=== PATIENT | female | born 1930 | race Caucasian/White ===

== ENCOUNTER 2016-04-10 15:55 | Inpatient (IN) | payer MEDICARE, OTHER ==
[2016-04-10 17:45] LABS: Hematocrit 40 % (35-47); Hemoglobin 13.2 g/dl (12.0-16.0); Mean Corpuscular HGB Conc 33 g/dl (31-36); Mean Corpuscular Hemoglobin 30 pg (27-31); Mean Corpuscular Volume 91 fL (80-97); Mean Platelet Volume 8 um3 (7.4-10.4); Red Blood Count 4.36 10^6/ul (4.0-5.4); Red Cell Distribution Width 13 % (10.5-15); White Blood Count 10.8 10^3/ul (3.5-10.8)
[2016-04-10 17:58] LABS: Albumin 4.2 g/dL (3.2-5.2); BUN/Creatinine Ratio 16.9 (8-20); C Reactive Protein 1.56 mg/L (< 5.00); Calcium 9.2 mg/dL (8.6-10.3); EGFR Non-African American 65.3 (>60); Potassium 3.7 mmol/L (3.5-5.0); Total Bilirubin 0.5 mg/dL (0.2-1.0); Total Protein 7.2 g/dL (6.4-8.9)
[2016-04-10 18:00] LABS: Troponin I 0.01 ng/mL (<0.04)
[2016-04-10 18:12] LABS: TSH (Thyroid Stimulating Horm) 1.85 mcIU/mL (0.34-5.60)
--- NOTE | 2016-04-10 18:45 | RAD ---
S. Prior study is not available for review. Ventricular structures are midline. No midline shift is noted. The extra-axial spaces are prominent consistent with age-related atrophy. There is no evidence of intracranial mass or hemorrhage. No other high or low density lesions are identified. Mastoid air cells and paranasal sinuses are unremarkable. IMPRESSION: No intracranial mass or hemorrhage is noted.
--- NOTE | 2016-04-10 18:46 | RAD ---
Indication: Vertigo. Single frontal view of the chest performed at 1807 hours was reviewed. Comparison is made with previous exam dated December 26, 2011. No mediastinal shift is noted. Heart is of normal size and configuration. Lung french appear clear. IMPRESSION: NO ACTIVE CARDIOPULMONARY DISEASE IS NOTED.
[2016-04-10 19:21] LABS: Urine Bacteria Absent (Absent); Urine Bilirubin Negative (Negative); Urine Glucose Negative (Negative); Urine Nitrite Negative (Negative)
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
[2016-04-11] MEDS: predniSONE TAB* 20 MG PO SCH ×2 (00:01→08:54)
[2016-04-11] MEDS: Aspirin EC Low Dose* 81 MG TAB.EC PO SCH ×4 (00:01→18:04)
[2016-04-11 04:32] LABS: Erythrocyte Sed Rate 18 mm/Hr (0-40)
[2016-04-11] MEDS: Heparin VIAL(*) 5000 UNITS/ML VIAL (FIVE THOUSAND) SUBCUT SCH ×3 (05:16→21:33)
[2016-04-11 06:05] LABS: HDL Cholesterol 39.6 mg/dL
--- NOTE | 2016-04-11 06:10 | HP ---
HISTORY AND PHYSICAL: DATE OF ADMISSION: 04/10/16 CHIEF COMPLAINT: Dizziness and being off balance. HISTORY OF PRESENT ILLNESS: The patient is an 85-year-old woman whose home health helper came to her house and found that she was dizzy, had a very bad headache, and was leaning to the left and holding on to the wall. They called Dr. Sweeney's office and made an appointment, and they saw Dr. Verduzco. They realized she was not actually feeling right yesterday and was somewhat dizzy. She had a flare of polymyalgia a few weeks ago, was on 10 days of prednisone, which was stopped. The pain is now back. She was somewhat off balance yesterday, but not to the degree she was today. At Dr. Verduzco's office, she was found to have a dysconjugate gaze and was concerned about a possible stroke. Also, because of her history of PMR, he was concerned that there could be some temporal arteritis. The patient currently does feel improved, but does state she still feels a bit off. She denies any chest pain, shortness of breath , or palpitations. Her headache has resolved. She does not feel dizzy right now. PAST MEDICAL HISTORY: She has a past medical history significant for hypertension, hyperlipidemia, herpes labialis, dyspepsia, allergic rhinitis, constipation, polyps of the colon, insomnia, dysthymia, and classic migraine. PAST SURGICAL HISTORY: Significant for rotator cuff repair, appendectomy, hysterectomy, and laminectomy. MEDICATIONS: Current medications are as follows: 1. Pravastatin 10 mg daily. 2. Omeprazole 20 mg daily. 3. Losartan 100 mg daily. 4. Clarinex 5 mg daily. 5. Amlodipine 10 mg daily. ALLERGIES: She has allergy or adverse effect to PENICILLIN, SULFA, CODEINE, COUMADIN, MORPHINE, DILAUDID, SHELLFISH, and SIMVASTATIN. FAMILY HISTORY: Sister with high cholesterol, brother with colon cancer, sister with ovarian cancer, another sister with breast cancer, and another brother with lymphoma. SOCIAL HISTORY: No tobacco, occasional alcohol. No recreational drug use. 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 She is a , with 3 children. Her daughter, Anitha Serna, [phone], is her healthcare proxy. REVIEW OF SYSTEMS: A 14-point review of systems was completed with the patient. All pertinent positives and negatives are in the history of present illness, otherwise it is negative. PHYSICAL EXAMINATION GENERAL: A very pleasant woman, lying in bed, in no acute distress. VITAL SIGNS: Temperature 98.4 degrees, heart rate 78 beats per minute, respiratory rate 16 breaths per minute, pulse ox 97%, blood pressure 108/61. HEENT: Normocephalic and atraumatic. Pupils are equal, round, and reactive to light. Moist mucous membranes. NECK: Supple. No JVD, bruits, palpable thyroid or lymphadenopathy. CHEST: Clear to auscultation and percussion bilaterally. CARDIOVASCULAR: S1, S2 appreciated. ABDOMEN: Positive bowel sounds in all 4 quadrants. Soft, nontender, and nondistended. EXTREMITIES: No cyanosis, clubbing, or edema. +2 peripheral pulses bilaterally. NEUROLOGIC: Alert and oriented x3. Moves all extremities. Extraocular movements are intact. There is no evidence of pronator drift. Cranial nerves II through XII seem to be grossly intact. LABORATORY DATA: White count 10.8, hemoglobin 13.2, hematocrit 40, platelets 321. Sodium 127, potassium 3.7, chloride 94, CO2 of 25, BUN 14, creatinine 0.83 , glucose is 84. INR is 0.91. Urinalysis with trace wbc's, trace rbc's. Influenza is negative. EKG shows normal sinus rhythm at 69 beats per minute, normal axis, no ST-T wave changes. Brain CT shows no intracranial mass or hemorrhages noted. Chest x-ray shows no active cardiopulmonary disease noted. ASSESSMENT AND PLAN: 1. Temporal arteritis. I think this is the likely diagnosis of the patient. I will add a sed rate, but based on her history of PMR and now she states she has some headaches in the temporal area and some discomfort when she moves her eye in that area, although she has no jaw pain. I will start her on prednisone 60 mg daily. May get Neurology or Surgery to do a temporal biopsy on the patient as well. 2. Cerebrovascular accident. This could also be happening, especially with her dizziness which I do not think would be explained by temporal arteritis. It seems to have resolved, so may be she even had a transient ischemic attack. Nevertheless, I will get an MRI, transthoracic echocardiogram, and a carotid duplex in the morning. Again, Neurology consult may be of benefit. 3. Hypertension. Blood pressure is inadequately controlled, and we will need to adjust medications accordingly. 4. Hyperlipidemia. Continue with statin, check lipid profile in the morning. 5. FEN. N.p.o., awaiting swallowing study. 6. DVT prophylaxis. Heparin subcu. 7. The patient is a full code TIME SPENT: Over 80 minutes were spent on this H and P, more than 45 minutes were spent in direct face contact with the patient, in evaluation, physical exam , counseling, and coordination of care. CC: Dr. Ruy Sweeney.* [id number]/CPS #: [id number] ERVIN
[2016-04-11] MEDS: Losartan TAB* 25 MG PO SCH (08:54)
[2016-04-11] MEDS: Omeprazole CAP* 20 MG PO SCH (08:55)
[2016-04-11] MEDS: amLODIPine TAB* 5 MG PO SCH (08:55)
--- NOTE | 2016-04-11 09:16 | RAD ---
HISTORY: Stroke COMPARISONS: August 08, 2009 TECHNIQUE: Multiple transverse and longitudinal ultrasound images were obtained of the carotid and vertebral arteries bilaterally, using grayscale, color Doppler, and spectral Doppler imaging. FINDINGS: Measurement of carotid stenosis is based on flow velocity parameters that correlate the residual internal carotid artery diameter with [place] Symptomatic Carotid Endarterectomy Trial (NASCET)-based stenosis levels. RIGHT: Intima: There is mild diffuse intimal thickening. Velocities: Right internal carotid artery maximum peak systolic velocity: 85 cm/s Right common carotid artery maximum peak systolic velocity: 78 cm/s Right internal carotid artery/common carotid artery ratio: 1.1 Waveforms: There is no spectral broadening. Right Vertebral: The right vertebral artery flow is antegrade. LEFT: Intima: There is mild diffuse intimal thickening. Velocities: Left internal carotid artery maximum peak systolic velocity: 76 cm/s Left common carotid artery maximum peak systolic velocity: 72 cm/s Left internal carotid artery/common carotid artery ratio: 1.1 Waveforms: There is no spectral broadening. Left Vertebral: The left vertebral artery flow is antegrade. OTHER FINDINGS: None. IMPRESSION: 1. NO HEMODYNAMICALLY SIGNIFICANT STENOSIS OF THE RIGHT INTERNAL CAROTID ARTERY BY FLOW VELOCITY MEASUREMENTS. THIS CORRESPONDS TO A LUMINAL DIAMETER OF LESS THAN 50% STENOSIS BY NASCET CRITERIA. 2. NO HEMODYNAMICALLY SIGNIFICANT STENOSIS OF THE LEFT INTERNAL CAROTID ARTERY BY FLOW VELOCITY MEASUREMENTS. THIS CORRESPONDS TO A LUMINAL DIAMETER OF LESS THAN 50% STENOSIS BY NASCET CRITERIA. CPT II Codes: 3100F
--- NOTE | 2016-04-11 11:58 | ECHO ---
Patient: ADDIS TOLEDO [facility] Rec#: [id number] : 1930 Date: 04/11/2016 Age: 85y Height: 154.94 cm / 61.0 in Weight: 58.97 kg / 130.0 lbs Sex: F BSA: 1.57 Room#: 437 Admit Date#: 04/10/2016 Type: Inpatient Referring: Lyle Coughlin MD Reading: Samir Mendoza DO Hydraulic Press Operator: Romy Ghotra SHARA CC: Ruy Sweeney MD Transthoracic Echocardiogram Indication: CVA BP: 156/69 HR: 82 Rhythm: NSR with PACs Findings History: HTN,rheumatoid arthritis,polymyalgia. Admited with CVA. Technical Comments: The study quality is good. Completed at 1111. Left Ventricle: The left ventricular chamber size is normal. Septal wall hypertrophy is observed. Global left ventricular wall motion and contractility are within normal limits. There is normal left ventricular systolic function. The estimated ejection fraction is 55-60%. Abnormal left ventricular diastolic filling is observed, consistent with impaired relaxation. Left Atrium: The left atrium is mildly dilated. Right Ventricle: The right ventricular chamber size and systolic function are within normal limits. Right Atrium: The right atrial cavity size is normal. There is no patent foramen ovale visualized. A patent foramen ovale is not demonstrated with color Doppler and agitated contrast. Aortic Valve: The aortic valve is trileaflet. The aortic valve leaflets are mildly thickened. There is no evidence of aortic regurgitation. There is no evidence of aortic stenosis. Mitral Valve: The mitral valve leaflets appear normal. There is mild mitral regurgitation. There is no evidence of mitral stenosis. Tricuspid Valve: The tricuspid valve leaflets are normal. There is mild tricuspid regurgitation. There is evidence of mild pulmonary hypertension. There is no tricuspid stenosis. Pulmonic Valve: The pulmonic valve appears normal. There is a trace pulmonic regurgitation. There is no pulmonic stenosis. Pericardium: There is no significant pericardial effusion. Aorta: There is no dilatation of the ascending aorta. There is no dilatation of the aortic arch. There is no dilation of the aortic root. Pulmonary Artery: The main pulmonary artery is not well visualized. Venous: The venous system is not well visualized. Contrast: Normal saline was used as contrast for the bubble study. Intravenous contrast was used to help determine presence of intracardiac shunting. Conclusions The left ventricular chamber size is normal. Mild septal wall hypertrophy is observed. There is normal left ventricular systolic function. The estimated ejection fraction is 55-60%. Global left ventricular wall motion and contractility are within normal limits. The left atrial chamber size is mildly dilated The right ventricular chamber size and systolic function are within normal limits. A patent foramen ovale is not demonstrated with color Doppler and agitated contrast (negative bubble study) No more than mild valvular regurgitation noted There is evidence of mild pulmonary hypertension. No prior studies available for comparison at time of interpretation. Measurements Name Value Normal Range RVIDd (AP) 2D 1.9 cm (0.9 - 2.6) RVDdMajor (2D) 3.8 cm (2.2 - 4.4) RAd ISD 4CH 5 cm (3.4 - 4.9) RA (A4C)W 2.9 cm (2.9 - 4.6) IVSd (2D) 1.2 cm (0.6 - 1) LVPWd (2D) 0.8 cm (0.6 - 1) LVIDd (2D) 3.6 cm (3.6 - 5.4) LVIDs (2D) 2.2 cm - LV FS (2D) 39 % (25 - 45) Aortic Annulus 2 cm (1.4 - 2.6) Ao root diameter (2D) 2.8 cm (2.1 - 3.5) Ascending Ao 2.4 cm (2.1 - 3.4) Aortic arch 2.3 cm (1.8 - 3.4) Descending Ao 0.6 cm - LA dimension (AP) 2D 3.1 cm (2.3 - 3.8) LAd ISD 4CH 6 cm (2.9 - 5.3) LA ISD 4CH W 4 cm (2.5 - 4.5) Name Value Normal Range LA ESV SP 4CH (A/L) 57 ml - LA ESV SP 2CH (A/L) 45 ml - LA ESV BP (A/L) 55 ml - LA ESV BP (A/L) index 34.72 ml/m2 - LA ESV SP 4CH (MOD) 54 ml - LA ESV SP 2CH (MOD) 43 ml - Name Value Normal Range MV E-wave Vmax 1 m/sec - MV deceleration time 170 msec - MV A-wave Vmax 1.2 m/sec - MV E:A ratio 0.8 ratio - LV septal e' Vmax 0.06 m/sec - LV lateral e' Vmax 0.07 m/sec - LV E:e' septal ratio 16.67 ratio - LV E:e' lateral ratio 14.29 ratio - Name Value Normal Range AV Vmax 1.7 m/sec - AV VTI 37.3 cm - AV peak gradient 11.99 mmHg - AV mean gradient 5.86 mmHg - LVOT Vmax 0.9 m/sec - LVOT VTI 25.5 cm - LVOT peak gradient 3.52 mmHg - LVOT mean gradient 1.87 mmHg - Name Value Normal Range TR Vmax 2.9 m/sec - TR peak gradient 34 mmHg - RAP 8 mmHg - RVSP 42 mmHg - Name Value Normal Range PV Vmax 0.8 m/sec - PV peak gradient 2.27 mmHg -
[2016-04-11] MEDS ORDERED: ALPRAZolam TAB* 0.25 MG PO ONE (12:28)
--- NOTE | 2016-04-11 13:34 | PN ---
Subjective Date of Service: 04/11/16 Interval History: Patient seen this morning. Says she continues to have intermittent episodes of dizziness where she feels like she is going to fall over, feels like room is spinning. No N/V. Good PO intake. Family History: Unchanged from Admission Social History: Unchanged from Admission Past Medical History: Unchanged from Admission Objective Active Medications: Amlodipine Besylate (Norvasc Tab*) 10 mg PO DAILY [facility] Aspirin (Aspirin Ec Low Dose*) 81 mg PO DAILY [facility] Cetirizine HCl (Zyrtec*) 10 mg PO QPM [facility] Heparin Sodium (Porcine) (Heparin Vial(*)) 5,000 units SUBCUT Q8HR [facility] Losartan Potassium (Cozaar Tab*) 100 mg PO DAILY [facility] Omeprazole (Prilosec Cap*) 20 mg PO DAILY [facility] Pravastatin Sodium (Pravachol (Nf)) 10 mg PO 1700 [facility] Prednisone (Deltasone Tab*) 60 mg PO DAILY [facility] Vital Signs 04/10/16 04/10/16 04/11/16 23:00 23:01 00:08 Temperature 98.4 F Pulse Rate 75 75 78 Respiratory 20 21 16 Rate Blood Pressure 147/57 180/61 (mmHg) O2 Sat by Pulse 95 96 97 Oximetry 04/11/16 04/11/16 04/11/16 00:35 00:53 03:30 Temperature 98.0 F Pulse Rate 73 Respiratory 18 20 Rate Blood Pressure 168/68 156/69 (mmHg) O2 Sat by Pulse 94 Oximetry 04/11/16 04/11/16 04/11/16 07:19 07:35 09:25 Temperature 97.8 F 97.4 F Pulse Rate 83 70 Respiratory 18 20 18 Rate Blood Pressure 133/51 120/70 (mmHg) O2 Sat by Pulse 94 94 Oximetry 04/11/16 11:41 Temperature 98.2 F Pulse Rate 100 Respiratory 18 Rate Blood Pressure 130/60 (mmHg) O2 Sat by Pulse 96 Oximetry Oxygen Devices in Use Now: None Appearance: Elderly, F, sitting in chair in NAD Eyes: No Scleral Icterus Ears/Nose/Mouth/Throat: Mucous Membranes Moist Neck: NL Appearance and Movements; NL JVP Respiratory: Symmetrical Chest Expansion and Respiratory Effort, Clear to Auscultation Cardiovascular: NL Sounds; No Murmurs; No JVD, RRR Abdominal: NL Sounds; No Tenderness; No Distention Lymphatic: No Cervical Adenopathy Extremities: - - Trace LE edema Neurological: Alert and Oriented x 3, - - Medial rectus palsy on R, 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 ?Symptoms related to vision problems alone. Do not think the patient has GCA with negative inflammatory markers, will stop prednisone. Echo and carotid dopplers are unremarkable. MRI pending. Spoke with Neurology who will evalute the patient. Continue ASA and home statin for now. HbA1c pending. Continue statin and BP medications. (2) HTN (hypertension) Current Visit: Yes Comment: BPs elevated overnight, so far have been controlled this morning. Will continue current regimen. (3) Hyponatremia Current Visit: Yes Comment: Mild. Recheck Na now. (4) HLD (hyperlipidemia) Current Visit: Yes Comment: Continue home pravastatin, may need increase in therapy. (5) DVT prophylaxis Current Visit: Yes Comment: HSQ
[2016-04-11 15:04] LABS: BUN/Creatinine Ratio 19.8 (8-20); Calcium 9.7 mg/dL (8.6-10.3); EGFR African American 86.4 (>60); EGFR Non-African American 67.2 (>60); Potassium 3.9 mmol/L (3.5-5.0)
--- NOTE | 2016-04-11 15:56 | CONSULT ---
Consult Consult: 04/11/16 neurology consult 85 yo RHF w/ PMR (maintenance steroids), anti plt kiran baseline, admitted with dysconjugate gaze (noted by providers and family friend yest am) and imbalance. She lives independently (daughter lives nearby), is quite sprightly and at baseline ambulates without any gait assist devices. There may be some modest baseline cognitive impairment; she suggested her imbalance started 2 weeks ago, whereas her daughter corrected that she was fine until Tues pm, when she complained of feeling unwell and dizzy on the phone. She has had intermittent binocular diplopia when looking to the left, which she complained of to family, but is more vague on this issue today. She denies servando facial numbness, but suggests that the right side of her face and/or head somehow has felt different in the past day or so; this is intermixed with chronic right shoulder and perhaps neck pains. She has noted imbalance (says not in any specific direction but falls to left repeatedly) without any bulbar symptoms, visual loss, facial droop, limb sensorimotor symptoms. Allergies/Meds - per apr PMH - as above, GERD, HTN, HL, PMR; R shoulder surg, lumbar surg, appy, hysterectomy FH - multiple different cancers as per med admit note SH - no tob or etoh; retired; dtr is proxy per admit note ROS - 10 point review as per hpi, otherwise negative Vitals per emr general Examination: no apparent distress, no edema, female of stated age Neurologic Examination Mental Status: alert and oriented; affect reactive (quite jocular and sprightly in fact), no neglect, fluent speech Cranial Nerves: Funduscopy deferred, PERRL; II-XII intact save right CEZAR, with right ad-duction absent (up and down gaze intact) vs L ab-duction intact, with back beating nystagmus Motor: normal bulk, tone and power; no drift or tremor Sensory: vibration and touch are intact Reflexes: 2 and symmetric throughout. Plantar responses are rapid withdrawal but ? extensor right Coordination: finger to nose is accurate vs truncal unsteadiness/falls over to left when pushed Gait: narrow base; leans or falls left Serologies: - CBC, coags, ESR/CRP, LFTs, trop, cpk, TSH are all normal or negative; Na 127 ( low in past as well) - Priors: cortisol, B12 nl in 2014; RF, CPP, MALLIKA, Lyme all nl in 2012 Imaging: - Head CT reviewed and neg - TTE neg - CUS neg - 2008 lumbar mri had L2-3 fragment - Cxr neg; 11/01 mammo neg Impression: 85 year old with HTN, HL, anti plt kiran, p/w ataxia and R CEZAR of 2 days duration, likely due to brainstem stroke. She has had a partial and negative workup, but since her insult is in posterior circ distribution will need post circ parenchymal and vascular imaging; the relevance of her neck pain is unclear (may be myofascial; has chronic shoulder pains ipsi) but the MRA should be done with dissection protocol, as such a finding would warrant intermediate term anticoagulation: 1. MRI brain and MRA head and neck 2. Tele 3. ASA 4. Statin 5. Aic 6. Dr john is on service tomorrow and will follow up on the results 7. d/w medicine team
--- NOTE | 2016-04-11 16:50 | RAD ---
Indication: Stroke, left-sided weakness. Image sequences: Sagittal and axial T1, axial T2, FLAIR, diffusion and susceptibility weighted images of the brain were obtained. Ventricular structures are midline. No midline shift is noted. There is central and cortical atrophy noted. Periventricular white matter changes are noted consistent with small vessel chronic ischemic changes. There is a tiny area of restriction of diffusion in the midbrain just anterior and to the right of the aqueduct of Sylvius extending into the right cerebral peduncle. This may represent a small lacunar infarct. Susceptibility weighted images demonstrates no evidence of susceptibility artifact. Punctate areas of signal abnormality on the FLAIR images and brainstem as well as in the periventricular white matter is consistent with chronic ischemic White matter change. Paranasal sinuses are otherwise unremarkable. The orbits are otherwise unremarkable. IMPRESSION: PUNCTATE AREA OF RESTRICTION OF DIFFUSION IN THE RIGHT MIDBRAIN TOWARDS THE RIGHT CEREBRAL PEDUNCLE JUST ADJACENT TO THE AQUEDUCT OF SYLVIUS. THIS MAY REPRESENT AN ACUTE LACUNAR INFARCT. CHRONIC ISCHEMIC WHITE MATTER CHANGE IS NOTED. AGE-APPROPRIATE ATROPHY.
--- NOTE | 2016-04-11 16:57 | RAD ---
Indication: Stroke. MRA of the brain was performed utilizing 3-D [id number] technique. Multiple maximum intensity projection images were obtained. The intracranial carotid arteries demonstrates no evidence of branch occlusion. There are irregularities in the left middle cerebral artery suggestive of atherosclerosis. There is suggestion of atherosclerosis of the anterior cerebral artery on the right as well. The vertebral arteries and basilar artery are unremarkable. Posterior cerebral arteries are patent although irregularities are noted in both posterior cerebral arteries suggestive of atherosclerosis. No branch occlusion is identified. No aneurysmal dilatation is noted. IMPRESSION: Irregularity of the middle cerebral arteries, anterior cerebral arteries and posterior cerebral arteries suggestive of atherosclerosis. No aneurysmal dilatation or branch occlusion is identified.
[2016-04-11] MEDS ORDERED: Pravastatin (NF) 10 MG TAB PO SCH (17:00)
[2016-04-11] MEDS ORDERED: CMCS: Pravastatin (NF) 20 MG TAB PO SCH (18:00)
[2016-04-11] MEDS ORDERED: Atorvastatin* 40 MG TAB PO SCH (18:00)
[2016-04-11] MEDS: Cetirizine* 10 MG TAB PO SCH ×2 (18:11→19:21)
[2016-04-11] MEDS: Mirtazapine TAB* 15 MG PO SCH (19:21)
[2016-04-12] MEDS: Heparin VIAL(*) 5000 UNITS/ML VIAL (FIVE THOUSAND) SUBCUT SCH ×3 (05:06→21:33)
--- NOTE | 2016-04-12 07:48 | RAD ---
Indication: Stroke. MRA of the neck was performed utilizing [id number] technique. No IV contrast was given. The carotid arteries demonstrate no significant stenosis. Normal flow is noted. No occlusion is noted. IMPRESSION: MRA of the neck demonstrates no evidence of carotid artery stenosis.
[2016-04-12] MEDS: Omeprazole CAP* 20 MG PO SCH (09:50)
[2016-04-12] MEDS: amLODIPine TAB* 5 MG PO SCH (09:50)
[2016-04-12] MEDS: Aspirin EC Low Dose* 81 MG TAB.EC PO SCH (09:50)
[2016-04-12] MEDS: Losartan TAB* 25 MG PO SCH (09:50)
--- NOTE | 2016-04-12 12:21 | PN ---
Progress Note - Progress Note SOAP: Neurology progress note Date of service: 04/12/16 Subjective: No acute events. Patient feels her vision is worse on the left gaze. Objective: Vital Signs Temp Pulse Resp BP Pulse Ox 98.0 F 73 18 153/52 97 04/12/16 07:32 04/12/16 07:32 04/12/16 09:00 04/12/16 07:32 04/12/16 07:32 Laboratory Results - last 24 hr 04/10/16 04/11/16 16:42 14:42 Sodium 128 L Potassium 3.9 Chloride 96 L Carbon Dioxide 23 Anion Gap 9 BUN 16 Creatinine 0.81 Est GFR ( Amer) 86.4 Est GFR (Non-Af Amer) 67.2 BUN/Creatinine Ratio 19.8 Glucose 209 H Hemoglobin A1c 6.1 H Calcium 9.7 Current Medications Amlodipine Besylate (Norvasc Tab*) 10 mg PO DAILY [facility] Last Admin: 04/12/16 09:50 Dose: 10 mg Aspirin (Aspirin Ec Low Dose*) 81 mg PO DAILY [facility] Last Admin: 04/12/16 09:50 Dose: 81 mg Atorvastatin Calcium (Lipitor*) 40 mg PO 1700 [facility] Last Admin: 04/11/16 18:13 Dose: Not Given Cetirizine HCl (Zyrtec*) 10 mg PO QPM [facility] PRN Reason: Protocol Last Admin: 04/11/16 19:21 Dose: 10 mg Heparin Sodium (Porcine) (Heparin Vial(*)) 5,000 units SUBCUT Q8HR [facility] Last Admin: 04/12/16 05:06 Dose: 5,000 units Losartan Potassium (Cozaar Tab*) 100 mg PO DAILY [facility] Last Admin: 04/12/16 09:50 Dose: 100 mg Mirtazapine (Remeron Tab*) 15 mg PO BEDTIME [facility] Last Admin: 04/11/16 19:21 Dose: 15 mg Omeprazole (Prilosec Cap*) 20 mg PO DAILY [facility] Last Admin: 04/12/16 09:50 Dose: 20 mg On neurological exam: Awake, alert, oriented x3. Pupils symmetric and reactive. Adduction on the right eye limited. Language intact. Speech not dysarthric. Face symmetric. Strength 5/5 throughout. Sensation is intact to light touch and pinprick in the UE and LE bilaterally. Cardiac Echo: The left ventricular chamber size is normal. Mild septal wall hypertrophy is observed. There is normal left ventricular systolic function. The estimated ejection fraction is 55-60%. Global left ventricular wall motion and contractility are within normal limits. The left atrial chamber size is mildly dilated The right ventricular chamber size and systolic function are within normal limits. A patent foramen ovale is not demonstrated with color Doppler and agitated contrast (negative bubble study) MRA neck: MRA of the neck demonstrates no evidence of carotid artery stenosis. MRA head: Irregularity of the middle cerebral arteries, anterior cerebral arteries and posterior cerebral arteries suggestive of atherosclerosis. No aneurysmal dilatation or branch occlusion is identified. MRI brain: PUNCTATE AREA OF RESTRICTION OF DIFFUSION IN THE RIGHT MIDBRAIN TOWARDS THE RIGHT CEREBRAL PEDUNCLE JUST ADJACENT TO THE AQUEDUCT OF SYLVIUS. THIS MAY REPRESENT AN ACUTE LACUNAR INFARCT. CHRONIC ISCHEMIC WHITE MATTER CHANGE IS NOTED. AGE-APPROPRIATE ATROPHY. 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 No evidence of dissection in the posterior circulation. Continue the current medication management: antiplatelets + statins.
[2016-04-12] MEDS ORDERED: Acetaminophen TAB* 325 MG PO PRN (14:38)
--- NOTE | 2016-04-12 14:41 | PN ---
Subjective Date of Service: 04/12/16 Interval History: C/O pain R calf for 2 hrs, headache since awakening from her nap. Not unusual for her to have headaches at home, uses 1 gm APAP for that. Family History: Unchanged from Admission Social History: Unchanged from Admission Past Medical History: Unchanged from Admission Objective Active Medications: Amlodipine Besylate (Norvasc Tab*) 10 mg PO DAILY [facility] Last Admin: 04/12/16 09:50 Dose: 10 mg Aspirin (Aspirin Ec Low Dose*) 81 mg PO DAILY [facility] Last Admin: 04/12/16 09:50 Dose: 81 mg Cetirizine HCl (Zyrtec*) 10 mg PO QPM [facility] PRN Reason: Protocol Last Admin: 04/11/16 19:21 Dose: 10 mg Heparin Sodium (Porcine) (Heparin Vial(*)) 5,000 units SUBCUT Q8HR [facility] Last Admin: 04/12/16 13:44 Dose: 5,000 units Losartan Potassium (Cozaar Tab*) 100 mg PO DAILY [facility] Last Admin: 04/12/16 09:50 Dose: 100 mg Mirtazapine (Remeron Tab*) 15 mg PO BEDTIME [facility] Last Admin: 04/11/16 19:21 Dose: 15 mg Omeprazole (Prilosec Cap*) 20 mg PO DAILY [facility] Last Admin: 04/12/16 09:50 Dose: 20 mg Vital Signs 04/11/16 04/11/16 04/11/16 14:37 15:45 16:37 Temperature 98.3 F Pulse Rate 91 Respiratory 18 18 18 Rate Blood Pressure 135/53 (mmHg) O2 Sat by Pulse 96 Oximetry 04/11/16 04/11/16 04/11/16 20:00 20:16 23:41 Temperature 98.1 F 97.5 F Pulse Rate 79 74 Respiratory 16 16 20 Rate Blood Pressure 134/57 148/55 (mmHg) O2 Sat by Pulse 96 95 Oximetry 04/12/16 04/12/16 04/12/16 03:46 07:32 09:00 Temperature 98.1 F 98.0 F Pulse Rate 66 73 Respiratory 20 18 18 Rate Blood Pressure 121/42 153/52 (mmHg) O2 Sat by Pulse 97 97 Oximetry 04/12/16 11:45 Temperature Pulse Rate 72 Respiratory 18 Rate Blood Pressure 126/51 (mmHg) O2 Sat by Pulse 96 Oximetry Oxygen Devices in Use Now: None Appearance: Alert, in a chair. In good spirits. Looks comfortable. Eyes: No Scleral Icterus Ears/Nose/Mouth/Throat: Clear Oropharnyx, Mucous Membranes Moist Neck: NL Appearance and Movements; NL JVP, No Thyroid Enlargement, Masses Respiratory: Symmetrical Chest Expansion and Respiratory Effort, Clear to Auscultation, Clear to Percussion Cardiovascular: NL Sounds; No Murmurs; No JVD, RRR, No Edema, - Extremities: No Edema, No Clubbing, Cyanosis, - - No calf tenderness Skin: No Rash or Ulcers, No Nodules or Sclerosis, - Neurological: Alert and Oriented x 3, NL Sensation - No gaze to left. Result Diagrams: 04/10/16 16:42 04/11/16 14:42 Additional Lab and Data: Assess/Plan/Problems-Billing Assessment: Dizziness and R medial rectus palsy in an 85 yo F with hx of HTN, HLD, PMR - Patient Problems (1) CVA (cerebral vascular accident) Current Visit: Yes Status: Acute Code(s): I63.9 - CEREBRAL INFARCTION, UNSPECIFIED SNOMED Code(s): 107202851 Comment: Punctate area of restriction of diffusion in the right midbrain. Continue ASA. Patient had myalgias with atorvastatin in the past, was put on her current dose of pravastatin because of that. PT, OT ordered.
[2016-04-12] MEDS: CMCS: Pravastatin (NF) 20 MG TAB PO SCH (17:19)
[2016-04-12] MEDS: Cetirizine* 10 MG TAB PO SCH (17:20)
[2016-04-12] MEDS: Mirtazapine TAB* 15 MG PO SCH (20:30)
[2016-04-13] MEDS: Heparin VIAL(*) 5000 UNITS/ML VIAL (FIVE THOUSAND) SUBCUT SCH ×3 (05:10→20:42)
[2016-04-13] MEDS: Aspirin EC Low Dose* 81 MG TAB.EC PO SCH (09:11)
[2016-04-13] MEDS: amLODIPine TAB* 5 MG PO SCH (09:11)
[2016-04-13] MEDS: Losartan TAB* 25 MG PO SCH (09:11)
[2016-04-13] MEDS: Omeprazole CAP* 20 MG PO SCH (09:12)
[2016-04-13] MEDS ORDERED: Polyethylene Glycol 3350* 17 GM PACKET PO PRN (12:15)
--- NOTE | 2016-04-13 12:35 | PN ---
Subjective Date of Service: 04/13/16 Interval History: No new c/o. Family History: Unchanged from Admission Social History: Unchanged from Admission Past Medical History: Unchanged from Admission Objective Active Medications: Acetaminophen (Tylenol Tab*) 975 mg PO Q6H PRN PRN Reason: PAIN OR TEMPERATURE Amlodipine Besylate (Norvasc Tab*) 10 mg PO DAILY [facility] Last Admin: 04/13/16 09:11 Dose: 10 mg Aspirin (Aspirin Ec Low Dose*) 81 mg PO DAILY [facility] Last Admin: 04/13/16 09:11 Dose: 81 mg Cetirizine HCl (Zyrtec*) 10 mg PO QPM [facility] PRN Reason: Protocol Last Admin: 04/12/16 17:20 Dose: 10 mg Heparin Sodium (Porcine) (Heparin Vial(*)) 5,000 units SUBCUT Q8HR [facility] Last Admin: 04/13/16 05:10 Dose: 5,000 units Losartan Potassium (Cozaar Tab*) 100 mg PO DAILY [facility] Last Admin: 04/13/16 09:11 Dose: 100 mg Mirtazapine (Remeron Tab*) 15 mg PO BEDTIME [facility] Last Admin: 04/12/16 20:30 Dose: 15 mg Omeprazole (Prilosec Cap*) 20 mg PO DAILY [facility] Last Admin: 04/13/16 09:12 Dose: 20 mg Polyethylene Glycol/Electrolytes (Miralax*) 17 gm PO DAILY [facility] PRN Reason: CONSTIPATION Polyethylene Glycol/Electrolytes (Miralax*) 17 gm PO DAILY [facility] Pravastatin Sodium (Pravachol (Nf)) 10 mg PO 1700 [facility] Last Admin: 04/12/16 17:19 Dose: 10 mg Vital Signs 04/12/16 04/12/16 04/12/16 16:03 20:00 20:09 Temperature 97.9 F 97.6 F Pulse Rate 70 80 Respiratory 16 16 16 Rate Blood Pressure 124/51 126/57 (mmHg) O2 Sat by Pulse 96 97 Oximetry 04/13/16 04/13/16 04/13/16 00:00 03:52 07:48 Temperature 98.2 F 97.8 F 97.4 F Pulse Rate 75 73 80 Respiratory 20 16 Rate Blood Pressure 119/50 122/76 152/53 (mmHg) O2 Sat by Pulse 95 93 95 Oximetry 04/13/16 08:00 Temperature Pulse Rate Respiratory 16 Rate Blood Pressure (mmHg) O2 Sat by Pulse Oximetry Oxygen Devices in Use Now: None Appearance: Alert, in a chair. In fair spirits. Looks comfortable. Eyes: No Scleral Icterus Ears/Nose/Mouth/Throat: Clear Oropharnyx, Mucous Membranes Moist Neck: NL Appearance and Movements; NL JVP, No Thyroid Enlargement, Masses Respiratory: Symmetrical Chest Expansion and Respiratory Effort, Clear to Auscultation, Clear to Percussion Cardiovascular: NL Sounds; No Murmurs; No JVD, RRR, No Edema, - Extremities: No Edema, No Clubbing, Cyanosis, - Skin: No Rash or Ulcers, No Nodules or Sclerosis, - Neurological: Alert and Oriented x 3, NL Sensation, - - Some movement both eyes to left, R eye lags a little. Result Diagrams: 04/10/16 16:42 04/11/16 14:42 Additional Lab and Data: Assess/Plan/Problems-Billing Assessment: Dizziness and R medial rectus palsy in an 85 yo F with hx of HTN, HLD, PMR - Patient Problems (1) CVA (cerebral vascular accident) Current Visit: Yes Status: Acute Code(s): I63.9 - CEREBRAL INFARCTION, UNSPECIFIED SNOMED Code(s): 255585471 Comment: Punctate area of restriction of diffusion in the right midbrain. Continue ASA. Patient had myalgias with atorvastatin in the past, was put on her current dose of pravastatin because of that. I will ask Dr. Bolton to evalutate her neruo deficit 02/10. PT felt she would be safe to go home if she used a walker. (2) HTN (hypertension) Current Visit: Yes Status: Acute Code(s): I10 - ESSENTIAL (PRIMARY) HYPERTENSION SNOMED Code(s): 08399575 Comment: Reduce losartan to 50 mg daily, start 04/14. (3) Hyponatremia Current Visit: Yes Status: Acute Code(s): E87.1 - HYPO-OSMOLALITY AND HYPONATREMIA SNOMED Code(s): 40370231 Comment: BMP 04/14. (4) HLD (hyperlipidemia) Current Visit: Yes Status: Acute Code(s): E78.5 - HYPERLIPIDEMIA, UNSPECIFIED SNOMED Code(s): 60628265 Comment: Continue home pravastatin, consider higher dose if no hx adverse effects.
[2016-04-13] MEDS ORDERED: Polyethylene Glycol 3350* 17 GM PACKET PO SCH (13:00)
[2016-04-13] MEDS: Cetirizine* 10 MG TAB PO SCH (16:51)
[2016-04-13] MEDS: CMCS: Pravastatin (NF) 20 MG TAB PO SCH (16:54)
[2016-04-13] MEDS ORDERED: Sodium Phosphate ADULT ENEMA* 118 ml bottle PR PRN (18:24)
--- NOTE | 2016-04-13 19:45 | PN ---
Progress Note - Progress Note SOAP: Neurology progress note Date of service: 04/13/16 Subjective: I saw and examined the patient around 18:15 today. The patient had no acute events overnight. She feels her vision has improved compared to yesterday. She complained about chronic constipation. Objective: Vital Signs Temp Pulse Resp BP Pulse Ox 98.5 F 66 16 121/45 97 04/13/16 16:02 04/13/16 16:02 04/13/16 16:02 04/13/16 16:02 04/13/16 16:02 Laboratory Last Values WBC 10.8 10^3/ul (3.5-10.8) 04/10/16 16:42 RBC 4.36 10^6/ul (4.0-5.4) 04/10/16 16:42 Hgb 13.2 g/dl (12.0-16.0) 04/10/16 16:42 Hct 40 % (35-47) 04/10/16 16:42 MCV 91 fL (80-97) 04/10/16 16:42 MCH 30 pg (27-31) 04/10/16 16:42 MCHC 33 g/dl (31-36) 04/10/16 16:42 RDW 13 % (10.5-15) 04/10/16 16:42 Plt Count 321 10^3/ul (150-450) 04/10/16 16:42 MPV 8 um3 (7.4-10.4) 04/10/16 16:42 Neut % (Auto) 68.6 % (38-83) 04/10/16 16:42 Lymph % (Auto) 23.4 % (25-47) L 04/10/16 16:42 [place] % (Auto) 5.4 % (1-9) 04/10/16 16:42 Eos % (Auto) 2.0 % (0-6) 04/10/16 16:42 Baso % (Auto) 0.6 % (0-2) 04/10/16 16:42 Absolute Neuts (auto) 7.4 10^3/ul (1.5-7.7) 04/10/16 16:42 Absolute Lymphs (auto) 2.5 10^3/ul (1.0-4.8) 04/10/16 16:42 Absolute Monos (auto) 0.6 10^3/ul (0-0.8) 04/10/16 16:42 Absolute Eos (auto) 0.2 10^3/ul (0-0.6) 04/10/16 16:42 Absolute Basos (auto) 0.1 10^3/ul (0-0.2) 04/10/16 16:42 Absolute Nucleated RBC 0.01 10^3/ul 04/10/16 16:42 Nucleated RBC % 0.1 04/10/16 16:42 ESR 18 mm/Hr (0-40) 04/10/16 16:42 INR (Anticoag Therapy) 0.91 (0.89-1.11) 04/10/16 16:42 APTT 28.6 seconds (26.0-36.3) 04/10/16 16:42 Sodium 128 mmol/L (133-145) L 04/11/16 14:42 Potassium 3.9 mmol/L (3.5-5.0) 04/11/16 14:42 Chloride 96 mmol/L (101-111) L 04/11/16 14:42 Carbon Dioxide 23 mmol/L (22-32) 04/11/16 14:42 Anion Gap 9 mmol/L (2-11) 04/11/16 14:42 BUN 16 mg/dL (6-24) 04/11/16 14:42 Creatinine 0.81 mg/dL (0.51-0.95) 04/11/16 14:42 Est GFR ( Amer) 86.4 (>60) 04/11/16 14:42 Est GFR (Non-Af Amer) 67.2 (>60) 04/11/16 14:42 BUN/Creatinine Ratio 19.8 (8-20) 04/11/16 14:42 Glucose 209 mg/dL (70-100) H 04/11/16 14:42 Hemoglobin A1c 6.1 % (Less than 6.0) H 04/10/16 16:42 Lactic Acid 0.6 mmol/L (0.5-2.0) 04/10/16 16:42 Calcium 9.7 mg/dL (8.6-10.3) 04/11/16 14:42 Total Bilirubin 0.50 mg/dL (0.2-1.0) 04/10/16 16:42 AST 19 U/L (13-39) 04/10/16 16:42 ALT 16 U/L (7-52) 04/10/16 16:42 Alkaline Phosphatase 51 U/L (34-104) 04/10/16 16:42 Total Creatine Kinase 39 U/L (10-223) 04/10/16 16:42 CK-MB (CK-2) 1.9 ng/mL (0.6-6.3) 04/10/16 16:42 Troponin I 0.01 ng/mL (<0.04) 04/10/16 16:42 C-Reactive Protein 1.56 mg/L (< 5.00) 04/10/16 16:42 B-Natriuretic Peptide 97 pg/mL (-100) 04/10/16 16:42 Total Protein 7.2 g/dL (6.4-8.9) 04/10/16 16:42 Albumin 4.2 g/dL (3.2-5.2) 04/10/16 16:42 Globulin 3.0 g/dL (2-4) 04/10/16 16:42 Albumin/Globulin Ratio 1.4 (1-3) 04/10/16 16:42 Triglycerides 192 mg/dL 04/11/16 05:09 Cholesterol 220 mg/dL 04/11/16 05:09 LDL Cholesterol 142 mg/dL 04/11/16 05:09 HDL Cholesterol 39.6 mg/dL 04/11/16 05:09 Lipase 32 U/L (11.0-82.0) 04/10/16 16:42 TSH 1.85 mcIU/mL (0.34-5.60) 04/10/16 16:42 Urine Color Yellow 04/10/16 18:40 Urine Appearance Clear 04/10/16 18:40 Urine pH 6.0 (5-9) 04/10/16 18:40 Ur Specific Bowie 1.010 (1.010-1.030) 04/10/16 18:40 Urine Protein Negative (Negative) 04/10/16 18:40 Urine Ketones Negative (Negative) 04/10/16 18:40 Urine Blood Negative (Negative) 04/10/16 18:40 Urine Nitrate Negative (Negative) 04/10/16 18:40 Urine Bilirubin Negative (Negative) 04/10/16 18:40 Urine Urobilinogen Negative (Negative) 04/10/16 18:40 Ur Leukocyte Esterase Trace (Negative) H 04/10/16 18:40 Urine WBC (Auto) Trace(0-5/hpf) (Absent) 04/10/16 18:40 Urine RBC (Auto) Trace(0-2/hpf) (Absent) 04/10/16 18:40 Ur Squamous Epith Cells Present (Absent) H 04/10/16 18:40 Urine Bacteria Absent (Absent) 04/10/16 18:40 Urine Glucose Negative (Negative) 04/10/16 18:40 Urine Ascorbic Acid * (Negative) H 04/10/16 18:40 Influenza A (Rapid) Negative (Negative) 04/10/16 19:46 Influenza B (Rapid) Negative (Negative) 04/10/16 19:46 Current Medications Acetaminophen (Tylenol Tab*) 975 mg PO Q6H PRN PRN Reason: PAIN OR TEMPERATURE Amlodipine Besylate (Norvasc Tab*) 10 mg PO DAILY [facility] Last Admin: 04/13/16 09:11 Dose: 10 mg Aspirin (Aspirin Ec Low Dose*) 81 mg PO DAILY [facility] Last Admin: 04/13/16 09:11 Dose: 81 mg Cetirizine HCl (Zyrtec*) 10 mg PO QPM [facility] PRN Reason: Protocol Last Admin: 04/13/16 16:51 Dose: Not Given Heparin Sodium (Porcine) (Heparin Vial(*)) 5,000 units SUBCUT Q8HR [facility] Last Admin: 04/13/16 14:46 Dose: 5,000 units Losartan Potassium (Cozaar Tab*) 50 mg PO DAILY [facility] Mirtazapine (Remeron Tab*) 15 mg PO BEDTIME [facility] Last Admin: 04/12/16 20:30 Dose: 15 mg Omeprazole (Prilosec Cap*) 20 mg PO DAILY [facility] Last Admin: 04/13/16 09:12 Dose: 20 mg Polyethylene Glycol/Electrolytes (Miralax*) 17 gm PO DAILY PRN PRN Reason: CONSTIPATION Polyethylene Glycol/Electrolytes (Miralax*) 17 gm PO BID [facility] Pravastatin Sodium (Pravachol (Nf)) 10 mg PO 1700 [facility] Last Admin: 04/13/16 16:54 Dose: 10 mg Sodium Biphosphate/Sodium Phosphate (Fleet Enema*) 1 bottle [place] DAILY PRN PRN Reason: CONSTIPATION On neurological exam: Awake, alert, oriented x3. Pupils symmetric and reactive. Adduction on the right has improved compared to yesterday's exam: yesterday there was no adduction in the right eye past the midline; today, she has more adduction, probably up to 30 degrees past the midline. Language intact. Speech not dysarthric. Face symmetric. Strength 5/5 throughout. Sensation is intact to light touch and pinprick in the UE and LE bilaterally. 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 Her CEZAR has improved today with more adduction movement in the right eye. The recommendations remain similar as continuring antiplatelets and low dose statins (as seems she had myalgia with higher doses in the past). Need an ophthalmology exam and follow up as outpatient.
[2016-04-13] MEDS: Mirtazapine TAB* 15 MG PO SCH (20:42)
[2016-04-13] MEDS: Polyethylene Glycol 3350* 17 GM PACKET PO SCH (20:42)
[2016-04-14] MEDS: Heparin VIAL(*) 5000 UNITS/ML VIAL (FIVE THOUSAND) SUBCUT SCH ×3 (05:24→21:07)
[2016-04-14 06:24] LABS: EGFR African American 85.2 (>60); EGFR Non-African American 66.3 (>60); Potassium 4.3 mmol/L (3.5-5.0)
[2016-04-14] MEDS: amLODIPine TAB* 5 MG PO SCH (09:29)
[2016-04-14] MEDS: Losartan TAB* 25 MG PO SCH (09:29)
[2016-04-14] MEDS: Aspirin EC Low Dose* 81 MG TAB.EC PO SCH (09:29)
[2016-04-14] MEDS: Omeprazole CAP* 20 MG PO SCH (09:29)
[2016-04-14] MEDS: Polyethylene Glycol 3350* 17 GM PACKET PO SCH ×2 (09:30→20:35)
[2016-04-14] MEDS ORDERED: amLODIPine TAB* 5 MG PO SCH (16:15)
[2016-04-14] MEDS: Cetirizine* 10 MG TAB PO SCH (16:41)
[2016-04-14] MEDS: CMC: Pravastatin (NF) 20 MG TAB PO SCH (16:41)
--- NOTE | 2016-04-14 17:04 | PN ---
Subjective Date of Service: 04/14/16 Interval History: Patient is aware of her gaze palsy, but was able to take a long walk in the [place] with her daughter today anyway. She is concerned about constipation, did not seem to know that she has been getting PEG. No new c/o. Family History: Unchanged from Admission Social History: Unchanged from Admission Past Medical History: Unchanged from Admission Objective Active Medications: Acetaminophen (Tylenol Tab*) 975 mg PO Q6H PRN PRN Reason: PAIN OR TEMPERATURE Amlodipine Besylate (Norvasc Tab*) 5 mg PO DAILY [facility] Aspirin (Aspirin Ec Low Dose*) 81 mg PO DAILY [facility] Last Admin: 04/14/16 09:29 Dose: 81 mg Cetirizine HCl (Zyrtec*) 10 mg PO QPM [facility] PRN Reason: Protocol Last Admin: 04/14/16 16:41 Dose: Not Given Heparin Sodium (Porcine) (Heparin Vial(*)) 5,000 units SUBCUT Q8HR [facility] Last Admin: 04/14/16 14:42 Dose: 5,000 units Losartan Potassium (Cozaar Tab*) 50 mg PO DAILY [facility] Last Admin: 04/14/16 09:29 Dose: 50 mg Mirtazapine (Remeron Tab*) 15 mg PO BEDTIME [facility] Last Admin: 04/13/16 20:42 Dose: 15 mg Omeprazole (Prilosec Cap*) 20 mg PO DAILY [facility] Last Admin: 04/14/16 09:29 Dose: 20 mg Polyethylene Glycol/Electrolytes (Miralax*) 17 gm PO DAILY PRN PRN Reason: CONSTIPATION Polyethylene Glycol/Electrolytes (Miralax*) 17 gm PO BID [facility] Last Admin: 04/14/16 09:30 Dose: 17 gm Pravastatin Sodium (Pravachol (Nf)) 20 mg PO 1700 [facility] Last Admin: 04/14/16 16:41 Dose: 20 mg Sodium Biphosphate/Sodium Phosphate (Fleet Enema*) 1 bottle MD DAILY PRN PRN Reason: CONSTIPATION Vital Signs 04/13/16 04/13/16 04/14/16 19:53 20:26 00:07 Temperature 97.4 F 97.5 F Pulse Rate 84 76 Respiratory 16 16 20 Rate Blood Pressure 127/59 128/46 (mmHg) O2 Sat by Pulse 94 95 Oximetry 04/14/16 04/14/16 04/14/16 04:24 08:00 08:18 Temperature 98.1 F 97.6 F Pulse Rate 76 87 Respiratory 20 16 16 Rate Blood Pressure 135/56 135/64 (mmHg) O2 Sat by Pulse 97 94 Oximetry 04/14/16 12:02 Temperature 98.1 F Pulse Rate 32 Respiratory 16 Rate Blood Pressure 120/58 (mmHg) O2 Sat by Pulse 96 Oximetry Oxygen Devices in Use Now: None Appearance: Alert, in chair with legs elevated. In good spirits. Looks comfortable. Eyes: No Scleral Icterus Neck: NL Appearance and Movements; NL JVP, No Thyroid Enlargement, Masses Respiratory: Symmetrical Chest Expansion and Respiratory Effort, Clear to Auscultation, Clear to Percussion Cardiovascular: NL Sounds; No Murmurs; No JVD, RRR, No Edema, - Extremities: No Edema, No Clubbing, Cyanosis, - Skin: No Rash or Ulcers, No Nodules or Sclerosis, - Neurological: Alert and Oriented x 3, NL Sensation, - - lack of R eye medial gaze Result Diagrams: 04/10/16 16:42 04/14/16 05:32 Additional Lab and Data: Assess/Plan/Problems-Billing Assessment: Dizziness and R medial rectus palsy in an 85 yo F with hx of HTN, HLD, PMR - Patient Problems (1) CVA (cerebral vascular accident) Current Visit: Yes Status: Acute Code(s): I63.9 - CEREBRAL INFARCTION, UNSPECIFIED SNOMED Code(s): 262036081 Comment: Punctate area of restriction of diffusion in the right midbrain. Continue ASA. I will increase pravastatin dose to 20 mg daily, consider further escalation if she tolerates this. Dr. Bolton's note appreciated. PT felt she would be safe to go home if she used a walker. (2) HTN (hypertension) Current Visit: Yes Status: Acute Code(s): I10 - ESSENTIAL (PRIMARY) HYPERTENSION SNOMED Code(s): 90842646 Comment: BP 120/58 after losartan 50 mg, will reduce amlodippine to 5 mg daily starting 04/15. (3) Hyponatremia Current Visit: Yes Status: Acute Code(s): E87.1 - HYPO-OSMOLALITY AND HYPONATREMIA SNOMED Code(s): 49951846 Comment: BMP 04/14. (4) HLD (hyperlipidemia) Current Visit: Yes Status: Acute Code(s): E78.5 - HYPERLIPIDEMIA, UNSPECIFIED SNOMED Code(s): 40405469 Comment: Continue home pravastatin, consider higher dose if no hx adverse effects.
[2016-04-14] MEDS: Mirtazapine TAB* 15 MG PO SCH (20:35)
[2016-04-15] MEDS: Heparin VIAL(*) 5000 UNITS/ML VIAL (FIVE THOUSAND) SUBCUT SCH ×3 (05:14→21:08)
[2016-04-15] MEDS: Losartan TAB* 25 MG PO SCH (08:54)
[2016-04-15] MEDS: Aspirin EC Low Dose* 81 MG TAB.EC PO SCH (08:54)
[2016-04-15] MEDS: Omeprazole CAP* 20 MG PO SCH (08:54)
[2016-04-15] MEDS: Polyethylene Glycol 3350* 17 GM PACKET PO SCH ×2 (08:56→20:25)
[2016-04-15] MEDS: Cetirizine* 10 MG TAB PO SCH (16:38)
[2016-04-15] MEDS: CMC: Pravastatin (NF) 20 MG TAB PO SCH (16:40)
[2016-04-15] MEDS ORDERED: amLODIPine TAB* 5 MG PO SCH (19:06)
--- NOTE | 2016-04-15 19:45 | DCNOTE ---
Subjective Date of Service: 04/15/16 Interval History: No new c/o. Patient again walked in the [place] several times today. Family History: Unchanged from Admission Social History: Unchanged from Admission Past Medical History: Unchanged from Admission Objective Active Medications: Acetaminophen (Tylenol Tab*) 975 mg PO Q6H PRN PRN Reason: PAIN OR TEMPERATURE Last Admin: 04/15/16 16:40 Dose: 975 mg Amlodipine Besylate (Norvasc Tab*) 2.5 mg PO DAILY [facility] Aspirin (Aspirin Ec Low Dose*) 81 mg PO DAILY [facility] Last Admin: 04/15/16 08:54 Dose: 81 mg Cetirizine HCl (Zyrtec*) 10 mg PO QPM [facility] PRN Reason: Protocol Last Admin: 04/15/16 16:38 Dose: Not Given Heparin Sodium (Porcine) (Heparin Vial(*)) 5,000 units SUBCUT Q8HR [facility] Last Admin: 04/15/16 14:06 Dose: 5,000 units Losartan Potassium (Cozaar Tab*) 50 mg PO DAILY [facility] Last Admin: 04/15/16 08:54 Dose: 50 mg Mirtazapine (Remeron Tab*) 15 mg PO BEDTIME [facility] Last Admin: 04/14/16 20:35 Dose: 15 mg Omeprazole (Prilosec Cap*) 20 mg PO DAILY [facility] Last Admin: 04/15/16 08:54 Dose: 20 mg Polyethylene Glycol/Electrolytes (Miralax*) 17 gm PO DAILY PRN PRN Reason: CONSTIPATION Polyethylene Glycol/Electrolytes (Miralax*) 17 gm PO BID [facility] Last Admin: 04/15/16 08:56 Dose: 17 gm Pravastatin Sodium (Pravachol (Nf)) 20 mg PO 1700 [facility] Last Admin: 04/15/16 16:40 Dose: 20 mg Sodium Biphosphate/Sodium Phosphate (Fleet Enema*) 1 bottle [place] DAILY PRN PRN Reason: CONSTIPATION Vital Signs 04/14/16 04/14/16 04/15/16 20:07 23:05 03:10 Temperature 97.4 F 98.2 F 97.6 F Pulse Rate 73 89 62 Respiratory 18 16 16 Rate Blood Pressure 157/49 132/52 138/45 (mmHg) O2 Sat by Pulse 96 96 94 Oximetry 04/15/16 04/15/16 04/15/16 08:00 08:08 11:26 Temperature 97.3 F Pulse Rate 84 76 Respiratory 16 18 Rate Blood Pressure 156/73 (mmHg) O2 Sat by Pulse 94 95 Oximetry 04/15/16 04/15/16 15:35 18:32 Temperature 98.1 F Pulse Rate 79 Respiratory 16 18 Rate Blood Pressure 134/44 (mmHg) O2 Sat by Pulse 94 Oximetry Oxygen Devices in Use Now: None Appearance: Alert, partly up in bed. In good siprits. Looks comfortable. Ears/Nose/Mouth/Throat: Clear Oropharnyx, Mucous Membranes Moist Neck: NL Appearance and Movements; NL JVP, No Thyroid Enlargement, Masses Respiratory: Symmetrical Chest Expansion and Respiratory Effort, Clear to Auscultation, Clear to Percussion Cardiovascular: NL Sounds; No Murmurs; No JVD, RRR, No Edema, - Extremities: No Edema, No Clubbing, Cyanosis, - Neurological: Alert and Oriented x 3, NL Sensation Result Diagrams: 04/10/16 16:42 04/14/16 05:32 Additional Lab and Data: Assess/Plan/Problems-Billing Assessment: Dizziness and R medial rectus palsy in an 85 yo F with hx of HTN, HLD, PMR - Patient Problems (1) CVA (cerebral vascular accident) Current Visit: Yes Status: Acute Code(s): I63.9 - CEREBRAL INFARCTION, UNSPECIFIED SNOMED Code(s): 923569799 Comment: Punctate area of restriction of diffusion in the right midbrain. Continue ASA. Continue pravastatin 20 mg daily, consider further escalation if she tolerates this. Dr. Bolton's note appreciated. Transfer to [facility] . (2) HTN (hypertension) Current Visit: Yes Status: Acute Code(s): I10 - ESSENTIAL (PRIMARY) HYPERTENSION SNOMED Code(s): 89068312 Comment: Will reduce amlodipine again, now to 2.55 mg daily starting 04/16. (3) Hyponatremia Current Visit: Yes Status: Acute Code(s): E87.1 - HYPO-OSMOLALITY AND HYPONATREMIA SNOMED Code(s): 53017902 Comment: Resolved. (4) HLD (hyperlipidemia) Current Visit: Yes Status: Acute Code(s): E78.5 - HYPERLIPIDEMIA, UNSPECIFIED SNOMED Code(s): 40971220 Comment: Continue home pravastatin, consider higher dose if no hx adverse effects. Status and Disposition: Transfer to [facility] 04/16/16.
--- NOTE | 2016-04-15 19:54 | PN ---
Progress Note - Progress Note Note: Time spent on discharge 50 minutes.
[2016-04-15] MEDS: Mirtazapine TAB* 15 MG PO SCH (20:25)
[2016-04-16] MEDS: Heparin VIAL(*) 5000 UNITS/ML VIAL (FIVE THOUSAND) SUBCUT SCH (05:03)
--- NOTE | 2016-04-16 08:31 | TRS ---
CC: Dr. Sweeney. TRANSFER SUMMARY: DATE OF ADMISSION: DATE OF TRANSFER: 04/16/16 This is being dictated in advance. HISTORY: This 85-year-old woman was admitted with a chief complaint of dizziness and being off balance. She had a headache. She went to see Dr. Verduzco. She had had a flare of polymyalgia a few weeks ago, and had 10 days of prednisone which was completed. In Dr. Verduzco's office, she was found to have dysconjugate gaze. The rest of the history is detailed in the admission note. Initially, there was concern that the patient had temporal arteritis; however, both her sed rate and CRP were within normal limits. She did get a dose of prednisone which was discontinued after the first hospital day. The patient was seen by the neurologist. 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 She was evaluated with an MRI of the brain, carotid Doppler study, transthoracic echocardiogram, MRA of the head and neck. The MRI showed a punctate area of restriction of diffusion in the right mid brain towards the right cerebral peduncle, adjacent to the aqueduct of Sylvius, consistent with an acute lacunar infarct. This was felt to be her diagnosis. She has a history of severe myalgias with atorvastatin; and, for that reason, she had been placed on a low dose of pravastatin. Her lipid profile was still not very favorable with an LDL of 142. I have increased her pravastatin to 20 mg daily. After a month, if she does not meet the target LDL of 100, I would consider raising her to 30 mg of pravastatin assuming she has not had any myalgias. FINAL DIAGNOSES: 1. Cerebrovascular accident. 2. Hypertension. 3. Hyponatremia, resolved. 4. Hyperlipidemia. TRANSFER MEDICATIONS: 1. Acetaminophen 975 mg every 6 hours p.r.n. 2. Aspirin 81 mg daily. 3. Cetirizine 10 mg h.s. 4. Losartan 50 mg daily. 5. Polyethylene glycol 17 g b.i.d. 6. Pravastatin 20 mg daily at 5 p.m. 7. Amlodipine 2.5 mg daily. 8. Omeprazole 20 mg daily. 9. Mirtazapine 15 mg nightly. [id number]/[facility] #: [id number] [facility]
[2016-04-16 08:41] VITALS: BP 139/65
[2016-04-16] MEDS: Polyethylene Glycol 3350* 17 GM PACKET PO SCH (09:01)
[2016-04-16] MEDS: Aspirin EC Low Dose* 81 MG TAB.EC PO SCH (09:03)
[2016-04-16] MEDS: Omeprazole CAP* 20 MG PO SCH (09:04)
[2016-04-16] MEDS: Losartan TAB* 25 MG PO SCH (09:04)
== END 2016-04-16 10:07 | DRG 65 ==
LOC: ED 15:55 → MEDTELE 22:30
PROVIDERS: ADMIT Internal Medicine; ATTEND Internal Medicine
DX: I63.511 Cerebral infarction due to unspecified occlusion or stenosis of right middle cerebral artery (principal); E87.1 Hypo-osmolality and hyponatremia; I10 Essential (primary) hypertension; E78.5 Hyperlipidemia, unspecified; M35.3 Polymyalgia rheumatica; B00.1 Herpesviral vesicular dermatitis; R10.13 Epigastric pain; J30.9 Allergic rhinitis, unspecified; K59.00 Constipation, unspecified; G47.00 Insomnia, unspecified; G43.109 Migraine with aura, not intractable, without status migrainosus; Z79.899 Other long term (current) drug therapy; Z88.2 Allergy status to sulfonamides; Z88.8 Allergy status to other drugs, medicaments and biological substances; Z88.5 Allergy status to narcotic agent; Z88.0 Allergy status to penicillin; Z91.013 Allergy to seafood; Z80.0 Family history of malignant neoplasm of digestive organs; Z80.41 Family history of malignant neoplasm of ovary; Z80.3 Family history of malignant neoplasm of breast; Z80.7 Family history of other malignant neoplasms of lymphoid, hematopoietic and related tissues; Z83.42 Family history of familial hypercholesterolemia
CPT/HCPCS: 36415; 70450; 70544; 70547; 70551; 71010; 80048; 80053; 80061; 81003; 81015; 82550; 82553; 83036; 83605; 83690; 83880; 84443; 84484; 85025; 85610; 85652; 85730; 86140; 87086; 87502; 93005; 93306; 93880; A9270-GY; J1644; J7512

== ENCOUNTER 2016-07-04 05:48 | Inpatient (IN) | payer MEDICARE, OTHER ==
[2016-07-04] MEDS ORDERED: Morphine INJ* 2 MG/ML 1 ML SYRINGE IV ONE (06:38)
[2016-07-04] MEDS ORDERED: NS 0.9% 1000 ML* 3,000 ML IV ONE (06:38)
[2016-07-04] MEDS ORDERED: Ondansetron INJ* 2 MG/ML VIAL ONE (06:47)
[2016-07-04] MEDS ORDERED: Ondansetron INJ* 2 MG/ML VIAL IV ONE ×2 (06:52→08:13)
[2016-07-04 07:05] LABS: Hematocrit 42 % (35-47); Hemoglobin 13.9 g/dl (12.0-16.0); Mean Corpuscular HGB Conc 33 g/dl (31-36); Mean Corpuscular Hemoglobin 30 pg (27-31); Mean Corpuscular Volume 91 fL (80-97); Mean Platelet Volume 8 um3 (7.4-10.4); Red Blood Count 4.57 10^6/ul (4.0-5.4); Red Cell Distribution Width 13 % (10.5-15); White Blood Count 15.7 10^3/ul (3.5-10.8)
[2016-07-04 07:07] LABS: Albumin 4.5 g/dL (3.2-5.2); BUN/Creatinine Ratio 16.7 (8-20); Calcium 9.1 mg/dL (8.6-10.3); EGFR African American 90.1 (>60); Potassium 3.3 mmol/L (3.5-5.0); Total Bilirubin 0.6 mg/dL (0.2-1.0); Total Protein 7.5 g/dL (6.4-8.9)
[2016-07-04 07:08] LABS: Troponin I 0.01 ng/mL (<0.04)
[2016-07-04 07:14] LABS: Urine Bilirubin Negative (Negative); Urine Glucose Negative (Negative); Urine Nitrite Negative (Negative)
--- NOTE | 2016-07-04 08:21 | RAD ---
INDICATION: Altered mental status. Fall. COMPARISON: No relevant prior exams available on the [facility] PACS for comparison. TECHNIQUE: Multidetector CT images foramen magnum to lung apices without contrast. Multiplanar reformation. REPORT: Atherosclerotic calcification at the carotid bifurcations. Normal vertebral alignment accounting for exam positioning without spondylolisthesis or subluxation at any level. Mild compression fracture involving the anterior and middle columns of the C7 vertebral body at the superior endplate appears chronic. No gross cortical disruption or trabecular impaction evident to favor an acute or subacute fracture. Additionally there is no paravertebral hematoma. The remaining cervical vertebral bodies are normal in height. Multilevel mild degenerative spondylosis and facet joint osteoarthritis. No suggestion of acquired spinal stenosis at any level. IMPRESSION: No evidence for acute traumatic cervical spine injury.
--- NOTE | 2016-07-04 08:25 | RAD ---
INDICATION: Fall altered mental status. COMPARISON: Comparison is made with a prior CT of the brain from April 10, 2016 and prior MRI of the brain from April 11, 2016. TECHNIQUE: Contiguous axial sections of the brain were obtained from the skull base to the vertex without contrast. FINDINGS: The ventricles, cisterns and sulci are enlarged consistent with diffuse atrophy. There are multiple focal areas of decreased density in the subcortical and periventricular white matter suggestive of moderate chronic small vessel ischemic changes. No mass effect is present. There is no evidence for hemorrhage. No significant focal osseous abnormality is seen. The visualized portion of the paranasal sinuses and mastoid air cells appear clear. IMPRESSION: 1. NO EVIDENCE FOR ACUTE INTRACRANIAL ABNORMALITY. 2. ATROPHY AND FINDINGS CONSISTENT WITH CHRONIC SMALL VESSEL ISCHEMIC CHANGES.
--- NOTE | 2016-07-04 09:35 | RAD ---
INDICATION: Fall left hip pain. COMPARISON: Comparison is made with a prior chest x-ray study from December 04, 2011. TECHNIQUE: An AP view of the chest was obtained. FINDINGS: The heart is within normal limits in size. The lungs are underinflated and grossly clear. No pleural effusion is seen. IMPRESSION: NO EVIDENCE FOR ACUTE FINDING IN THE CHEST.
--- NOTE | 2016-07-04 09:37 | RAD ---
INDICATION: Fall. Left hip pain. COMPARISON: Pelvis July 21, 2007 TECHNIQUE: An AP view of the pelvis and AP views of the hip with neutral and crosstable lateral technique were obtained. The examination is mildly limited due to difficulty positioning this patient. FINDINGS: Bones: There is osteopenia. No acute pelvic or hip fracture is identified. Joint spaces: Mild to moderate osteoarthritic change about the hips left greater than right. SI joints/symphysis: The SI joints and symphysis are intact. Other: None IMPRESSION: NO PLAIN RADIOGRAPHIC EVIDENCE OF ACUTE HIP FRACTURE.
--- NOTE | 2016-07-04 10:06 | ED ---
Wilma Hillman Rebecca, scribed for Jackie Love MD on 07/04/16 at 0603 . Lower Extremity - HPI Summary HPI Summary: Pt is an 86 y/o F BIBA who presents to ED, unaccompanied, c/o severe L hip pain s/p unwitnessed mechanical fall. Nurse reports that pt was found in a distant field with a flashlight and photos and was not standing. Pain became known about this morning at 0600 and has been constant since onset. Pain is discrete to the L hip, characterized as sharp and is currently severe, ranked 7/10. Sx aggravated by movement, alleviated by nothing. Additionally presents with AMS. Pt is unsure of why she was outside and what happened last night, stating "why do old people do anything they do" and that she "must have had a temporary loss of mind." Pt can recall place, name, month and year, when asked. Denies being on blood thinners. PMHx possible TIA within the last 2 months. Pt was found in a parking lot, outside of her 3rd floor apartment, and cannot explain why she was outside. Pt is a resident of independent living at [facility]. When asked why she is at [facility], responds that "they don't want me to be alone." Confirms that she has a daughter in town. - History of Current Complaint Stated Complaint: FALL Hx Obtained From: Patient, Other: - Nurse Mechanism Of Injury: Fall From A Standing Position Onset of Pain: Prior to Arrival Onset/Duration: Still Present Severity Initially: Severe Severity Currently: Severe Pain Intensity: 7 Pain Scale Used: 0-10 Numeric Timing: Constant Location: Is Discrete @ - L hip Character Of Pain: Sharp Associated Signs And Symptoms: Positive: Other - altered mental status Aggravating Factor(s): Movement Alleviating Factor(s): Nothing Able to Bear Weight: No - Allergies/Home Medications Allergies/Adverse Reactions: Allergies Allergy/AdvReac Type Severity Reaction Status Date / Time Penicillins Allergy Severe Anaphylatic Verified 03/19/13 16:29 Shock Sulfa Drugs Allergy Severe Anaphylatic Verified 03/19/13 16:29 Shock Codeine Allergy Intermediate GOES TO Verified 03/19/13 16:29 SLEEP; UNABLE TO BE WAKENED PMH/Surg Hx/FS Hx/Imm Hx Cardiovascular History: Reports: Hx Hypertension Denies: Hx Pacemaker/ICD Respiratory History: Reports: Other Respiratory Problems/Disorders - SEASONAL ALLERGIES GI History: Reports: Hx Gastroesophageal Reflux Disease History: Reports: Hx Kidney Infection Musculoskeletal History: Reports: Hx Arthritis, Hx Rheumatoid Arthritis - POLYMALGIA Sensory History: Reports: Hx Contacts or Glasses Denies: Hx Hearing Aid Opthamlomology History: Reports: Hx Contacts or Glasses Neurological History: Reports: Hx Headaches, Hx Migraine Psychiatric History: Reports: Hx Depression Denies: Hx Panic Disorder - Cancer History Hx Chemotherapy: No Hx Radiation Therapy: No - Surgical History Surgery Procedure, Year, and Place: ADNOIDS AND TONSILECTOMY;. RIGHT KNEE SURGERY 1985;. APPENDECTOMY,. RIGHT SHOULDER,. TUBAL LIGATION FOLLOWED BY TOTAL HYSTERECTOMY/OOPERECTOMY,. LUMBAR SURGERY, Infectious Disease History: No Infectious Disease History: Denies: Traveled Outside the [place] in Last 30 Days - Family History Family History: Breast CA - Social History Lives: [facility] - Independent living at [facility] Alcohol Use: None Substance Use Type: Reports: None Smoking Status (MU): Never Smoked Tobacco Review of Systems Constitutional: Negative Eyes: Negative Cardiovascular: Negative Respiratory: Negative Gastrointestinal: Negative Positive: Arthralgia - Severe L hip pain s/p mechanical fall Neurological: Other - altered mental status Psychological: Normal All Other Systems Reviewed And Are Negative: Yes Physical Exam Triage Information Reviewed: Yes Vital Signs On Initial Exam: Initial Vitals Temp Pulse Resp BP Pulse Ox 98.6 F 76 11 164/109 95 07/04/16 06:00 07/04/16 06:00 07/04/16 06:00 07/04/16 06:00 07/04/16 06:00 Vital Signs Reviewed: Yes Appearance: Positive: Well-Nourished, Ill-Appearing, Pain Distress Skin: Positive: Skin Color Reflects Adequate Perfusion, Dry, Cold Eyes: Positive: Conjunctiva Clear ENT: Positive: Normal ENT inspection Neck: Positive: Supple, Nontender - Surprise collar applied upon triage due to hx probable mechanical fall, and distracting injury Respiratory/Lung Sounds: Positive: Clear to Auscultation, Breath Sounds Present , Other - No respiratory distress Cardiovascular: Positive: RRR, Other - Brisk capillary refill, pulses normal. Negative: Murmur Abdomen Description: Positive: Nontender, No Organomegaly, Soft Bowel Sounds: Positive: Present Musculoskeletal: Positive: Pain @ - Pain discrete to the L hip with no shortening. Negative: Strength/ROM Intact, Edema Left, Edema Right Neurological: Positive: Alert, Oriented to Person Place, Time, Other - Motor function intact except left hip (unable to lift left leg). Negative: Facial Droop, Focal Deficit @, Slurred Speech Psychiatric: Positive: Affect/Mood Appropriate, Other - no memory of leaving her apartment, or why she was outside Diagnostics - Vital Signs Vital Signs Temp Pulse Resp BP Pulse Ox 07/04/16 09:07 60 18 91 07/04/16 08:30 86 14 140/41 96 07/04/16 08:00 92 18 166/44 87 07/04/16 07:32 74 14 145/56 90 07/04/16 07:00 76 20 95/74 91 07/04/16 06:54 18 07/04/16 06:30 69 14 180/125 92 07/04/16 06:28 71 18 94 07/04/16 06:00 98.6 F 76 11 164/109 95 - Laboratory Lab Results: Lab Results 07/04/16 07/04/16 07/04/16 Range/Units 06:15 06:15 06:15 WBC 15.7 H (3.5-10.8) 10^3/ul RBC 4.57 (4.0-5.4) 10^6/ul Hgb 13.9 (12.0-16.0) g/dl Hct 42 (35-47) % MCV 91 (80-97) fL MCH 30 (27-31) pg MCHC 33 (31-36) g/dl RDW 13 (10.5-15) % Plt Count 294 (150-450) 10^3/ul MPV 8 (7.4-10.4) um3 Neut % (Auto) 87.0 H (38-83) % Lymph % (Auto) 8.8 L (25-47) % Faulkner % (Auto) 2.9 (1-9) % Eos % (Auto) 0.7 (0-6) % Baso % (Auto) 0.6 (0-2) % Absolute Neuts (auto) 13.7 H (1.5-7.7) 10^3/ul Absolute Lymphs (auto) 1.4 (1.0-4.8) 10^3/ul Absolute Monos (auto) 0.5 (0-0.8) 10^3/ul Absolute Eos (auto) 0.1 (0-0.6) 10^3/ul Absolute Basos (auto) 0.1 (0-0.2) 10^3/ul Absolute Nucleated RBC 0 10^3/ul Nucleated RBC % 0 INR (Anticoag Therapy) 0.93 (0.89-1.11) APTT 29.6 (26.0-36.3) seconds Sodium 125 L (133-145) mmol/L Potassium 3.3 L (3.5-5.0) mmol/L Chloride 88 L (101-111) mmol/L Carbon Dioxide 26 (22-32) mmol/L Anion Gap 11 (2-11) mmol/L BUN 13 (6-24) mg/dL Creatinine 0.78 (0.51-0.95) mg/dL Est GFR ( Amer) 90.1 (>60) Est GFR (Non-Af Amer) 70.0 (>60) BUN/Creatinine Ratio 16.7 (8-20) Glucose 140 H (70-100) mg/dL Lactic Acid (0.5-2.0) mmol/L Calcium 9.1 (8.6-10.3) mg/dL Total Bilirubin 0.60 (0.2-1.0) mg/dL AST 18 (13-39) U/L ALT 15 (7-52) U/L Alkaline Phosphatase 47 (34-104) U/L Troponin I 0.01 (<0.04) ng/mL Total Protein 7.5 (6.4-8.9) g/dL Albumin 4.5 (3.2-5.2) g/dL Globulin 3.0 (2-4) g/dL Albumin/Globulin Ratio 1.5 (1-3) Urine Color Urine Appearance Urine pH (5-9) Ur Specific Happy (1.010-1.030) Urine Protein (Negative) Urine Ketones (Negative) Urine Blood (Negative) Urine Nitrate (Negative) Urine Bilirubin (Negative) Urine Urobilinogen (Negative) Ur Leukocyte Esterase (Negative) Urine Glucose (Negative) Blood Type Antibody Screen 07/04/16 07/04/16 07/04/16 Range/Units 06:15 06:15 06:35 WBC (3.5-10.8) 10^3/ul RBC (4.0-5.4) 10^6/ul Hgb (12.0-16.0) g/dl Hct (35-47) % MCV (80-97) fL MCH (27-31) pg MCHC (31-36) g/dl RDW (10.5-15) % Plt Count (150-450) 10^3/ul MPV (7.4-10.4) um3 Neut % (Auto) (38-83) % Lymph % (Auto) (25-47) % Faulkner % (Auto) (1-9) % Eos % (Auto) (0-6) % Baso % (Auto) (0-2) % Absolute Neuts (auto) (1.5-7.7) 10^3/ul Absolute Lymphs (auto) (1.0-4.8) 10^3/ul Absolute Monos (auto) (0-0.8) 10^3/ul Absolute Eos (auto) (0-0.6) 10^3/ul Absolute Basos (auto) (0-0.2) 10^3/ul Absolute Nucleated RBC 10^3/ul Nucleated RBC % INR (Anticoag Therapy) (0.89-1.11) APTT (26.0-36.3) seconds Sodium (133-145) mmol/L Potassium (3.5-5.0) mmol/L Chloride (101-111) mmol/L Carbon Dioxide (22-32) mmol/L Anion Gap (2-11) mmol/L BUN (6-24) mg/dL Creatinine (0.51-0.95) mg/dL Est GFR ( Amer) (>60) Est GFR (Non-Af Amer) (>60) BUN/Creatinine Ratio (8-20) Glucose (70-100) mg/dL Lactic Acid 1.5 (0.5-2.0) mmol/L Calcium (8.6-10.3) mg/dL Total Bilirubin (0.2-1.0) mg/dL AST (13-39) U/L ALT (7-52) U/L Alkaline Phosphatase (34-104) U/L Troponin I (<0.04) ng/mL Total Protein (6.4-8.9) g/dL Albumin (3.2-5.2) g/dL Globulin (2-4) g/dL Albumin/Globulin Ratio (1-3) Urine Color Straw Urine Appearance Clear Urine pH 6.0 (5-9) Ur Specific Happy 1.008 L (1.010-1.030) Urine Protein Negative (Negative) Urine Ketones Negative (Negative) Urine Blood Negative (Negative) Urine Nitrate Negative (Negative) Urine Bilirubin Negative (Negative) Urine Urobilinogen Negative (Negative) Ur Leukocyte Esterase Negative (Negative) Urine Glucose Negative (Negative) Blood Type A Positive Antibody Screen Pending Result Diagrams: 07/04/16 06:15 07/04/16 06:15 Lab Statement: Any lab studies that have been ordered have been reviewed, and results considered in the medical decision making process. Lower Extremity Course/Dx - Course Course Of Treatment: Pt is an 86 y/o F BIBA, unaccompanied, who presents to ED c /o severe L hip pain s/p mechanical fall, which became known at 0600 and has been constant since onset. Pt was found in a field with a flashlight and photos , unsure of how she got there. Pt is AxOx3. PMHx possible TIA in the last 2 months. Pt medications reviewed this visit. Allergies noted. Pt will be signed out to Dr. Barrientos with CT's, xrays and labs pending at change of shift. - Diagnoses Differential Diagnosis/HQI/PQRI: Positive: Contusion, Fracture (Closed), Sprain , Strain, Other - TIA, CVA, metabolic abnormality Provider Diagnoses: Altered mental status, Left hip pain Discharge - Discharge Plan Condition: Good Disposition: OTHER Discharge Disposition Comment: Signed out to Dr. Barrientos, pending dispo, awaiting radiology Referrals: Ruy Sweeney MD [Primary Care Provider] - The documentation as recorded by the Wilma boyle Rebecca accurately reflects the service I personally performed and the decisions made by me, Jackie Love MD.
[2016-07-04] MEDS ORDERED: Potassium Chloride LIQUID* 20 MEQ PACKET PO ONE (10:08)
--- NOTE | 2016-07-04 11:03 | RAD ---
Indication: LEFT hip pain. Fall, confusion. Comparison: LEFT hip radiographs of the same date. Technique: Noncontrast CT of the LEFT hip. Multiplanar reformation. Report: Partially decompressed catheterized urinary bladder with intraluminal gas likely secondary to catheterization. Mild diverticulosis of the sigmoid colon without visualized inflammatory change. No suspicious finding of the visualized pelvic viscera. Minimally comminuted basicervical to intertrochanteric LEFT femoral neck fracture with significant apex anterior angulation. The femoral head remains located in the acetabulum. Associated moderate joint effusion. No acute pelvic fracture evident within the [id number]. Partially visualized healed RIGHT pubic rami fractures. Negative for loculated soft tissue plane hematoma. IMPRESSION: Minimally comminuted basicervical to intertrochanteric LEFT femoral neck fracture with significant apex anterior angulation. Results discussed with Dr. Love 07/04/2016 10:56 AM EDT
[2016-07-04 11:56] LABS: BUN/Creatinine Ratio 14.7 (8-20); Calcium 8.1 mg/dL (8.6-10.3); EGFR African American 105.5 (>60); Potassium 3.9 mmol/L (3.5-5.0)
[2016-07-04] MEDS: Aspirin Low Dose CHEW TAB* 81 MG PO SCH (12:00)
[2016-07-04] MEDS: oxyCODONE TAB* 5 MG TAB PO PRN (12:01)
[2016-07-04] MEDS: Enoxaparin(*) 40 MG/0.4 ML SYR SUBCUT SCH (12:01)
[2016-07-04] MEDS: NS 0.9% 1000 ML* 1,000 ML IV SCH (12:11)
[2016-07-04] MEDS ORDERED: LORazepam INJ* 2 MG/ML 1 ML VIAL IV PUSH PRN (12:18)
[2016-07-04] MEDS ORDERED: Atorvastatin* 40 MG TAB PO SCH (17:00)
--- NOTE | 2016-07-04 17:30 | RAD ---
Indication: Stroke. Image sequences: Sagittal and axial T1, axial T2, FLAIR, diffusion and susceptibility weighted images of the brain were obtained. Ventricular structures are midline. No midline shift is noted. The extra-axial spaces are unremarkable. Periventricular signal abnormality consistent with chronic ischemic White matter change is noted. There is no evidence of intracranial mass or hemorrhage. No restriction of diffusion is noted. Patchy areas of signal abnormality is noted in the periventricular white matter as well as in the dalila bilaterally. These are unchanged from previous exam of April 11, 2016. No restriction of diffusion is noted. Previous identified a lacunar infarct in the brainstem is no longer present. Susceptibility weighted images demonstrates no evidence of residual hemosiderin. Paranasal sinuses are otherwise unremarkable. IMPRESSION: Chronic ischemic White matter change is noted. No evidence of acute infarct is noted.
--- NOTE | 2016-07-04 17:52 | ED ---
Dann Hillman Billy, scribed for Cheo Barrientos MD on 07/04/16 at 0754 . Progress - Progress Note Progress Note: Patient signed out by Dr. Love at shift change. Patient complains of left hip pain. On exam, there is no deformity, ecchymosis, or rotation, although there may be some shortening of the left lower extremity. She denies any neck pain, although a cervical collar is in place. She states that she is sleeping between episodes of nausea. Vital signs: reviewed General: Patient is comfortable lying in stretcher with no signs of distress HEENT: within normal limits Lungs: CTA B/L CVS: S1 & S2 present. No murmurs appreciated. ABDOMEN: Soft, non-tender. No signs of distention. No rebound no guarding, and no masses palpated. Bowel sounds are normal. EXTREMITIES: Decrease ROM in the left hip secondary to pain. No deformity or ecchymosis or hematoma. NEURO: Alert and oriented x 3. No acute neurological deficits. Speech is normal and follows commands. SKIN: Dry and warm - Results/Orders Results/Orders: CXR: NO EVIDENCE FOR ACUTE FINDING IN THE CHEST. HIP/PELVIS XRAY: NO PLAIN RADIOGRAPHIC EVIDENCE OF ACUTE HIP FRACTURE. CT BRAIN: 1. NO EVIDENCE FOR ACUTE INTRACRANIAL ABNORMALITY. 2. ATROPHY AND FINDINGS CONSISTENT WITH CHRONIC SMALL VESSEL ISCHEMIC CHANGES. CT C-SPINE: No evidence for acute traumatic cervical spine injury. Re-Evaluation - Re-Evaluation First Eval Re-Evaluation Time: 07:44 Comment: Complains of left hip pain and N/V. Second Eval Re-Evaluation Time: 09:43 Course/Dx - Course Course Of Treatment: Patient signed out by Dr. Love at shift change. Patient complains of left hip pain. On exam, there is no deformity, ecchymosis, or rotation, although there may be some shortening of the left lower extremity. She denies any neck pain, although a cervical collar is in place. She states that she is sleeping between episodes of nausea. Bloodwork WNL except for WBC of 5.7. Sodium of 125, potassium of 3.3. I believe that the AMS is secondary to hyponatremia since the patient has no UTI or elevated ammonia. CT of the head and neck show no acute pathology, x-ray of the hip shows no fracture of the hip although the patient continues to have pain in the left hip with movement, therefore I decided to do CT of the hip to r/o a hip fracture. At this point, I discussed with Dr. Tobias who accepted the patient for admission for the acute AMS and hyponatremia. The CT of the hip will be followed up by Dr. Tobias. - Diagnoses Provider Diagnoses: Altered mental status, Left hip pain, Hyponatremia, Hypokalemia - Provider Notifications Discussed Care Of Patient With: Dr. Tobias (hospitalist) at 1000: accepts admission. Discharge - Discharge Plan Condition: Stable Disposition: ADMITTED TO [facility] documentation as recorded by the Dann boyle Billy accurately reflects the service I personally performed and the decisions made by me, Cheo Barrientos MD.
--- NOTE | 2016-07-04 21:35 | HP ---
HISTORY AND PHYSICAL: DATE OF ADMISSION: 07/04/16 PRIMARY CARE PHYSICIAN: Dr. Sweeney. CHIEF COMPLAINT: Found down, hip pain. HISTORY OF PRESENT ILLNESS: Ms. 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 The patient is unable to contribute much of the history. Unclear if this is from residual confusion from the episode or from dose of morphine in the emergency department. She states she cannot recall what happened that brought her into the hospital although she notes that she has in hip pain presently, cannot tell me where she lives. As per chart and EMS reports, the patient was found down outside of her [facility]. It seems that she had been wandering and her staff at the [facility] states she does this from time-to- time, but usually does not leave the building. She was found with the flashlight, some extra clothes and a blanket, and a picture of her by bystanders this morning. She was complaining of hip pain. EMS was called. She was brought to the hospital for further evaluation. In the emergency department, she got IV fluids and Zofran and morphine. She continued to complain of hip pain and the hospitalist service was consulted for admission. PAST MEDICAL HISTORY: Hypertension, hyperlipidemia, CVA 3 months ago, dyspepsia , allergic rhinitis. PAST SURGICAL HISTORY: Rotator cuff repair, appendectomy, hysterectomy, laminectomy. HOME MEDICATIONS: Working on list at the moment: ALLERGIES: PENICILLIN, SULFA DRUGS, CODEINE. FAMILY HISTORY: Significant for a sister with hyperlipidemia and a brother with colon cancer. Sister with ovarian cancer, another sister with breast cancer and brother with lymphoma. SOCIAL HISTORY: No tobacco abuse. No current alcohol use or drug use. As per previous records, the patient's healthcare proxy and surrogate decision maker is her daughter, Anitha Serna. REVIEW OF SYSTEMS: Unable to obtain due to the patient's altered mental status. PHYSICAL EXAMINATION GENERAL: The patient is an elderly frail female, lying in bed, in no apparent distress, slightly lethargic. VITAL SIGNS: On admission, temperature 98.6, heart rate is 76, respiratory rate 11, O2 saturation 95% on room air, blood pressure 164/109, which improved to 140/41 on last check. HEENT: Head: Normocephalic, atraumatic. Eyes: Pupils equal, round, and reactive to light and accommodation. Anicteric sclerae. ENT: Oropharynx clear. No cervical adenopathy. LUNGS: Clear to auscultation in anterior and lateral french bilaterally. CARDIOVASCULAR: Regular rate and rhythm. Occasional ectopic beat. No murmurs , gallops, or rubs. ABDOMEN: Soft, nontender, nondistended. Bowel sounds positive. EXTREMITIES: No cyanosis, clubbing or edema. The patient is very tender to palpation along the left hip and pain with any movement. NEUROLOGIC: The patient is alert, oriented to hospital and told me it was June 2016. When asked the date, she said ask her, . Cannot recall any of the events leading up to hospital admission. Cranial nerves seem to be intact. Upper extremities strength intact. Right lower extremity strength 5/5. Unable to assess left lower extremity due to significant pain. LABS AND DIAGNOSTICS: White blood cell count of 15.7, hematocrit of 42, hemoglobin of 13.9, platelets of 294. INR of 0.93, sodium 125, potassium 3.3, chloride of 88, BUN of 13, creatinine 0.78, glucose of 140. Lactic acid 1.5. LFTs within normal limits. Troponin 0.01. UA negative. Chest x-ray read as no acute disease. However, it seems like there may be some interstitial marking from my read. Hip and pelvis x-ray negative for fracture. CT of the head shows no acute disease. CT of the cervical spine also shows no acute disease or fracture. EKG, personally reviewed, shows normal sinus rhythm with occasional APCs or PVCs. ASSESSMENT AND PLAN: Altered mental status, likely fall and left hip pain in an 86- year-old female with past medical history of hypertension, hyperlipidemia , cerebrovascular accident, allergic rhinitis and dyspepsia. 1. Confusion, altered mental status. Etiology is unclear. The patient has slightly elevated white blood cell count; however, no clear signs of infection. Urinalysis is clean. No fever documented here. She is mildly hyponatremic, which would contribute although this may have just been due to being down for an extended amount of time with little p.o. intake. The patient received IV fluids in the emergency department. We will recheck her sodium later on this afternoon. We will check a CK as it is unclear how long the patient has been down for. We will continue IV fluids, normal saline at 75 cc an hour for now. If there is evidence of rhabdo, may need a higher rate. Some of her lethargy now may be due to the morphine she received. 2. Left hip pain. X-ray shows no evidence of fracture. However, the patient does have a significant amount of pain. Dr. Barrientos in the emergency department has ordered a CT scan, which is pending at this time. As noted above, we will check a CK as the patient has been down for significant amount of time. I will order some analgesia and a PT evaluation. 3. History of stroke. We will continue the patient on aspirin and atorvastatin for now. Again, we will need to confirm home medications. 4. Hypertension. BP is a bit labile at this time. We will monitor over the course of the day and obtain a med rec. 5. DVT prophylaxis. Lovenox subcu. 6. Code status. The patient is a full code. TIME SPENT: Total time spent on this admission 45 minutes with over half the time spent [id number] with the patient in counseling and coordinating care. CC: Dr. Sweeney* [id number]/CPS #: [id number] ERVIN
--- NOTE | 2016-07-04 23:15 | CONS ---
ORTHOPEDIC CONSULTATION: DATE OF ADMISSION: 07/04/16 ATTENDING ORTHOPEDIC SURGEON: Huan Yanez MD. (DICTATED BY ABDOULAYE LAND) CHIEF ORTHOPEDIC COMPLAINT: Left hip pain, inability to ambulate status post mechanical fall. HISTORY OF PRESENT ILLNESS: The patient is an 86-year-old female who was brought to the emergency department via ambulance, unaccompanied, with complaints of left hip pain and inability to ambulate status post unwitnessed mechanical fall. The patient was apparently found near her apartment complex where she is a resident at [facility] in a field and unable to ambulate due to left hip pain. The history is obtained from the ER report as the patient is currently unable to give history after being medicated prior to MRI. The ER report states that the patient was unsure why she was outside and must have become disoriented. She does not remember a specific loss of consciousness or falling. She does not have family member present. PAST MEDICAL HISTORY: 1. Hypertension. 2. Seasonal allergies. 3. GERD. 4. Prior kidney infection. 5. Rheumatoid arthritis. 6. Polymyalgia. 7. Migraine headaches. 8. Depression. PAST SURGICAL HISTORY: 1. Adenoid and tonsillectomy. 2. Right knee surgery. 3. Appendectomy. 4. Tubal ligation followed by hysterectomy, oophorectomy. 5. Lumbar surgery. ALLERGIES: Listed PENICILLIN AND SULFA with severe anaphylactic shock. She has an intolerance to codeine, extreme somnolence, and inability to be awakened. SOCIAL HISTORY: He lives at [facility]. He denies use of tobacco or alcohol products. He has a daughter that lives out of town. PHYSICAL EXAMINATION: I am unable to arouse the patient other than she opens her eyes to voice only and then falls immediately back to sleep. She is currently waiting MRI of the brain. Passive range of motion of the left hip causes obvious pain with facial grimacing. There is external rotation and shortening. She has a 2+ pedal pulse in the left lower extremity. DIAGNOSTIC STUDIES AND LABORATORY DATA: X-ray and CT reveal a basicervical/ intertrochanteric left hip fracture with some mild angulation. IMPRESSION: Intertrochanteric basicervical left hip fracture. PLAN: The patient is admitted to the medical service due to her mental status changes. An MRI of the brain has been ordered and is pending. We will await medical authorization and okay for anesthesia. We recommend intramedullary fixation of the fracture. ABDOULAYE LAND [id number]/[facility]PS #: [id number] I have spoken with Monika and her daughter Olya extensively this morning. Olya's secondary survey is negative except for pain with logroll left hip. TA/ GS intact. SILT distally, foot is WWP. She is more awake and alert this morning but still not with normal mental clarity. Her daughter says she has had progressive confusion over the last two weeks and last night was found in her undergarments outside of her aprtment confused. Her medical workup including a brain MRI and CXR, UA and other labs are negative. She has been deemed medically optimized for surgery. We will planf for closed reduction and gamma nail fixation of the left hip fracture which is a very distal basicervical/ intertrochanteric hip fracture with some posterior comminution and mild apex anterior angulation. Her daughter understands the risks and the potential for postoperative medical complications and even mortality. We also talked about the benefits. She would like to proceed. I will obtain full length femur xrays. MTDD
[2016-07-05] MEDS: NS 0.9% 1000 ML* 1,000 ML IV SCH (05:54)
[2016-07-05 06:47] LABS: Hematocrit 36 % (35-47); Hemoglobin 12.3 g/dl (12.0-16.0); Mean Corpuscular HGB Conc 34 g/dl (31-36); Mean Corpuscular Hemoglobin 31 pg (27-31); Mean Corpuscular Volume 92 fL (80-97); Mean Platelet Volume 7 um3 (7.4-10.4); Red Blood Count 3.92 10^6/ul (4.0-5.4); Red Cell Distribution Width 13 % (10.5-15); White Blood Count 11.9 10^3/ul (3.5-10.8)
[2016-07-05 06:51] LABS: BUN/Creatinine Ratio 12.7 (8-20); Calcium 8.1 mg/dL (8.6-10.3); EGFR African American 134.8 (>60); EGFR Non-African American 104.8 (>60); Potassium 3.6 mmol/L (3.5-5.0)
--- NOTE | 2016-07-05 07:29 | PN ---
Subjective Date of Service: 07/05/16 Interval History: Patient seen this morning. More alert than yesterday although still a bit slow to respond and having some confusion. Reports L hip pain. I explained that the hip was fractured and that it will need surgical repair. Family History: Unchanged from Admission Social History: Unchanged from Admission Past Medical History: Unchanged from Admission Objective Active Medications: Acetaminophen (Tylenol Tab*) 650 mg PO Q4H PRN Amlodipine Besylate (Norvasc Tab*) 2.5 mg PO DAILY OSBALDO Aspirin (Aspirin Low Dose Tab*) 81 mg PO DAILY OSBALDO Enoxaparin Sodium (Lovenox(*)) 40 mg SUBCUT Q24H OSBALDO Sodium Chloride (Ns 0.9% 1000 Ml*) 1,000 mls @ 75 mls/hr IV PER RATE OSBALDO Losartan Potassium (Cozaar Tab*) 50 mg PO DAILY OSBALDO Omeprazole (Prilosec Cap*) 20 mg PO DAILY OSBALDO Oxycodone HCl (Roxycodone Tab*) 2.5 mg PO Q4H PRN Pravastatin Sodium (Pravachol (Nf)) 20 mg PO 1700 [facility] Vital Signs 07/04/16 07/04/16 07/04/16 10:00 10:21 10:38 Temperature 98.4 F 98.6 F Pulse Rate 87 80 86 Respiratory 17 26 17 Rate Blood Pressure 168/59 136/48 (mmHg) O2 Sat by Pulse 91 98 Oximetry 07/04/16 07/05/16 07/05/16 23:21 03:15 04:00 Temperature 99.1 F 98.5 F Pulse Rate 55 67 Respiratory 20 16 Rate Blood Pressure 168/52 153/50 (mmHg) O2 Sat by Pulse 100 99 Oximetry Oxygen Devices in Use Now: Nasal Cannula Appearance: Elderly, F, laying in bed in NAD Eyes: No Scleral Icterus Ears/Nose/Mouth/Throat: - - Dry MM Neck: NL Appearance and Movements; NL JVP Respiratory: Symmetrical Chest Expansion and Respiratory Effort, Clear to Auscultation Cardiovascular: NL Sounds; No Murmurs; No JVD, RRR Abdominal: - - Soft, non-distended, BS+, mild TTP in LLQ, no rebound/guarding Lymphatic: No Cervical Adenopathy Extremities: No Edema, - - TTP along L hip Skin: No Rash or Ulcers Neurological: - - Alert, oriented to self, place, reported year was 1491, could not tell me the month, somewhat slow to respond but less lethargic than yesterday Result Diagrams: 07/05/16 06:17 07/05/16 06:17 Additional Lab and Data: Lab Results 07/04/16 07/04/16 07/04/16 Range/Units 06:15 06:15 06:15 WBC 15.7 H (3.5-10.8) 10^3/ul RBC 4.57 (4.0-5.4) 10^6/ul Hgb 13.9 (12.0-16.0) g/dl Hct 42 (35-47) % MCV 91 (80-97) fL MCH 30 (27-31) pg MCHC 33 (31-36) g/dl RDW 13 (10.5-15) % Plt Count 294 (150-450) 10^3/ul MPV 8 (7.4-10.4) um3 Neut % (Auto) 87.0 H (38-83) % Lymph % (Auto) 8.8 L (25-47) % [place] % (Auto) 2.9 (1-9) % Eos % (Auto) 0.7 (0-6) % Baso % (Auto) 0.6 (0-2) % Absolute Neuts (auto) 13.7 H (1.5-7.7) 10^3/ul Absolute Lymphs (auto) 1.4 (1.0-4.8) 10^3/ul Absolute Monos (auto) 0.5 (0-0.8) 10^3/ul Absolute Eos (auto) 0.1 (0-0.6) 10^3/ul Absolute Basos (auto) 0.1 (0-0.2) 10^3/ul Absolute Nucleated RBC 0 10^3/ul Nucleated RBC % 0 INR (Anticoag Therapy) 0.93 (0.89-1.11) APTT 29.6 (26.0-36.3) seconds Sodium 125 L (133-145) mmol/L Potassium 3.3 L (3.5-5.0) mmol/L Chloride 88 L (101-111) mmol/L Carbon Dioxide 26 (22-32) mmol/L Anion Gap 11 (2-11) mmol/L BUN 13 (6-24) mg/dL Creatinine 0.78 (0.51-0.95) mg/dL Est GFR ( Amer) 90.1 (>60) Est GFR (Non-Af Amer) 70.0 (>60) BUN/Creatinine Ratio 16.7 (8-20) Glucose 140 H (70-100) mg/dL Lactic Acid (0.5-2.0) mmol/L Calcium 9.1 (8.6-10.3) mg/dL Total Bilirubin 0.60 (0.2-1.0) mg/dL AST 18 (13-39) U/L ALT 15 (7-52) U/L Alkaline Phosphatase 47 (34-104) U/L Troponin I 0.01 (<0.04) ng/mL Total Protein 7.5 (6.4-8.9) g/dL Albumin 4.5 (3.2-5.2) g/dL Globulin 3.0 (2-4) g/dL Albumin/Globulin Ratio 1.5 (1-3) Urine Color Urine Appearance Urine pH (5-9) Ur Specific [place] (1.010-1.030) Urine Protein (Negative) Urine Ketones (Negative) Urine Blood (Negative) Urine Nitrate (Negative) Urine Bilirubin (Negative) Urine Urobilinogen (Negative) Ur Leukocyte Esterase (Negative) Urine Glucose (Negative) Blood Type Antibody Screen 07/04/16 07/04/16 07/04/16 Range/Units 06:15 06:15 06:35 WBC (3.5-10.8) 10^3/ul RBC (4.0-5.4) 10^6/ul Hgb (12.0-16.0) g/dl Hct (35-47) % MCV (80-97) fL MCH (27-31) pg MCHC (31-36) g/dl RDW (10.5-15) % Plt Count (150-450) 10^3/ul MPV (7.4-10.4) um3 Neut % (Auto) (38-83) % Lymph % (Auto) (25-47) % [place] % (Auto) (1-9) % Eos % (Auto) (0-6) % Baso % (Auto) (0-2) % Absolute Neuts (auto) (1.5-7.7) 10^3/ul Absolute Lymphs (auto) (1.0-4.8) 10^3/ul Absolute Monos (auto) (0-0.8) 10^3/ul Absolute Eos (auto) (0-0.6) 10^3/ul Absolute Basos (auto) (0-0.2) 10^3/ul Absolute Nucleated RBC 10^3/ul Nucleated RBC % INR (Anticoag Therapy) (0.89-1.11) APTT (26.0-36.3) seconds Sodium (133-145) mmol/L Potassium (3.5-5.0) mmol/L Chloride (101-111) mmol/L Carbon Dioxide (22-32) mmol/L Anion Gap (2-11) mmol/L BUN (6-24) mg/dL Creatinine (0.51-0.95) mg/dL Est GFR ( Amer) (>60) Est GFR (Non-Af Amer) (>60) BUN/Creatinine Ratio (8-20) Glucose (70-100) mg/dL Lactic Acid 1.5 (0.5-2.0) mmol/L Calcium (8.6-10.3) mg/dL Total Bilirubin (0.2-1.0) mg/dL AST (13-39) U/L ALT (7-52) U/L Alkaline Phosphatase (34-104) U/L Troponin I (<0.04) ng/mL Total Protein (6.4-8.9) g/dL Albumin (3.2-5.2) g/dL Globulin (2-4) g/dL Albumin/Globulin Ratio (1-3) Urine Color Straw Urine Appearance Clear Urine pH 6.0 (5-9) Ur Specific [place] 1.008 L (1.010-1.030) Urine Protein Negative (Negative) Urine Ketones Negative (Negative) Urine Blood Negative (Negative) Urine Nitrate Negative (Negative) Urine Bilirubin Negative (Negative) Urine Urobilinogen Negative (Negative) Ur Leukocyte Esterase Negative (Negative) Urine Glucose Negative (Negative) Blood Type A Positive Antibody Screen Pending Microbiology and Other Data: Microbiology 07/04/16 11:30 Nasal Screen MRSA (PCR)(YOLANDA) - Final Nasal Mrsa Positive Assess/Plan/Problems-Billing Assessment: L hip fracture after fall, AMS in an 86 yo F with hx of HTN, HLD, CVA - Patient Problems (1) Hip fracture Current Visit: Yes Comment: Appreciate Orthopedic assistance. Will need to go OR, RCRI score of 1, I don't think the patient needs any additional work-up prior to proceeding to surgery. She is NPO with plans for surgery today. (2) Altered mental status Current Visit: Yes Comment: Some improvement, seems less lethargic today although still seems a bit disoriented. Etiology unclear as to what is driving this, I don't think she has any underlying infection (UA negative, CXR without any clear consolidations), ammonia WNL, has not received narcotics since yesterday. WBC, Na improving. Will continue to monitor. (3) CVA (cerebral vascular accident) Current Visit: No Comment: Continue ASA, statin. (4) HTN (hypertension) Current Visit: No Comment: BPs elevated, continue Amlodipine. Will hold Losartan. (5) DVT prophylaxis Current Visit: No Comment: Lovenox Status and Disposition: Inpatient for hip fx, AMS
--- NOTE | 2016-07-05 07:56 | PN ---
Progress Note - Progress Note Note: Full note dicated. Altered mental status progressive over 2 weeks. No reversible cause identifiable by the hospitalist team and they have medically optimized her for surgery. More alert this morning Awake and alert secondary survey negative, +TA/GA/EHL on exam, no tenderness in knee, no pain with logroll right hip, pain with logroll left hip A/P: Left hip very distal basicervical/intertrochanteric fracture. Plan is for gamma nail fixation and closed reduction tonight. She certainly is high risk. I had a very nice discussion with her daughter Olya this morning and she understands the risk of postop delirium and even mortality.
[2016-07-05] MEDS: amLODIPine TAB* 5 MG PO SCH (08:07)
[2016-07-05] MEDS: Acetaminophen TAB* 325 MG PO PRN (08:07)
[2016-07-05] MEDS: Aspirin Low Dose CHEW TAB* 81 MG PO SCH (08:11)
[2016-07-05] MEDS: Omeprazole CAP* 20 MG PO SCH (08:11)
[2016-07-05] MEDS ORDERED: Losartan TAB* 25 MG PO SCH (09:00)
--- NOTE | 2016-07-05 09:58 | RAD ---
INDICATION: Traumatic fracture of the left hip preoperative evaluation. COMPARISON: Comparison is made with a prior x-ray study of the left hip from July 04, [address] of the left hip also from October 04, 2016. TECHNIQUE: 2 views of the left femur were obtained. FINDINGS: There is a nondisplaced intertrochanteric fracture of the left femur. No additional fractures are seen. 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 IMPRESSION: NONDISPLACED INTERTROCHANTERIC FRACTURE.
[2016-07-05] MEDS: Enoxaparin(*) 40 MG/0.4 ML SYR SUBCUT SCH (11:37)
[2016-07-05] MEDS: oxyCODONE TAB* 5 MG TAB PO PRN ×2 (12:24→16:46)
[2016-07-05] MEDS ORDERED: Cyclobenzaprine TAB* 10 MG ONE (14:34)
[2016-07-05] MEDS ORDERED: oxyCODONE TAB* 5 MG TAB ONE (16:45)
[2016-07-05] MEDS: CMC:Pravastatin (NF) 20 MG TAB PO SCH (16:54)
[2016-07-05] MEDS ORDERED: Bupivacaine 0.5% W/EPI SDV* 30 ML VIAL ONE (17:21)
[2016-07-05] MEDS ORDERED: KETAMINE HCL* 50 MG/ML 10 ML VIAL ONE (18:02)
[2016-07-05] MEDS ORDERED: Midazolam* 1 MG/ML 2 ML VIAL (2 MG) ONE (18:02)
[2016-07-05] MEDS ORDERED: Clindamycin 900 MG IVPREMIX(* 900 MG/50 ML SDV IV ONE (18:02)
[2016-07-05] MEDS ORDERED: Bupivacaine 0.5% SDV PF* 30 ML VIAL ONE (18:05)
--- NOTE | 2016-07-05 18:10 | PN ---
Progress Note - Progress Note Note: On my previous addendum to the consultation note I mention Monika and Olya. These should both say Nathaleen. Olya is her daughter.
[2016-07-05] MEDS ORDERED: Phenylephrine IV* 40 MCG/ML 10 ML SYRINGE ONE (18:37)
[2016-07-05] MEDS ORDERED: Propofol* 10 MG/ML 20 ML BTL IV PUSH ONE (19:32)
[2016-07-05] MEDS ORDERED: Ondansetron INJ* 2 MG/ML VIAL IV PRN (20:01)
[2016-07-05] MEDS ORDERED: diPHENhydraMINE IV* 50 MG/ML 1 ml VIAL (BENADRYL) IV PRN (20:01)
--- NOTE | 2016-07-05 20:19 | PN ---
Progress Note - Progress Note Note: Gamma nail proceeded uneventfully. Recommend DVT prophylaxis with lovenox or heparin and then aspirin on discharge. Weight bear as tolerated. Antibiotics for 24 hours per SCIP protocol. PT consult and out of bed as soon as possible.
--- NOTE | 2016-07-05 20:43 | RAD ---
CPT II Codes: 6045F Indication: Left hip fracture. Fluoroscopic services provided for referring physician. 1 minute and 8 seconds of fluoroscopy time was used. There is internal fixation with intramedullary dona in place fixating a intertrochanteric fracture. IMPRESSION: Fluoroscopic services provided for referring physician for internal fixation.
[2016-07-05] MEDS ORDERED: ceFAZolin 1 GM in Dextrose (*) 1 GM/50 ML BAG IVPB SCH (21:00)
[2016-07-05] MEDS: Docusate CAP* 100 MG PO SCH (22:29)
[2016-07-06] MEDS: Clindamycin 900 MG IVPREMIX(* 900 MG/50 ML SDV IV SCH ×3 (00:26→13:20)
[2016-07-06] MEDS: Acetaminophen TAB* 325 MG PO PRN ×2 (02:36→09:10)
[2016-07-06 05:39] LABS: Hematocrit 35 % (35-47); Hemoglobin 11.5 g/dl (12.0-16.0); Mean Corpuscular HGB Conc 33 g/dl (31-36); Mean Corpuscular Hemoglobin 31 pg (27-31); Mean Corpuscular Volume 93 fL (80-97); Mean Platelet Volume 7 um3 (7.4-10.4); Red Blood Count 3.72 10^6/ul (4.0-5.4); Red Cell Distribution Width 13 % (10.5-15)
[2016-07-06 05:53] LABS: BUN/Creatinine Ratio 19.7 (8-20); EGFR African American 119.6 (>60); Potassium 3.7 mmol/L (3.5-5.0)
--- NOTE | 2016-07-06 08:15 | OP ---
DATE OF OPERATION: 07/05/16 - ROOM #336 DATE OF : 30 SURGEON: Huan Yanez MD MAKING MACHINE OPERATOR: ABDOULAYE Stevens ANESTHESIOLOGIST: Dr. Zazueta. ANESTHESIA: Spinal. PRE-OP DIAGNOSIS: Left intertrochanteric hip fracture. POST-OP DIAGNOSIS: Left intertrochanteric hip fracture. OPERATIVE PROCEDURE: Closed reduction and percutaneous gamma nail fixation of the left intertrochanteric hip fracture. INDICATIONS: Ms. Serna is an 86-year-old female who lives in an assisted living facility. She has had a little bit of progressive altered mental status for the last couple of weeks. She was found in the parking lot after a fall and workup here in the hospital revealed a left intertrochanteric hip fracture. Prior to the injury, per her daughter, she walked with a 4-wheel rolling walker and occasionally a cane when she was inside the house. She has been fairly highly functional and again living near independently. She, in the hospital, was worked up by the hospitalist service and was found to be medically optimized. She was admitted to their service and workup including a brain MRI was negative. I talked to her daughter, Olya, about the risks and benefits. She wanted to proceed with surgery. ESTIMATED BLOOD LOSS: 150 mL. COMPLICATIONS: None. FINDINGS: As expected. DESCRIPTION OF PROCEDURE: Ms. Serna was seen in the preoperative holding area together with her daughter, who is her medical decision maker. The correct side, site, and procedure were identified. Informed consent was signed. We came back to the operating room, where the spinal was performed and she was positioned on the fracture table. I pulled traction and abducted and internally rotated the leg. Imaging showed nice alignment. There had not been too much displacement preop. Once I confirmed the alignment, we went ahead and prepped and draped the leg including a pre-wash with chlorhexidine and then a prep with ChloraPrep. The leg was draped with the shower curtain. I brought in C-arm and marked out the trajectory of my pin in line with greater trochanter and the shaft of the femur. I then marked up my incision and made skin incision. Dissection was carried down sharply through the fascia. The guide-wire was introduced and the correct starting position was identified via fluoroscopy on both the AP and lateral views. I used power to introduce the guidepin just pass the level of the greater troch. I then used the opening reamer to open up the canal. I then removed the pin in the reamer and placed a long ball-tipped guidewire. This was placed down to the level of the patella. The nail was measured. I selected a 340 mm x 11 mm nail. I sequentially reamed up to a 13 mm reamer. I then placed the gamma nail uneventfully down the shaft of the femur until I had the correct position based off of AP imaging at the hip. I did check lateral at the distal femur just to make sure that the nail was not up against the anterior cortex of the femur. Once I was satisfied with the position of the nail, I went ahead and placed triple- sleeve guide and located the appropriate site for the incision. A 2 cm to 3 cm incision was made and then tensor fascia hannah was split. The triple guide was then placed down to the bone. I brought in the guide pin for the lag screw. The guidepin for the lag screw was then placed. I put it about third of the way into the femoral neck and then I checked the lateral view just a bit anterior, so I backed it up and then placed the pin just a little bit more posteriorly until I obtained the center-center position. Once I had good positioning of the guidepin, I measured and then drilled with the drill set at 90 mm. Once I had the drill all the way in, I checked the length and it was really good. We therefore selected a 90-mm lag screw and placed this uneventfully. It was in a very nice center-center position. I then placed the set screw. I then detached the Aiming Arm and brought the leg into abduction to set up for perfect circles. The fluoroscopy machine came down and got perfect [place] imaging. I went ahead and made an incision at the appropriate site and carried this down sharply through the tensor. I bluntly dissected and then put my drill bit in the appropriate position based off of fluoroscopy. I then drilled through the oblong hole in the static position. The screw was measured and then a 45 mm screw was placed. At this point, final fluoroscopic imaging was taken proximally and distally. All the wounds were copiously irrigated. The proximal wound was closed with some deep 2-0 Polysorb suture. The skin was closed with prem. All wounds were infiltrated with 0.5% Marcaine with epinephrine. Wounds were dressed with Xeroform, 4x4's, and foam tape. She was then transferred back to the stretcher and taken to recovery room in stable condition. [id number]/[facility] #: [id number] EVRIN
[2016-07-06] MEDS: Docusate CAP* 100 MG PO SCH ×2 (09:10→19:47)
[2016-07-06] MEDS: amLODIPine TAB* 5 MG PO SCH (09:10)
[2016-07-06] MEDS: Vitamin THERAPEUTIC TAB PO SCH (09:10)
[2016-07-06] MEDS: Aspirin Low Dose CHEW TAB* 81 MG PO SCH (09:10)
[2016-07-06] MEDS: Omeprazole CAP* 20 MG PO SCH (09:10)
--- NOTE | 2016-07-06 09:57 | PN ---
Subjective Date of Service: 07/06/16 Interval History: Patient seen this morning. Alert, mildly confused. Reports hip is not bothering her too much. Cannot recall what happened yesterday, explained she had surgery for a broken hip. No fever or chills. Family History: Unchanged from Admission Social History: Unchanged from Admission Past Medical History: Unchanged from Admission Objective Active Medications: Acetaminophen (Tylenol Tab*) 650 mg PO Q4H PRN Amlodipine Besylate (Norvasc Tab*) 2.5 mg PO DAILY OSBALDO Aspirin (Aspirin Low Dose Tab*) 81 mg PO DAILY OSBALDO Cyclobenzaprine HCl (Flexeril Tab*) 10 mg PO Q8H PRN Diphenhydramine HCl (Benadryl Iv*) 25 mg IV Q6H PRN Docusate Sodium (Colace Cap*) 100 mg PO BID OSBALDO Enoxaparin Sodium (Lovenox(*)) 40 mg SUBCUT Q24H OSBALDO Lactated Ringer's (Lactated Ringers 1000 Ml Bag*) 1,000 mls @ 75 mls/hr IV PER RATE OSBALDO Clindamycin HCl/Dextrose (Cleocin 900 Mg Ivpremix (*) Sdv) 900 mg in 50 mls @ 100 mls/hr IV Q6H OSBALDO Lactulose (Lactulose*) 30 ml PO Q6H PRN Multivitamins (Theragran Tab*) 1 tab PO DAILY OSBALDO Omeprazole (Prilosec Cap*) 20 mg PO DAILY OSBALDO Ondansetron HCl (Zofran Inj*) 4 mg IV Q6H PRN Oxycodone HCl (Roxycodone Tab*) 2.5 mg PO Q4H PRN Pravastatin Sodium (Pravachol (Nf)) 20 mg PO 1700 [facility] Vital Signs 07/05/16 07/05/16 07/05/16 11:58 12:24 14:24 Temperature 98.5 F Pulse Rate 56 Respiratory 16 16 16 Rate Blood Pressure 153/79 (mmHg) O2 Sat by Pulse 99 Oximetry 07/06/16 07/06/16 07/06/16 04:23 05:50 08:28 Temperature 97.0 F 97.1 F Pulse Rate 33 64 Respiratory 18 18 Rate Blood Pressure 125/34 143/40 (mmHg) O2 Sat by Pulse 90 99 96 Oximetry Oxygen Devices in Use Now: Nasal Cannula Appearance: Elderly, F, laying in bed in NAD Eyes: No Scleral Icterus Ears/Nose/Mouth/Throat: - - Dry MM Neck: NL Appearance and Movements; NL JVP Respiratory: Symmetrical Chest Expansion and Respiratory Effort, Clear to Auscultation Cardiovascular: - - Regularly irregular (bigeminy), no m/g/r Abdominal: NL Sounds; No Tenderness; No Distention Lymphatic: No Cervical Adenopathy Extremities: No Edema, - - L hip with dressing in place Skin: No Rash or Ulcers Neurological: - - Alert, oriented to self, place (read the white board), year, could not tell me month, no focal deficits Result Diagrams: 07/06/16 05:21 07/06/16 05:21 Assess/Plan/Problems-Billing Assessment: L hip fracture after fall, AMS in an 86 yo F with hx of HTN, HLD, CVA - Patient Problems (1) Hip fracture Current Visit: Yes Comment: Appreciate Orthopedic assistance s/p L gamma nail placement on 07/05. Tolerated well. PT ordered. (2) Altered mental status Current Visit: Yes Comment: Improving in terms of alertness. Still confused, I wonder if some of this may be chronic, was noted last admission to likely have some underlying cognitive impairment. Will continue to follow, again, work- up so far for reversible cause has been negative. (3) CVA (cerebral vascular accident) Current Visit: No Comment: Continue ASA, statin. (4) HTN (hypertension) Current Visit: No Comment: BPs OK, continue Amlodipine. Will hold Losartan. (5) DVT prophylaxis Current Visit: No Comment: Lovenox Status and Disposition: Inpatient for hip fx, AMS
--- NOTE | 2016-07-06 11:19 | PN ---
Progress Note - Progress Note SOAP: Subjective: [Pt was seen sitting up in bed. She states she is in no pain. Very happy and laughing. She does not recall any fevers. ] Objective: [General: Pt is awake and alert. NAD MSK: LLE: Dressing is clean, dry and intact. Pt is able to df and pf the ankle. Sensation is intact to light touch distally. ] Vital Signs Temp 97.1 F 07/06/16 08:28 Pulse 64 07/06/16 08:28 Resp 18 07/06/16 08:28 BP 143/40 07/06/16 08:28 Pulse Ox 96 07/06/16 08:28 Intake & Output 07/05/16 07/06/16 07/06/16 18:59 06:59 18:59 Intake Total 500 655 Output Total 250 475 Balance 250 180 Weight 117 lb Intake: IV Fluids 500 605 ABX - CLINDAMYCIN 55 LR 550 NS (0.9%) 500 Oral 50 Output: [place] 250 475 Laboratory Results - last 24 hr 07/06/16 07/06/16 05:21 05:21 WBC 16.0 H RBC 3.72 L Hgb 11.5 L Hct 35 MCV 93 MCH 31 MCHC 33 RDW 13 Plt Count 198 MPV 7 L Neut % (Auto) 94.6 H Lymph % (Auto) 2.6 L [place] % (Auto) 2.4 Eos % (Auto) 0.1 Baso % (Auto) 0.3 Absolute Neuts (auto) 15.2 H Absolute Lymphs (auto) 0.4 L Absolute Monos (auto) 0.4 Absolute Eos (auto) 0 Absolute Basos (auto) 0 Absolute Nucleated RBC 0 Nucleated RBC % 0 Sodium 130 L Potassium 3.7 Chloride 98 L Carbon Dioxide 22 Anion Gap 10 BUN 12 Creatinine 0.61 Est GFR ( Amer) 119.6 Est GFR (Non-Af Amer) 93.0 BUN/Creatinine Ratio 19.7 Glucose 132 H Calcium 8.0 L Assessment: [S/P Left gamma nail ] Plan: [Continue current hospitalists management Continue current pain management Continue current DVT prophylaxis Continue to monitor WBC and Temp ] <Bahman Allen - Last Filed: 07/06/16 11:16> - Progress Note SOAP: Subjective: []Stable today Objective: []Dressings c/d/i. +TA/GS function , WWP distally Assessment: []POD#1 s/p L gamma nail Plan: []OOB, weight bear as tolerated, recommend minimal narcotics and tylenol or ibuprofen as able for pain control, continue DVT ppx w/ lovenox, aspirin on discharge <Huan Yanez - Last Filed: 07/06/16 13:40>
[2016-07-06] MEDS: Enoxaparin(*) 40 MG/0.4 ML SYR SUBCUT SCH (11:34)
[2016-07-06] MEDS: Cyclobenzaprine TAB* 10 MG PO PRN ×2 (11:34→19:47)
[2016-07-06] MEDS: oxyCODONE TAB* 5 MG TAB PO PRN (13:23)
[2016-07-06] MEDS ORDERED: NS 0.9% 500 ML BAG* 500 ML IV ONE (16:00)
[2016-07-06] MEDS: CMC:Pravastatin (NF) 20 MG TAB PO SCH (18:09)
[2016-07-06] MEDS: Ibuprofen TAB* 400 MG PO PRN (18:10)
[2016-07-07] MEDS: oxyCODONE TAB* 5 MG TAB PO PRN (05:36)
[2016-07-07 05:50] LABS: Hematocrit 32 % (35-47); Hemoglobin 10.5 g/dl (12.0-16.0)
[2016-07-07] MEDS: Aspirin Low Dose CHEW TAB* 81 MG PO SCH (09:30)
[2016-07-07] MEDS: Enoxaparin(*) 40 MG/0.4 ML SYR SUBCUT SCH (09:30)
[2016-07-07] MEDS: Ibuprofen TAB* 400 MG PO PRN ×2 (09:30→18:08)
[2016-07-07] MEDS: Docusate CAP* 100 MG PO SCH ×3 (09:30→20:44)
[2016-07-07] MEDS: Acetaminophen TAB* 325 MG PO PRN (09:31)
[2016-07-07] MEDS: Omeprazole CAP* 20 MG PO SCH ×2 (09:31→10:46)
[2016-07-07] MEDS: amLODIPine TAB* 5 MG PO SCH (09:31)
[2016-07-07] MEDS: Vitamin THERAPEUTIC TAB PO SCH ×2 (09:31→10:46)
--- NOTE | 2016-07-07 10:27 | PN ---
Progress Note - Progress Note SOAP: Subjective: SOAP: Subjective: [Pt was seen sitting up in bed. She states she is in no pain. Very happy and laughing. She does not recall any fevers. ] Objective: [General: Pt is awake and alert. NAD MSK: LLE: Dressing changed today. Incisions look well approximated, no erythema , or discharge. Middle incision had dry soaked dressing. Other two incisions hand clean dressings with minimal blood. Pt is able to df and pf the ankle. Sensation is intact to light touch distally. ] Vital Signs Temp 98.5 F 07/07/16 08:06 Pulse 92 07/07/16 08:06 Resp 16 07/07/16 08:06 BP 155/58 07/07/16 08:06 Pulse Ox 92 07/07/16 08:06 Intake & Output 07/06/16 07/07/16 07/07/16 18:59 06:59 18:59 Intake Total 1543 1675 Output Total 150 327 Balance 1393 1348 Intake: IV Fluids 960 1600 LR 1600 NS (0.9%) 960 IVPB 83 25 ABX - CLINDAMYCIN 83 LR 25 Oral 500 50 Output: [place] 150 327 Other: # Bowel Movements 1 Estimated Stool Amount Small Assessment: [POD 2 Left gamma nail ] Plan: [Continue current hospitalists management WBAT Continue current pain management with minimal narcotics and tylenol or ibuprofen for pain. Continue current DVT prophylaxis w/ lovenox, aspirin on discharge
--- NOTE | 2016-07-07 11:04 | PN ---
Subjective Date of Service: 07/07/16 Interval History: Patient seen and examined at bedside. She is alert and restless. Patient assisted with repositioning. She denies CP, SOB. Reports hip "hurts me from time to time." No other acute concerns at this time. Family History: Unchanged from Admission Social History: Unchanged from Admission Past Medical History: Unchanged from Admission Objective Active Medications: Acetaminophen (Tylenol Tab*) 650 mg PO Q4H PRN PRN Reason: PAIN Last Admin: 07/07/16 09:31 Dose: 650 mg Amlodipine Besylate (Norvasc Tab*) 2.5 mg PO DAILY [facility] Last Admin: 07/07/16 09:31 Dose: 2.5 mg Aspirin (Aspirin Low Dose Tab*) 81 mg PO DAILY [facility] Last Admin: 07/07/16 09:30 Dose: 81 mg Cyclobenzaprine HCl (Flexeril Tab*) 10 mg PO Q8H PRN PRN Reason: MUSCLE SPASMS Last Admin: 07/06/16 19:47 Dose: 10 mg Diphenhydramine HCl (Benadryl Iv*) 25 mg IV Q6H PRN PRN Reason: itching or insomnia\\ Docusate Sodium (Colace Cap*) 100 mg PO BID [facility] Last Admin: 07/07/16 10:45 Dose: Not Given Enoxaparin Sodium (Lovenox(*)) 40 mg SUBCUT Q24H [facility] Last Admin: 07/07/16 09:30 Dose: 40 mg Lactated Ringer's (Lactated Ringers 1000 Ml Bag*) 1,000 mls @ 100 mls/hr IV PER RATE [facility] Last Admin: 07/07/16 05:06 Dose: 100 mls/hr Ibuprofen (Motrin Tab*) 400 mg PO Q6H PRN PRN Reason: PAIN Last Admin: 07/07/16 09:30 Dose: 400 mg Lactulose (Lactulose*) 30 ml PO Q6H PRN PRN Reason: constipation Multivitamins (Theragran Tab*) 1 tab PO DAILY [facility] Last Admin: 07/07/16 10:46 Dose: Not Given Omeprazole (Prilosec Cap*) 20 mg PO DAILY [facility] Last Admin: 07/07/16 10:46 Dose: Not Given Ondansetron HCl (Zofran Inj*) 4 mg IV Q6H PRN PRN Reason: nausea Oxycodone HCl (Roxycodone Tab*) 2.5 mg PO Q4H PRN PRN Reason: SEVERE PAIN Last Admin: 07/07/16 05:36 Dose: 2.5 mg Pravastatin Sodium (Pravachol (Nf)) 20 mg PO 1700 OSBALDO PRN Reason: Protocol Last Admin: 07/06/16 18:09 Dose: 20 mg Vital Signs 07/06/16 07/06/16 07/06/16 11:34 12:28 12:30 Temperature 97.8 F Pulse Rate 30 61 Respiratory 16 18 Rate Blood Pressure 136/39 (mmHg) O2 Sat by Pulse 95 Oximetry 07/06/16 07/06/16 07/06/16 13:23 13:34 15:23 Temperature Pulse Rate Respiratory 18 16 16 Rate Blood Pressure (mmHg) O2 Sat by Pulse Oximetry 07/06/16 07/06/16 07/06/16 15:29 16:00 16:23 Temperature 97.8 F Pulse Rate 91 Respiratory 20 Rate Blood Pressure 142/47 (mmHg) O2 Sat by Pulse 93 95 95 Oximetry 07/06/16 07/06/16 07/06/16 19:40 19:47 19:57 Temperature 98.7 F Pulse Rate 80 Respiratory 15 14 18 Rate Blood Pressure 134/40 (mmHg) O2 Sat by Pulse 96 Oximetry 07/06/16 07/06/16 07/07/16 21:32 23:57 03:30 Temperature 98.2 F 98.0 F Pulse Rate 75 82 Respiratory 14 18 16 Rate Blood Pressure 135/47 132/63 (mmHg) O2 Sat by Pulse 91 95 Oximetry 07/07/16 07/07/16 07/07/16 03:40 05:36 08:06 Temperature 98.1 F 98.5 F Pulse Rate 87 92 Respiratory 18 14 16 Rate Blood Pressure 156/52 155/58 (mmHg) O2 Sat by Pulse 91 92 Oximetry 07/07/16 10:39 Temperature Pulse Rate Respiratory 16 Rate Blood Pressure (mmHg) O2 Sat by Pulse 92 Oximetry Oxygen Devices in Use Now: Nasal Cannula Appearance: Elderly female, lying in bed, restless but otherwise in NAD Eyes: PERRLA Ears/Nose/Mouth/Throat: Mucous Membranes Moist Neck: NL Appearance and Movements; NL JVP Respiratory: Symmetrical Chest Expansion and Respiratory Effort, Clear to Auscultation Cardiovascular: - - regularly irregular Abdominal: NL Sounds; No Tenderness; No Distention Extremities: No Edema, - - left hip dressing c/d/i Neurological: - - Alert, oriented to self Lines/Tubes/Other Access: Clean, Dry and Intact Peripheral IV Result Diagrams: 07/07/16 05:21 07/06/16 05:21 Additional Lab and Data: Lab Results 07/04/16 07/04/16 07/04/16 Range/Units 06:15 06:15 06:15 WBC 15.7 H (3.5-10.8) 10^3/ul RBC 4.57 (4.0-5.4) 10^6/ul Hgb 13.9 (12.0-16.0) g/dl Hct 42 (35-47) % MCV 91 (80-97) fL MCH 30 (27-31) pg MCHC 33 (31-36) g/dl RDW 13 (10.5-15) % Plt Count 294 (150-450) 10^3/ul MPV 8 (7.4-10.4) um3 Neut % (Auto) 87.0 H (38-83) % Lymph % (Auto) 8.8 L (25-47) % [place] % (Auto) 2.9 (1-9) % Eos % (Auto) 0.7 (0-6) % Baso % (Auto) 0.6 (0-2) % Absolute Neuts (auto) 13.7 H (1.5-7.7) 10^3/ul Absolute Lymphs (auto) 1.4 (1.0-4.8) 10^3/ul Absolute Monos (auto) 0.5 (0-0.8) 10^3/ul Absolute Eos (auto) 0.1 (0-0.6) 10^3/ul Absolute Basos (auto) 0.1 (0-0.2) 10^3/ul Absolute Nucleated RBC 0 10^3/ul Nucleated RBC % 0 INR (Anticoag Therapy) 0.93 (0.89-1.11) APTT 29.6 (26.0-36.3) seconds Sodium 125 L (133-145) mmol/L Potassium 3.3 L (3.5-5.0) mmol/L Chloride 88 L (101-111) mmol/L Carbon Dioxide 26 (22-32) mmol/L Anion Gap 11 (2-11) mmol/L BUN 13 (6-24) mg/dL Creatinine 0.78 (0.51-0.95) mg/dL Est GFR ( Amer) 90.1 (>60) Est GFR (Non-Af Amer) 70.0 (>60) BUN/Creatinine Ratio 16.7 (8-20) Glucose 140 H (70-100) mg/dL Lactic Acid (0.5-2.0) mmol/L Calcium 9.1 (8.6-10.3) mg/dL Total Bilirubin 0.60 (0.2-1.0) mg/dL AST 18 (13-39) U/L ALT 15 (7-52) U/L Alkaline Phosphatase 47 (34-104) U/L Troponin I 0.01 (<0.04) ng/mL Total Protein 7.5 (6.4-8.9) g/dL Albumin 4.5 (3.2-5.2) g/dL Globulin 3.0 (2-4) g/dL Albumin/Globulin Ratio 1.5 (1-3) Urine Color Urine Appearance Urine pH (5-9) Ur Specific [place] (1.010-1.030) Urine Protein (Negative) Urine Ketones (Negative) Urine Blood (Negative) Urine Nitrate (Negative) Urine Bilirubin (Negative) Urine Urobilinogen (Negative) Ur Leukocyte Esterase (Negative) Urine Glucose (Negative) Blood Type Antibody Screen 07/04/16 07/04/16 07/04/16 Range/Units 06:15 06:15 06:35 WBC (3.5-10.8) 10^3/ul RBC (4.0-5.4) 10^6/ul Hgb (12.0-16.0) g/dl Hct (35-47) % MCV (80-97) fL MCH (27-31) pg MCHC (31-36) g/dl RDW (10.5-15) % Plt Count (150-450) 10^3/ul MPV (7.4-10.4) um3 Neut % (Auto) (38-83) % Lymph % (Auto) (25-47) % [place] % (Auto) (1-9) % Eos % (Auto) (0-6) % Baso % (Auto) (0-2) % Absolute Neuts (auto) (1.5-7.7) 10^3/ul Absolute Lymphs (auto) (1.0-4.8) 10^3/ul Absolute Monos (auto) (0-0.8) 10^3/ul Absolute Eos (auto) (0-0.6) 10^3/ul Absolute Basos (auto) (0-0.2) 10^3/ul Absolute Nucleated RBC 10^3/ul Nucleated RBC % INR (Anticoag Therapy) (0.89-1.11) APTT (26.0-36.3) seconds Sodium (133-145) mmol/L Potassium (3.5-5.0) mmol/L Chloride (101-111) mmol/L Carbon Dioxide (22-32) mmol/L Anion Gap (2-11) mmol/L BUN (6-24) mg/dL Creatinine (0.51-0.95) mg/dL Est GFR ( Amer) (>60) Est GFR (Non-Af Amer) (>60) BUN/Creatinine Ratio (8-20) Glucose (70-100) mg/dL Lactic Acid 1.5 (0.5-2.0) mmol/L Calcium (8.6-10.3) mg/dL Total Bilirubin (0.2-1.0) mg/dL AST (13-39) U/L ALT (7-52) U/L Alkaline Phosphatase (34-104) U/L Troponin I (<0.04) ng/mL Total Protein (6.4-8.9) g/dL Albumin (3.2-5.2) g/dL Globulin (2-4) g/dL Albumin/Globulin Ratio (1-3) Urine Color Straw Urine Appearance Clear Urine pH 6.0 (5-9) Ur Specific [place] 1.008 L (1.010-1.030) Urine Protein Negative (Negative) Urine Ketones Negative (Negative) Urine Blood Negative (Negative) Urine Nitrate Negative (Negative) Urine Bilirubin Negative (Negative) Urine Urobilinogen Negative (Negative) Ur Leukocyte Esterase Negative (Negative) Urine Glucose Negative (Negative) Blood Type A Positive Antibody Screen Pending Microbiology and Other Data: Microbiology 07/04/16 11:30 Nasal Screen MRSA (PCR)(YOLANDA) - Final Nasal Mrsa Positive Assess/Plan/Problems-Billing Assessment: L hip fracture after fall, AMS in an 86 yo F with hx of HTN, HLD, CVA - Patient Problems (1) Hip fracture Code(s): S72.009A - FRACTURE OF UNSP PART OF NECK OF UNSP FEMUR, INIT Comment : POD #2, management per ortho Appreciate orthopedic assistance s/p L gamma nail placement on 07/05. Continue analgesia, PT/OT (2) Altered mental status Code(s): R41.82 - ALTERED MENTAL STATUS, UNSPECIFIED Comment: Improving in terms of alertness, still with confusion. Possibility that some of this may be chronic, was noted last admission to likely have some underlying cognitive impairment. Will continue to follow. Work-up so far for reversible cause has been negative. (3) CVA (cerebral vascular accident) Code(s): I63.9 - CEREBRAL INFARCTION, UNSPECIFIED Comment: Continue ASA, statin. (4) HTN (hypertension) Code(s): I10 - ESSENTIAL (PRIMARY) HYPERTENSION Comment: Mostly normotensive Continue Amlodipine. Continue to hold losartan. (5) HLD (hyperlipidemia) Code(s): E78.5 - HYPERLIPIDEMIA, UNSPECIFIED Comment: Continue home pravastatin. (6) Hyponatremia Code(s): E87.1 - HYPO-OSMOLALITY AND HYPONATREMIA Comment: Improving, continue to trend. (7) DVT prophylaxis Code(s): [id number] - Comment: Lovenox Status and Disposition: Inpatient for hip fx, AMS.
[2016-07-07] MEDS: CMC:Pravastatin (NF) 20 MG TAB PO SCH (18:08)
[2016-07-08] MEDS: Cyclobenzaprine TAB* 10 MG PO PRN (02:51)
[2016-07-08] MEDS: Acetaminophen TAB* 325 MG PO PRN (02:51)
[2016-07-08] MEDS: oxyCODONE TAB* 5 MG TAB PO PRN (05:15)
[2016-07-08 06:01] LABS: Hematocrit 29 % (35-47); Hemoglobin 9.9 g/dl (12.0-16.0); Mean Corpuscular HGB Conc 34 g/dl (31-36); Mean Corpuscular Hemoglobin 32 pg (27-31); Mean Corpuscular Volume 93 fL (80-97); Mean Platelet Volume 8 um3 (7.4-10.4); Red Blood Count 3.11 10^6/ul (4.0-5.4); Red Cell Distribution Width 13 % (10.5-15); White Blood Count 7.9 10^3/ul (3.5-10.8)
[2016-07-08 06:14] LABS: BUN/Creatinine Ratio 18.4 (8-20); Calcium 7.8 mg/dL (8.6-10.3); EGFR Non-African American 119.7 (>60); Potassium 3.5 mmol/L (3.5-5.0)
[2016-07-08] MEDS: Aspirin Low Dose CHEW TAB* 81 MG PO SCH (08:38)
[2016-07-08] MEDS: Ibuprofen TAB* 400 MG PO PRN ×2 (08:38→22:13)
[2016-07-08] MEDS: amLODIPine TAB* 5 MG PO SCH (08:38)
[2016-07-08] MEDS: Omeprazole CAP* 20 MG PO SCH (08:39)
[2016-07-08] MEDS: Vitamin THERAPEUTIC TAB PO SCH (08:39)
[2016-07-08] MEDS: Docusate CAP* 100 MG PO SCH ×2 (08:39→22:30)
--- NOTE | 2016-07-08 08:55 | PN ---
Progress Note - Progress Note SOAP: Subjective: []Patient seen at bedside. Alert and oriented. Pleasant and cooperative. Denies significant left leg pain when asked. Denies SOB, CP, dizziness. Objective: [] Vital Signs Temp 98.6 F 07/08/16 08:38 Pulse 79 07/08/16 08:38 Resp 16 07/08/16 08:38 BP 153/54 07/08/16 08:38 Pulse Ox 89 07/08/16 08:38 Intake & Output 07/07/16 07/08/16 07/08/16 18:59 06:59 18:59 Intake Total 2265 2207 Output Total 200 1350 Balance 2065 857 Intake: IV Fluids 705 1607 LR 705 1607 Oral 1560 600 Output: Urine 200 50 Null 550 Straight Cath 750 Other: Estimated Void Small Date of Last Bowel 07/07/16 Movement # Bowel Movements 1 0 Estimated Stool Amount Small Laboratory Results - last 24 hr 07/08/16 07/08/16 05:50 05:50 WBC 7.9 RBC 3.11 L Hgb 9.9 L Hct 29 L MCV 93 MCH 32 H MCHC 34 RDW 13 Plt Count 184 MPV 8 Neut % (Auto) 75.5 Lymph % (Auto) 13.8 L [place] % (Auto) 5.5 Eos % (Auto) 4.8 Baso % (Auto) 0.4 Absolute Neuts (auto) 6.0 Absolute Lymphs (auto) 1.1 Absolute Monos (auto) 0.4 Absolute Eos (auto) 0.4 Absolute Basos (auto) 0 Absolute Nucleated RBC 0 Nucleated RBC % 0 Sodium 132 L Potassium 3.5 Chloride 98 L Carbon Dioxide 24 Anion Gap 10 BUN 9 Creatinine 0.49 L Est GFR ( Amer) 154.0 Est GFR (Non-Af Amer) 119.7 BUN/Creatinine Ratio 18.4 Glucose 126 H Calcium 7.8 L Left LE incisions all benign, no drainage, prem intact +DF/PF left ankle calf non tender and soft sensation intact Assessment: []s/p Gamma nail left intertrochanteric hip fracture POD #3 Urinary retention- null in Plan: []PT/OT as tolerated Null per medicine Lovenox for DVT prophlaxis Rehab placement
--- NOTE | 2016-07-08 12:04 | PN ---
Subjective Date of Service: 07/08/16 Interval History: Patient seen and examined at bedside. When asked about her hip pain, she reports that "it doesn't hurt too bad." She is able to tell me she is in a hospital but is disoriented to time. Denies CP, SOB, abd pain, n/v. Family History: Unchanged from Admission Social History: Unchanged from Admission Past Medical History: Unchanged from Admission Objective Active Medications: Acetaminophen (Tylenol Tab*) 650 mg PO Q4H PRN PRN Reason: PAIN Last Admin: 07/08/16 02:51 Dose: 650 mg Amlodipine Besylate (Norvasc Tab*) 2.5 mg PO DAILY [facility] Last Admin: 07/08/16 08:38 Dose: 2.5 mg Aspirin (Aspirin Low Dose Tab*) 81 mg PO DAILY [facility] Last Admin: 07/08/16 08:38 Dose: 81 mg Cyclobenzaprine HCl (Flexeril Tab*) 10 mg PO Q8H PRN PRN Reason: MUSCLE SPASMS Last Admin: 07/08/16 02:51 Dose: 10 mg Diphenhydramine HCl (Benadryl Iv*) 25 mg IV Q6H PRN PRN Reason: itching or insomnia\\ Docusate Sodium (Colace Cap*) 100 mg PO BID [facility] Last Admin: 07/08/16 08:39 Dose: 100 mg Enoxaparin Sodium (Lovenox(*)) 40 mg SUBCUT Q24H [facility] Last Admin: 07/07/16 09:30 Dose: 40 mg Lactated Ringer's (Lactated Ringers 1000 Ml Bag*) 1,000 mls @ 100 mls/hr IV PER RATE [facility] Last Admin: 07/08/16 01:07 Dose: 100 mls/hr Ibuprofen (Motrin Tab*) 400 mg PO Q6H PRN PRN Reason: PAIN Last Admin: 07/08/16 08:38 Dose: 400 mg Lactulose (Lactulose*) 30 ml PO Q6H PRN PRN Reason: constipation Multivitamins (Theragran Tab*) 1 tab PO DAILY [facility] Last Admin: 07/08/16 08:39 Dose: 1 tab Omeprazole (Prilosec Cap*) 20 mg PO DAILY [facility] Last Admin: 07/08/16 08:39 Dose: 20 mg Ondansetron HCl (Zofran Inj*) 4 mg IV Q6H PRN PRN Reason: nausea Oxycodone HCl (Roxycodone Tab*) 2.5 mg PO Q4H PRN PRN Reason: SEVERE PAIN Last Admin: 07/08/16 05:15 Dose: 2.5 mg Pravastatin Sodium (Pravachol (Nf)) 20 mg PO 1700 OSBALDO PRN Reason: Protocol Last Admin: 07/07/16 18:08 Dose: 20 mg Vital Signs 07/07/16 07/07/16 07/07/16 15:40 16:00 16:33 Temperature 98.6 F Pulse Rate 88 Respiratory 16 Rate Blood Pressure 147/48 (mmHg) O2 Sat by Pulse 94 94 94 Oximetry 07/07/16 07/07/16 07/07/16 19:25 19:40 19:48 Temperature 98.8 F Pulse Rate 69 Respiratory 20 17 17 Rate Blood Pressure 137/124 (mmHg) O2 Sat by Pulse 86 Oximetry 07/07/16 07/07/16 07/08/16 19:49 23:24 00:36 Temperature 98.9 F Pulse Rate 55 Respiratory 16 Rate Blood Pressure 138/51 (mmHg) O2 Sat by Pulse 96 94 93 Oximetry 07/08/16 07/08/16 07/08/16 02:51 02:59 04:50 Temperature 97.4 F Pulse Rate 79 Respiratory 17 17 16 Rate Blood Pressure 151/44 (mmHg) O2 Sat by Pulse 91 Oximetry 07/08/16 07/08/16 07/08/16 05:15 08:38 11:50 Temperature 98.6 F 98.8 F Pulse Rate 79 60 Respiratory 17 16 16 Rate Blood Pressure 153/54 120/44 (mmHg) O2 Sat by Pulse 89 93 Oximetry Oxygen Devices in Use Now: Nasal Cannula Appearance: Elderly female, OOB to chair, NAD Eyes: PERRLA Ears/Nose/Mouth/Throat: Mucous Membranes Moist Neck: NL Appearance and Movements; NL JVP Respiratory: Symmetrical Chest Expansion and Respiratory Effort, Clear to Auscultation Cardiovascular: - - HR regularly irregular Abdominal: NL Sounds; No Tenderness; No Distention Extremities: - Neurological: - - alert, oriented to self and place Lines/Tubes/Other Access: Clean, Dry and Intact Peripheral IV Nutrition: Taking PO's Result Diagrams: 07/08/16 05:50 07/08/16 05:50 Additional Lab and Data: Lab Results 07/04/16 07/04/16 07/04/16 Range/Units 06:15 06:15 06:15 WBC 15.7 H (3.5-10.8) 10^3/ul RBC 4.57 (4.0-5.4) 10^6/ul Hgb 13.9 (12.0-16.0) g/dl Hct 42 (35-47) % MCV 91 (80-97) fL MCH 30 (27-31) pg MCHC 33 (31-36) g/dl RDW 13 (10.5-15) % Plt Count 294 (150-450) 10^3/ul MPV 8 (7.4-10.4) um3 Neut % (Auto) 87.0 H (38-83) % Lymph % (Auto) 8.8 L (25-47) % [place] % (Auto) 2.9 (1-9) % Eos % (Auto) 0.7 (0-6) % Baso % (Auto) 0.6 (0-2) % Absolute Neuts (auto) 13.7 H (1.5-7.7) 10^3/ul Absolute Lymphs (auto) 1.4 (1.0-4.8) 10^3/ul Absolute Monos (auto) 0.5 (0-0.8) 10^3/ul Absolute Eos (auto) 0.1 (0-0.6) 10^3/ul Absolute Basos (auto) 0.1 (0-0.2) 10^3/ul Absolute Nucleated RBC 0 10^3/ul Nucleated RBC % 0 INR (Anticoag Therapy) 0.93 (0.89-1.11) APTT 29.6 (26.0-36.3) seconds Sodium 125 L (133-145) mmol/L Potassium 3.3 L (3.5-5.0) mmol/L Chloride 88 L (101-111) mmol/L Carbon Dioxide 26 (22-32) mmol/L Anion Gap 11 (2-11) mmol/L BUN 13 (6-24) mg/dL Creatinine 0.78 (0.51-0.95) mg/dL Est GFR ( Amer) 90.1 (>60) Est GFR (Non-Af Amer) 70.0 (>60) BUN/Creatinine Ratio 16.7 (8-20) Glucose 140 H (70-100) mg/dL Lactic Acid (0.5-2.0) mmol/L Calcium 9.1 (8.6-10.3) mg/dL Total Bilirubin 0.60 (0.2-1.0) mg/dL AST 18 (13-39) U/L ALT 15 (7-52) U/L Alkaline Phosphatase 47 (34-104) U/L Troponin I 0.01 (<0.04) ng/mL Total Protein 7.5 (6.4-8.9) g/dL Albumin 4.5 (3.2-5.2) g/dL Globulin 3.0 (2-4) g/dL Albumin/Globulin Ratio 1.5 (1-3) Urine Color Urine Appearance Urine pH (5-9) Ur Specific [place] (1.010-1.030) Urine Protein (Negative) Urine Ketones (Negative) Urine Blood (Negative) Urine Nitrate (Negative) Urine Bilirubin (Negative) Urine Urobilinogen (Negative) Ur Leukocyte Esterase (Negative) Urine Glucose (Negative) Blood Type Antibody Screen 07/04/16 07/04/16 07/04/16 Range/Units 06:15 06:15 06:35 WBC (3.5-10.8) 10^3/ul RBC (4.0-5.4) 10^6/ul Hgb (12.0-16.0) g/dl Hct (35-47) % MCV (80-97) fL MCH (27-31) pg MCHC (31-36) g/dl RDW (10.5-15) % Plt Count (150-450) 10^3/ul MPV (7.4-10.4) um3 Neut % (Auto) (38-83) % Lymph % (Auto) (25-47) % [place] % (Auto) (1-9) % Eos % (Auto) (0-6) % Baso % (Auto) (0-2) % Absolute Neuts (auto) (1.5-7.7) 10^3/ul Absolute Lymphs (auto) (1.0-4.8) 10^3/ul Absolute Monos (auto) (0-0.8) 10^3/ul Absolute Eos (auto) (0-0.6) 10^3/ul Absolute Basos (auto) (0-0.2) 10^3/ul Absolute Nucleated RBC 10^3/ul Nucleated RBC % INR (Anticoag Therapy) (0.89-1.11) APTT (26.0-36.3) seconds Sodium (133-145) mmol/L Potassium (3.5-5.0) mmol/L Chloride (101-111) mmol/L Carbon Dioxide (22-32) mmol/L Anion Gap (2-11) mmol/L BUN (6-24) mg/dL Creatinine (0.51-0.95) mg/dL Est GFR ( Amer) (>60) Est GFR (Non-Af Amer) (>60) BUN/Creatinine Ratio (8-20) Glucose (70-100) mg/dL Lactic Acid 1.5 (0.5-2.0) mmol/L Calcium (8.6-10.3) mg/dL Total Bilirubin (0.2-1.0) mg/dL AST (13-39) U/L ALT (7-52) U/L Alkaline Phosphatase (34-104) U/L Troponin I (<0.04) ng/mL Total Protein (6.4-8.9) g/dL Albumin (3.2-5.2) g/dL Globulin (2-4) g/dL Albumin/Globulin Ratio (1-3) Urine Color Straw Urine Appearance Clear Urine pH 6.0 (5-9) Ur Specific [place] 1.008 L (1.010-1.030) Urine Protein Negative (Negative) Urine Ketones Negative (Negative) Urine Blood Negative (Negative) Urine Nitrate Negative (Negative) Urine Bilirubin Negative (Negative) Urine Urobilinogen Negative (Negative) Ur Leukocyte Esterase Negative (Negative) Urine Glucose Negative (Negative) Blood Type A Positive Antibody Screen Pending Microbiology and Other Data: Microbiology 07/04/16 11:30 Nasal Screen MRSA (PCR)(YOLANDA) - Final Nasal Mrsa Positive Assess/Plan/Problems-Billing Assessment: L hip fracture after fall, AMS in an 86 yo F with hx of HTN, HLD, CVA - Patient Problems (1) Hip fracture Code(s): S72.009A - FRACTURE OF UNSP PART OF NECK OF UNSP FEMUR, INIT Comment : POD #3, management per ortho Appreciate orthopedic assistance s/p L gamma nail placement on 07/05. Continue analgesia, PT/OT (2) Altered mental status Code(s): R41.82 - ALTERED MENTAL STATUS, UNSPECIFIED Comment: Improving in terms of alertness, still with confusion. Possibility that some of this may be chronic, was noted last admission to likely have some underlying cognitive impairment. Will continue to follow. Work-up so far for reversible cause has been negative. (3) CVA (cerebral vascular accident) Code(s): I63.9 - CEREBRAL INFARCTION, UNSPECIFIED Comment: Continue ASA, statin. (4) HTN (hypertension) Code(s): I10 - ESSENTIAL (PRIMARY) HYPERTENSION Comment: Mostly normotensive Continue Amlodipine. Continue to hold losartan. (5) HLD (hyperlipidemia) Code(s): E78.5 - HYPERLIPIDEMIA, UNSPECIFIED Comment: Continue home pravastatin. (6) Hyponatremia Code(s): E87.1 - HYPO-OSMOLALITY AND HYPONATREMIA Comment: Improving, continue to trend. (7) DVT prophylaxis Code(s): [id number] - Comment: Lovenox Status and Disposition: Inpatient for hip fx, AMS. Awaiting placement for rehab.
[2016-07-08] MEDS: Enoxaparin(*) 40 MG/0.4 ML SYR SUBCUT SCH (12:37)
[2016-07-08] MEDS ORDERED: Magnesium Hydroxide LIQ* 30 ML UDC PO PRN (15:44)
[2016-07-08] MEDS ORDERED: Senna TAB PO PRN (15:44)
[2016-07-08] MEDS: CMC:Pravastatin (NF) 20 MG TAB PO SCH (17:37)
[2016-07-08] MEDS: Polyethylene Glycol 3350* 17 GM PACKET PO SCH (17:37)
--- NOTE | 2016-07-08 19:10 | RAD ---
INDICATION: Urinary retention COMPARISON: None TECHNIQUE: Real-time ultrasound examination of the bilateral kidneys and urinary bladder including grayscale and Doppler color flow analysis. FINDINGS: Bilaterally the kidneys are normal in size and echogenicity. There are no hypervascular renal masses. There are no renal calculi or hydronephrosis identified. A mid-level anechoic and avascular cyst is noted at the right kidney measuring 1.1 cm in greatest dimension. A Lagunas catheter partially obscures evaluation of the urinary bladder. The grider of the urinary bladder are smooth. The pre and post urinary bladder volumes are 391 mL and 17 mL, respectively. Normal ureteral jets are not visualized. IMPRESSION: 1. Sonographically normal-appearing kidneys. 2. Ureteral jets are not visualized due to obscuration by the Lagunas catheter.
--- NOTE | 2016-07-08 20:48 | RAD ---
INDICATION: Abdominal pain and distention COMPARISON: None TECHNIQUE: 2 views the abdomen were obtained. FINDINGS: There are air-filled loops of bowel seen throughout the abdomen. Air-filled loops of colon exhibits a maximum diameter of 6.2 cm. There is gas and stool overlying the rectum. There is no free air beneath the diaphragm. The partially visualized left hip prosthesis appears to be anatomically aligned. IMPRESSION: DILATED LOOPS OF BOWEL ARE SEEN THROUGHOUT THE ENTIRE ABDOMEN WITH THE COLON MEASURING TOP NORMAL AT 6.3 CM IN DIAMETER.
[2016-07-09 05:56] LABS: Hematocrit 27 % (35-47); Hemoglobin 9.3 g/dl (12.0-16.0)
--- NOTE | 2016-07-09 09:09 | PN ---
Progress Note - Progress Note SOAP: Subjective: []Patient seen OOB in chair. Pain well managed. Lagunas catheter still in for urinary retention yesterday. No new orthopedic complaints. Objective: [] Vital Signs Temp 98.3 F 07/09/16 07:29 Pulse 76 07/09/16 07:29 Resp 16 07/09/16 07:29 BP 151/59 07/09/16 07:29 Pulse Ox 91 07/09/16 07:29 Intake & Output 07/08/16 07/09/16 07/09/16 18:59 06:59 18:59 Intake Total 1013 800 Output Total 550 2900 Balance 463 -2100 Intake: IVPB 893 LR 893 Oral 120 800 Output: Lagunas 550 2900 Other: Date of Last Bowel 1 Movement # Bowel Movements 1 Estimated Stool Amount Medium Small Laboratory Results - last 24 hr 07/09/16 05:48 Hgb 9.3 L Hct 27 L Left LE wounds benign neuro intact + DF/PF left ankle calf NT Assessment: []s/p Left Gamma nail for intertrochanteric femur fracture POD #4- orthopedically stable post op urinary retention Plan: []PT/OT WBAT LLE Await rehab placement Lagunas per medical service Lovenox for DVT prophylaxis
[2016-07-09] MEDS: Aspirin Low Dose CHEW TAB* 81 MG PO SCH (09:47)
[2016-07-09] MEDS: Vitamin THERAPEUTIC TAB PO SCH (09:48)
[2016-07-09] MEDS: Ibuprofen TAB* 400 MG PO PRN ×2 (09:49→18:23)
[2016-07-09] MEDS: Omeprazole CAP* 20 MG PO SCH (09:49)
[2016-07-09] MEDS: amLODIPine TAB* 5 MG PO SCH (09:50)
[2016-07-09] MEDS: Docusate CAP* 100 MG PO SCH ×2 (09:52→22:28)
[2016-07-09] MEDS: Polyethylene Glycol 3350* 17 GM PACKET PO SCH (09:52)
[2016-07-09] MEDS: Acetaminophen TAB* 325 MG PO PRN (12:14)
[2016-07-09] MEDS: Enoxaparin(*) 40 MG/0.4 ML SYR SUBCUT SCH (12:15)
[2016-07-09] MEDS ORDERED: Hemorrhoidal OINT PR PRN (13:11)
--- NOTE | 2016-07-09 13:12 | PN ---
Subjective Date of Service: 07/09/16 Interval History: Patient seen and examined at bedside. Patient remains confused and appears less oriented to situation today (thinks she is at [facility]). Denied left leg pain at time of my assessment. Denies CP, SOB. Nursing reports that patient had O2 sat at 86% when taken off O2. No other acute concerns expressed. Family History: Unchanged from Admission Social History: Unchanged from Admission Past Medical History: Unchanged from Admission Objective Active Medications: Acetaminophen (Tylenol Tab*) 650 mg PO Q4H PRN PRN Reason: PAIN Last Admin: 07/09/16 12:14 Dose: 650 mg Amlodipine Besylate (Norvasc Tab*) 2.5 mg PO DAILY [facility] Last Admin: 07/09/16 09:50 Dose: 2.5 mg Aspirin (Aspirin Low Dose Tab*) 81 mg PO DAILY [facility] Last Admin: 07/09/16 09:47 Dose: 81 mg Cyclobenzaprine HCl (Flexeril Tab*) 10 mg PO Q8H PRN PRN Reason: MUSCLE SPASMS Last Admin: 07/08/16 02:51 Dose: 10 mg Diphenhydramine HCl (Benadryl Iv*) 25 mg IV Q6H PRN PRN Reason: itching or insomnia\ Docusate Sodium (Colace Cap*) 100 mg PO BID [facility] Last Admin: 07/09/16 09:52 Dose: Not Given Enoxaparin Sodium (Lovenox(*)) 40 mg SUBCUT Q24H [facility] Last Admin: 07/09/16 12:15 Dose: 40 mg Lactated Ringer's (Lactated Ringers 1000 Ml Bag*) 1,000 mls @ 100 mls/hr IV PER RATE [facility] Last Admin: 07/08/16 01:07 Dose: 100 mls/hr Ibuprofen (Motrin Tab*) 400 mg PO Q6H PRN PRN Reason: PAIN Last Admin: 07/09/16 09:49 Dose: 400 mg Lactulose (Lactulose*) 30 ml PO Q6H PRN PRN Reason: constipation Last Admin: 07/08/16 13:04 Dose: 30 ml Magnesium Hydroxide (Milk Of Magnesia Liq*) 30 ml PO Q6H PRN PRN Reason: CONSTIPATION Multivitamins (Theragran Tab*) 1 tab PO DAILY [facility] Last Admin: 07/09/16 09:48 Dose: 1 tab Omeprazole (Prilosec Cap*) 20 mg PO DAILY [facility] Last Admin: 07/09/16 09:49 Dose: 20 mg Ondansetron HCl (Zofran Inj*) 4 mg IV Q6H PRN PRN Reason: nausea Oxycodone HCl (Roxycodone Tab*) 2.5 mg PO Q4H PRN PRN Reason: SEVERE PAIN Last Admin: 07/08/16 05:15 Dose: 2.5 mg Phenyleph/Shark Oil/Min Oil/Petrol (Preparation H*) 1 applic AL QID PRN PRN Reason: PAIN Polyethylene Glycol/Electrolytes (Miralax*) 17 gm PO DAILY [facility] Last Admin: 07/09/16 09:52 Dose: Not Given Pravastatin Sodium (Pravachol (Nf)) 20 mg PO 1700 [facility] PRN Reason: Protocol Last Admin: 07/08/16 17:37 Dose: 20 mg Senna (Senokot Tab*) 2 tab PO BEDTIME PRN PRN Reason: CONSTIPATION Vital Signs 07/08/16 07/08/16 07/08/16 15:15 15:47 16:00 Temperature 97.8 F Pulse Rate 54 30 Respiratory 18 Rate Blood Pressure 153/49 (mmHg) O2 Sat by Pulse 92 93 Oximetry 07/08/16 07/08/16 07/08/16 19:15 19:30 19:37 Temperature 98.3 F 98.3 F Pulse Rate 34 34 82 Respiratory 16 16 Rate Blood Pressure 191/56 191/56 (mmHg) O2 Sat by Pulse 91 91 Oximetry 07/08/16 07/08/16 07/09/16 19:41 23:43 00:00 Temperature 98.4 F Pulse Rate 32 Respiratory 16 18 Rate Blood Pressure 148/47 (mmHg) O2 Sat by Pulse 93 93 Oximetry 07/09/16 07/09/16 07/09/16 03:17 07:29 07:45 Temperature 97.1 F 98.3 F Pulse Rate 77 76 Respiratory 18 16 16 Rate Blood Pressure 152/57 151/59 (mmHg) O2 Sat by Pulse 96 91 91 Oximetry Oxygen Devices in Use Now: Nasal Cannula - 1.5L Appearance: Elderly female, OOB to chair, in NAD Eyes: PERRLA Ears/Nose/Mouth/Throat: Clear Oropharnyx, Mucous Membranes Moist Neck: NL Appearance and Movements; NL JVP Respiratory: Symmetrical Chest Expansion and Respiratory Effort, Clear to Auscultation Cardiovascular: NL Sounds; No Murmurs; No JVD, - - regularly irregular Abdominal: NL Sounds; No Tenderness; No Distention Extremities: - - Left LE incision c/d/i Neurological: - - Alert, oriented to self only Lines/Tubes/Other Access: Clean, Dry and Intact Null, Clean, Dry and Intact Peripheral IV Nutrition: Taking PO's Result Diagrams: 07/09/16 05:48 07/08/16 05:50 Additional Lab and Data: Lab Results 07/04/16 07/04/16 07/04/16 Range/Units 06:15 06:15 06:15 WBC 15.7 H (3.5-10.8) 10^3/ul RBC 4.57 (4.0-5.4) 10^6/ul Hgb 13.9 (12.0-16.0) g/dl Hct 42 (35-47) % MCV 91 (80-97) fL MCH 30 (27-31) pg MCHC 33 (31-36) g/dl RDW 13 (10.5-15) % Plt Count 294 (150-450) 10^3/ul MPV 8 (7.4-10.4) um3 Neut % (Auto) 87.0 H (38-83) % Lymph % (Auto) 8.8 L (25-47) % [place] % (Auto) 2.9 (1-9) % Eos % (Auto) 0.7 (0-6) % Baso % (Auto) 0.6 (0-2) % Absolute Neuts (auto) 13.7 H (1.5-7.7) 10^3/ul Absolute Lymphs (auto) 1.4 (1.0-4.8) 10^3/ul Absolute Monos (auto) 0.5 (0-0.8) 10^3/ul Absolute Eos (auto) 0.1 (0-0.6) 10^3/ul Absolute Basos (auto) 0.1 (0-0.2) 10^3/ul Absolute Nucleated RBC 0 10^3/ul Nucleated RBC % 0 INR (Anticoag Therapy) 0.93 (0.89-1.11) APTT 29.6 (26.0-36.3) seconds Sodium 125 L (133-145) mmol/L Potassium 3.3 L (3.5-5.0) mmol/L Chloride 88 L (101-111) mmol/L Carbon Dioxide 26 (22-32) mmol/L Anion Gap 11 (2-11) mmol/L BUN 13 (6-24) mg/dL Creatinine 0.78 (0.51-0.95) mg/dL Est GFR ( Amer) 90.1 (>60) Est GFR (Non-Af Amer) 70.0 (>60) BUN/Creatinine Ratio 16.7 (8-20) Glucose 140 H (70-100) mg/dL Lactic Acid (0.5-2.0) mmol/L Calcium 9.1 (8.6-10.3) mg/dL Total Bilirubin 0.60 (0.2-1.0) mg/dL AST 18 (13-39) U/L ALT 15 (7-52) U/L Alkaline Phosphatase 47 (34-104) U/L Troponin I 0.01 (<0.04) ng/mL Total Protein 7.5 (6.4-8.9) g/dL Albumin 4.5 (3.2-5.2) g/dL Globulin 3.0 (2-4) g/dL Albumin/Globulin Ratio 1.5 (1-3) Urine Color Urine Appearance Urine pH (5-9) Ur Specific [place] (1.010-1.030) Urine Protein (Negative) Urine Ketones (Negative) Urine Blood (Negative) Urine Nitrate (Negative) Urine Bilirubin (Negative) Urine Urobilinogen (Negative) Ur Leukocyte Esterase (Negative) Urine Glucose (Negative) Blood Type Antibody Screen 07/04/16 07/04/16 07/04/16 Range/Units 06:15 06:15 06:35 WBC (3.5-10.8) 10^3/ul RBC (4.0-5.4) 10^6/ul Hgb (12.0-16.0) g/dl Hct (35-47) % MCV (80-97) fL MCH (27-31) pg MCHC (31-36) g/dl RDW (10.5-15) % Plt Count (150-450) 10^3/ul MPV (7.4-10.4) um3 Neut % (Auto) (38-83) % Lymph % (Auto) (25-47) % [place] % (Auto) (1-9) % Eos % (Auto) (0-6) % Baso % (Auto) (0-2) % Absolute Neuts (auto) (1.5-7.7) 10^3/ul Absolute Lymphs (auto) (1.0-4.8) 10^3/ul Absolute Monos (auto) (0-0.8) 10^3/ul Absolute Eos (auto) (0-0.6) 10^3/ul Absolute Basos (auto) (0-0.2) 10^3/ul Absolute Nucleated RBC 10^3/ul Nucleated RBC % INR (Anticoag Therapy) (0.89-1.11) APTT (26.0-36.3) seconds Sodium (133-145) mmol/L Potassium (3.5-5.0) mmol/L Chloride (101-111) mmol/L Carbon Dioxide (22-32) mmol/L Anion Gap (2-11) mmol/L BUN (6-24) mg/dL Creatinine (0.51-0.95) mg/dL Est GFR ( Amer) (>60) Est GFR (Non-Af Amer) (>60) BUN/Creatinine Ratio (8-20) Glucose (70-100) mg/dL Lactic Acid 1.5 (0.5-2.0) mmol/L Calcium (8.6-10.3) mg/dL Total Bilirubin (0.2-1.0) mg/dL AST (13-39) U/L ALT (7-52) U/L Alkaline Phosphatase (34-104) U/L Troponin I (<0.04) ng/mL Total Protein (6.4-8.9) g/dL Albumin (3.2-5.2) g/dL Globulin (2-4) g/dL Albumin/Globulin Ratio (1-3) Urine Color Straw Urine Appearance Clear Urine pH 6.0 (5-9) Ur Specific [place] 1.008 L (1.010-1.030) Urine Protein Negative (Negative) Urine Ketones Negative (Negative) Urine Blood Negative (Negative) Urine Nitrate Negative (Negative) Urine Bilirubin Negative (Negative) Urine Urobilinogen Negative (Negative) Ur Leukocyte Esterase Negative (Negative) Urine Glucose Negative (Negative) Blood Type A Positive Antibody Screen Pending Microbiology and Other Data: Microbiology 07/04/16 11:30 Nasal Screen MRSA (PCR)(YOLANDA) - Final Nasal Mrsa Positive Assess/Plan/Problems-Billing Assessment: L hip fracture after fall, AMS in an 86 yo F with hx of HTN, HLD, CVA - Patient Problems (1) Hip fracture Code(s): S72.009A - FRACTURE OF UNSP PART OF NECK OF UNSP FEMUR, INIT Comment : POD #4, management per ortho Appreciate orthopedic assistance s/p L gamma nail placement on 07/05. Continue analgesia, PT/OT (2) Altered mental status Code(s): R41.82 - ALTERED MENTAL STATUS, UNSPECIFIED Comment: Patient with persistent confusion, appears to be post-operative delirium Possibility that some of this may be chronic, was noted last admission to likely have some underlying cognitive impairment. Neurology consult requested. No reversible causes identified as of yet - leukocytosis, hyponatremia improving. Patient's constipation is resolving. Continue to monitor for urinary retention. Continue pain management. Work-up so far for reversible cause has been negative. (3) Urinary retention Code(s): R33.9 - RETENTION OF URINE, UNSPECIFIED Comment: Suspect secondary to constipation and fecal impaction Patient has had multiple bowel movements following strict bowel regimen. Will discontinue null and bladder scan prn to monitor for retention. (4) Constipation Code(s): K59.00 - CONSTIPATION, UNSPECIFIED Comment: Patient's daughter reports chronic constipation. Continue Miralax and prn medications. Patient with 4 bowel movements overnight and this morning. (5) CVA (cerebral vascular accident) Code(s): I63.9 - CEREBRAL INFARCTION, UNSPECIFIED Comment: Continue ASA, statin. (6) HTN (hypertension) Code(s): I10 - ESSENTIAL (PRIMARY) HYPERTENSION Comment: BP elevated. Continue Amlodipine. Restart losartan. (7) HLD (hyperlipidemia) Code(s): E78.5 - HYPERLIPIDEMIA, UNSPECIFIED Comment: Continue home pravastatin. (8) Hyponatremia Code(s): E87.1 - HYPO-OSMOLALITY AND HYPONATREMIA Comment: Improving, continue to trend. (9) DVT prophylaxis Code(s): [id number] - Comment: Lovenox Status and Disposition: Inpatient for hip fx, AMS. Awaiting placement for rehab.
--- NOTE | 2016-07-09 14:01 | RAD ---
INDICATION: Hypoxia COMPARISON: Most recent comparison chest x-ray is dated July 04, 2016 TECHNIQUE: PA and lateral views of the chest were obtained. FINDINGS: The heart and mediastinum are normal in size and contour. Again seen is calcified atherosclerosis overlying the arch of the aorta. The lungs appear hyperaerated, the diaphragm flattened and there is an increased retrosternal airspace, appearance is consistent with chronic obstructive pulmonary disease. There is bibasilar costophrenic angle blunting larger on the left side than the right. Linear density at the left lung base is most consistent with atelectasis. More superiorly the lungs are adequately aerated. Surgical tacks are seen overlying the right uterus. There is no radiographic evidence of free air beneath the diaphragm IMPRESSION: SMALL BIBASILAR PLEURAL EFFUSIONS, LARGER ON THE LEFT THAN THE RIGHT, IN ADDITION TO CHRONIC FINDINGS DESCRIBED ABOVE.
[2016-07-09] MEDS ORDERED: Furosemide IV* 10 MG/ML 2 ML VIAL (20 MG) IV SLOW PU ONE (15:38)
[2016-07-09] MEDS ORDERED: amLODIPine TAB* 5 MG PO ONE (16:43)
[2016-07-09] MEDS: Losartan TAB* 25 MG PO SCH (18:24)
[2016-07-09] MEDS: CMC:Pravastatin (NF) 20 MG TAB PO SCH (18:24)
--- NOTE | 2016-07-09 19:10 | PN ---
Hospitalist Progress Note HOSPITALIST ADDENDUM Case reviewed at length and d/w Ella Martin ANALYSIS MGR. Patient seen and examined at bedside. She likely has some mild dementia at baseline. Although highly functional, daughter and PCP have noticed some changes over the past 6 months, with some "moodiness", "memory changes". Day of admission, had some c/o ELIZALDE and nausea, but daughter felt she was okay. Daughter obtained more information later - patient was more confused in the early evening, went to dinner wearing two different shoes, friends noticed she was confused and took her back to her room. Apparently overnight she decided to go looking for her cat and went out with a walker, flashlight, blanket, and her 's picture. Later on found on the floor outside [place]. It seems her confusion was improving but it started to get worse again after surgery. Suspect she probably had a viral infection initially causing delirium and then delirium got worse due to surgery, anesthesia, benzos and opiates. She is pleasantly confused, talking about family members and old stories, seeing a cat in her room. VS: 98 81 16 97% on 2 liters 136/47 CVS: normal S1 and S2, RRR Chest: BS+ bilaterally with no added sounds Neuro: AAOx2 (self and place), ANITA MELGOZA Neurology consult requested. Will continue to follow.
[2016-07-10 06:06] LABS: Hematocrit 28 % (35-47); Hemoglobin 9.5 g/dl (12.0-16.0); Mean Corpuscular HGB Conc 34 g/dl (31-36); Mean Corpuscular Hemoglobin 31 pg (27-31); Mean Corpuscular Volume 92 fL (80-97); Mean Platelet Volume 7 um3 (7.4-10.4); Red Blood Count 3.07 10^6/ul (4.0-5.4); Red Cell Distribution Width 13 % (10.5-15); White Blood Count 6.5 10^3/ul (3.5-10.8)
[2016-07-10 06:23] LABS: BUN/Creatinine Ratio 20.9 (8-20); Calcium 7.8 mg/dL (8.6-10.3); EGFR Non-African American 139.2 (>60); Potassium 3.2 mmol/L (3.5-5.0)
[2016-07-10 06:32] LABS: TSH (Thyroid Stimulating Horm) 1.71 mcIU/mL (0.34-5.60)
[2016-07-10] MEDS: Losartan TAB* 25 MG PO SCH (08:23)
[2016-07-10] MEDS: Polyethylene Glycol 3350* 17 GM PACKET PO SCH (08:23)
[2016-07-10] MEDS: Aspirin Low Dose CHEW TAB* 81 MG PO SCH (08:24)
[2016-07-10] MEDS: Docusate CAP* 100 MG PO SCH ×2 (08:24→19:26)
[2016-07-10] MEDS: Omeprazole CAP* 20 MG PO SCH (08:24)
[2016-07-10] MEDS: Vitamin THERAPEUTIC TAB PO SCH (08:24)
[2016-07-10] MEDS: amLODIPine TAB* 5 MG PO SCH (08:24)
[2016-07-10] MEDS ORDERED: Furosemide IV* 10 MG/ML 2 ML VIAL (20 MG) IV ONE (08:30)
[2016-07-10] MEDS ORDERED: amLODIPine TAB* 5 MG PO SCH (09:00)
[2016-07-10] MEDS: Potassium Chlor TAB* 20 MEQ TAB.ER PO SCH ×3 (09:22→19:26)
[2016-07-10] MEDS ORDERED: Furosemide TAB* 40 MG PO ONE (09:34)
[2016-07-10] MEDS: Enoxaparin(*) 40 MG/0.4 ML SYR SUBCUT SCH (11:48)
--- NOTE | 2016-07-10 12:04 | PN ---
Progress Note - Progress Note SOAP: Subjective: []Patient seen at bedside, daughter present and continues to be concerned about the on going delerium which seems to have worsened since surgery. Neurology consult is requested by Dr. Valentin and is pending. She c/o incisional soreness when asked about her leg pain. She was resting comfortably supine in bed upon entering the room. Objective: [] Vital Signs Temp 98.0 F 07/10/16 08:00 Pulse 77 07/10/16 08:23 Resp 16 07/10/16 08:00 BP 178/58 07/10/16 08:00 Pulse Ox 98 07/10/16 08:00 Intake & Output 07/09/16 07/10/16 07/10/16 18:59 06:59 18:59 Intake Total 300 1000 760 Output Total 2000 1650 200 Balance -1700 -650 560 Intake: Oral 300 1000 760 Output: Urine 1475 1650 200 [place] 525 Other: # Bowel Movements 1 0 Estimated Stool Amount Small Laboratory Results - last 24 hr 07/10/16 07/10/16 05:24 05:24 WBC 6.5 RBC 3.07 L Hgb 9.5 L Hct 28 L MCV 92 MCH 31 MCHC 34 RDW 13 Plt Count 254 MPV 7 L Neut % (Auto) 54.9 Lymph % (Auto) 29.8 [place] % (Auto) 6.5 Eos % (Auto) 8.0 H Baso % (Auto) 0.8 Absolute Neuts (auto) 3.6 Absolute Lymphs (auto) 1.9 Absolute Monos (auto) 0.4 Absolute Eos (auto) 0.5 Absolute Basos (auto) 0.1 Absolute Nucleated RBC 0.01 Nucleated RBC % 0.1 Sodium 132 L Potassium 3.2 L Chloride 101 Carbon Dioxide 27 Anion Gap 4 BUN 9 Creatinine 0.43 L Est GFR ( Amer) 179.0 Est GFR (Non-Af Amer) 139.2 BUN/Creatinine Ratio 20.9 H Glucose 116 H Calcium 7.8 L TSH 1.71 Left hip incisions are open to air, some scant eccyhmosis noted. [place] intact. remains neuro intact distally LLE +DF/PF Assessment: []s/p Gamma nail left intertrochanteric hip fracture POD #5 Plan: []PT/OT WBAT LLE Await neurology consult Daughter is hoping for bed opening at [facility], will consider [facility] as a 2nd choice Folllow up with Dr. Sawyer's in office in 10-14 days, sign off and see prn
--- NOTE | 2016-07-10 16:47 | PN ---
Subjective Date of Service: 07/10/16 Interval History: HOSPITALIST PROGRESS NOTE Patient seen and examined at bedside. She denies any complaints today. Hip pain is controlled off narcotics. Tolerating diet well, no N/V. Still a little confused, but less so than yesterday. Family History: Unchanged from Admission Social History: Unchanged from Admission Past Medical History: Unchanged from Admission Objective Active Medications: Acetaminophen (Tylenol Tab*) 650 mg PO Q4H PRN PRN Reason: PAIN Last Admin: 07/09/16 12:14 Dose: 650 mg Amlodipine Besylate (Norvasc Tab*) 2.5 mg PO DAILY [facility] Last Admin: 07/10/16 08:24 Dose: 2.5 mg Aspirin (Aspirin Low Dose Tab*) 81 mg PO DAILY [facility] Last Admin: 07/10/16 08:24 Dose: 81 mg Cyclobenzaprine HCl (Flexeril Tab*) 10 mg PO Q8H PRN PRN Reason: MUSCLE SPASMS Last Admin: 07/08/16 02:51 Dose: 10 mg Diphenhydramine HCl (Benadryl Iv*) 25 mg IV Q6H PRN PRN Reason: itching or insomnia\ Docusate Sodium (Colace Cap*) 100 mg PO BID [facility] Last Admin: 07/10/16 08:24 Dose: 100 mg Enoxaparin Sodium (Lovenox(*)) 40 mg SUBCUT Q24H [facility] Last Admin: 07/10/16 11:48 Dose: 40 mg Ibuprofen (Motrin Tab*) 400 mg PO Q6H PRN PRN Reason: PAIN Last Admin: 07/09/16 18:23 Dose: 400 mg Lactulose (Lactulose*) 30 ml PO Q6H PRN PRN Reason: constipation Last Admin: 07/08/16 13:04 Dose: 30 ml Losartan Potassium (Cozaar Tab*) 50 mg PO DAILY [facility] Last Admin: 07/10/16 08:23 Dose: 50 mg Magnesium Hydroxide (Milk Of Magnesia Liq*) 30 ml PO Q6H PRN PRN Reason: CONSTIPATION Multivitamins (Theragran Tab*) 1 tab PO DAILY [facility] Last Admin: 07/10/16 08:24 Dose: 1 tab Omeprazole (Prilosec Cap*) 20 mg PO DAILY [facility] Last Admin: 07/10/16 08:24 Dose: 20 mg Ondansetron HCl (Zofran Inj*) 4 mg IV Q6H PRN PRN Reason: nausea Oxycodone HCl (Roxycodone Tab*) 2.5 mg PO Q4H PRN PRN Reason: SEVERE PAIN Last Admin: 07/08/16 05:15 Dose: 2.5 mg Phenyleph/Shark Oil/Min Oil/Petrol (Preparation H*) 1 applic CO QID PRN PRN Reason: PAIN Polyethylene Glycol/Electrolytes (Miralax*) 17 gm PO DAILY [facility] Last Admin: 07/10/16 08:23 Dose: 17 gm Potassium Chloride (Klor Con Er Tab*) 40 meq PO TID [facility] Last Admin: 07/10/16 14:48 Dose: 40 meq Pravastatin Sodium (Pravachol (Nf)) 20 mg PO 1700 [facility] PRN Reason: Protocol Last Admin: 07/09/16 18:24 Dose: 20 mg Senna (Senokot Tab*) 2 tab PO BEDTIME PRN PRN Reason: CONSTIPATION Vital Signs 07/10/16 07/10/16 07/10/16 08:23 11:18 16:13 Temperature 97.7 F 98.4 F Pulse Rate 77 86 85 Respiratory 16 16 Rate Blood Pressure 145/54 156/54 (mmHg) O2 Sat by Pulse 97 99 Oximetry Oxygen Devices in Use Now: Nasal Cannula - 1.5L Appearance: Elderly lady sitting up in a recliner in [facility]. Eyes: No Scleral Icterus Ears/Nose/Mouth/Throat: Mucous Membranes Moist Neck: Trachea Midline Respiratory: Symmetrical Chest Expansion and Respiratory Effort, Clear to Auscultation Cardiovascular: NL Sounds; No Murmurs; No JVD, RRR Abdominal: NL Sounds; No Tenderness; No Distention Extremities: No Edema Neurological: NL Muscle Strength and Tone, - - AAOx2 (self and place) Nutrition: Taking PO's Result Diagrams: 07/10/16 05:24 07/10/16 05:24 Assess/Plan/Problems-Billing Assessment: Mrs. Serna is an 86 yo F with PMH of HTN, HLD, CVA, probable mild dementia, admitted with confusion and left hip fracture. - Patient Problems (1) Hip fracture Comment: - s/p closed reduction and gamma nail fixation on 07/05. - Pain controlled with Tylenol and Ibuprofen. (2) Delirium Comment: - Suspect multifactorial in the setting of surgery, anesthesia, benzos and opiate use. - Seems to be less confused today. - Awaiting Neurology consult. - Continue to avoid psychotropic agents. (3) Urinary retention Comment: - Likely associated with opiates. - [place] was removed >24h and she has had no significant retention. (4) Constipation Comment: - Resolved. - Continue Miralax and PRN medications. (5) H/O: CVA (cerebrovascular accident) Comment: - Continue Aspirin and Pravastatin. (6) Hypoxia Comment: - Suspect patient has mild fluid overload. - No c/o dyspnea or chest pain. - Will diurese gently with Furosemide. - Repeat CxR in AM. (7) HTN (hypertension) Comment: - Continue Losartan and Amlodipine. (8) DVT prophylaxis Comment: - Lovenox. (9) Full code status Status and Disposition: Inpatient. Awaiting placement for rehab. Daughter updated at bedside.
[2016-07-10] MEDS: CMC:Pravastatin (NF) 20 MG TAB PO SCH (17:14)
[2016-07-10] MEDS: Acetaminophen TAB* 325 MG PO PRN (22:03)
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
[2016-07-11] MEDS: Ibuprofen TAB* 400 MG PO PRN (01:45)
[2016-07-11] MEDS ORDERED: amLODIPine TAB* 5 MG PO ONE (03:18)
[2016-07-11] MEDS ORDERED: amLODIPine TAB* 5 MG ONE (03:50)
[2016-07-11 06:50] LABS: BUN/Creatinine Ratio 18.4 (8-20); Calcium 8.5 mg/dL (8.6-10.3); EGFR Non-African American 119.7 (>60); Potassium 4.1 mmol/L (3.5-5.0)
--- NOTE | 2016-07-11 08:21 | RAD ---
HISTORY: Fluid overload COMPARISONS: July 09, 2016 VIEWS: 2: Frontal and lateral views of the chest. FINDINGS: CARDIOMEDIASTINAL SILHOUETTE: The cardiomediastinal silhouette is normal. TITI: The titi are normal. PLEURA: There are stable small bilateral pleural effusions. LUNG PARENCHYMA: The lungs are clear. ABDOMEN: The upper abdomen is clear. There is no subphrenic gas. BONES AND SOFT TISSUES: There is postsurgical change to the right shoulder OTHER: None. IMPRESSION: STABLE SMALL BILATERAL PLEURAL EFFUSIONS
[2016-07-11 10:17] LABS: Folate 17.26 ng/mL (>3.99)
[2016-07-11] MEDS: Losartan TAB* 25 MG PO SCH (10:33)
[2016-07-11] MEDS: Omeprazole CAP* 20 MG PO SCH (10:34)
[2016-07-11] MEDS: Vitamin THERAPEUTIC TAB PO SCH (10:34)
[2016-07-11] MEDS: Aspirin Low Dose CHEW TAB* 81 MG PO SCH (10:35)
--- NOTE | 2016-07-11 10:38 | RAD ---
Indication: Hypoxia. Assess for pulmonary embolism. Comparison: Chest radiograph of the same date. Technique: Following administration of 14.300 mCi xenon-133 by inhalation anterior and posterior ventilation images were obtained. Following the administration of 6.300 mCi of Tc-99m macroaggregated albumin, perfusion images were obtained in multiple projections. Report: The ventilation pattern is uniform with moderate air trapping. Negative for segmental or subsegmental perfusion defects. IMPRESSION: 1. No perfusion defects to indicate pulmonary embolism. 2. Air trapping indicating obstructive lung disease.
[2016-07-11] MEDS: Polyethylene Glycol 3350* 17 GM PACKET PO SCH (10:41)
[2016-07-11] MEDS: amLODIPine TAB* 5 MG PO SCH (10:41)
[2016-07-11] MEDS: Potassium Chlor TAB* 20 MEQ TAB.ER PO SCH ×3 (10:42→19:41)
[2016-07-11] MEDS: Docusate CAP* 100 MG PO SCH ×2 (10:42→19:42)
[2016-07-11] MEDS: Enoxaparin(*) 40 MG/0.4 ML SYR SUBCUT SCH (10:47)
[2016-07-11] MEDS: Acetaminophen TAB* 325 MG PO PRN ×2 (12:58→23:34)
--- NOTE | 2016-07-11 13:22 | PN ---
Subjective Date of Service: 07/11/16 Interval History: HOSPITALIST PROGRESS NOTE Patient seen and examined at bedside. She offers no complaints today, denies chest pain, palpitations or dyspnea. Family History: Unchanged from Admission Social History: Unchanged from Admission Past Medical History: Unchanged from Admission Objective Active Medications: Acetaminophen (Tylenol Tab*) 650 mg PO Q4H PRN PRN Reason: PAIN Last Admin: 07/11/16 12:58 Dose: 650 mg Amlodipine Besylate (Norvasc Tab*) 5 mg PO DAILY [facility] Last Admin: 07/11/16 10:41 Dose: 5 mg Aspirin (Aspirin Low Dose Tab*) 81 mg PO DAILY [facility] Last Admin: 07/11/16 10:35 Dose: 81 mg Cyclobenzaprine HCl (Flexeril Tab*) 10 mg PO Q8H PRN PRN Reason: MUSCLE SPASMS Last Admin: 07/08/16 02:51 Dose: 10 mg Diphenhydramine HCl (Benadryl Iv*) 25 mg IV Q6H PRN PRN Reason: itching or insomnia\ Docusate Sodium (Colace Cap*) 100 mg PO BID [facility] Last Admin: 07/11/16 10:42 Dose: 100 mg Enoxaparin Sodium (Lovenox(*)) 40 mg SUBCUT Q24H [facility] Last Admin: 07/11/16 10:47 Dose: 40 mg Ibuprofen (Motrin Tab*) 400 mg PO Q6H PRN PRN Reason: PAIN Last Admin: 07/11/16 01:45 Dose: 400 mg Lactulose (Lactulose*) 30 ml PO Q6H PRN PRN Reason: constipation Last Admin: 07/08/16 13:04 Dose: 30 ml Losartan Potassium (Cozaar Tab*) 50 mg PO DAILY [facility] Last Admin: 07/11/16 10:33 Dose: 50 mg Magnesium Hydroxide (Milk Of Magnesia Liq*) 30 ml PO Q6H PRN PRN Reason: CONSTIPATION Multivitamins (Theragran Tab*) 1 tab PO DAILY [facility] Last Admin: 07/11/16 10:34 Dose: 1 tab Omeprazole (Prilosec Cap*) 20 mg PO DAILY [facility] Last Admin: 07/11/16 10:34 Dose: 20 mg Ondansetron HCl (Zofran Inj*) 4 mg IV Q6H PRN PRN Reason: nausea Phenyleph/Shark Oil/Min Oil/Petrol (Preparation H*) 1 applic DC QID PRN PRN Reason: PAIN Polyethylene Glycol/Electrolytes (Miralax*) 17 gm PO DAILY [facility] Last Admin: 07/11/16 10:41 Dose: 17 gm Potassium Chloride (Klor Con Er Tab*) 40 meq PO TID [facility] Last Admin: 07/11/16 10:42 Dose: 40 meq Pravastatin Sodium (Pravachol (Nf)) 20 mg PO 1700 OSBALDO PRN Reason: Protocol Last Admin: 07/10/16 17:14 Dose: 20 mg Senna (Senokot Tab*) 2 tab PO BEDTIME PRN PRN Reason: CONSTIPATION Vital Signs 07/11/16 07/11/16 07/11/16 00:00 01:45 03:03 Temperature 97.6 F Pulse Rate 89 Respiratory Rate Blood Pressure 173/70 (mmHg) O2 Sat by Pulse 94 95 94 Oximetry Oxygen Devices in Use Now: Nasal Cannula - 1 L Appearance: Elderly lady sitting up in a recliner in [facility]. Eyes: No Scleral Icterus Ears/Nose/Mouth/Throat: Mucous Membranes Moist Neck: Trachea Midline Respiratory: Symmetrical Chest Expansion and Respiratory Effort, Clear to Auscultation Cardiovascular: NL Sounds; No Murmurs; No JVD, RRR Abdominal: NL Sounds; No Tenderness; No Distention Neurological: - - AAOx2 (self and place), HOWARD Lines/Tubes/Other Access: Clean, Dry and Intact Peripheral IV Nutrition: Taking PO's Result Diagrams: 07/10/16 05:24 07/11/16 06:06 Assess/Plan/Problems-Billing Assessment: Mrs. Serna is an 86 yo F with PMH of HTN, HLD, CVA, probable mild dementia, admitted with confusion and left hip fracture. - Patient Problems (1) Hip fracture Comment: - s/p closed reduction and gamma nail fixation on 07/05. - Pain controlled with Tylenol and Ibuprofen. (2) Delirium Comment: - Suspect multifactorial in the setting of surgery, anesthesia, benzos and opiate use. - Seems to be less confused today. - Neurology input appreciated - ESR is 57, B12, folate, and TSH are WNL. Follow EEG report. - Continue to avoid psychotropic agents. (3) Urinary retention Comment: - Likely associated with opiates. - [place] was removed >24h and she has had no significant retention. (4) Constipation Comment: - Resolved. - Continue Miralax and PRN medications. (5) H/O: CVA (cerebrovascular accident) Comment: - Continue Aspirin and Pravastatin. (6) Hypoxia Comment: - Suspect patient has mild fluid overload. - No c/o dyspnea or chest pain. - As she recently had orthopedic surgery, I decided to r/o PE. With h/o anaphylaxis with penicillin, patient would require steroid prep for CTA and steroids would probably worsen her delirium. For that reason, decided to pursue V/Q scan, and it was negative. (7) HTN (hypertension) Comment: - Higher today. - Continue Losartan and increase Amlodipine. (8) DVT prophylaxis Comment: - Lovenox. (9) Full code status Status and Disposition: Inpatient. Anticipate d/c to [facility] in AM.
[2016-07-11] MEDS: CMC:Pravastatin (NF) 20 MG TAB PO SCH (17:20)
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
--- NOTE | 2016-07-12 02:47 | PN ---
PROGRESS NOTE: DATE OF FOLLOWUP: 07/11/16 OVERNIGHT EVENTS: No acute overnight events. Her daughter is at the bedside and feels that she is essentially the same as yesterday, possibly slightly improved. The patient herself does not offer any complaints. MEDICATIONS: Reviewed and include: 1. Tylenol as needed. 2. Norvasc 5 mg. 3. Aspirin 81 mg. 4. Colace. 5. Lovenox. 6. Ibuprofen 400 mg as needed. 7. Losartan 50 mg. 8. Multivitamin. 9. Prilosec 20 mg. 10. MiraLAX. 11. Potassium chloride. 12. Pravachol. PHYSICAL EXAM: Vital Signs: Temperature 97.8, blood pressure 173/70, heart rate 91, oxygen saturation 94% on room air. She is seated in the Aydee chair at her bedside with both legs flexed at the hip and the knee. She is in no acute distress and is pleasant. She is aware that she is in the hospital, but indicates that she is here for some testing regarding her allergies. Her speech is fluent, but much of what she says has little content and is not relevant to some of the questions at hand. She was able to name objects appropriately. She was able to repeat a sentence. She accurately stated her age to be 86. The remainder of neurologic exam was not repeated. DATA: Her sedimentation rate is elevated at 57, B12 993, folate 17.26. Her EEG was completed and showed some very intermittent slowing, which preferentially affected the right hemisphere, in particularly the right temporal region. IMPRESSION: Sebastian Serna is an 86-year-old woman with probable history of mild dementia, who has been in the hospital after she fractured her hip on the grounds at [place] after wandering outside in the middle of the night for unclear reasons. She had been behaving oddly for the day prior to this event. Her EEG did not show any epileptiform potentials and the preferential slowing on the right side could be related to the underlying white matter disease, which affects the right greater than the left hemisphere. No reversible cause for her delirium has been identified and it is not clear what led to her confusion and wandering and ultimately breaking her hip at this point. I discussed with the daughter that I do not think further testing here in the hospital is going to yield any reversible causes and she was accepting of that. We did discuss her morning headaches and the daughter indicates that she does snore and it sounds like she has apneas as well and is often tired when she wakes in the morning and during the day. I discussed my recommendation for an outpatient sleep study with her and she will follow up on this once her mom gets to rehab and possibly after rehab if it cannot be done during the rehab stay. I am not sure of the rules regarding this with respect to her insurance. We talked about the health problems that untreated sleep apnea can contribute to including the morning headaches and her cardiovascular disease. I advised that she could try giving her ibuprofen rather than Tylenol for these headaches as long as she tolerates that okay. She was advised to limit Fioricet use to once a week at most. She was offered to have her mom follow up with me as an outpatient if she so desires. Thank you for this consultation. Please call us with any questions. [id number]/[facility] #: [id number] ERVIN
[2016-07-12] MEDS: Ibuprofen TAB* 400 MG PO PRN ×2 (02:53→09:29)
[2016-07-12] MEDS: Acetaminophen TAB* 325 MG PO PRN ×2 (04:46→09:29)
[2016-07-12] MEDS: Aspirin Low Dose CHEW TAB* 81 MG PO SCH (07:16)
[2016-07-12] MEDS: amLODIPine TAB* 5 MG PO SCH (07:16)
[2016-07-12] MEDS: Docusate CAP* 100 MG PO SCH (07:16)
[2016-07-12] MEDS: Vitamin THERAPEUTIC TAB PO SCH (07:16)
[2016-07-12] MEDS: Omeprazole CAP* 20 MG PO SCH (07:16)
[2016-07-12] MEDS: Potassium Chlor TAB* 20 MEQ TAB.ER PO SCH (07:16)
[2016-07-12] MEDS: Losartan TAB* 25 MG PO SCH (07:16)
[2016-07-12 07:22] VITALS: BP 148/52
[2016-07-12] MEDS: Polyethylene Glycol 3350* 17 GM PACKET PO SCH (07:22)
--- NOTE | 2016-07-12 08:26 | PN ---
Subjective Date of Service: 07/12/16 Interval History: Patient seen and examined at bedside. She does not endorse any pain to left leg. Denies chest pain, SOB. Answering appropriately. No acute concerns. Family History: Unchanged from Admission Social History: Unchanged from Admission Past Medical History: Unchanged from Admission Objective Active Medications: Acetaminophen (Tylenol Tab*) 650 mg PO Q4H PRN PRN Reason: PAIN Last Admin: 07/12/16 04:46 Dose: 650 mg Amlodipine Besylate (Norvasc Tab*) 5 mg PO DAILY [facility] Last Admin: 07/12/16 07:16 Dose: 5 mg Aspirin (Aspirin Low Dose Tab*) 81 mg PO DAILY [facility] Last Admin: 07/12/16 07:16 Dose: 81 mg Cyclobenzaprine HCl (Flexeril Tab*) 10 mg PO Q8H PRN PRN Reason: MUSCLE SPASMS Last Admin: 07/08/16 02:51 Dose: 10 mg Diphenhydramine HCl (Benadryl Iv*) 25 mg IV Q6H PRN PRN Reason: itching or insomnia\ Docusate Sodium (Colace Cap*) 100 mg PO BID [facility] Last Admin: 07/12/16 07:16 Dose: 100 mg Enoxaparin Sodium (Lovenox(*)) 40 mg SUBCUT Q24H [facility] Last Admin: 07/11/16 10:47 Dose: 40 mg Ibuprofen (Motrin Tab*) 400 mg PO Q6H PRN PRN Reason: PAIN Last Admin: 07/12/16 02:53 Dose: 400 mg Lactulose (Lactulose*) 30 ml PO Q6H PRN PRN Reason: constipation Last Admin: 07/08/16 13:04 Dose: 30 ml Losartan Potassium (Cozaar Tab*) 50 mg PO DAILY [facility] Last Admin: 07/12/16 07:16 Dose: 50 mg Magnesium Hydroxide (Milk Of Magnesia Liq*) 30 ml PO Q6H PRN PRN Reason: CONSTIPATION Multivitamins (Theragran Tab*) 1 tab PO DAILY [facility] Last Admin: 07/12/16 07:16 Dose: 1 tab Omeprazole (Prilosec Cap*) 20 mg PO DAILY [facility] Last Admin: 07/12/16 07:16 Dose: 20 mg Ondansetron HCl (Zofran Inj*) 4 mg IV Q6H PRN PRN Reason: nausea Phenyleph/Shark Oil/Min Oil/Petrol (Preparation H*) 1 applic RI QID PRN PRN Reason: PAIN Polyethylene Glycol/Electrolytes (Miralax*) 17 gm PO DAILY [facility] Last Admin: 07/12/16 07:22 Dose: 17 gm Potassium Chloride (Klor Con Er Tab*) 40 meq PO TID [facility] Last Admin: 07/12/16 07:16 Dose: 40 meq Pravastatin Sodium (Pravachol (Nf)) 20 mg PO 1700 [facility] PRN Reason: Protocol Last Admin: 07/11/16 17:20 Dose: 20 mg Senna (Senokot Tab*) 2 tab PO BEDTIME PRN PRN Reason: CONSTIPATION Vital Signs 07/11/16 07/11/16 07/11/16 11:15 15:21 15:25 Temperature 97.8 F 97.7 F 97.7 F Pulse Rate 91 91 91 Respiratory 15 18 18 Rate Blood Pressure 173/70 141/44 141/69 (mmHg) O2 Sat by Pulse 94 99 99 Oximetry 07/11/16 07/11/16 07/11/16 17:21 19:48 20:00 Temperature 98.0 F Pulse Rate 87 Respiratory 16 Rate Blood Pressure 151/50 148/50 (mmHg) O2 Sat by Pulse 96 92 Oximetry 07/11/16 07/11/16 07/11/16 23:07 23:30 23:54 Temperature 98.2 F Pulse Rate 33 64 Respiratory 14 Rate Blood Pressure 142/52 (mmHg) O2 Sat by Pulse 97 Oximetry 07/12/16 07/12/16 07/12/16 04:51 04:54 07:14 Temperature 97.5 F 97.9 F Pulse Rate 32 38 Respiratory 16 Rate Blood Pressure 162/74 (mmHg) O2 Sat by Pulse 97 97 Oximetry 07/12/16 07/12/16 07:15 07:23 Temperature Pulse Rate Respiratory 16 Rate Blood Pressure 148/52 (mmHg) O2 Sat by Pulse 97 Oximetry Oxygen Devices in Use Now: None Appearance: Elderly female, lying in bed, NAD Eyes: PERRLA Ears/Nose/Mouth/Throat: Mucous Membranes Moist Neck: NL Appearance and Movements; NL JVP Respiratory: Symmetrical Chest Expansion and Respiratory Effort, Clear to Auscultation Cardiovascular: NL Sounds; No Murmurs; No JVD - regularly irregular (bigeminy) Abdominal: NL Sounds; No Tenderness; No Distention Neurological: - - Alert, oriented to self Lines/Tubes/Other Access: Clean, Dry and Intact Peripheral IV Nutrition: Taking PO's Result Diagrams: 07/10/16 05:24 07/11/16 06:06 Additional Lab and Data: Lab Results 07/04/16 07/04/16 07/04/16 Range/Units 06:15 06:15 06:15 WBC 15.7 H (3.5-10.8) 10^3/ul RBC 4.57 (4.0-5.4) 10^6/ul Hgb 13.9 (12.0-16.0) g/dl Hct 42 (35-47) % MCV 91 (80-97) fL MCH 30 (27-31) pg MCHC 33 (31-36) g/dl RDW 13 (10.5-15) % Plt Count 294 (150-450) 10^3/ul MPV 8 (7.4-10.4) um3 Neut % (Auto) 87.0 H (38-83) % Lymph % (Auto) 8.8 L (25-47) % Jackson % (Auto) 2.9 (1-9) % Eos % (Auto) 0.7 (0-6) % Baso % (Auto) 0.6 (0-2) % Absolute Neuts (auto) 13.7 H (1.5-7.7) 10^3/ul Absolute Lymphs (auto) 1.4 (1.0-4.8) 10^3/ul Absolute Monos (auto) 0.5 (0-0.8) 10^3/ul Absolute Eos (auto) 0.1 (0-0.6) 10^3/ul Absolute Basos (auto) 0.1 (0-0.2) 10^3/ul Absolute Nucleated RBC 0 10^3/ul Nucleated RBC % 0 INR (Anticoag Therapy) 0.93 (0.89-1.11) APTT 29.6 (26.0-36.3) seconds Sodium 125 L (133-145) mmol/L Potassium 3.3 L (3.5-5.0) mmol/L Chloride 88 L (101-111) mmol/L Carbon Dioxide 26 (22-32) mmol/L Anion Gap 11 (2-11) mmol/L BUN 13 (6-24) mg/dL Creatinine 0.78 (0.51-0.95) mg/dL Est GFR ( Amer) 90.1 (>60) Est GFR (Non-Af Amer) 70.0 (>60) BUN/Creatinine Ratio 16.7 (8-20) Glucose 140 H (70-100) mg/dL Lactic Acid (0.5-2.0) mmol/L Calcium 9.1 (8.6-10.3) mg/dL Total Bilirubin 0.60 (0.2-1.0) mg/dL AST 18 (13-39) U/L ALT 15 (7-52) U/L Alkaline Phosphatase 47 (34-104) U/L Troponin I 0.01 (<0.04) ng/mL Total Protein 7.5 (6.4-8.9) g/dL Albumin 4.5 (3.2-5.2) g/dL Globulin 3.0 (2-4) g/dL Albumin/Globulin Ratio 1.5 (1-3) Urine Color Urine Appearance Urine pH (5-9) Ur Specific [place] (1.010-1.030) Urine Protein (Negative) Urine Ketones (Negative) Urine Blood (Negative) Urine Nitrate (Negative) Urine Bilirubin (Negative) Urine Urobilinogen (Negative) Ur Leukocyte Esterase (Negative) Urine Glucose (Negative) Blood Type Antibody Screen 07/04/16 07/04/16 07/04/16 Range/Units 06:15 06:15 06:35 WBC (3.5-10.8) 10^3/ul RBC (4.0-5.4) 10^6/ul Hgb (12.0-16.0) g/dl Hct (35-47) % MCV (80-97) fL MCH (27-31) pg MCHC (31-36) g/dl RDW (10.5-15) % Plt Count (150-450) 10^3/ul MPV (7.4-10.4) um3 Neut % (Auto) (38-83) % Lymph % (Auto) (25-47) % Jackson % (Auto) (1-9) % Eos % (Auto) (0-6) % Baso % (Auto) (0-2) % Absolute Neuts (auto) (1.5-7.7) 10^3/ul Absolute Lymphs (auto) (1.0-4.8) 10^3/ul Absolute Monos (auto) (0-0.8) 10^3/ul Absolute Eos (auto) (0-0.6) 10^3/ul Absolute Basos (auto) (0-0.2) 10^3/ul Absolute Nucleated RBC 10^3/ul Nucleated RBC % INR (Anticoag Therapy) (0.89-1.11) APTT (26.0-36.3) seconds Sodium (133-145) mmol/L Potassium (3.5-5.0) mmol/L Chloride (101-111) mmol/L Carbon Dioxide (22-32) mmol/L Anion Gap (2-11) mmol/L BUN (6-24) mg/dL Creatinine (0.51-0.95) mg/dL Est GFR ( Amer) (>60) Est GFR (Non-Af Amer) (>60) BUN/Creatinine Ratio (8-20) Glucose (70-100) mg/dL Lactic Acid 1.5 (0.5-2.0) mmol/L Calcium (8.6-10.3) mg/dL Total Bilirubin (0.2-1.0) mg/dL AST (13-39) U/L ALT (7-52) U/L Alkaline Phosphatase (34-104) U/L Troponin I (<0.04) ng/mL Total Protein (6.4-8.9) g/dL Albumin (3.2-5.2) g/dL Globulin (2-4) g/dL Albumin/Globulin Ratio (1-3) Urine Color Straw Urine Appearance Clear Urine pH 6.0 (5-9) Ur Specific [place] 1.008 L (1.010-1.030) Urine Protein Negative (Negative) Urine Ketones Negative (Negative) Urine Blood Negative (Negative) Urine Nitrate Negative (Negative) Urine Bilirubin Negative (Negative) Urine Urobilinogen Negative (Negative) Ur Leukocyte Esterase Negative (Negative) Urine Glucose Negative (Negative) Blood Type A Positive Antibody Screen Pending Microbiology and Other Data: Microbiology 07/04/16 11:30 Nasal Screen MRSA (PCR)(YOLANDA) - Final Nasal Mrsa Positive Assess/Plan/Problems-Billing Assessment: Mrs. Serna is an 86 yo F with PMH of HTN, HLD, CVA, probable mild dementia, admitted with confusion and left hip fracture. - Patient Problems (1) Hip fracture Code(s): S72.009A - FRACTURE OF UNSP PART OF NECK OF UNSP FEMUR, INIT Comment : s/p closed reduction and gamma nail fixation on 07/05. Pain controlled with Tylenol and Ibuprofen. (2) Delirium Code(s): R41.0 - DISORIENTATION, UNSPECIFIED Comment: Suspect multifactorial in the setting of surgery, anesthesia, benzos and opiate use. Neurology input appreciated - ESR is 57, B12, folate, and TSH are WNL. Outpatient neuro follow-up if family desires Continue to avoid psychotropic agents. (3) Urinary retention Code(s): R33.9 - RETENTION OF URINE, UNSPECIFIED Comment: Likely associated with opiates. Lagunas was removed >24h and she has had no significant retention. (4) Constipation Code(s): K59.00 - CONSTIPATION, UNSPECIFIED Comment: Resolved. Continue Miralax and PRN medications. (5) H/O: CVA (cerebrovascular accident) Code(s): Z86.73 - PRSNL HX OF TIA (TIA), AND CEREB INFRC W/O RESID DEFICITS Comment: Continue Aspirin and Pravastatin. (6) Hypoxia Code(s): R09.02 - HYPOXEMIA Comment: Now resolved Suspect patient had mild fluid overload. No c/o dyspnea or chest pain. V/Q scan negative. (7) HTN (hypertension) Code(s): I10 - ESSENTIAL (PRIMARY) HYPERTENSION Comment: Continue Losartan and Amlodipine. (8) DVT prophylaxis Code(s): PAF3610 - Comment: Lovenox. (9) Full code status Code(s): Z78.9 - OTHER SPECIFIED HEALTH STATUS Status and Disposition: Inpatient. D/c to [facility].
--- NOTE | 2016-07-12 11:12 | DS ---
CC: Ruy Sweeney MD; Huan Yanez MD MEDICINE DISCHARGE SUMMARY: DATE OF ADMISSION: 07/04/16 DATE OF TRANSFER: 07/12/16 PRIMARY CARE PHYSICIAN: Ruy Sweeney MD PROVIDER: Jarrod Rdedy NP ATTENDING PHYSICIAN: Jeane Nguyen MD (as dictated by Jarrod Reddy NP). CONSULTING PHYSICIANS: Huan Yanez MD, Orthopedic Surgery, and Carmen Cintron MD, Neurology. PRIMARY DISCHARGE DIAGNOSES: 1. Delirium. 2. Suspect mild dementia. 3. Left hip fracture, status post gamma nail placement. 4. Urinary retention, now resolved. 5. Constipation, now resolved. 6. Hypoxia, now resolved. Suspect secondary to a fluid overload. SECONDARY DISCHARGE DIAGNOSES: 1. Hypertension. 2. Hyperlipidemia. 3. History of cerebrovascular accident in early 2016. 4. Dyspepsia. 5. Allergic rhinitis. MEDICATIONS AT DISCHARGE: 1. Omeprazole 20 mg daily. 2. Mirtazapine 7.5 mg at bedtime. 3. Losartan 50 mg daily. 4. Aspirin 81 mg daily. 5. Tylenol 650 mg q. 4 hours or 975 mg q. 6 to 8 hours p.r.n. fever or pain. 6. Pravastatin 20 mg daily. 7. Amlodipine 5 mg daily. 8. Multivitamin 1 tab daily. 9. Preparation H 1 application per rectum q.i.d. p.r.n. 10. Docusate 100 mg b.i.d. 11. Flexeril 10 mg q. 8 hours p.r.n. HOSPITAL COURSE OF STAY: For full details, please refer to the H and P provided by Dr. Tobias on 0 07/04/16. In summary, Ms. Serna is an 86-year-old female, who presented to the hospital with johanny rn for altered mental status and subsequent falls. The patient was found down outside of her [facility] [place] residence. It appears that she had been wandering and the staff at [place] state that this is n ot uncommon, but that she does usually not leave the building. The patient was found with a flashli ght, some extra clothing, a blanket, and picture of her while she was looking for a cat. Sh helen was lying on the ground and was complaining of hip pain. In the ER, she was found to have a left nondisplaced intertrochanteric fracture. The patient was seen in consultation by Dr. Yanez and the patient underwent a closed reduction and percutaneous gamma nail fixation of the left intertrochant rain hip. There was some concern expressed for the patient's mental state upon arrival and throughout her stay . The patient was found wandering, which is somewhat outside of her baseline. She did have a compr ehensive workup, which did include an MRI of the brain, which did not show any evidence of acute inf arct. There were no areas of restricted diffusion. No reversible causes of the confusion were note d. Upon arrival, the patient did have some leukocytosis, but this has since resolved. Her urine wa s negative for acute infection. Her electrolytes were abnormal upon arrival. She was hyponatremic and appeared to be somewhat mildly dehydrated. However, this did improve during her time here. The patient's confusion persisted and the family did express concerns for this persistent confusion. It appeared to be most likely consistent with delirium on top of a baseline mild dementia. However, th is is difficult to ascertain. We did appreciate a consultation from Neurology. The patient did hav e an EEG, which did not show any epileptiform potentials. Neurology did recommend an outpatient sle ep study as untreated sleep apnea can contribute to other complaints that the patient has been compl aining about including morning headaches as well as cardiovascular disease. The patient was also ad vised to utilize Tylenol, ibuprofen, and to avoid opioid narcotics as she did appear to be sensitive to these medications. In regards to the hypoxia, the patient did require supplemental oxygen on the days after her surgery . Her x-ray did note that she has some small pleural effusions and the patient did receive Lasix wi th good effect and was able to wean off of her oxygen. In regards to her urinary retention, this wa s thought to be secondary to opioid use. We were able to discontinue her Lagunas catheter. The patie nt is voiding appropriately. She also did have some constipation, which the daughter states is rela tively chronic. This may have also been contributing to her urinary retention. Patient did respond ed well with oral laxatives and a bowel regimen and has been evacuating her bowels appropriately. No other acute concerns. Ms. Serna will need to follow up with Orthopedics for further evaluation of her incision and staple removal. She will be weightbearing as tolerated. Ortho also recommends discharge on aspirin for further DVT prophylaxis. CONCERNS AT DISCHARGE: Ms. eSrna will be discharged to [facility] on 07/12/16. She should have appropriate follow up with her PCP and Orthopedics outpatient followup. The patient should have an outpatient sleep study schedule through her PCP as well as Ortho followup. DIET: Regular. ACTIVITY: As tolerated. CONDITION: Improved, stable. DISPOSITION: To [facility]. TIME SPENT: Time spent on this discharge was approximately 40 minutes. Again, this is only a brief summary of the patient's hospital course of stay. For full details, ple ase refer to the full medical record. If you have any further questions or need further assistance, please feel free to contact me at . JARROD REDDY NP [id number]/[facility] #: [id number]
== END 2016-07-12 10:30 | DRG 481 ==
LOC: ED 05:48 → MED 09:47 → SSU 20:42 → EEVIPCON 07-05 07:33 → OBSVTOIN 07-05 07:33
PROVIDERS: ADMIT Hospitalist; ATTEND Internal Medicine
PROC: 0QS736Z Reposition Left Upper Femur with Intramedullary Internal Fixation Device, Percutaneous Approach (ICD-10-PCS; principal; 2016-07-05 17:00)
PROC: 4A10X4Z Monitoring of Central Nervous Electrical Activity, External Approach (ICD-10-PCS; 2016-07-11)
DX: S72.142A Displaced intertrochanteric fracture of left femur, initial encounter for closed fracture (principal); E87.1 Hypo-osmolality and hyponatremia; M06.9 Rheumatoid arthritis, unspecified; I10 Essential (primary) hypertension; K21.9 Gastro-esophageal reflux disease without esophagitis; G43.909 Migraine, unspecified, not intractable, without status migrainosus; F32.9 Major depressive disorder, single episode, unspecified; Z80.3 Family history of malignant neoplasm of breast; Z88.0 Allergy status to penicillin; Z88.2 Allergy status to sulfonamides; E78.5 Hyperlipidemia, unspecified; Z86.73 Personal history of transient ischemic attack (TIA), and cerebral infarction without residual deficits; Z88.5 Allergy status to narcotic agent; Z80.0 Family history of malignant neoplasm of digestive organs; Z80.41 Family history of malignant neoplasm of ovary; Z80.7 Family history of other malignant neoplasms of lymphoid, hematopoietic and related tissues; J30.9 Allergic rhinitis, unspecified; R10.13 Epigastric pain; W19.XXXA Unspecified fall, initial encounter; Y92.9 Unspecified place or not applicable; R33.9 Retention of urine, unspecified; K59.00 Constipation, unspecified; R41.0 Disorientation, unspecified; R09.02 Hypoxemia
CPT/HCPCS: 36415; 70450; 70551; 71010; 71020; 72125; 74000; 76000; 76770; 78582; 80048; 80053; 81003; 82140; 82272; 82550; 82607; 82746; 83605; 83921; 84443; 84484; 85014; 85018; 85025; 85610; 85652; 85730; 86850; 86870; 86880; 86900; 86901; 87641; 93005; 94760; 95816; A9270-GY; A9540; A9558; C1713; J1650; J1940; J2060; J2250; J2270; J2405; J2704

== ENCOUNTER 2017-03-20 19:13 | Emergency (ER) | payer MEDICARE, OTHER ==
[2017-03-20] MEDS ORDERED: Lidocaine 2% VISCOUS* 15 ML UDC PO ONE (19:58)
[2017-03-20] MEDS ORDERED: Al Hydrox/Mg Hydrox/Simet LIQ* 30 ML UDC PO ONE (19:58)
[2017-03-20] MEDS ORDERED: NS 0.9% 1000 ML* 1,000 ML IV ONE (20:02)
[2017-03-20] MEDS ORDERED: Lidocaine 4% TOPICAL* 50 ML TOP.SOLN TOPICAL PRN (20:02)
[2017-03-20] MEDS ORDERED: Benzocaine/Menthol LOZ* 1 LOZENGE MT ONE (20:03)
[2017-03-20 20:30] LABS: ABS Basophils 0 10^3/ul (0-0.2); ABS Eosinophils 0.2 10^3/ul (0-0.6); ABS Lymphocytes 1.8 10^3/ul (1.0-4.8); ABS Monocytes 0.5 10^3/ul (0-0.8); ABS Neutrophils 1.6 10^3/ul (1.5-7.7); ABS Nucleated RBC 0 10^3/ul; Hematocrit 36 % (35-47); Hemoglobin 12.7 g/dl (12.0-16.0); Lymphocyte % 43.1 % (25-47); Mean Corpuscular HGB Conc 35 g/dl (31-36); Mean Corpuscular Hemoglobin 33 pg (27-31); Mean Corpuscular Volume 94 fL (80-97); Mean Platelet Volume 7 um3 (7.4-10.4); Nucleated Red Blood Cells % 0; Platelet Count 239 10^3/ul (150-450); Red Blood Count 3.85 10^6/ul (4.0-5.4); Red Cell Distribution Width 13 % (10.5-15); White Blood Count 4.3 10^3/ul (3.5-10.8)
--- NOTE | 2017-03-20 20:42 | RAD ---
INDICATION: Chest pain. COMPARISON: Comparison is made with a prior study from July 11, 2016. TECHNIQUE: A portable view of the chest was obtained. FINDINGS: Cardiac and mediastinal contours appear to be within normal limits. The lungs are underinflated and clear. No pleural effusion is seen. IMPRESSION: NO EVIDENCE FOR ACUTE DISEASE.
[2017-03-20 20:48] LABS: EGFR Non-African American 89.6 (>60)
[2017-03-20] MEDS ORDERED: Acetaminophen TAB* 325 MG ONE (21:41)
[2017-03-20] MEDS ORDERED: Acetaminophen TAB* 325 MG PO ONE (21:42)
--- NOTE | 2017-03-20 21:48 | ED ---
Omar Hillman Angela, scribed for Stephen Castro MD on 03/20/17 at 2004 . Influenza-Like Illness - HPI Summary HPI Summary: This pt is a 86 y/o female presenting to [facility] via EMS c/o fatigue, cough and sore throat since last night. Pt reports swallowing is painful. She additionally notes chest pain, described as burning. Pt denies abd pain, nausea , vomiting, diarrhea. PMHx: CVA, HTN. - History of Current Complaint Chief Complaint: EDGeneral Hx Obtained From: Patient Onset/Duration: Lasting Days, Still Present Severity: Moderate Associated Signs & Symptoms: Myalgia, Cough, Sore Throat - Allergy/Home Medications Allergies/Adverse Reactions: Allergies Allergy/AdvReac Type Severity Reaction Status Date / Time MS Penicillins [Penicillins] Allergy Severe Anaphylatic Verified 03/20/17 19:21 Shock MS Sulfa Drugs [Sulfa Drugs] Allergy Severe Anaphylatic Verified 03/20/17 19:21 Shock MS Codeine [Codeine] Allergy Intermediate GOES TO Verified 03/20/17 19:21 SLEEP; UNABLE TO BE WAKENED Blood Thinners Allergy Unknown Uncoded 03/20/17 19:21 Reaction Details PMH/Surg Hx/FS Hx/Imm Hx Endocrine/Hematology History: Denies: Hx Diabetes Cardiovascular History: Reports: Hx Hypertension Denies: Hx Pacemaker/ICD Respiratory History: Reports: Other Respiratory Problems/Disorders - SEASONAL ALLERGIES GI History: Reports: Hx Gastroesophageal Reflux Disease History: Reports: Hx Kidney Infection Musculoskeletal History: Reports: Hx Arthritis - Rheumatoid, Hx Rheumatoid Arthritis - POLYMALGIA Sensory History: Reports: Hx Contacts or Glasses Denies: Hx Hearing Aid Opthamlomology History: Reports: Hx Contacts or Glasses Neurological History: Reports: Hx CVA, Hx Headaches, Hx Migraine Psychiatric History: Reports: Hx Depression Denies: Hx Panic Disorder - Cancer History Hx Chemotherapy: No Hx Radiation Therapy: No - Surgical History Surgery Procedure, Year, and Place: ADNOIDS AND TONSILECTOMY;. RIGHT KNEE SURGERY 1985;. APPENDECTOMY,. RIGHT SHOULDER,. TUBAL LIGATION FOLLOWED BY TOTAL HYSTERECTOMY/OOPERECTOMY,. LUMBAR SURGERY, cataract Hx Anesthesia Reactions: No - Pt denies - Immunization History Date of Influenza Vaccine: 11/2017 Infectious Disease History: Yes Infectious Disease History: Denies: Traveled Outside the [place] in Last 30 Days - Family History Family History: Breast CA - Social History Alcohol Use: Rare Substance Use Type: Reports: None Smoking Status (MU): Never Smoked Tobacco Review of Systems Positive: Fatigue. Negative: Fever Positive: Sore Throat Positive: Chest Pain Positive: Cough Negative: Abdominal Pain, Vomiting, Diarrhea, Nausea Negative: Weakness All Other Systems Reviewed And Are Negative: Yes Physical Exam - Summary Physical Exam Summary: Appearance: Well-appearing, Well-nourished Skin: Warm Eyes: Normal ENT: Normal Neck: Supple, nontender Respiratory: Clear to auscultation Cardiovascular: Normal S1, S2. No murmurs. Normal distal pulses. Abdomen: Soft, nontender Musculoskeletal: Normal, Strength/ROM Intact Neurological: Normal, A&Ox3 Psychiatric: Normal Triage Information Reviewed: Yes Vital Signs On Initial Exam: Initial Vitals Temp Pulse Resp BP Pulse Ox 97.8 F 85 16 172/81 94 03/20/17 19:19 03/20/17 19:19 03/20/17 19:19 03/20/17 19:19 03/20/17 19:19 Vital Signs Reviewed: Yes Diagnostics - Vital Signs Vital Signs Temp Pulse Resp BP Pulse Ox 03/20/17 19:19 97.8 F 85 16 172/81 94 - Laboratory Lab Results: Lab Results 03/20/17 03/20/17 03/20/17 Range/Units 20:18 20:18 20:18 WBC 4.3 (3.5-10.8) 10^3/ul RBC 3.85 L (4.0-5.4) 10^6/ul Hgb 12.7 (12.0-16.0) g/dl Hct 36 (35-47) % MCV 94 (80-97) fL MCH 33 H (27-31) pg MCHC 35 (31-36) g/dl RDW 13 (10.5-15) % Plt Count 239 (150-450) 10^3/ul MPV 7 L (7.4-10.4) um3 Neut % (Auto) 38.5 (38-83) % Lymph % (Auto) 43.1 (25-47) % [place] % (Auto) 12.5 H (1-9) % Eos % (Auto) 5.0 (0-6) % Baso % (Auto) 0.9 (0-2) % Absolute Neuts (auto) 1.6 (1.5-7.7) 10^3/ul Absolute Lymphs (auto) 1.8 (1.0-4.8) 10^3/ul Absolute Monos (auto) 0.5 (0-0.8) 10^3/ul Absolute Eos (auto) 0.2 (0-0.6) 10^3/ul Absolute Basos (auto) 0 (0-0.2) 10^3/ul Absolute Nucleated RBC 0 10^3/ul Nucleated RBC % 0 APTT 29.6 (26.0-36.3) seconds Sodium 134 (133-145) mmol/L Potassium 3.9 (3.5-5.0) mmol/L Chloride 100 L (101-111) mmol/L Carbon Dioxide 27 (22-32) mmol/L Anion Gap 7 (2-11) mmol/L BUN 17 (6-24) mg/dL Creatinine 0.63 (0.51-0.95) mg/dL Est GFR ( Amer) 115.2 (>60) Est GFR (Non-Af Amer) 89.6 (>60) BUN/Creatinine Ratio 27.0 H (8-20) Glucose 98 (70-100) mg/dL Calcium 8.8 (8.6-10.3) mg/dL Magnesium 1.9 (1.9-2.7) mg/dL Total Bilirubin 0.30 (0.2-1.0) mg/dL AST 21 (13-39) U/L ALT 18 (7-52) U/L Alkaline Phosphatase 40 (34-104) U/L Troponin I 0.00 (<0.04) ng/mL Total Protein 7.0 (6.4-8.9) g/dL Albumin 3.8 (3.2-5.2) g/dL Globulin 3.2 (2-4) g/dL Albumin/Globulin Ratio 1.2 (1-3) Influenza A (Rapid) (Negative) Influenza B (Rapid) (Negative) 03/20/17 Range/Units 21:09 WBC (3.5-10.8) 10^3/ul RBC (4.0-5.4) 10^6/ul Hgb (12.0-16.0) g/dl Hct (35-47) % MCV (80-97) fL MCH (27-31) pg MCHC (31-36) g/dl RDW (10.5-15) % Plt Count (150-450) 10^3/ul MPV (7.4-10.4) um3 Neut % (Auto) (38-83) % Lymph % (Auto) (25-47) % [place] % (Auto) (1-9) % Eos % (Auto) (0-6) % Baso % (Auto) (0-2) % Absolute Neuts (auto) (1.5-7.7) 10^3/ul Absolute Lymphs (auto) (1.0-4.8) 10^3/ul Absolute Monos (auto) (0-0.8) 10^3/ul Absolute Eos (auto) (0-0.6) 10^3/ul Absolute Basos (auto) (0-0.2) 10^3/ul Absolute Nucleated RBC 10^3/ul Nucleated RBC % APTT (26.0-36.3) seconds Sodium (133-145) mmol/L Potassium (3.5-5.0) mmol/L Chloride (101-111) mmol/L Carbon Dioxide (22-32) mmol/L Anion Gap (2-11) mmol/L BUN (6-24) mg/dL Creatinine (0.51-0.95) mg/dL Est GFR ( Amer) (>60) Est GFR (Non-Af Amer) (>60) BUN/Creatinine Ratio (8-20) Glucose (70-100) mg/dL Calcium (8.6-10.3) mg/dL Magnesium (1.9-2.7) mg/dL Total Bilirubin (0.2-1.0) mg/dL AST (13-39) U/L ALT (7-52) U/L Alkaline Phosphatase (34-104) U/L Troponin I (<0.04) ng/mL Total Protein (6.4-8.9) g/dL Albumin (3.2-5.2) g/dL Globulin (2-4) g/dL Albumin/Globulin Ratio (1-3) Influenza A (Rapid) Positive H (Negative) Influenza B (Rapid) Negative (Negative) Result Diagrams: 03/20/17 20:18 03/20/17 20:18 Lab Statement: Any lab studies that have been ordered have been reviewed, and results considered in the medical decision making process. - Radiology Chest XR Xray Interpretation: No Acute Changes - IMPRESSION: No evidence for acute disease. Dr. Castro has reviewed this radiology report. Radiology Interpretation Completed By: Radiologist - EKG 20:01 Cardiac Rate: NL EKG Rhythm: Sinus Rhythm - at 80 bpm Flu Symptom Course/Dx - Course Assessment/Plan: vital signs stable, patient + for fluA, labs wnl. ekg and xr no acute changes, patient started on tamiflu and instructed to fu with pmd. agrees to and understnads dc instructions. - Diagnoses Provider Diagnoses: Influenza A Discharge - Discharge Plan Condition: Stable Disposition: HOME Prescriptions: Oseltamivir CAP* [Tamiflu CAP*] 75 mg PO BID #10 cap Patient Education Materials: Influenza (ED) Referrals: Ruy Sweeney MD [Primary Care Provider] - Additional Instructions: PLEASE TAKE MEDICATIONS DIRECTED PLEASE RETURN IMMEDIATELY TO THE ER IF YOU HAVE ANY WORSENING OR CONCERNING SYMPTOMS PLEASE MAKE AN APPOINTMENT TO BE SEEN BY YOUR PRIMARY CARE DOCTOR WITHIN 1 WEEK The documentation as recorded by the Omar boyle Angela accurately reflects the service I personally performed and the decisions made by , Stephen Castro MD.
[2017-03-20] MEDS ORDERED: Oseltamivir CAP* 75 MG CAP PO ONE (22:47)
[2017-03-21 00:32] VITALS: BP 160/66
== END 2017-03-21 01:01 | disposition home or self-care (01) ==
LOC: ED 19:13
DX: J09.X2 Influenza due to identified novel influenza A virus with other respiratory manifestations (principal); K21.9 Gastro-esophageal reflux disease without esophagitis; I10 Essential (primary) hypertension; Z86.73 Personal history of transient ischemic attack (TIA), and cerebral infarction without residual deficits; M06.9 Rheumatoid arthritis, unspecified; F32.9 Major depressive disorder, single episode, unspecified; Z88.5 Allergy status to narcotic agent; Z88.0 Allergy status to penicillin; Z88.2 Allergy status to sulfonamides
CPT/HCPCS: 36415; 71045; 80053; 83735; 84484; 85025; 85730; 87502; 93005; 99283; A9270-GY

== ENCOUNTER 2017-08-03 16:11 | Observation (INO) | payer MEDICARE, OTHER ==
[2017-08-03 17:59] LABS: ABS Basophils 0 10^3/ul (0-0.2); ABS Eosinophils 0.1 10^3/ul (0-0.6); ABS Lymphocytes 2.2 10^3/ul (1.0-4.8); ABS Monocytes 0.5 10^3/ul (0-0.8); ABS Neutrophils 6.2 10^3/ul (1.5-7.7); ABS Nucleated RBC 0 10^3/ul; Eosinophil % 1.3 % (0-6); Hematocrit 42 % (35-47); Hemoglobin 14.8 g/dl (12.0-16.0); Lymphocyte % 24.4 % (25-47); Mean Corpuscular HGB Conc 35 g/dl (31-36); Mean Corpuscular Hemoglobin 34 pg (27-31); Mean Corpuscular Volume 95 fL (80-97); Mean Platelet Volume 6.7 um3 (7.4-10.4); Nucleated Red Blood Cells % 0.1; Platelet Count 307 10^3/ul (150-450); Red Blood Count 4.39 10^6/ul (4.00-5.40); Red Cell Distribution Width 13 % (10.5-15); White Blood Count 9.1 10^3/ul (3.5-10.8)
[2017-08-03 17:59] LABS: Urine Appearance Clear; Urine Blood Negative (Negative); Urine Color Colorless; Urine Ketones Negative (Negative); Urine Protein Negative (Negative); Urine Specific Gravity 1.005 (1.010-1.030); Urine Urobilinogen Negative (Negative)
[2017-08-03 18:05] LABS: INR 0.9 (0.77-1.02)
--- NOTE | 2017-08-03 18:05 | RAD ---
HISTORY: LEFT CHEST PAIN COMPARISONS: March 20, 2017 VIEWS: 1: frontal portable view of the chest at 5:52 PM FINDINGS: LINES AND TUBES: None. CARDIOMEDIASTINAL SILHOUETTE: The cardiomediastinal silhouette is normal for portable technique. PLEURA: The costophrenic angles are sharp. No pleural abnormalities are noted. LUNG PARENCHYMA: The lungs are clear. ABDOMEN: The upper abdomen is clear. There is no subphrenic gas. BONES AND SOFT TISSUES: There is postsurgical change to the right shoulder. IMPRESSION: NO ACTIVE CARDIOPULMONARY DISEASE.
[2017-08-03] MEDS: NS 0.9% 1000 ML* 1,000 ML IV SCH (18:17)
[2017-08-03 18:37] LABS: EGFR Non-African American 77.9 (>60)
[2017-08-03] MEDS ORDERED: Ketorolac INJ* 30 MG/ML 1 ML VIAL IV ONE (19:39)
[2017-08-03] MEDS ORDERED: Iohexol 350* (CONTRAST) 500 ML MDV IV ONE (19:53)
--- NOTE | 2017-08-03 21:03 | RAD ---
CLINICAL HISTORY: left flank/posterior lower chest pain COMPARISON: None TECHNIQUE: Multiple contiguous axial CT scans were obtained of the abdomen and pelvis, without intravenous contrast enhancement. Coronal and sagittal multiplanar reformations are submitted for review. Oral contrast was not administered. FINDINGS: The study is limited by the lack of intravenous contrast. This limits evaluation of the solid organs and vasculature. LUNG BASES: The lung bases are clear. LIVER: The liver is normal in shape, size, contour, and attenuation. BILE DUCTS: There is no intrahepatic or extrahepatic biliary dilatation. GALLBLADDER: The gallbladder is normal, without pericholecystic inflammatory change. PANCREAS: There is a 2 cm cyst of the neck of the pancreas measuring simple fluid in attenuation. SPLEEN: Normal in size and appearance. UPPER GI TRACT: Evaluation of the gastrointestinal tract is limited by incomplete gastric distention. The upper GI tract is unremarkable. SMALL BOWEL AND MESENTERY: The small bowel is normal in contour, course, and caliber. There is no obstruction or dilatation. COLON: There are multiple diverticula of the sigmoid colon. There is no pericolonic inflammatory change. ADRENALS: Normal bilaterally. KIDNEYS: Vascular calcifications are noted. There is no appreciable ureteral stone or hydronephrosis. BLADDER: The bladder is smooth in contour. PELVIC ORGANS: The pelvic organs are not visualized. AORTA: There is calcific atherosclerotic disease of the abdominal aorta and its branches, without aneurysmal dilatation IVC: Unremarkable LYMPH NODES: There is no lymphadenopathy by size criteria. ABDOMINAL WALL: There is no evidence for abdominal wall hernia. BONES AND SOFT TISSUES: There is diffuse osteopenia. Degenerative changes are noted. The patient is status post internal fixation of the left femur. OTHER: None IMPRESSION: 1. NO APPRECIABLE HYDRONEPHROSIS OR URETERAL STONE. 2. DIVERTICULOSIS. 3. ATHEROSCLEROSIS. 4. 2 CM CYSTIC LESION OF THE PANCREATIC NECK, SUGGESTIVE OF A CYSTIC PANCREATIC NEOPLASM, INCLUDING SEROUS CYSTADENOMA OR IPMN.
--- NOTE | 2017-08-03 21:05 | RAD ---
HISTORY: left posterior chest pain COMPARISONS: CT scan dated July 11, 2016 TECHNIQUE: Multiple contiguous axial CT scans of the chest were obtained after the administration of nonionic intravenous contrast, timed to the pulmonary arterial phase of contrast enhancement.. Coronal and sagittal multiplanar reformations are also submitted for review. FINDINGS: NECK AND THYROID: The lower neck and thyroid are unremarkable. CHEST WALL: There is no lower cervical, axillary, or supraclavicular lymphadenopathy by size criteria. HEART AND PERICARDIUM: Coronary and valvular cardiac calcifications are noted. AORTA AND PULMONARY VASCULATURE: There is no pulmonary arterial filling defect to suggest pulmonary embolism. There is no linear filling defect within the aorta to suggest aortic dissection. There is atherosclerosis of the thoracic aorta. MEDIASTINUM: There is no mediastinal lymphadenopathy by size criteria. TITI: There are subcentimeter short axis hilar lymph nodes. There is no lymphadenopathy by size criteria. AIRWAY AND ESOPHAGUS: The airway is unremarkable, without endobronchial filling defect. The esophagus is grossly normal. LUNG PARENCHYMA: There is a 0.5 cm nodule of the right lower lobe best seen on axial image 31. PLEURA: No pleural abnormalities are noted. UPPER ABDOMEN: The upper abdomen is unremarkable. BONES AND SOFT TISSUES: Degenerative changes are noted, with advanced degenerative changes of the right shoulder. OTHER: None. IMPRESSION: 1. NO PULMONARY ARTERIAL FILLING DEFECT TO SUGGEST PULMONARY EMBOLISM. 2. 0.5 CM NODULE OF THE RIGHT LOWER LOBE. THE RECOMMENDATIONS FOR FOLLOWUP AND MANAGEMENT OF AN INCIDENTALLY DETECTED PULMONARY NODULE LESS THAN 6 MM IN SIZE, IN A PATIENT WITHOUT A HISTORY OF MALIGNANCY, INCLUDE NO FOLLOWUP FOR A LOW-RISK PATIENT OR OPTIONAL FOLLOWUP CT IN 12 MONTHS FOR A HIGH RISK PATIENT. 3. ATHEROSCLEROSIS. NOTES: SIZE = AVERAGE LENGTH AND WIDTH; HIGH RISK IS DEFINED A HISTORY OF SMOKING OR OTHER KNOW RISK FACTORS FOR LUNG CANCER; LOW RISK IS DEFINED MINIMAL OR ABSENT HISTORY OF SMOKING OR OTHER KNOWN RISK FACTORS. Dilip, H, GLENIS Gauthier, ISABELLA Orona, et al (2017) "Guidelines for Management of Incidental Pulmonary Nodules Detected on CT Images: From the Fleischner Society 2017." Radiology; 284(1): 228-243. doi:10.1148/[id number]
[2017-08-03] MEDS ORDERED: Ondansetron ODT TAB* 4 MG PO ONE (21:28)
[2017-08-03] MEDS ORDERED: Morphine VIAL* 4 MG/ML VIAL (1 ml vial) IV ONE (21:28)
--- NOTE | 2017-08-03 23:07 | ED ---
Hailey Hillman Jade, scribed for Samuel Thompson MD on 08/03/17 at 1721 . Abdominal Pain/Female - HPI Summary HPI Summary: Pt is an 87 y/o female BIBA who c/o left side pain. She states the pain started yesterday afternoon, is aching in quality, and is a constant 6/10 in severity. The pain is located behind her left ribcage, and less severely underneath her left breast. She also complains of weakness. Pt denies any rash, nausea, SOB, diaphoresis, or issues with BM or urination. She took Aleve for her pain. - History of Current Complaint Chief Complaint: EDAbdPain Stated Complaint: BACK PAIN Time Seen by Provider: 08/03/17 17:04 Hx Obtained From: Patient Onset/Duration: Gradual Onset, Lasting Days - Yesterday afternoon, Still Present Timing: Constant Severity Currently: Moderate Pain Intensity: 6 Pain Scale Used: 0-10 Numeric Location: Other - Behind her left ribcage and under her left breast Character: Other: - Aching Aggravating Factor(s): Deep Breaths Associated Signs and Symptoms: Negative: Diaphoresis, Nausea Allergies/Adverse Reactions: Allergies Allergy/AdvReac Type Severity Reaction Status Date / Time Penicillins Allergy Severe Anaphylatic Verified 08/03/17 17:33 Shock Sulfa (Sulfonamide Allergy Severe Anaphylatic Verified 08/03/17 17:33 Antibiotics) Shock codeine Allergy Intermediate Unknown Verified 08/03/17 17:33 Reaction Details MS Codeine [Codeine] Allergy Intermediate GOES TO Verified 03/20/17 19:21 SLEEP; UNABLE TO BE WAKENED Blood Thinners Allergy Unknown Uncoded 03/20/17 19:21 Reaction Details PMH/Surg Hx/FS Hx/Imm Hx Endocrine/Hematology History: Denies: Hx Diabetes Cardiovascular History: Reports: Hx Hypertension Denies: Hx Pacemaker/ICD Respiratory History: Reports: Other Respiratory Problems/Disorders - SEASONAL ALLERGIES GI History: Reports: Hx Gastroesophageal Reflux Disease History: Reports: Hx Kidney Infection Musculoskeletal History: Reports: Hx Arthritis - Rheumatoid, Hx Rheumatoid Arthritis - POLYMALGIA Sensory History: Reports: Hx Contacts or Glasses Denies: Hx Hearing Aid Opthamlomology History: Reports: Hx Contacts or Glasses Neurological History: Reports: Hx CVA, Hx Headaches, Hx Migraine, Other Neuro Impairments/Disorders - AMS, Delirium Psychiatric History: Reports: Hx Depression Denies: Hx Panic Disorder - Cancer History Hx Chemotherapy: No Hx Radiation Therapy: No - Surgical History Surgery Procedure, Year, and Place: ADNOIDS AND TONSILECTOMY;. RIGHT KNEE SURGERY 1985;. APPENDECTOMY,. RIGHT SHOULDER,. TUBAL LIGATION FOLLOWED BY TOTAL HYSTERECTOMY/OOPERECTOMY,. LUMBAR SURGERY, cataract Hx Anesthesia Reactions: No - Pt denies - Immunization History Date of Influenza Vaccine: 11/2017 Infectious Disease History: No Infectious Disease History: Denies: Traveled Outside the [place] in Last 30 Days - Family History Known Family History: Positive: Other - Breast CA Family History: Breast CA - Social History Alcohol Use: Rare Substance Use Type: Reports: None Smoking Status (MU): Never Smoked Tobacco Review of Systems Negative: Skin Diaphoresis Negative: Shortness Of Breath Positive: Abdominal Pain - Under left breast and around the back of her left ribcage. Negative: Nausea Negative: Rash Positive: Weakness All Other Systems Reviewed And Are Negative: Yes Physical Exam - Summary Physical Exam Summary: General: well-appearing, mild pain distress Skin: warm, color reflects adequate perfusion, dry. No rash. Head: normal Eyes: EOMI, ANAHI ENT: normal Neck: supple, nontender Respiratory: CTA, breath sounds present Cardiovascular: RRR Abdomen: soft. Tenderness over posterior left side of chest and left side of abdomen. Bowel: present Musculoskeletal: normal, strength/ROM intact Neurological: sensory/motor intact, A&O x3 Psychological: affect/mood appropriate Triage Information Reviewed: Yes Vital Signs On Initial Exam: Initial Vitals Pulse Pulse Ox 78 93 08/03/17 16:29 08/03/17 16:29 Vital Signs Reviewed: Yes Diagnostics - Vital Signs Vital Signs Temp Pulse Resp BP Pulse Ox 08/03/17 16:42 98.4 F 73 18 187/89 98 08/03/17 16:30 73 187/89 94 08/03/17 16:29 78 93 - Laboratory Lab Results: Lab Results 08/03/17 08/03/17 08/03/17 Range/Units 17:42 17:42 17:42 WBC 9.1 (3.5-10.8) 10^3/ul RBC 4.39 (4.00-5.40) 10^6/ul Hgb 14.8 (12.0-16.0) g/dl Hct 42 (35-47) % MCV 95 (80-97) fL MCH 34 H (27-31) pg MCHC 35 (31-36) g/dl RDW 13 (10.5-15) % Plt Count 307 (150-450) 10^3/ul MPV 6.7 L (7.4-10.4) um3 Neut % (Auto) 68.6 (38-83) % Lymph % (Auto) 24.4 L (25-47) % [place] % (Auto) 5.3 (0-7) % Eos % (Auto) 1.3 (0-6) % Baso % (Auto) 0.4 (0-2) % Absolute Neuts (auto) 6.2 (1.5-7.7) 10^3/ul Absolute Lymphs (auto) 2.2 (1.0-4.8) 10^3/ul Absolute Monos (auto) 0.5 (0-0.8) 10^3/ul Absolute Eos (auto) 0.1 (0-0.6) 10^3/ul Absolute Basos (auto) 0 (0-0.2) 10^3/ul Absolute Nucleated RBC 0 10^3/ul Nucleated RBC % 0.1 INR (Anticoag Therapy) (0.77-1.02) APTT (26.0-36.3) seconds D-Dimer, Quantitative (Less Than 230) ng/mL Sodium (135-145) mmol/L Potassium (3.5-5.0) mmol/L Chloride (101-111) mmol/L Carbon Dioxide (22-32) mmol/L Anion Gap (2-11) mmol/L BUN (6-24) mg/dL Creatinine (0.51-0.95) mg/dL Est GFR ( Amer) (>60) Est GFR (Non-Af Amer) (>60) BUN/Creatinine Ratio (8-20) Glucose (70-100) mg/dL Lactic Acid 1.1 (0.5-2.0) mmol/L Calcium (8.6-10.3) mg/dL Magnesium (1.9-2.7) mg/dL Total Bilirubin (0.2-1.0) mg/dL AST (13-39) U/L ALT (7-52) U/L Alkaline Phosphatase (34-104) U/L Total Creatine Kinase (10-223) U/L CK-MB (CK-2) (0.6-6.3) ng/mL Troponin I (<0.04) ng/mL C-Reactive Protein (< 5.00) mg/L B-Natriuretic Peptide 78 ( - 100) pg/mL Total Protein (6.4-8.9) g/dL Albumin (3.2-5.2) g/dL Globulin (2-4) g/dL Albumin/Globulin Ratio (1-3) Lipase (11.0-82.0) U/L TSH (0.34-5.60) mcIU/mL Urine Color Urine Appearance Urine pH (5-9) Ur Specific [place] (1.010-1.030) Urine Protein (Negative) Urine Ketones (Negative) Urine Blood (Negative) Urine Nitrate (Negative) Urine Bilirubin (Negative) Urine Urobilinogen (Negative) Ur Leukocyte Esterase (Negative) Urine Glucose (Negative) Urine Ascorbic Acid (Negative) 08/03/17 08/03/17 08/03/17 Range/Units 17:44 17:44 17:44 WBC (3.5-10.8) 10^3/ul RBC (4.00-5.40) 10^6/ul Hgb (12.0-16.0) g/dl Hct (35-47) % MCV (80-97) fL MCH (27-31) pg MCHC (31-36) g/dl RDW (10.5-15) % Plt Count (150-450) 10^3/ul MPV (7.4-10.4) um3 Neut % (Auto) (38-83) % Lymph % (Auto) (25-47) % [place] % (Auto) (0-7) % Eos % (Auto) (0-6) % Baso % (Auto) (0-2) % Absolute Neuts (auto) (1.5-7.7) 10^3/ul Absolute Lymphs (auto) (1.0-4.8) 10^3/ul Absolute Monos (auto) (0-0.8) 10^3/ul Absolute Eos (auto) (0-0.6) 10^3/ul Absolute Basos (auto) (0-0.2) 10^3/ul Absolute Nucleated RBC 10^3/ul Nucleated RBC % INR (Anticoag Therapy) 0.90 (0.77-1.02) APTT 32.6 (26.0-36.3) seconds D-Dimer, Quantitative 222 (Less Than 230) ng/mL Sodium 135 (135-145) mmol/L Potassium 3.9 (3.5-5.0) mmol/L Chloride 97 L (101-111) mmol/L Carbon Dioxide 27 (22-32) mmol/L Anion Gap 11 (2-11) mmol/L BUN 11 (6-24) mg/dL Creatinine 0.71 (0.51-0.95) mg/dL Est GFR ( Amer) 100.1 (>60) Est GFR (Non-Af Amer) 77.9 (>60) BUN/Creatinine Ratio 15.5 (8-20) Glucose 104 H (70-100) mg/dL Lactic Acid (0.5-2.0) mmol/L Calcium 9.6 (8.6-10.3) mg/dL Magnesium 2.1 (1.9-2.7) mg/dL Total Bilirubin 0.40 (0.2-1.0) mg/dL AST 20 (13-39) U/L ALT 20 (7-52) U/L Alkaline Phosphatase 67 (34-104) U/L Total Creatine Kinase 48 (10-223) U/L CK-MB (CK-2) 1.7 (0.6-6.3) ng/mL Troponin I 0.00 (<0.04) ng/mL C-Reactive Protein 2.72 (< 5.00) mg/L B-Natriuretic Peptide ( - 100) pg/mL Total Protein 8.1 (6.4-8.9) g/dL Albumin 4.8 (3.2-5.2) g/dL Globulin 3.3 (2-4) g/dL Albumin/Globulin Ratio 1.5 (1-3) Lipase 25 (11.0-82.0) U/L TSH 0.95 (0.34-5.60) mcIU/mL Urine Color Colorless Urine Appearance Clear Urine pH 7.0 (5-9) Ur Specific [place] 1.005 L (1.010-1.030) Urine Protein Negative (Negative) Urine Ketones Negative (Negative) Urine Blood Negative (Negative) Urine Nitrate Negative (Negative) Urine Bilirubin Negative (Negative) Urine Urobilinogen Negative (Negative) Ur Leukocyte Esterase Negative (Negative) Urine Glucose Negative (Negative) Urine Ascorbic Acid * A (Negative) Result Diagrams: 08/03/17 17:42 08/03/17 17:44 Lab Statement: Any lab studies that have been ordered have been reviewed, and results considered in the medical decision making process. - Radiology CXR Xray Interpretation: No Acute Changes - NO ACTIVE CARDIOPULMONARY DISEASE. ED physician reviewed radiology report. Radiology Interpretation Completed By: Radiologist - CT Chest/Thorax CTA CT Interpretation: Positive (See Comments) - 19:40: 1. NO PULMONARY ARTERIAL FILLING DEFECT TO SUGGEST PULMONARY EMBOLISM. 2. 0.5 CM NODULE OF THE RIGHT LOWER LOBE. THE RECOMMENDATIONS FOR FOLLOWUP AND MANAGEMENT OF AN INCIDENTALLY DETECTED PULMONARY NODULE LESS THAN 6 MM IN SIZE, IN A PATIENT WITHOUT A HISTORY OF MALIGNANCY, INCLUDE NO FOLLOWUP FOR A LOW-RISK PATIENT OR OPTIONAL FOLLOWUP CT IN 12 MONTHS FOR A HIGH RISK PATIENT. 3. ATHEROSCLEROSIS. ER physician reviewed radiology report. - EKG 17:34 Cardiac Rate: NL - 70 bpm EKG Rhythm: Sinus Rhythm ST Segment: Normal EKG Interpretation: PAC Abdominal Pain Fem Course/Dx - Course Course Of Treatment: ADMIT HOSPITALIST. - Diagnoses Provider Diagnoses: Chest pain, Abdominal pain, Pancreatic mass Discharge - Sign-Out/Discharge Documenting (check all that apply): Discharge/Admit/Transfer - Admit Signing out patient TO: Pancho Kate - Discharge Plan Condition: Stable Disposition: ADMITTED TO [facility] Referrals: Ruy Sweeney MD [Primary Care Provider] - - Billing Disposition and Condition Condition: STABLE Disposition: Admitted to [facility] The documentation as recorded by the Hailey boyle Jade accurately reflects the service I personally performed and the decisions made by me, Samuel Thompson MD.
[2017-08-04] MEDS ORDERED: HYDROmorphone INJ* 2 MG/ML CARPUJECT SYRINGE IV PRN (01:11)
[2017-08-04] MEDS: NS 0.9% 1000 ML* 1,000 ML IV SCH (03:19)
--- NOTE | 2017-08-04 04:04 | HP ---
H&P (Free Text) History and Physical: PCP: Bandar Sweeney MD Date/Time: 08/04/2017 0100 CC: L scapular pain HPI: Mrs Serna is an 87YO female HX CVA, HTN, HLD, GERD presenting with severe non-exertional non-radiating aching L scapular pain starting yesterday. She has some nausea, but denies vomiting, radiation of the pain, SOB, F/C, sweats, B/U/F of urination, cough, congestion, and B/U/F of urine. She denies injury or change in activity. PMedHx CVA HTN HLD GERD Ambulatory Orders Losartan TAB* [Cozaar TAB*] 50 mg PO DAILY tab 04/15/16 Pravastatin (NF) [Pravachol (NF)] 20 mg PO 1700 tab 04/15/16 amLODIPine TAB* [Norvasc 5 mg TAB*] 5 mg PO DAILY tab 07/12/16 Acetaminophen TAB* [Tylenol TAB*] 500 mg PO BID 08/03/17 Butalb/Acetamin/Caff TAB* [Fioricet TAB*] 1 tab PO Q6H PRN 08/03/17 Calcium Carbonate [Tums Ultra] 400 mg PO TID PRN 08/03/17 Cholecalciferol (Vitamin D3) [Vitamin D3] 1,000 unit PO DAILY 08/03/17 Desloratidine (NF) [Clarinex (NF)] 5 mg PO QPM 08/03/17 Lactase [Dairy Aid] 3,000 unit PO TID PRN 08/03/17 Mirtazapine [Mirtazapine] 7.5 mg PO QPM 08/03/17 Naproxen Sodium [Naproxen 220 mg] 220 mg PO Q12H PRN 08/03/17 Psyllium Husk [Metamucil] 3 cap PO DAILY 08/03/17 Allergies Penicillins Allergy (Severe, Verified 08/03/17 17:33) Anaphylatic Shock Sulfa (Sulfonamide Antibiotics) Allergy (Severe, Verified 08/03/17 17:33) Anaphylatic Shock codeine Allergy (Mild, Verified 08/04/17 01:18) See Comment GOES TO SLEEP; UNABLE TO BE WAKENED Blood Thinners Allergy (Uncoded 03/20/17 19:21) Unknown Reaction Details PSurgHx appendectomy hysterectomy B oophorectomy lumbar laminectomy rotator cuff repair SocHx: no tobacco, alcohol, or recreational drugs; resides at [place]; full code status FamHx: positive for colon CA, ovarian CA, breast CA, & lymphoma ROS: as above, otherwise reviewed and all were negative vitals: Vital Signs Temp 36.5 C 08/04/17 02:11 Pulse 79 08/04/17 02:11 Resp 18 08/04/17 03:06 BP 136/69 08/04/17 02:11 Pulse Ox 96 08/04/17 02:11 Intake & Output 08/03/17 08/03/17 08/04/17 11:59 23:59 11:59 Weight 54.431 kg 56.699 kg Constitutional: NAD, normally developed, well-nourished elderly white female HEENM: atraumatic; sclera/conjunctiva: anicteric/clear; hearing: clinically intact; oropharynx: clear, mucosa moist Neck: soft tissue: no nuchal rigidity; thyroid: normal Pulmonary: clear to auscultation bilaterally, good aeration, no accessory muscle use CV: RR/RR, normal S1S2, no carotid bruit, no jugular venous distention, 2+ B DP/ PT, no edema Abdominal: soft, non-distended, non-tender, no rebound/guarding/rigidity, normoactive bowel sounds, no hepatosplenomegaly or masses, no costovertebral angle tenderness Musculoskeletal: general: grossly intact, non-tender Integumental: normal appearance and texture of exposed skin Psychiatric orientation: AA&O to PPS affect: calm mood: cooperative eye contact: fair content: reliable responses: timely insight: fair Testing: Lab Results 08/03/17 08/03/17 08/03/17 Range/Units 17:42 17:42 17:42 WBC 9.1 (3.5-10.8) 10^3/ul RBC 4.39 (4.00-5.40) 10^6/ul Hgb 14.8 (12.0-16.0) g/dl Hct 42 (35-47) % MCV 95 (80-97) fL MCH 34 H (27-31) pg MCHC 35 (31-36) g/dl RDW 13 (10.5-15) % Plt Count 307 (150-450) 10^3/ul MPV 6.7 L (7.4-10.4) um3 Neut % (Auto) 68.6 (38-83) % Lymph % (Auto) 24.4 L (25-47) % [place] % (Auto) 5.3 (0-7) % Eos % (Auto) 1.3 (0-6) % Baso % (Auto) 0.4 (0-2) % Absolute Neuts (auto) 6.2 (1.5-7.7) 10^3/ul Absolute Lymphs (auto) 2.2 (1.0-4.8) 10^3/ul Absolute Monos (auto) 0.5 (0-0.8) 10^3/ul Absolute Eos (auto) 0.1 (0-0.6) 10^3/ul Absolute Basos (auto) 0 (0-0.2) 10^3/ul Absolute Nucleated RBC 0 10^3/ul Nucleated RBC % 0.1 INR (Anticoag Therapy) (0.77-1.02) APTT (26.0-36.3) seconds D-Dimer, Quantitative (Less Than 230) ng/mL Sodium (135-145) mmol/L Potassium (3.5-5.0) mmol/L Chloride (101-111) mmol/L Carbon Dioxide (22-32) mmol/L Anion Gap (2-11) mmol/L BUN (6-24) mg/dL Creatinine (0.51-0.95) mg/dL Est GFR ( Amer) (>60) Est GFR (Non-Af Amer) (>60) BUN/Creatinine Ratio (8-20) Glucose (70-100) mg/dL Lactic Acid 1.1 (0.5-2.0) mmol/L Calcium (8.6-10.3) mg/dL Magnesium (1.9-2.7) mg/dL Total Bilirubin (0.2-1.0) mg/dL AST (13-39) U/L ALT (7-52) U/L Alkaline Phosphatase (34-104) U/L Total Creatine Kinase (10-223) U/L CK-MB (CK-2) (0.6-6.3) ng/mL Troponin I (<0.04) ng/mL C-Reactive Protein (< 5.00) mg/L B-Natriuretic Peptide 78 ( - 100) pg/mL Total Protein (6.4-8.9) g/dL Albumin (3.2-5.2) g/dL Globulin (2-4) g/dL Albumin/Globulin Ratio (1-3) Lipase (11.0-82.0) U/L TSH (0.34-5.60) mcIU/mL Urine Color Urine Appearance Urine pH (5-9) Ur Specific [place] (1.010-1.030) Urine Protein (Negative) Urine Ketones (Negative) Urine Blood (Negative) Urine Nitrate (Negative) Urine Bilirubin (Negative) Urine Urobilinogen (Negative) Ur Leukocyte Esterase (Negative) Urine Glucose (Negative) Urine Ascorbic Acid (Negative) 08/03/17 08/03/17 08/03/17 Range/Units 17:44 17:44 17:44 WBC (3.5-10.8) 10^3/ul RBC (4.00-5.40) 10^6/ul Hgb (12.0-16.0) g/dl Hct (35-47) % MCV (80-97) fL MCH (27-31) pg MCHC (31-36) g/dl RDW (10.5-15) % Plt Count (150-450) 10^3/ul MPV (7.4-10.4) um3 Neut % (Auto) (38-83) % Lymph % (Auto) (25-47) % [place] % (Auto) (0-7) % Eos % (Auto) (0-6) % Baso % (Auto) (0-2) % Absolute Neuts (auto) (1.5-7.7) 10^3/ul Absolute Lymphs (auto) (1.0-4.8) 10^3/ul Absolute Monos (auto) (0-0.8) 10^3/ul Absolute Eos (auto) (0-0.6) 10^3/ul Absolute Basos (auto) (0-0.2) 10^3/ul Absolute Nucleated RBC 10^3/ul Nucleated RBC % INR (Anticoag Therapy) 0.90 (0.77-1.02) APTT 32.6 (26.0-36.3) seconds D-Dimer, Quantitative 222 (Less Than 230) ng/mL Sodium 135 (135-145) mmol/L Potassium 3.9 (3.5-5.0) mmol/L Chloride 97 L (101-111) mmol/L Carbon Dioxide 27 (22-32) mmol/L Anion Gap 11 (2-11) mmol/L BUN 11 (6-24) mg/dL Creatinine 0.71 (0.51-0.95) mg/dL Est GFR ( Amer) 100.1 (>60) Est GFR (Non-Af Amer) 77.9 (>60) BUN/Creatinine Ratio 15.5 (8-20) Glucose 104 H (70-100) mg/dL Lactic Acid (0.5-2.0) mmol/L Calcium 9.6 (8.6-10.3) mg/dL Magnesium 2.1 (1.9-2.7) mg/dL Total Bilirubin 0.40 (0.2-1.0) mg/dL AST 20 (13-39) U/L ALT 20 (7-52) U/L Alkaline Phosphatase 67 (34-104) U/L Total Creatine Kinase 48 (10-223) U/L CK-MB (CK-2) 1.7 (0.6-6.3) ng/mL Troponin I 0.00 (<0.04) ng/mL C-Reactive Protein 2.72 (< 5.00) mg/L B-Natriuretic Peptide ( - 100) pg/mL Total Protein 8.1 (6.4-8.9) g/dL Albumin 4.8 (3.2-5.2) g/dL Globulin 3.3 (2-4) g/dL Albumin/Globulin Ratio 1.5 (1-3) Lipase 25 (11.0-82.0) U/L TSH 0.95 (0.34-5.60) mcIU/mL Urine Color Colorless Urine Appearance Clear Urine pH 7.0 (5-9) Ur Specific [place] 1.005 L (1.010-1.030) Urine Protein Negative (Negative) Urine Ketones Negative (Negative) Urine Blood Negative (Negative) Urine Nitrate Negative (Negative) Urine Bilirubin Negative (Negative) Urine Urobilinogen Negative (Negative) Ur Leukocyte Esterase Negative (Negative) Urine Glucose Negative (Negative) Urine Ascorbic Acid * A (Negative) ECG, personally reviewed: sinus rhythm rate 70, frequent PACs, small Q-waves II/ III/AVF, no ischemia CXR, personally reviewed: IMPRESSION: NO ACTIVE CARDIOPULMONARY DISEASE. CTA chest, personally reviewed: IMPRESSION: 1. NO PULMONARY ARTERIAL FILLING DEFECT TO SUGGEST PULMONARY EMBOLISM. 2. 0.5 CM NODULE OF THE RIGHT LOWER LOBE. THE RECOM- MENDATIONS FOR FOLLOWUP AND MANAGEMENT OF AN INCIDENTALLY DETECTED PULMONARY NODULE LESS THAN 6 MM IN SIZE, IN A PATIENT WITHOUT A HISTORY OF MALIGNANCY, INCLUDE NO FOLLOWUP FOR A LOW- RISK PATIENT OR OPTIONAL FOLLOWUP CT IN 12 MONTHS FOR A HIGH RISK PATIENT. 3. ATHEROSCLEROSIS. CT abd/pel WO, personally reviewed: IMPRESSION: 1. NO APPRECIABLE HYDRONEPHROSIS OR URETERAL STONE. 2. DIVERTICULOSIS. 3. ATHEROSCLEROSIS. 4. 2 CM CYSTIC LESION OF THE PANCREATIC NECK, SUGGESTIVE OF A CYSTIC PANCREATIC NEOPLASM, INCLUDING SEROUS CYSTADENOMA OR IPMN. Impression: 87F HX CVA, HTN, HLD, GERD presents with intractable L scapular pain of questionable etiology with an abnormal CT abd/pel revealing a 2cm cystic pancreatic lesion suspicious for neoplasm DIAGNOSIS & PLAN Primary intractable L scapular pain : pain control : supportive care pancreatic mass : consider hem/onc consultation in AM to best determine further work up Secondary HX CVA : no acute issues HTN : continue losartan, amlodipine HLD : continue pravastatin GERD : omeprazole Admission Rational: inpatient for work up of pancreatic mass not anticipated to be completed w/i 48h to allow for discharge DVTp: SCDs, no anticoagulation until further work up determined to prevent delay in likely BX Code Status: full, needs revisiting HCP: daughterAnitha
[2017-08-04] MEDS ORDERED: Ondansetron ODT TAB* 4 MG PO PRN (04:05)
[2017-08-04] MEDS ORDERED: Melatonin 3 MG TAB PO PRN (04:05)
[2017-08-04] MEDS ORDERED: NS 0.9% 1000 ML* 1,000 ML IV SCH (04:15)
[2017-08-04] MEDS: Omeprazole CAP* 20 MG PO SCH (05:24)
[2017-08-04] MEDS: Docusate CAP* 100 MG PO SCH ×2 (07:42→21:12)
[2017-08-04] MEDS: amLODIPine TAB* 5 MG PO SCH (07:42)
[2017-08-04] MEDS: Acetaminophen TAB* 325 MG PO PRN ×2 (07:42→21:11)
[2017-08-04] MEDS: Losartan TAB* 25 MG PO SCH (07:42)
--- NOTE | 2017-08-04 13:55 | PN ---
Subjective Date of Service: 08/04/17 Interval History: HOSPITALIST PROGRESS NOTE Patient seen and examined at bedside. Care reviewed and d/w Kathryn Colindres RN. She offers no complaints at this time. States her back pain is resolved and "every now and then I get it". Denies abdominal pain, nausea, vomiting. Family History: Unchanged from Admission Social History: Unchanged from Admission Past Medical History: Unchanged from Admission Objective Active Medications: Acetaminophen (Tylenol Tab*) 650 mg PO Q6H PRN PRN Reason: FEVER/PAIN Last Admin: 08/04/17 07:42 Dose: 650 mg Amlodipine Besylate (Norvasc Tab*) [address] [facility] Last Admin: 08/04/17 07:42 Dose: 5 mg Docusate Sodium (Colace Cap*) [address] [facility] Last Admin: 08/04/17 07:42 Dose: 200 mg Hydromorphone HCl (Dilaudid Inj*) 0.5 mg IV Q2H PRN PRN Reason: PAIN Last Admin: 08/04/17 03:06 Dose: 0.5 mg Sodium Chloride (Ns 0.9% 1000 Ml*) 1,000 mls @ 150 mls/hr IV PER RATE [facility] Last Admin: 08/04/17 03:19 Dose: 150 mls/hr Sodium Chloride (Ns 0.9% 1000 Ml*) 1,000 mls @ 75 mls/hr IV PER RATE [facility] Losartan Potassium (Cozaar Tab*) [address] [facility] Last Admin: 08/04/17 07:42 Dose: 50 mg Melatonin (Melatonin) 3 mg PO BEDTIME PRN; Protocol PRN Reason: Sleep Mirtazapine (Remeron Tab*) 7.[address] [facility] Omeprazole (Prilosec Cap*) 20 mg PO DAILY@0600 [facility] Last Admin: 08/04/17 05:24 Dose: 20 mg Ondansetron HCl (Zofran Odt Tab*) 4 mg PO Q6H PRN PRN Reason: n/v Pravastatin Sodium (Pravachol (Nf)) [address] [facility] PRN Reason: Protocol Vital Signs - 8 hr 08/04/17 08/04/17 08/04/17 07:36 08:00 08:30 Temperature 97.9 F Pulse Rate 74 Respiratory 20 16 Rate Blood Pressure 155/57 (mmHg) O2 Sat by Pulse 95 95 Oximetry Oxygen Devices in Use Now: None Appearance: Pleasant elderly lady sitting up in a recliner in NAD. 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 - Patient Problems (1) Back pain Comment: - Patient does not remember having pain last night, but states she had similar episodes in the past. As per ED records pain was under her left breast and left scapula. - EKGs showed no ischemic changes, serial troponins were negative. - CTA chest was negative for PE, only incidental finding of RLL 0.5cm nodule. - Patient is pleasant confused at this time - will talk next steps with her daughter. (2) Pancreatic cyst Comment: - CT abdome showed 2cm cystic lesion of the pancreatic neck. - GI consult requested. (3) HTN (hypertension) Comment: - Controlled. - Continue Amlodipine and Losartan. (4) HLD (hyperlipidemia) Comment: - Continue pravastatin. (5) DVT prophylaxis Comment: - SQ heparin. (6) Full code status Status and Disposition: Inpatient.
[2017-08-04] MEDS ORDERED: CMCS:Pravastatin (NF) 20 MG TAB PO SCH (17:00)
[2017-08-04] MEDS ORDERED: Mirtazapine TAB* 15 MG PO SCH (18:00)
--- NOTE | 2017-08-04 20:56 | RAD ---
Indication: Pancreatic mass. Comparison: August 03, 2017 CT. Technique: [facility] [place] 1.5 Leela [id number] with GEM suite. Noncontrast magnetic resonance cholangiopancreatography. Report: Negative for intra or extrahepatic biliary dilatation. No abnormality of the normally distended gallbladder. 0.8 cm maximum dimension lobular margined T2 hyperintense lesion at the body tail junction of the atrophic pancreas likely communicating with the pancreatic duct. Additional small dilated pancreatic duct side branches at the pancreatic tail. Inferior to the pancreas possibly arising from the uncinate process there is a sharply circumscribed 2.3 cm diameter lesion corresponding with the water density lesion on CT. Inferior to the level of the renal vessels there are a few sharply circumscribed T2 hyperintense retroperitoneal lesions posterior to the pancreas measuring up to 1.3 cm maximum dimension. Negative for focal hepatic or splenic lesions. Small splenule adjacent to the medial margin of the spleen. Small cortical cyst noted at the kidneys. Negative for obstructive uropathy. No visualized lymphadenopathy. Negative for ascites. IMPRESSION: 1. Negative for biliary dilatation. 2. Noted T2 hyperintense sharply circumscribed pancreatic and peripancreatic lesions without associated pancreatic duct obstruction or peripancreatic inflammatory change or low suspicion and likely reflect sequela of previous pancreatitis. Correlate with clinical assessment and consider CT follow-up in 3-6 months time.
--- NOTE | 2017-08-04 22:03 | CONS ---
CONSULTATION REPORT: DATE OF CONSULT: 08/04/17 REQUESTING PHYSICIAN: Dr. Guallpa. INDICATION: Pancreatic cystic lesion. NARRATIVE: Ms. Serna is a very pleasant 87-year-old female, who came in yesterday to the emergency room with severe scapular pain. The patient is somewhat of a poor historian. I did speak to the patient's daughter via telephone also. The patient's daughter states that her mother has intermittent back pain and yesterday, it was extremely severe, which worried her. Both the patient and the daughter deny any GI symptoms. No nausea, vomiting, jaundice, decreased appetite, weight loss, diarrhea, or constipation. No family history of pancreatic malignancy. The patient states that she feels perfectly fine now. In the emergency room, she did have a CT abdomen noncontrasted to rule out kidney stones. It did reveal a 2-cm pancreatic neck cystic lesion. PAST MEDICAL HISTORY: CVA, hypertension, hyperlipidemia, and GERD. PAST SURGICAL HISTORY: Includes rotator cuff repair, laminectomy, oophorectomy , hysterectomy, and appendectomy. MEDICATIONS: Upon admission include: 1. Losartan. 2. Pravastatin. 3. Amlodipine. 4. Acetaminophen. 5. Fioricet. 6. Calcium carbonate. 7. Clarinex. 8. Naproxen. ALLERGIES: To PENICILLIN and SULFA. FAMILY HISTORY: Colon cancer, ovarian cancer, lymphoma, and breast cancer. SOCIAL HISTORY: No tobacco, alcohol, or IV drug use. She lives at [place]. Daughter is very involved with her care. REVIEW OF SYSTEMS: All systems were reviewed, other than that mentioned in the HPI were unremarkable. PHYSICAL EXAM: Blood pressure is 123/48, pulse of 73, temperature is 98.1. General: Well-appearing elderly female, sitting in a chair. She is alert, she is oriented x2, pleasant, fluent. HEENT: Mucous membranes are moist without lesions, ulcers, or exudate. Neck is supple. Trachea is midline. Head is normocephalic, atraumatic. Heart: Regular rate and rhythm. Lungs: Clear to auscultation. Abdomen: Positive bowel sounds. Soft, nontender, nondistended. No hepatosplenomegaly, masses, rebound, or guarding. Skin is warm and dry. No jaundice. DIAGNOSTIC STUDIES/LAB DATA: Of note, white count is 9.1, hematocrit is 42, platelets of 307. INR is 0.9. BUN and creatinine are normal. She has a lipase of 25. CT abdomen and pelvis shows a 2-cm pancreatic neck mass, question of a cystic neoplasm. ASSESSMENT AND PLAN: Pleasant 87-year-old female with an incidentally found pancreatic neck mass, potentially cystic lesion. At this point, we do not have a good etiology as to its cause. I would recommend an MRCP for further evaluation of this and then potentially an EUS pending the findings of the MRCP. This was discussed with the patient, the patient's daughter, and Dr. Guallpa, all are in agreement. [id number] #: [id number] MTDD
[2017-08-05] MEDS: Omeprazole CAP* 20 MG PO SCH (05:03)
[2017-08-05 08:13] VITALS: BP 158/63
[2017-08-05] MEDS: amLODIPine TAB* 5 MG PO SCH (09:01)
[2017-08-05] MEDS: Docusate CAP* 100 MG PO SCH (09:01)
[2017-08-05] MEDS: Losartan TAB* 25 MG PO SCH (09:01)
--- NOTE | 2017-08-07 04:58 | DS ---
CC: Ruy Sweeney MD * DISCHARGE SUMMARY: DATE OF ADMISSION: 08/04/17 DATE OF DISCHARGE: 08/05/17 PRIMARY CARE PROVIDER: Ruy Sweeney MD DISCHARGE DIAGNOSES: 1. Left-sided chest/scapular pain, likely musculoskeletal in nature, acute coronary syndrome and pulmonary embolism ruled out. 2. Pancreatic lesion, likely sequela of pancreatitis. SECONDARY DIAGNOSES: 1. History of cerebrovascular accident. 2. Hypertension. 3. Hyperlipidemia. 4. Gastroesophageal reflux disease. MEDICATION LIST: 1. Acetaminophen 500 mg p.o. b.i.d. 2. Amlodipine 5 mg p.o. daily. 3. Fioricet 1 tablet p.o. q.6 hours p.r.n. headache. 4. Calcium 400mg p.o. t.i.d. as needed for indigestion. 5. Cholecalciferol 1000 units p.o. daily. 6. Clarinex 5 mg p.o. q.p.m. 7. Lactase 3000 units p.o. t.i.d. as needed for dyspepsia. 8. Losartan 50 mg p.o. daily. 9. Mirtazapine 7.5 mg p.o. q.p.m. 10. Naproxen 220 mg p.o.q.12 hours p.r.n. pain. 11. Pravastatin 10 mg p.o. at 5 p.m. 12 Metamucil 3 capsules p.o. daily. HOSPITAL COURSE: Ms. Serna is an 87-year-old lady with a past medical history as stated above, who presents to the emergency room with complaints of left chest pain located under her breast radiating to her left scapular area. For more details about her presentation, I refer you to her history and physical. In the emergency room, the patient had a chest x-ray that showed no active cardiopulmonary disease. A CT of the abdomen and pelvis that showed no appreciable hydronephrosis or ureteral stone, diverticulosis, atherosclerosis, incidental finding of a 2-cm cystic lesion of the pancreatic neck suggestive of a cystic pancreatic neoplasm including serous cystadenoma or IPMN. CTA of the chest showed no pulmonary arterial filling defect to suggest pulmonary embolism. Incidental finding of a 0.5 cm nodule of the right lower lobe. Recommendations for followup and management of pulmonary nodules less than 6 mm in size in a patient without a history of malignancy include no followup for a low-risk patient or optional followup CT in 12 months for a high-risk patient. The patient was admitted to telemetry floor where she had no significant arrhythmias. Her EKG showed no ischemic changes and serial troponins were negative. The impression was that the patient's pain was likely musculoskeletal. She had no rashes on physical examination to suggest herpes zoster, but her pain was described as severe on admission; although by the time I interviewed her, she did not even remember having the pain that brought her to the emergency room. I discussed with the patient and her daughter and although the patient appears to have some mild dementia with memory issues, she was very clear that she is not interested in any aggressive or any invasive measures. So, at this point, we did not pursue a stress test. Further conversations could be had as outpatient to see if the patient, her daughter and her PCP think it would be beneficial to further risk stratify her. Regarding her pancreatic lesions, the patient was seen in consultation by Gastroenterology (Dr. Jimenez) and his impression was that the patient had an incidentally found pancreatic neck mass, potentially a cystic lesion. He recommended an MRCP for further evaluation and then potentially endoscopic ultrasound depending on the findings of the MRCP. The MRCP was performed and of note, the patient tolerated poorly due to claustrophobia, but she was able to complete it. The MRCP was negative for biliary dilatation and showed a T2 hyperintense sharply circumscribed pancreatic and peripancreatic lesions without associated pancreatic duct obstruction or peripancreatic inflammatory change suggesting a low suspicion and likely reflects sequela of previous pancreatitis. Recommendation was to consider CT followup in 3 to 6 months' time. The patient was asymptomatic and anxious to return to [place]. I discussed the findings of the MRCP with her daughter (Desirae Serna) and the plan is for the patient to be discharged back to [place] today. She will follow up with Dr. Sweeney and discuss the possibility of a stress test as outpatient and she will follow up with Dr. Jimenez in 4 months for further followup of this pancreatic lesion, but at this point, there is no evidence of malignancy. Of note, her lipase was normal at 25 as well as her CA 19-9 antigen was 14 (normal if less than 35). The patient is medically stable for discharge today. PHYSICAL EXAMINATION: Vital Signs: Temperature 98.0, heart rate is 67, respiratory rate is 18, oxygen saturation 96% on room air, blood pressure is 158 /63. General: The patient is a pleasant elderly lady, sitting up in a chair, in no acute distress. CVS: Normal S1, S2. Regular rate and rhythm. Chest: Breath sounds present bilaterally with no added sounds. Abdomen is soft. Bowel sounds are present. Extremities: No edema. Neuro: She is alert, awake and oriented x2 to self and place, able to move all 4 extremities. DIET: Heart-healthy diet. ACTIVITIES: As tolerated. DISPOSITION: To home. STATUS WHILE IN THE HOSPITAL: Observation. Please keep in mind this is a summarized version of this patient's hospital stay. If you need more information, please feel free to call me at [phone] or please obtain the full medical records. TIME SPENT: Approximately 45 minutes were spent to complete this discharge. [id number]/CPS #: [id number] MTDD
== END 2017-08-05 16:10 | disposition home or self-care (01) ==
LOC: ED 16:11 → MED 08-04 01:07 → INTOOBSV 08-04 01:07
PROVIDERS: ADMIT Hospitalist; ATTEND Internal Medicine
DX: R07.9 Chest pain, unspecified (principal); K86.9 Disease of pancreas, unspecified; R10.9 Unspecified abdominal pain; Z86.73 Personal history of transient ischemic attack (TIA), and cerebral infarction without residual deficits; R53.1 Weakness; I10 Essential (primary) hypertension; E78.5 Hyperlipidemia, unspecified; Z87.19 Personal history of other diseases of the digestive system; M54.9 Dorsalgia, unspecified
CPT/HCPCS: 36415; 71045; 71275; 74176; 74181; 76376; 80053; 81003; 82550; 82553; 83605; 83690; 83735; 83880; 84443; 84484; 85025; 85379; 85610; 85730; 86140; 86301; 87641; 93005; 99284; 99285; A9270-GY; G8978-GP-CI; G8979-GP-CH; G8987-GO-CJ; G8988-GO-CI; J1170; J1885; J2270; Q9967

== ENCOUNTER 2019-01-18 10:15 | Inpatient (IN) | payer MEDICARE, OTHER ==
--- NOTE | 2019-01-18 10:31 | ED ---
Adult Trauma - HPI Summary HPI Summary: The patient is an 88 y/o F arriving by ambulance to [facility] with a chief complaint of an unwitnessed fall sometime between last night and this morning. EMS reports that she was found on the floor by staff at her detention. She is unsure of how or why she fell, but she denies any pain now including back, neck, chest, or abdominal pain. Staff are concerned because she has increased confusion and inability to answer questions appropriately since seeing her prior to the fall. EMS note an irregular heart rate in the ambulance with last blood pressure reading of 210/82 mmHg, but the patient was shivering at the time. Per daughter, patient has been on Prednisone for the last two months, but she has had increased lethargy. PMHx: HTN, HLD, CVA, delirium. Nonsmoker, no EtOH, no substance use. Medications reviewed. Allergies noted. History is limited secondary to patient's altered mental status; history obtained from EMS, medical records, and daughter. - History of Current Complaint Stated Complaint: FALL PER EMS Hx Obtained From: Family/Incident Response Specialist - daughter, EMS, Medical Records Hx From Patient Unobtainable Due To: Altered Mental Status - Level 5 Caveat Mechanism of Injury: Fall Loss of Consciousness: unsure Onset/Duration: Started Hours Ago Pain Intensity: 0 Pain Scale Used: 0-10 Numeric Associated Signs & Symptoms: Positive: Other: - confusion, lethargy; Negative: chest pain, back pain, neck pain. Negative: Abdominal Pain - Additional Pertinent History Primary Care Physician: [id number] - Allergy/Home Medications Allergies/Adverse Reactions: Allergies Allergy/AdvReac Type Severity Reaction Status Date / Time Penicillins Allergy Severe Anaphylatic Verified 01/18/19 10:48 Shock Sulfa (Sulfonamide Allergy Severe Anaphylatic Verified 01/18/19 10:48 Antibiotics) Shock codeine Allergy Mild See Comment Verified 01/18/19 10:48 pravastatin Allergy Muscle Ache Verified 01/18/19 10:48 Blood Thinners Allergy Unknown Uncoded 03/20/17 19:21 Reaction Details Home Medications: Home Medications Acetaminophen [Acetaminophen Extra Strength] 1,000 mg PO BID 01/18/19 [History Confirmed 01/18/19] Benzonatate CAP* [Tessalon 100 MG CAP*] 200 mg PO BEDTIME PRN 01/18/19 [History Confirmed 01/18/19] Famotidine TAB* [Pepcid 20 MG TAB*] 40 mg PO BEDTIME 01/18/19 [History Confirmed 01/18/19] Magnesium CITRATE* [Citrate of Magnesia*] 10 ml PO QPM PRN 01/18/19 [History Confirmed 01/18/19] Polyethylene Glycol 3350* [Miralax*] 17 gm PO DAILY PRN 01/18/19 [History Confirmed 01/18/19] Vit A/Vit C/Vit E/Zinc/Copper [Preservision Areds Softgel] 1 each PO BID [History Confirmed 01/18/19] predniSONE TAB* [Deltasone 10 MG TAB*] 10 mg PO DAILY 01/18/19 [History Confirmed 01/18/19] predniSONE [Prednisone 5 MG TAB] 5 mg PO DAILY 01/18/19 [History Confirmed 01/18] PMH/Surg Hx/FS Hx/Imm Hx Endocrine/Hematology History: Denies: Hx Diabetes Cardiovascular History: Reports: Hx Hypercholesterolemia, Hx Hypertension Denies: Hx Pacemaker/ICD Respiratory History: Reports: Other Respiratory Problems/Disorders - SEASONAL ALLERGIES GI History: Reports: Hx Gastroesophageal Reflux Disease History: Reports: Hx Kidney Infection Denies: Hx Renal Disease Musculoskeletal History: Reports: Hx Arthritis - Rheumatoid, Hx Rheumatoid Arthritis - POLYMALGIA Sensory History: Reports: Hx Contacts or Glasses Denies: Hx Hearing Aid Opthamlomology History: Reports: Hx Contacts or Glasses Neurological History: Reports: Hx CVA, Hx Headaches, Hx Migraine, Other Neuro Impairments/Disorders - AMS, Delirium Psychiatric History: Reports: Hx Depression Denies: Hx Panic Disorder - Cancer History Hx Chemotherapy: No Hx Radiation Therapy: No - Surgical History Surgical History: Yes Surgery Procedure, Year, and Place: ADNOIDS AND TONSILECTOMY;. RIGHT KNEE SURGERY 1985;. APPENDECTOMY,. RIGHT SHOULDER,. TUBAL LIGATION FOLLOWED BY TOTAL HYSTERECTOMY/OOPERECTOMY,. LUMBAR SURGERY, cataract Hx Anesthesia Reactions: No - Pt denies - Immunization History Date of Influenza Vaccine: 11/2017 - Family History Known Family History: Positive: Other - Breast CA Family History: Breast CA - Social History Alcohol Use: None Hx Substance Use: No Substance Use Type: Reports: None Hx Tobacco Use: No Smoking Status (MU): Never Smoked Tobacco Review of Systems Positive: Other - lethargy Negative: Chest Pain Negative: Abdominal Pain Negative: Other - back pain, neck pain Neurological: Other - confusion All Other Systems Reviewed And Are Negative: No - Comments Additional Review of Systems Comments: Level 5 Caveat secondary to altered mental status of patient Physical Exam - Summary Physical Exam Summary: VITAL SIGNS: Reviewed. GENERAL: Patient is a well-developed and nourished elderly female who is lying comfortable in the stretcher. Patient is not in any acute respiratory distress. HEAD AND FACE: No signs of trauma. No ecchymosis, hematomas or skull depressions. No sinus tenderness. EYES: PERRLA, EOMI x 2, No injected conjunctiva, no nystagmus. No photophobia. EARS: Hearing grossly intact. Ear canals and tympanic membranes are within normal limits. MOUTH: Oropharynx within normal limits. NECK: Supple, trachea is midline, no adenopathy, no JVD, no carotid bruit, no c- spine tenderness, neck with full ROM. No meningeal signs, no Kernig's or brudzinskis signs. CHEST: Symmetric, no tenderness at palpation. LUNGS: Clear to auscultation bilaterally. No wheezing or crackles. CVS: Regular rate and rhythm, S1 and S2 present, no murmurs or gallops appreciated. ABDOMEN: Soft, non-tender. No signs of distention. No rebound, no guarding, and no masses palpated. Bowel sounds are normal. EXTREMITIES: FROM in all major joints, no edema, no cyanosis or clubbing. NEURO: Alert but confused. No acute neurological deficits. Speech is normal and follows commands. SKIN: Dry and warm. Vesicular lesions in the left gluteus. GCS: 14. Triage Information Reviewed: Yes Vital Signs Reviewed: Yes Completion Of Physical Exam Limited Due To: Altered Mental Status - increased confusion, Level 5 - [place] Coma Scale Best Eye Response: 4 - Spontaneous Best Motor Response: 6 - Obeys Commands Best Verbal Response: 4 - Confused Coma Scale Total: 14 Procedures - Sedation Patient Received Moderate/Deep Sedation with Procedure: No Diagnostics - Laboratory Result Diagrams: 01/18/19 10:51 01/18/19 10:51 Lab Statement: Any lab studies that have been ordered have been reviewed, and results considered in the medical decision making process. - Radiology Chest X-Ray Radiology Interpretation Completed By: Radiologist Summary of Radiographic Findings: Impression: No evidence for active cardiopulmonary disease. ED physician has reviewed this report. - CT Brain CT CT Interpretation Completed By: Radiologist Summary of CT Findings: Impression: 1. No evidence for acute intracranial abnormality. 2. Atrophy and findings consistent with chronic small vessel ischemic changes. ED physician has reviewed this report. - EKG 1032 Cardiac Rate: NL - 98 BPM EKG Rhythm: Sinus Rhythm Summary of EKG Findings: EKG at 1032 reveals normal sinus rhythm at [address] elevations. ED physician has reviewed and interpreted this EKG. Adult Trauma Course/Dx - Course Assessment/Plan: This patient is an 88-year-old female who presents from the detention via ambulance with a chief complaint of altered mental status. The patient has been having confusion for the last couple days, and this morning she was found on the floor in the bathroom. She has no complaints. Head CT impression: No evidence for acute intracranial abnormality. Blood work without any significant abnormality except for WBCs of 13.8, MCH of 32, absolute neutrophils of 10.7, sodium level of 129, potassium of 3.4, chloride of 89, creatinine of 1, and glucose of 124. Chest x-ray impression: No evidence for active cardiopulmonary disease. Unable to give a urine sample up to this point. Patient was given Valtrex for shingles in the left gluteus. I discussed my physical exam and test results with Dr. Gilmore from the hospitalist services, and she agrees to admit the patient to her services. - Diagnoses Provider Diagnoses: AMS (altered mental status), Shingles - Physician Notifications Discussed Care Of Patient With: Jojo Gilmore - hospitalist Time Discussed With Above Provider: 15:10 Instructed by Provider To: Other - I discussed the patient's case with Dr. Gilmore, who accepts the patient for admission. Discharge ED - Sign-Out/Discharge Documenting (check all that apply): Patient Departure - Patient accepted for admission by Dr. Gilmore. - Discharge Plan Condition: Stable Disposition: ADMITTED TO [facility] - Billing Disposition and Condition Condition: STABLE Disposition: Admitted to [facility] - Attestation Statements Document Initiated by Scribe: Yes Documenting Scribe: Lucinda Espinosa Provider For Whom Scribe is Documenting (Include Credential): Dr. Cheo Barrientos MD Scribe Attestation: ILucinda, scribed for Dr. Cheo Barrientos MD on 01/19/19 at 0720. Scribe Documentation Reviewed: Yes Provider Attestation: The documentation as recorded by the scribe, Lucinda Espinosa accurately reflects the service I personally performed and the decisions made by me, Dr. Cheo Barrientos MD Status of Scribe Document: Viewed
[2019-01-18 10:58] LABS: ABS Basophils 0.1 10^3/ul (0-0.2); ABS Lymphocytes 2.1 10^3/ul (1.0-4.8); ABS Monocytes 0.9 10^3/ul (0-0.8); ABS Neutrophils 10.7 10^3/ul (1.5-7.7); Eosinophil % 0.3 %; Hematocrit 40 % (35-47); Hemoglobin 13.8 g/dL (12.0-16.0); Mean Corpuscular HGB Conc 35 g/dL (31-36); Mean Corpuscular Hemoglobin 32 pg (27-31); Mean Corpuscular Volume 93 fL (80-97); Platelet Count 371 10^3/uL (150-450); Red Blood Count 4.27 10^6 /uL (3.70-4.87); Red Cell Distribution Width 13 % (10-15); White Blood Count 13.8 10^3/uL (3.5-10.8)
[2019-01-18 11:16] LABS: ALT 15 U/L (7-52); AST 13 U/L (13-39); Albumin 4.3 g/dL (3.2-5.2); Albumin/Globulin Ratio 1.4 (1-3); Alkaline Phosphatase 39 U/L (34-104); Anion Gap 10 mmol/L (2-11); Blood Urea Nitrogen 22 mg/dL (6-24); CO2 Carbon Dioxide 30 mmol/L (22-32); Calcium 9.7 mg/dL (8.6-10.3); Chloride 89 mmol/L (101-111); Creatine Kinase 60 U/L (10-223); EGFR African American 63.3 (>60); EGFR Non-African American 52.3 (>60); Globulin 3.1 g/dL (2-4); Glucose 124 mg/dL (70-100); Potassium 3.4 mmol/L (3.5-5.0); Sodium 129 mmol/L (135-145); Total Protein 7.4 g/dL (6.4-8.9)
[2019-01-18 11:17] LABS: Troponin I 0.01 ng/mL (<0.03)
[2019-01-18 11:36] LABS: Acetaminophen < 15 mcg/mL; Salicylate < 2.50 mg/dL (<30)
[2019-01-18 11:51] LABS: TSH (Thyroid Stimulating Horm) 1.25 mcIU/mL (0.34-5.60)
[2019-01-18] MEDS ORDERED: NS 0.9% 1000 ML** 1,000 ML IV ONE (13:08)
[2019-01-18] MEDS ORDERED: Naproxen TAB* 250 MG PO PRN (15:38)
[2019-01-18] MEDS ORDERED: Calcium Carbonate CHEW TAB* 500 MG (TUMS) PO PRN (15:38)
[2019-01-18] MEDS ORDERED: CMCS: Lactase Enzyme (NF) 3,000 UNIT TAB PO PRN (15:38)
[2019-01-18] MEDS ORDERED: Benzonatate CAP* 100 MG PO PRN (15:38)
[2019-01-18] MEDS ORDERED: Magnesium CITRATE* 300 ML BTL PO PRN (15:38)
[2019-01-18] MEDS ORDERED: Ciprofloxacin 400MG IVPREMIX(* 400 MG/200 ML BAG IVPB SCH (16:00)
[2019-01-18 16:32] LABS: Urine Appearance Cloudy; Urine Bilirubin Negative (Negative); Urine Blood Negative (Negative); Urine Color Straw; Urine Glucose Negative (Negative); Urine Ketones Negative (Negative); Urine Nitrite Positive (Negative); Urine Protein Negative (Negative); Urine Specific Gravity 1.005 (1.010-1.030); Urine Urobilinogen Negative (Negative)
[2019-01-18 16:36] LABS: Urine Bacteria Absent (Absent); Urine Red Blood Cell Trace(0-2/hpf) (Absent); Urine White Blood Cell Trace(0-5/hpf) (Absent)
[2019-01-18] MEDS: KCL 10 MEQ/50 ML IVPREMIX* 10 MEQ/50 ML BAG IV SCH ×3 (17:28→20:50)
[2019-01-18] MEDS ORDERED: Aztreonam (*) 1 GM in NS 0.9% 50 ML* 50 ML IVPB SCH (17:30)
[2019-01-18] MEDS: Mirtazapine TAB* 15 MG PO SCH (17:31)
[2019-01-18] MEDS: Cetirizine* 10 MG TAB PO SCH (17:31)
[2019-01-18] MEDS: NS 0.9% 1000 ML** 1,000 ML IV SCH (17:47)
--- NOTE | 2019-01-18 20:01 | HP ---
CC: Dr. Sweeney * HISTORY AND PHYSICAL: DATE OF ADMISSION: 01/18/19 TIME OF EVALUATION: 2:20 p.m. PRIMARY CARE PROVIDER: Dr. Sweeney. CHIEF COMPLAINT: "She fell" as per the provider. HISTORY OF PRESENT ILLNESS: Ms. Serna is an 88-year-old female with a past medical history of CVA, hypertension, hyperlipidemia, GERD, and polymyalgia rheumatica, on steroids, who presents to the emergency room after being found on the floor at [place]. The patient is mildly confused and cannot provide much of a specific history, so information is obtained from her chart and from the emergency room provider. The patient went to spend Thanksgiving with the family members and had complaints of dysuria at that time. The family has also described over the past couple of weeks that the patient has been more tired, causing her to miss meals. The family noted that when she eats well, she will be more energetic. The patient lives at [place] and was found on the floor with an unwitnessed fall and that she was noted to be more confused than normal. At the time of my interview, the patient states that she feels tired, but otherwise had no other complaints. She was straight catheterized in the emergency room with minimal urinary output and later on was incontinent of large amount of urine. She denies nausea, vomiting, diarrhea, headache, chest pain, cough, or shortness of breath. She does not remember being on the floor and has no idea if she fell or if she lost consciousness. PAST MEDICAL HISTORY: 1. CVA. 2. Hypertension. 3. Hyperlipidemia. 4. GERD. 5. Polymyalgia rheumatica. As per Dr. David's note from 12/28/18, the patient was doing well on her current dose of 15 mg of prednisone and the plan was to start tapering that dose to 10 alternating with 15 in February 2019. PAST SURGICAL HISTORY: 1. Status post appendectomy. 2. Status post hysterectomy. 3. Status post bilateral oophorectomy. 4. Status post lumbar laminectomy. 5. Status post rotator cuff repair. MEDICATION LIST: 1. Acetaminophen 1000 mg p.o. b.i.d. 2. Amlodipine 5 mg p.o. daily. 3. Benzonatate 200 mg p.o. at bedtime as needed for constipation. 4. Calcium carbonate 1000 mg p.o. t.i.d. as needed for indigestion. 5. Vitamin D 1000 units p.o. daily. 6. Desloratadine 5 mg p.o. at bedtime. 7. Famotidine 40 mg p.o. at bedtime. 8. Lactase 3000 units p.o. t.i.d. with meals. 9. Losartan 50 mg p.o. daily. 10. Magnesium citrate 10 mL p.o. at bedtime as needed for constipation. 11. Mirtazapine 7.5 mg p.o. at bedtime. 12. Naproxen 220 mg p.o. q.12 hours p.r.n. pain. 13. MiraLAX 17 g p.o. daily p.r.n. constipation. 14. Prednisone 15 mg p.o. daily. 15. Metamucil 3 capsules p.o. daily. 14. PreserVision AREDS soft gel 1 capsule p.o. b.i.d. ALLERGIES: As per the record, the patient had anaphylactic shock with PENICILLIN and SULFA. She has sedation with CODEINE, muscle aches with PRAVASTATIN and also had a reaction to blood thinners, although this is not detailed. FAMILY HISTORY: Unable to obtain from the patient due to her mild confusion, but as per record, she has a family history of colon CA, ovarian CA, breast CA and lymphoma. SOCIAL HISTORY: There is no history of tobacco, alcohol or drug use. The patient lives at [place]. Surrogate decision maker is her daughter, Desirae Serna, phone number [phone]. REVIEW OF SYSTEMS: I am unable to obtain the details from the patient due to her mild confusion, but all the pertinent and negative findings I was able to find during the interview are in the HPI. PHYSICAL EXAMINATION GENERAL: The patient is a pleasant elderly lady lying on the stretcher, in no acute distress. VITAL SIGNS: Temperature 98.0, heart rate is 85, respiratory rate is 17, blood pressure is 162/86, oxygen saturation is 94% on room air. HEENT: Pupils are equal. Dry mucous membranes. CHEST: Breath sounds present bilaterally with no added sounds, diminished in the bases. CVS: Normal S1, S2. Regular rate and rhythm. ABDOMEN: Soft with mild hypogastric tenderness. No guarding, no rebound. Bowel sounds present. EXTREMITIES: No edema. NEURO: The patient is alert and oriented to self and place, not sure about the date. She is able to follow simple commands. Moves all 4 extremities. Strength is 5/5 on all four. Face is symmetric. Speech is clear. SKIN: The patient has a vesicular rash in the left buttock with some crusted areas and some surrounding erythema suggestive of Herpes zoster. DIAGNOSTIC STUDIES/LAB DATA: The patient had a CBC that showed a WBC of 13.8, hemoglobin of 13.8, hematocrit of 40, platelets of 371 with 77% neutrophils. Chemistry showed a sodium of 129, potassium 3.4, chloride 99, bicarb of 30, BUN of 22, creatinine of 1, glucose of 124, lactic acid 1.4, calcium 9.7, magnesium 2.0, total bilirubin 0.7, AST 13, ALT 15, alk phos 39. Ammonia is 48, CPK is 6 , troponin is 0.01. Total protein 7.4, albumin 4.3, globulin 3.1, TSH is 1.25. Toxicology shows negative salicylates and acetaminophen. Urinalysis is not yet available at this time. CT of the brain without contrast shows no evidence for acute intracranial abnormality, only atrophy and findings consistent with chronic small vessel ischemic changes. Chest x-ray shows no evidence for active cardiopulmonary disease. EKG done on 01/18/19 at 3:30 a.m. EKG showed sinus arrhythmia with PVCs with no acute ischemic changes, poor baseline. The rhythm looks much different from her prior one from July 2017 as at that time she was in sinus rhythm and had APCs but not PVCs. ASSESSMENT AND PLAN: Ms. Serna is an 88-year-old female with a past medical history of CVA, hypertension, hyperlipidemia, GERD, and polymyalgia rheumatica, on steroids who presented to the emergency room after being found on the floor at [place], likely with a urinary tract infection. 1. Probable urinary tract infection. The patient has mild confusion that I suspect is metabolic encephalopathy in the setting of a urinary tract infection. She has hypogastric tenderness. There is reported dysuria earlier last week. She will be admitted as observation to the medical floor and we will continue to monitor her. UA and urine culture will be obtained as soon as possible. With her history of an anaphylaxis with ceftriaxone and Bactrim, I will prefer to avoid quinolones in the setting of confusion in this elderly lady. Discussed the case with ID and we will give her aztreonam and adjust as needed after we get culture results. 2. Mild dehydration. The patient will receive IV fluids and we will monitor her vital signs and renal function. 3. Herpes Zoster. In the setting of elderly immunosuppressed patient, chronic steroid therapy for polymyalgia rheumatica. Discussed with ID, we will give Valtrex 500 mg twice a day and continue to monitor. 4. Status post fall. The patient cannot provide information if she fell or she had a syncopal episode. For now, she will be monitored on telemetry. We will give her gentle IV hydration and continue to monitor. 5. Hypertension. We will continue amlodipine and losartan. 6. Polymyalgia rheumatica. We will continue prednisone. 7. DVT prophylaxis. The patient has a score of 3 on a DVT Prophylaxis Risk Assessment Guide and she will be started on subcutaneous heparin. 8. Code status is full. TIME SPENT: Approximately 60 minutes was spent with the patient interview, medical records review, physical examination to complete this admission, more than half of this time was spent [id number] with the patient and coordination of care. [id number]/[id number] #: [id number] MTDD
[2019-01-18] MEDS: Aztreonam (*) 1 GM in NS 0.9% 50 ML* 50 ML IVPB SCH (20:45)
[2019-01-18] MEDS: Polyethylene Glycol 3350* 17 GM PACKET PO PRN (20:48)
[2019-01-18] MEDS: Famotidine TAB* 20 MG PO SCH (20:49)
[2019-01-18] MEDS: ValACYclovir (*) 1 GM TAB PO SCH (20:49)
[2019-01-18] MEDS: Heparin VIAL(*) 5000 UNITS/ML VIAL (FIVE THOUSAND) SUBCUT SCH (20:49)
[2019-01-18] MEDS ORDERED: KCL premix 10MEQ/50 ML x 1 TIME IV ONE (21:00)
[2019-01-18] MEDS ORDERED: ValACYclovir (*) 1 GM TAB PO SCH ×2 (21:00)
[2019-01-19] MEDS: Aztreonam (*) 1 GM in NS 0.9% 50 ML* 50 ML IVPB SCH ×2 (04:22→12:50)
[2019-01-19] MEDS: NS 0.9% 1000 ML** 1,000 ML IV SCH (04:26)
[2019-01-19] MEDS: Heparin VIAL(*) 5000 UNITS/ML VIAL (FIVE THOUSAND) SUBCUT SCH ×3 (06:18→21:04)
[2019-01-19 08:52] LABS: ABS Basophils 0.1 10^3/ul (0-0.2); ABS Eosinophils 0.1 10^3/ul (0-0.6); ABS Lymphocytes 2.5 10^3/ul (1.0-4.8); ABS Monocytes 0.6 10^3/ul (0-0.8); ABS Neutrophils 6.3 10^3/ul (1.5-7.7); Hematocrit 39 % (35-47); Hemoglobin 13.6 g/dL (12.0-16.0); Lymphocyte % 26.2 %; Mean Corpuscular HGB Conc 35 g/dL (31-36); Mean Corpuscular Hemoglobin 32 pg (27-31); Mean Corpuscular Volume 94 fL (80-97); Nucleated Red Blood Cells % 0.1; Platelet Count 354 10^3/uL (150-450); Red Blood Count 4.21 10^6 /uL (3.70-4.87); Red Cell Distribution Width 13 % (10-15); White Blood Count 9.6 10^3/uL (3.5-10.8)
[2019-01-19 09:17] LABS: BUN/Creatinine Ratio 23.6 (8-20); Calcium 8.3 mg/dL (8.6-10.3); EGFR African American 126.2 (>60); EGFR Non-African American 104.3 (>60); Potassium 3.4 mmol/L (3.5-5.0)
[2019-01-19] MEDS: Cholecalciferol TAB* 1000 UNITS PO SCH (10:16)
[2019-01-19] MEDS: amLODIPine TAB* 5 MG PO SCH (10:16)
[2019-01-19] MEDS: Psyllium PAK PO SCH (10:17)
[2019-01-19] MEDS: Losartan TAB* 25 MG PO SCH (10:17)
[2019-01-19] MEDS: ValACYclovir (*) 1 GM TAB PO SCH (10:17)
--- NOTE | 2019-01-19 10:29 | PN ---
Subjective Date of Service: 01/19/19 Interval History: No complaints this AM Denies pain, N/V, LH, SOB Objective Active Medications: Acetaminophen (Tylenol Tab*) 650 mg PO Q6H PRN PRN Reason: MILD PAIN or TEMP > 100.4 Amlodipine Besylate (Norvasc Tab*) 5 mg PO DAILY ON LICENSE OF [facility] Last Admin: 01/19/19 10:16 Dose: 5 mg Benzonatate (Tessalon Cap*) 200 mg PO BEDTIME PRN PRN Reason: COUGH Calcium Carbonate (Tums*) 1,000 mg PO TID PRN PRN Reason: HEARTBURN Cetirizine HCl (Zyrtec*) 10 mg PO QPM ON LICENSE OF [facility]; Protocol Last Admin: 01/18/19 17:31 Dose: 10 mg Cholecalciferol (Vitamin D Tab*) 1,000 units PO DAILY ON LICENSE OF [facility] Last Admin: 01/19/19 10:16 Dose: 1,000 units Famotidine (Pepcid Tab*) 20 mg PO BEDTIME ON LICENSE OF [facility] Last Admin: 01/18/19 20:49 Dose: 20 mg Heparin Sodium (Porcine) (Heparin Vial(*)) 5,000 units SUBCUT Q8HR ON LICENSE OF [facility] Last Admin: 01/19/19 06:18 Dose: 5,000 units Sodium Chloride (Ns 0.9% 1000 Ml) 1,000 mls @ 100 mls/hr IV PER RATE ON LICENSE OF [facility] Last Admin: 01/19/19 04:26 Dose: 100 mls/hr Aztreonam 1 gm/ Sodium (Chloride) 50 mls @ 200 mls/hr IVPB Q8H ON LICENSE OF [facility] Last Admin: 01/19/19 04:22 Dose: 200 mls/hr Lactase (Lactaid Fast Act (Nf)) 3,000 unit PO TID PRN PRN Reason: FUNCTIONAL DYSPEPSIA Last Admin: 01/18/19 21:00 Dose: 3,000 unit Losartan Potassium (Cozaar Tab*) 50 mg PO DAILY ON LICENSE OF [facility] Last Admin: 01/19/19 10:17 Dose: 50 mg Mirtazapine (Remeron Tab*) 7.5 mg PO QPM ON LICENSE OF [facility] Last Admin: 01/18/19 17:31 Dose: 7.5 mg Naproxen (Naprosyn Tab*) 250 mg PO Q12H PRN PRN Reason: PAIN Polyethylene Glycol/Electrolytes (Miralax*) 17 gm PO DAILY PRN PRN Reason: CONSTIPATION Last Admin: 01/18/19 20:48 Dose: 17 gm Prednisone (Deltasone Tab*) 10 mg PO DAILY ON LICENSE OF [facility] Last Admin: 01/19/19 10:16 Dose: 10 mg Prednisone (Deltasone Tab*) 5 mg PO DAILY ON LICENSE OF [facility] Last Admin: 01/19/19 10:16 Dose: 5 mg Psyllium Hydrophilic Mucilloid (Metamucil Devonte*) 1 pkt PO DAILY ON LICENSE OF [facility] Last Admin: 01/19/19 10:17 Dose: 1 pkt Valacyclovir HCl (Valtrex 1 Gm(*)) 0.5 gm PO BID ON LICENSE OF [facility]; Protocol Stop: 01/28/19 21:01 Last Admin: 01/19/19 10:17 Dose: 0.5 gm Vital Signs - 8 hr 01/19/19 01/19/19 01/19/19 03:15 03:43 07:15 Temperature 98.1 F 98.1 F 97.8 F Pulse Rate 93 93 91 Respiratory 18 18 18 Rate Blood Pressure 158/59 158/59 141/58 (mmHg) O2 Sat by Pulse 97 97 98 Oximetry Oxygen Devices in Use Now: None Appearance: lying on side, NAD Eyes: No Scleral Icterus, PERRLA Ears/Nose/Mouth/Throat: NL Teeth, Lips, Gums, Clear Oropharnyx Neck: NL Appearance and Movements; NL JVP Respiratory: Symmetrical Chest Expansion and Respiratory Effort, Clear to Auscultation Cardiovascular: RRR Abdominal: - - TTP b/l lower quadrants, soft, no rebound/guarding Lymphatic: No Cervical Adenopathy Extremities: No Edema Skin: - - skin breakdown and erythema midline buttocks Neurological: - - AOx1 to self but not location or year Result Diagrams: 01/19/19 08:44 01/19/19 08:44 Microbiology and Other Data: Microbiology 01/18/19 17:50 Nasal Screen MRSA (PCR) - Final Nasal Mrsa Not Detected Assess/Plan/Problems-Billing Assessment: 88 yo F h/o CVA, HTN/HLD, PMR on steroids pw unwitnessed fall and confusion - Patient Problems (1) Abdominal pain Comment: plain film unrevealing suprapubic likely in setting of UTI If worse or develops associated symptoms ie N/V then will check CT abd/pelvis (2) Confusion Comment: Associated with fall Suspect metabolic encephalopathy in setting of acute urinary track infection aztreonam in setting of above allergy Follow up Ucx (3) Dementia (4) Hypertension Comment: norvasc and losartan (5) Zoster Comment: zoster vs skin tear/pressure ulcer tx valtrex and monitor (6) Polymyalgia rheumatica Comment: prednisone 15mg daily (7) DVT prophylaxis Comment: HSQ
--- NOTE | 2019-01-19 12:24 | CONS ---
CONSULTATION REPORT: DATE OF ADMISSION: 01/18/19 DATE OF CONSULTATION: 01/19/19 PRIMARY CARE PROVIDER: Dr. Ruy Sweeney. PROVIDER REQUESTING CONSULTATION: Dr. Jojo Guallpa. CONSULTING SERVICE: Infectious Disease. PROVIDER: Ivory Carl NP. ATTENDING PROVIDER: Dr. Romain Wilson * (dictated by Ivory Carl NP). REASON FOR CONSULTATION: Encephalopathy. IMPRESSION: 1. Encephalopathy. Differential diagnoses include hyponatremia, urinary tract infection, herpes zoster, dehydration, or multifactorial. The patient had leukocytosis on admission that has resolved. She has been afebrile. She reported dysuria on admission, currently denies dysuria, but reporting urinary frequency and urgency. Urinalysis is positive for nitrites, no bacteria, no leukocyte esterase, no wbc's or rbc's. Urine culture is still pending at this time. No abnormalities are seen on chest x-ray. 2. Herpes Zoster. She is note to have a rash on the left flank. She has been started on Valrex. No signs of local skin infection at this time. 3. History of of cerebrovascular accident. 4. Polymyalgia rheumatica, on chronic steroid. PLAN/RECOMMENDATIONS: Recommend continuing aztreonam for now, while we will await the urine culture results. Continue Valtrex for the Herpes Zoster. We will continue to follow along and further recommendations will be based on the patient's clinical course and culture results. HISTORY OF PRESENT ILLNESS: Ms. Serna is an 88-year-old female with past medical history significant for CVA, hypertension, hyperlipidemia, GERD, and polymyalgia rheumatica, on chronic prednisone therapy. The patient has confusion and the history is mostly obtained from the medical record. According to the medical record, she had had dysuria on . The patient had been noted by family to be more tired causing her to miss meals. She had a fall and was found on the floor at [place], at that time she was noted to have confusion so she presented to the emergency room for evaluation. In the ER, she had a CT of the brain without evidence of acute findings, but findings consistent with small vessel ischemic changes. She had a urinalysis significant for positive nitrites, no bacteria, no rbc's, no wbc's, no leukocyte esterase. She did have leukocytosis with a white blood cell count of 13.8. She was noted to have hyponatremia and acute kidney injury. She was admitted to the hospital for a possible urinary tract infection and started on aztreonam. While in the hospital, her leukocytosis resolved. She has been afebrile. Her hyponatremia is improving. Her acute kidney injury resolved. She denies fever , but reports chills. Denies shortness of breath or recent travel. She reports a cough, but is unable to elaborate on this. She denies dysuria, but reports increased urinary frequency or urgency. PAST MEDICAL HISTORY: 1. Cerebrovascular accident. 2. Hypertension. 3. Hyperlipidemia. 4. GERD. 5. Polymyalgia rheumatica. PAST SURGICAL HISTORY: 1. Status post appendectomy. 2. Status post hysterectomy. 3. Status post bilateral oophorectomy. 4. Status post lumbar laminectomy, left L2-3. 5. Status post right rotator cuff surgery. 6. Status post closed reduction and percutaneous gamma nail fixation of left intertrochanteric hip fracture. 7. Status post right knee surgery. The patient states that this was not a total knee. MEDICATIONS: Home medications: 1. MiraLAX 17 g by mouth daily as needed for constipation. 2. Naproxen 220 mg by mouth every 12 hours as needed for pain. 3. Magnesium citrate 10 mL by mouth every evening as needed for constipation. 4. Lactase 3000 units by mouth 3 times daily as needed for lactose intolerance. 5. Calcium carbonate 1000 mg by mouth 3 times daily as needed for heartburn. 6. Benzonatate 200 mg by mouth every evening as needed for cough. 7. PreserVision AREDS 1 tablet by mouth twice daily. 8. Vitamin D3 1000 units by mouth daily. 9. Famotidine 40 mg by mouth every evening. 10. Selenium 3 capsules by mouth daily. 11. Clarinex 5 mg by mouth every evening. 12. Amlodipine 5 mg by mouth daily. 13. Acetaminophen 1000 mg by mouth twice daily. 14. Prednisone 15 mg by mouth daily. 14. Mirtazapine 7.5 mg by mouth every evening. 15. Losartan 50 mg by mouth daily. Hospital Medications: 1. Acetaminophen 650 mg by mouth every 6 hours as needed for fever or pain. 2. Amlodipine 5 mg by mouth daily. 3. Aztreonam 1 g IV every 8 hours. 4. Benzonatate 200 mg by mouth at bedtime as needed for cough. 5. Calcium carbonate 100 mg by mouth 3 times daily as needed for heartburn. 6. Zyrtec 10 mg by mouth every evening. 7. Vitamin D 1000 units by mouth daily. 8. Pepcid 20 mg by mouth at bedtime. 9. Heparin 5000 units subcutaneous every 8 hours. 10. Lactase 3000 units by mouth 3 times daily as needed for dyspepsia. 11. Losartan 50 mg by mouth daily. 12. Mirtazapine 7.5 mg by mouth every evening. 13. Naproxen 250 mg by mouth every 12 hours as needed for pain. 14. MiraLAX 17 g by mouth every day as needed for constipation. 15. Prednisone 15 mg by mouth daily. 16. Selenium 1 packet by mouth daily. 17. Sodium chloride 1000 mL an hour intravenously. 18. Valtrex 0.5 g by mouth twice daily. ALLERGIES: PENICILLIN, anaphylaxis; SULFA, anaphylaxis; CODEINE, PRAVASTATIN, and BLOOD THINNERS. FAMILY HISTORY: Denies family history of coronary artery disease or diabetes. Family history of colon, ovarian, breast cancer and lymphoma. SOCIAL HISTORY: She denies alcohol, tobacco or recreational drug use. She lives at [place]. REVIEW OF SYSTEMS: I performed a 10-point review of systems. All the pertinent positives and negatives are mentioned in the history of present illness. The remaining review of systems are negative. PHYSICAL EXAMINATION: Vital Signs: Temperature 97.8, heart rate 91, respiratory rate 18, O2 sat 98% on room air, blood pressure 141/58. General Appearance: Alert, appears to be in no acute distress. Head: Normocephalic, atraumatic. EENT: Extraocular movements are intact. No subconjunctival hemorrhage. Moist mucous membranes. Neck: Supple. No lymphadenopathy. Neurological: She is alert and oriented to self with confusion. Cranial nerves II through XII are grossly intact. She moves all extremities. Cardiovascular: Regular rate and rhythm. S1, S2 present. There are no murmurs , rubs, or gallops heard. Respiratory: No accessory muscle use. The lungs are clear to auscultation bilateral, but diminished. Abdomen: Hypoactive bowel sounds. The abdomen is round, soft with mild diffuse tenderness. Extremities: No lower extremity edema. DP and PT pulses are 2+ and symmetric. Musculoskeletal: No clubbing or cyanosis noted. She exhibits good strength in all extremities. There is no edema, swelling, or erythema to the hips or knees. No tenderness with palpation of the neck, back, or spine. Psychological : Calm and cooperative. Skin: There is a vesicular rash to the left buttock to the midline back with some crusted areas with some mild surrounding erythema. DIAGNOSTIC STUDIES/LAB DATA: Sodium 131, potassium 3.4, chloride 97, CO2 of 23 , BUN 13, creatinine 0.55, glucose 111. White blood cell count 9.6, hemoglobin 13.6, hematocrit 39, and platelet count 354. Please see impression and recommendations outlined above. The case has been discussed with my attending, Dr. Romain Wilson, who agrees with the plan of care. Reviewed by LISA RASHID 01/21/19 0852 [id number] #: [id number] MTDD
--- OUTSIDE RECORDS SUMMARY | 2019-01-19 16:15 | XMS REPORT | Continuity of Care Document ---
:1930 External Reference #:[id number] Author Name Tee David MD Address [address] [place] [address] Problems Active Problems Provider Date Closed intertrochanteric fracture Ruy Sweeney M.D. 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 Onset: 04/10/2016 Other insomnia Ruy Sweeney M.D. Onset: 05/10/2015 Allergic rhinitis Ruy Sweeney M.D. Onset: 05/10/2015 Gastroesophageal reflux disease Ruy Sweeney M.D. Onset: 05/10/2015 Essential hypertension Ruy Sweeney M.D. Onset: 05/10/2015 Social History Type Date Description Comments Sex Unknown Tobacco Use Start: Unknown Patient has never smoked Smoking Status Reviewed: 08/03/18 Patient has never smoked Allergies, Adverse Reactions, Alerts Active Allergies Reaction Severity Comments Date Penicillin hives 05/10/2015 Sulfa hives 05/10/2015 Codeine hives 05/10/2015 Coumadin chin swelled 05/10/2015 Aspirin had rxn to coumadin 05/10/2015 Iodine hives 04/18/2016 Statins intolerance 09/18/2017 Medications Active Medications SIG Qnty Indications Ordering Date Provider Pepcid Take 1 tablet 30tabs Ruy Sweeney, 12/23/2018 40mg Tablets every evening, in M.D. place of Zantac. Needs to be delivered to patient. Prednisone take 1 tablet in 30tabs Ruy Sweeney, 12/02/2018 10mg the morning along M.D. Tablets with 5 mg tablet to total 15 mg of prednisone daily. Daughter will pick up worker. Do not deliver. Prednisone Take 1 tablet 30tabs M35.3 Ruy Sweeney, 12/02/2018 5mg daily in addition M.D. Tablets to 10 mg tablet. Daughter will pick up worker. Do not deliver. Vitamin D3 1 by mouth every 30tabs Ruy Sweeney, 07/15/2018 1000Unit day M.D. Tablets ALL Day Pain Relief Take 1 Tablet By 60tabs Albin F. 06/20/2018 Mouth Every 12 Shallish, M.D. 220mg Tablets Hours With Food Or Milk as Needed Mirtazapine take 1 tablet by 30tabs Ruy Sweeney, 06/19/2017 7.5mg mouth every day M.D. Tablets Magnesium Citrate 10 milliliters by 296ml Ruy Sweeney, 05/14/2017 mouth at night as M.D. 1.745GM/30ML needed for Solution constipation. Benzonatate take 1 capsule by 30caps Ruy Sweeney, 03/16/2017 200mg mouth at bedtime M.D. Capsules for cough as needed Fiber Complete 3 by mouth every 90tabs Ruy Sweeney, 01/10/2017 day M.D. Tablets Amlodipine Besylate take 1 tablet by 30tabs Ruy Sweeney, 09/17/2016 mouth every day M.D. 5mg Tablets Miralax 17 gm powder in 1Bottle Ruy Sweeney, 09/13/2016 [id number] Powder fluid daily as M.D. needed Desloratadine Take 1 Tablet By 30tabs Ivette 09/09/2016 5mg Mouth Every Day Linda, RFID ANALYST Tablets Losartan Potassium take 1 tablet by 30tabs Ruy Sweeney, mouth every day M.D. 50mg Tablets Preservision Areds 2 by mouth every 60caps Ruy Sweeney, day M.D. Capsules Tums Ultra 1000 three times a day 90units Ruy Sweeney, as needed M.D. 1000mg Chewtabs Lactaid Unknown 3000Unit Tablets Acetaminophen Extra 2 po bid Unknown Strength 500mg Tablets History Medications Note Continue Zantac 150 Ruy AKayleigh 12/23/2018 - mg per day until Paige Sweeney 12/23/2018 Pepcid received, once Pepcid received, stop zantac, start pepcid 40 mg in the evening once daily.. Ranitidine HCL Take 1 Tablet By 90tabs Ruy A. 12/21/2018 - 150mg Mouth Every Day Paige Sweeney 12/28/2018 Tablets Ranitidine 150 1 by mouth every 90tabs Ruy A. 09/28/2018 - Maximum Strength day Paige Sweeney 12/21/2018 150mg Tablets Prednisone take 1 tablet in 30tabs Ruy A. 09/12/2018 - 10mg the morning along Paige Sweeney 11/16/2018 Tablets with 5 mg tablet to total 15 mg of prednisone daily. Daughter will pick up worker. Do not deliver. Prednisone Take 1 tablet daily 30tabs M35.3 Ruy A. 09/12/2018 - 5mg in addition to 10 Paige Sweeney 11/16/2018 Tablets mg tablet. Daughter will pick up worker. Do not deliver. PX Ranitidine 1 by mouth every 30tabs Britney Misty 09/03/2018 - 75mg evening Moreno, TIRE SETTER 11/16/2018 Tablets Note please d/c Ruy A. 09/02/2018 - Ranitidine 150mg Paige Sweeney 09/28/2018 Ranitidine 150 1 by mouth once a Ruy A. 07/27/2018 - Maximum Strength day with evening Paige Sweeney 09/03/2018 medications 150mg Tablets Note please give pt Ruy A. 07/27/2018 - Zantac 150mg with Paige Sweeney 07/27/2018 evening meds until finished with Prednisone Clotrimazole Apply To The 15units B35.8 Ruy A. 07/08/2018 - 1% Cream Affected Lesions Paige Sweeney 12/28/2018 Two Times Daily Prednisone Take 1 tablet in 30tabs M35.3 Ruy A. 07/08/2018 - 10mg the morning along Paige Sweeney 08/24/2018 Tablets with 5 mg tablet to total 15 mg of Prednisone daily. Prednisone Take 1 tablet daily 30tabs M35.3 Ruy Manzanares 07/08/2018 - 5mg in addition to Dago Sweeney M.D. 08/24/2018 Tablets mg tablet Immunizations CPT Code Status Date Vaccine Lot # [id number] Given 11/12/2016 Influenza Vac, Quadriv[place], [place] [id number] Given 10/18/2015 High-Dose, Influenza Virus Vacccine-fluzone 65 and older [id number] Given 05/10/2015 Pneumococcal Conjugate Vacc-13 [id number] Vital Signs Date Vital Result Comment 12/28/2018 1:19pm BP Systolic 140 mmHg BP Diastolic 72 mmHg Heart Rate 70 /min Body Temperature 97.3 F Respiratory Rate 20 /min Weight 132.00 lb 10/14/2018 11:50am BP Systolic 142 mmHg BP Diastolic 80 mmHg Heart Rate 80 /min Body Temperature 98.2 F Respiratory Rate 16 /min Height 59.5 inches 4'11.50" Weight 132.00 lb BMI (Body Mass Index) 26.2 kg/m2 Results Test Date Facility Test Result H/L Range Note Laboratory test [facility] [place] Erythrocyte Sed 63 mm/Hr High 0-29 1, 2 finding 9 Rate Laboratory test [facility] Sedimentation 29mm finding 9 (607)- - Rate Laboratory test [facility] [place] Erythrocyte Sed 67 mm/Hr High 0-29 3, 4 finding 9 Rate Laboratory test [facility] ([facility] [place] [facility] Test SEE ATTACHED finding 9 Comp Metabolic [facility] Sodium 135 mmol/L Normal 135-145 5 Panel 9 Potassium 4.2 mmol/L Normal 3.5-5.0 Chloride 100 mmol/L Low 101-111 Co2 Carbon Dioxide 26 mmol/L Normal 22-32 Anion Gap 9 mmol/L Normal 2-11 Glucose 97 mg/dL Normal 70-100 Blood Urea Nitrogen 11 mg/dL Normal 6-24 Creatinine 0.63 mg/dL Normal 0.51-0.95 BUN/Creatinine Ratio 17.5 Normal 8-20 Calcium 9.0 mg/dL Normal 8.6-10.3 Total Protein 6.5 g/dL Normal 6.4-8.9 Albumin 4.0 g/dL Normal 3.2-5.2 Globulin 2.5 g/dL Normal 2-4 Albumin/Globulin Ratio 1.6 Normal 1-3 Total Bilirubin 0.40 mg/dL Normal 0.2-1.0 Alkaline Phosphatase 44 U/L Normal 34-104 Alt 12 U/L Normal 7-52 Ast 13 U/L Normal 13-39 Egfr Non- 89.2 >60 Egfr 107.9 >60 6 Lipid Profile (Trig/Chol/HDL) 08/25/2018 [facility] [place] Triglycerides 207 mg/dL 7 Cholesterol 207 mg/dL 8 HDL Cholesterol 35.8 mg/dL 9 LDL Cholesterol 130 mg/dL 10 CBC No Diff 08/25/2018 [facility] [place] White Blood Count 7.0 10^3/uL Normal 3.5-10.8 Red Blood Count 4.13 10^6/uL Normal 3.70-4.87 Hemoglobin 13.4 g/dL Normal 12.0-16.0 Hematocrit 39 % Normal 35-47 Mean Corpuscular Volume 95 fL Normal 80-97 Mean Corpuscular Hemoglobin 33 pg High 27-31 Mean Corpuscular HGB Conc 34 g/dL Normal 31-36 Red Cell Distribution Width 14 % Normal 10-15 Platelet Count 304 10^3/uL Normal 150-450 Mean Platelet Volume 7.5 fL Normal 7.4-10.4 Comprehensive Metabolic 08/12/2018 [facility]) Sodium 134 mEq/L 134-149 Prof Potassium 4.4 mEq/L 3.6-5.5 Chloride 97 mEq/L 94-112 Carbon Dioxide 28 mEq/L 21-32 Glucose 124 mg/dL High 70-105 BUN 17 mg/dL 6-26 Creatinine 0.6 mg/dL 0.6-1.4 BUN/Creat Ratio 28.3 CALC 8.0-36.0 Calcium 9.3 mg/dL 8.6-10.2 Total Protein 7.4 g/dL 6.4-8.3 Albumin 4.8 g/dL 3.8-5.5 Globulin 2.6 g/dL 2.0-4.8 A/G Ratio 1.8 CALC 0.6-2.3 Alk. Phosphatase 49 U/L 30-110 Alt (SGPT) 16 U/L 7-35 Ast (Sgot) 10 U/L 5-34 Total Bilirubin 0.5 mg/dL 0.2-1.3 GFR Non- >60 ml/min/1.73m^ >=60 GFR >60 ml/min/1.73m^ >=60 Lipid Profile 08/12/2018 [facility]) Cholesterol 236 mg/dL High 120-200 Triglycerides 219 mg/dL High 30-200 HDL Cholesterol 57 mg/dL 30-85 LDL (Calculated) 135 CALC High 0-129 VLDL Cholesterol 44 mg/dL 0-50 HDL Risk Factor 4.1 CALC 0.0-4.4 CBC Electronic Fma 08/12/2018 [facility](fma) WBC 8.5 x10^3/UL 4.0- 10.0 RBC 4.29 x10^6/UL 3.93-6.00 HGB 13.6 g/dL 12.0-17.0 HCT 41 % 35-50 MCV 96.0 fL High 80.0-95.0 MCH 31.7 pg 25.6-32.2 MCHC 33.0 g/dL 32.2-36.0 RDW-CV 13.0 % 11.6-14.4 PLT 328 x10^3/UL 163-400 MPV 8.1 fL Low 9.4-12.4 [place]# 6.74 x10^3/UL High 1.56-6.13 Lymph# 1.41 x10^3/UL 1.18-3.74 [place]# 0.29 x10^3/UL 0.24-0.82 Eos # 0.0 x10^3/UL 0.0-0.5 Baso # 0.02 x10^3/UL 0.01-0.08 [place]% 79.6 % High 34.0-70.0 Lymph % 16.6 % Low 20.0-52.0 [place]% 3.4 % Low 5.0-12.0 Eos% 0.1 % Low 0.7-7.0 Baso% 0.2 % 0.1-1.2 Laboratory 08/03/2018 [facility] [place] C Reactive 1.54 mg/L Normal <8.01 11, 12 test finding Protein Laboratory 08/03/2018 [facility] Sedimentation 8MM test finding (607)- - Rate Laboratory 07/07/2018 [facility] [place] Lyme Screen W/ Negative Negative 13, 14 test finding Reflex To WB Erythrocyte Sed Rate 52 mm/Hr High 0-29 15 1 [id number] 2 [id number] 3 [id number] 4 [id number] 5 [id number] 6 Because ethnic data is not always readily available, this report includes an eGFR for both -Americans and non- Americans. The National Kidney Disease Education Program (NKDEP) does not endorse the use of the MDRD equation for patients that are not between the ages of 18 and 70, are , have extremes of body size, muscle mass, or nutritional status, or are non- or non-. According to the National Kidney Foundation, irrespective of diagnosis, the stage of the disease is based on the level of kidney function: Stage Description GFR(mL/min/1.73 m(2)) 1 Kidney damage with normal or decreased GFR 90 2 Kidney damage with mild decrease in GFR 60-89 3 Moderate decrease in GFR 30-59 4 Severe decrease in GFR 15-29 5 Kidney failure <15 (or dialysis) 7 Desirable: <150 Borderline High: 150-199 High: 200-499 Very High: >500 8 Desirable: <200 Borderline High: 200-239 High: >239 9 Low: <40 Desirable: 40-60 High: >60 10 Desirable: <100 Near Optimal: 100-129 Borderline High: 130-159 High: 160-189 Very High: >189 11 [id number] 12 [id number] 13 [id number] 14 [id number] 15 [id number] Procedures Date Code Description Status 02/17/2014 [id number] Mammogram Completed 02/17/2005 [id number] Colonoscopy Completed Medical Devices Description No Information Available Encounters Type Date Location Provider Dx Diagnosis Office Visit 10/14/2018 [facility] Ruy Sweeney M35.3 Polymyalgia 11:40a M.D. rheumatica Office Visit 08/24/2018 [facility] Kalyani Dougherty M35.3 Polymyalgia 4:00p [place] rheumatica B35.8 Other dermatophytoses Office Visit 08/03/2018 3:45p [facility] Kalyani Solorio M35.3 Polymyalgia [place] rheumatica B35.8 Other dermatophytoses Office Visit 07/08/2018 4:30p [facility] Kalyani Solorio M35.3 Polymyalgia [place] rheumatica B35.8 Other dermatophytoses Assessments Date Code Description Provider 12/28/2018 M35.3 Polymyalgia rheumatica Tee David MD 10/15/2018 M35.3 Polymyalgia rheumatica Tee David MD 10/14/2018 M35.3 Polymyalgia rheumatica Ruy Sweeney M.D. 08/24/2018 M35.3 Polymyalgia rheumatica ABDOULAYE Harrison 08/24/2018 B35.8 Other dermatophytoses ABDOULAYE Harrison 08/12/2018 Z00.01 Encounter for general adult medical Ruy Sweeney M.D. examination with abnorma 08/12/2018 I10 Essential (primary) hypertension Ruy Sweeeny M.D. 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 unspecified cerebra 08/12/2018 K21.9 Gastro-esophageal reflux disease without Ruy Sweeney M.D. esophagitis 08/03/2018 M35.3 Polymyalgia rheumatica ABDOULAYE Harrsion 08/03/2018 B35.8 Other dermatophytoses ABDOULAYE Harrison 07/08/2018 M35.3 Polymyalgia rheumatica ABDOULAYE Harrison 07/08/2018 B35.8 Other dermatophytoses ABDOULAYE [place] Plan of Treatment Future Appointment(s):03/01/2019 2:00 pm - Tee [facility] MD at [facility]12/28/2018 - Tee David, MDM35.3 Polymyalgia rheumaticaAllComments:Medication Management Patient Understands medications she' s taking? Yes No Are there Barriers to Adherence? Yes No Has the patient been asked about herbal supplements and therapies, and OTC meds? Yes No Functional Status Description No Information Available Mental Status Description No Information Available Referrals Description No Information Available
[2019-01-19] MEDS: Cetirizine* 10 MG TAB PO SCH (17:53)
[2019-01-19] MEDS: Mirtazapine TAB* 15 MG PO SCH (18:46)
[2019-01-19] MEDS: ValACYclovir (*) 500 MG TAB PO SCH (21:03)
[2019-01-19] MEDS: Famotidine TAB* 20 MG PO SCH (21:04)
[2019-01-20] MEDS: Heparin VIAL(*) 5000 UNITS/ML VIAL (FIVE THOUSAND) SUBCUT SCH ×3 (05:50→22:14)
--- NOTE | 2019-01-20 10:01 | PN ---
Progress Note - Progress Note Date of Service: 01/20/19 SOAP: Subjective: CC: AMS HPI: Ms. Serna is an 88 yo female with PMH significant for CVA, HTN, HLD, GERD, and PMR; who presented to the emergency room after a fall and was found to have AMS. Denies fever, chills, nausea, vomiting, diarrhea, or urinary symptoms. States that something doesn't feel right but isn't able to further describe this. Reports abdominal bloating, but denies ABD pain. Objective: Vital Signs - 8 hr 01/20/19 01/20/19 02:14 07:15 Temperature 98.6 F 98.3 F Pulse Rate 77 73 Respiratory 20 18 Rate Blood Pressure 177/63 138/70 (mmHg) O2 Sat by Pulse 95 97 Oximetry Physical Exam: General: NAD, laying in bed Neurological: Alert and Oriented to person and confused HEENT: Moist MM, no thrush. No nuchal rigidity Cardiovascular: Heart rate regular Respiratory: Lung sounds clear Abdominal: Bowel sounds hypoactive; ABD soft in upper quadrants and lower quadrants are firm, diffuse tenderness and distended Skin: Herpes zoster rash to the left buttock Laboratory Last Values WBC 9.6 10^3/uL (3.5-10.8) 01/19/19 08:44 RBC 4.21 10^6 /uL (3.70-4.87) 01/19/19 08:44 Hgb 13.6 g/dL (12.0-16.0) 01/19/19 08:44 Hct 39 % (35-47) 01/19/19 08:44 MCV 94 fL (80-97) 01/19/19 08:44 MCH 32 pg (27-31) H 01/19/19 08:44 MCHC 35 g/dL (31-36) 01/19/19 08:44 RDW 13 % (10-15) 01/19/19 08:44 Plt Count 354 10^3/uL (150-450) 01/19/19 08:44 MPV 6.0 fL (7.4-10.4) L 01/19/19 08:44 Neut % (Auto) 65.4 % 01/19/19 08:44 Lymph % (Auto) 26.2 % 01/19/19 08:44 [place] % (Auto) 6.6 % 01/19/19 08:44 Eos % (Auto) 1.0 % 01/19/19 08:44 Baso % (Auto) 0.8 % 01/19/19 08:44 Absolute Neuts (auto) 6.3 10^3/ul (1.5-7.7) 01/19/19 08:44 Absolute Lymphs (auto) 2.5 10^3/ul (1.0-4.8) 01/19/19 08:44 Absolute Monos (auto) 0.6 10^3/ul (0-0.8) 01/19/19 08:44 Absolute Eos (auto) 0.1 10^3/ul (0-0.6) 01/19/19 08:44 Absolute Basos (auto) 0.1 10^3/ul (0-0.2) 01/19/19 08:44 Absolute Nucleated RBC 0.0 10^3/ul 01/19/19 08:44 Nucleated RBC % 0.1 01/19/19 08:44 Sodium 131 mmol/L (135-145) L 01/19/19 08:44 Potassium 3.4 mmol/L (3.5-5.0) L 01/19/19 08:44 Chloride 97 mmol/L (101-111) L 01/19/19 08:44 Carbon Dioxide 23 mmol/L (22-32) 01/19/19 08:44 Anion Gap 11 mmol/L (2-11) 01/19/19 08:44 BUN 13 mg/dL (6-24) 01/19/19 08:44 Creatinine 0.55 mg/dL (0.51-0.95) 01/19/19 08:44 Est GFR ( Amer) 126.2 (>60) 01/19/19 08:44 Est GFR (Non-Af Amer) 104.3 (>60) 01/19/19 08:44 BUN/Creatinine Ratio 23.6 (8-20) H 01/19/19 08:44 Glucose 111 mg/dL (70-100) H 01/19/19 08:44 Lactic Acid 1.4 mmol/L (0.5-2.0) 01/18/19 10:51 Calcium 8.3 mg/dL (8.6-10.3) L 01/19/19 08:44 Magnesium 2.0 mg/dL (1.9-2.7) 01/18/19 10:51 Total Bilirubin 0.70 mg/dL (0.2-1.0) 01/18/19 10:51 AST 13 U/L (13-39) 01/18/19 10:51 ALT 15 U/L (7-52) 01/18/19 10:51 Alkaline Phosphatase 39 U/L (34-104) 01/18/19 10:51 Ammonia 38 mcmol/L (16-53) 01/18/19 10:51 Total Creatine Kinase 60 U/L (10-223) 01/18/19 10:51 Troponin I 0.01 ng/mL (<0.03) 01/18/19 10:51 Total Protein 7.4 g/dL (6.4-8.9) 01/18/19 10:51 Albumin 4.3 g/dL (3.2-5.2) 01/18/19 10:51 Globulin 3.1 g/dL (2-4) 01/18/19 10:51 Albumin/Globulin Ratio 1.4 (1-3) 01/18/19 10:51 TSH 1.25 mcIU/mL (0.34-5.60) 01/18/19 10:51 Urine Color Straw 01/18/19 16:07 Urine Appearance Cloudy 01/18/19 16:07 Urine pH 7.0 (5-9) 01/18/19 16:07 Ur Specific [place] 1.005 (1.010-1.030) L 01/18/19 16:07 Urine Protein Negative (Negative) 01/18/19 16:07 Urine Ketones Negative (Negative) 01/18/19 16:07 Urine Blood Negative (Negative) 01/18/19 16:07 Urine Nitrate Positive (Negative) A 01/18/19 16:07 Urine Bilirubin Negative (Negative) 01/18/19 16:07 Urine Urobilinogen Negative (Negative) 01/18/19 16:07 Ur Leukocyte Esterase Negative (Negative) 01/18/19 16:07 Urine WBC (Auto) Trace(0-5/hpf) (Absent) 01/18/19 16:07 Urine RBC (Auto) Trace(0-2/hpf) (Absent) 01/18/19 16:07 Urine Bacteria Absent (Absent) 01/18/19 16:07 Urine Glucose Negative (Negative) 01/18/19 16:07 Salicylates < 2.50 mg/dL (<30) 01/18/19 10:51 Acetaminophen < 15 mcg/mL 01/18/19 10:51 Microbiology 01/18/19 13:50 Urine Culture - Final Urine Corynebacterium Striatum 01/18/19 17:50 Nasal Screen MRSA (PCR) - Final Nasal Mrsa Not Detected Assessment: 1. Encephalopathy. Diff Dx: hyponatremia, UTI, dehydration, herpes zoster, multifactoral. 2. Leukocytosis. Present on admission and has resolved. Suspect secondary to Herpes Zoster. Urine culture with Corynebacterium, suspect this represents colonization and not a pathogen. Denies respiratory symptoms. 3. PMR. On chronic steroids. 4. Hx CVA. Plan: Continue Valtrex 500 mg PO BID, day 3/7. Agree with ABD/pelvis CT to eval for causes of ABD pain and bloating.
[2019-01-20] MEDS: amLODIPine TAB* 5 MG PO SCH (10:23)
[2019-01-20] MEDS: Cholecalciferol TAB* 1000 UNITS PO SCH (10:23)
[2019-01-20] MEDS: Losartan TAB* 25 MG PO SCH (10:23)
[2019-01-20] MEDS: Azithromycin TAB* 250 MG PO SCH (10:23)
[2019-01-20] MEDS: ValACYclovir (*) 500 MG TAB PO SCH ×2 (10:24→22:15)
[2019-01-20] MEDS ORDERED: Iohexol 300* (CONTRAST) 10 ML SDV IV ONE (15:54)
--- NOTE | 2019-01-20 17:53 | PN ---
Subjective Date of Service: 01/20/19 Interval History: Seen this AM Pt more lucid but still AOx1 Pleasant and without complaints Objective Active Medications: Acetaminophen (Tylenol Tab*) 650 mg PO Q6H PRN PRN Reason: MILD PAIN or TEMP > 100.4 Amlodipine Besylate (Norvasc Tab*) 5 mg PO DAILY [facility] Last Admin: 01/20/19 10:23 Dose: 5 mg Azithromycin (Zithromax Tab*) 250 mg PO DAILY [facility] Last Admin: 01/20/19 10:23 Dose: 250 mg Benzonatate (Tessalon Cap*) 200 mg PO BEDTIME PRN PRN Reason: COUGH Calcium Carbonate (Tums*) 1,000 mg PO TID PRN PRN Reason: HEARTBURN Cholecalciferol (Vitamin D Tab*) 1,000 units PO DAILY [facility] Last Admin: 01/20/19 10:23 Dose: 1,000 units Famotidine (Pepcid Tab*) 20 mg PO BEDTIME [facility] Last Admin: 01/19/19 21:04 Dose: 20 mg Heparin Sodium (Porcine) (Heparin Vial(*)) 5,000 units SUBCUT Q8HR [facility] Last Admin: 01/20/19 13:49 Dose: 5,000 units Lactase (Lactaid Fast Act (Nf)) 3,000 unit PO TID PRN PRN Reason: FUNCTIONAL DYSPEPSIA Last Admin: 01/18/19 21:00 Dose: 3,000 unit Losartan Potassium (Cozaar Tab*) 50 mg PO DAILY [facility] Last Admin: 01/20/19 10:23 Dose: 50 mg Mirtazapine (Remeron Tab*) 7.5 mg PO QPM [facility] Last Admin: 01/19/19 18:46 Dose: 7.5 mg Naproxen (Naprosyn Tab*) 250 mg PO Q12H PRN PRN Reason: PAIN Polyethylene Glycol/Electrolytes (Miralax*) 17 gm PO DAILY PRN PRN Reason: CONSTIPATION Last Admin: 01/18/19 20:48 Dose: 17 gm Prednisone (Deltasone Tab*) 10 mg PO DAILY [facility] Last Admin: 01/20/19 10:24 Dose: 10 mg Prednisone (Deltasone Tab*) 5 mg PO DAILY [facility] Last Admin: 01/20/19 10:24 Dose: 5 mg Psyllium Hydrophilic Mucilloid (Metamucil Devonte*) 1 pkt PO DAILY [facility] Last Admin: 01/19/19 10:17 Dose: 1 pkt Valacyclovir HCl (Valtrex 500 Mg (*)) 500 mg PO BID [facility]; Protocol Stop: 01/28/19 21:01 Last Admin: 01/20/19 10:24 Dose: 500 mg Vital Signs - 8 hr 01/20/19 11:15 Temperature 98.6 F Pulse Rate 81 Respiratory 18 Rate Blood Pressure 150/72 (mmHg) O2 Sat by Pulse 95 Oximetry Oxygen Devices in Use Now: None Appearance: NAD Eyes: No Scleral Icterus, PERRLA Ears/Nose/Mouth/Throat: NL Teeth, Lips, Gums, Clear Oropharnyx Neck: NL Appearance and Movements; NL JVP, Trachea Midline Respiratory: Symmetrical Chest Expansion and Respiratory Effort, Clear to Auscultation Cardiovascular: NL Sounds; No Murmurs; No JVD, RRR Abdominal: - - firm and tender left and right LQs, +bs, no rebound/guarding Extremities: No Edema Skin: - - left buttocks with erythematous rash in rough distribution of dermatome Neurological: - - Aox 1 to self but not hospital nor year, comversant and can have conversation Result Diagrams: 01/19/19 08:44 01/19/19 08:44 Microbiology and Other Data: Microbiology 01/18/19 17:50 Nasal Screen MRSA (PCR) - Final Nasal Mrsa Not Detected Assess/Plan/Problems-Billing Assessment: 88 yo F h/o CVA, HTN/HLD, PMR on steroids pw unwitnessed fall and confusion - Patient Problems (1) Acute urinary retention Comment: suspect in setting of UTI null placed (2) Abdominal pain Comment: retaining urine (>1000cc) Pain still present after null placed so CT checked suspect pain in setting of urinary retention (3) Confusion Comment: Associated with fall Suspect metabolic encephalopathy in setting of acute urinary track infection aztreonam changed to azythromycin for cornybacterum Follow sensitivities (4) Dementia (5) Hypertension Comment: norvasc and losartan Improved after null placed (6) Zoster Comment: left lower buttocks tx valtrex and monitor (7) Polymyalgia rheumatica Comment: prednisone 15mg daily (8) DVT prophylaxis Comment: HSQ
[2019-01-20] MEDS: Mirtazapine TAB* 15 MG PO SCH (18:44)
[2019-01-20] MEDS: Psyllium PAK PO SCH (18:47)
[2019-01-20] MEDS: Famotidine TAB* 20 MG PO SCH (22:14)
[2019-01-21] MEDS: Heparin VIAL(*) 5000 UNITS/ML VIAL (FIVE THOUSAND) SUBCUT SCH ×3 (06:30→21:13)
[2019-01-21 06:52] LABS: ABS Eosinophils 0.1 10^3/ul (0-0.6); ABS Lymphocytes 4.1 10^3/ul (1.0-4.8); ABS Monocytes 0.6 10^3/ul (0-0.8); Eosinophil % 1.1 %; Hematocrit 37 % (35-47); Hemoglobin 12.8 g/dL (12.0-16.0); Lymphocyte % 41.3 %; Mean Corpuscular HGB Conc 35 g/dL (31-36); Mean Corpuscular Hemoglobin 33 pg (27-31); Mean Corpuscular Volume 95 fL (80-97); Mean Platelet Volume 6.2 fL (7.4-10.4); Nucleated Red Blood Cells % 0.1; Platelet Count 311 10^3/uL (150-450); Red Blood Count 3.92 10^6 /uL (3.70-4.87); Red Cell Distribution Width 12 % (10-15); White Blood Count 9.8 10^3/uL (3.5-10.8)
[2019-01-21 06:53] LABS: BUN/Creatinine Ratio 26.3 (8-20); Calcium 8.7 mg/dL (8.6-10.3); EGFR African American 121.1 (>60); EGFR Non-African American 100.1 (>60); Magnesium 1.9 mg/dL (1.9-2.7); Potassium 3.5 mmol/L (3.5-5.0)
[2019-01-21] MEDS: Losartan TAB* 25 MG PO SCH (09:38)
[2019-01-21] MEDS: Cholecalciferol TAB* 1000 UNITS PO SCH (09:38)
[2019-01-21] MEDS: Azithromycin TAB* 250 MG PO SCH (09:38)
[2019-01-21] MEDS: amLODIPine TAB* 5 MG PO SCH (09:38)
[2019-01-21] MEDS: Psyllium PAK PO SCH (09:38)
[2019-01-21] MEDS: ValACYclovir (*) 500 MG TAB PO SCH ×2 (09:39→21:13)
--- NOTE | 2019-01-21 11:34 | PN ---
Subjective Date of Service: 01/21/19 Interval History: Patient states she has a bad feeling sometimes. She cannot be more specific. Admits to abdominal pain off and on. Denies rash. Denies chest pain, SOB. Family History: Unchanged from Admission Social History: Findings - Lives at [place] Past Medical History: Unchanged from Admission Objective Active Medications: Acetaminophen (Tylenol Tab*) 650 mg PO Q6H PRN PRN Reason: MILD PAIN or TEMP > 100.4 Amlodipine Besylate (Norvasc Tab*) 5 mg PO DAILY [facility] Last Admin: 01/21/19 09:38 Dose: 5 mg Azithromycin (Zithromax Tab*) 250 mg PO DAILY [facility] Last Admin: 01/21/19 09:38 Dose: 250 mg Benzonatate (Tessalon Cap*) 200 mg PO BEDTIME PRN PRN Reason: COUGH Calcium Carbonate (Tums*) 1,000 mg PO TID PRN PRN Reason: HEARTBURN Cholecalciferol (Vitamin D Tab*) 1,000 units PO DAILY [facility] Last Admin: 01/21/19 09:38 Dose: 1,000 units Famotidine (Pepcid Tab*) 20 mg PO BEDTIME [facility] Last Admin: 01/20/19 22:14 Dose: 20 mg Heparin Sodium (Porcine) (Heparin Vial(*)) 5,000 units SUBCUT Q8HR [facility] Last Admin: 01/21/19 06:30 Dose: 5,000 units Lactase (Lactaid Fast Act (Nf)) 3,000 unit PO TID PRN PRN Reason: FUNCTIONAL DYSPEPSIA Last Admin: 01/18/19 21:00 Dose: 3,000 unit Losartan Potassium (Cozaar Tab*) 50 mg PO DAILY [facility] Last Admin: 01/21/19 09:38 Dose: 50 mg Mirtazapine (Remeron Tab*) 7.5 mg PO QPM [facility] Last Admin: 01/20/19 18:44 Dose: 7.5 mg Naproxen (Naprosyn Tab*) 250 mg PO Q12H PRN PRN Reason: PAIN Polyethylene Glycol/Electrolytes (Miralax*) 17 gm PO DAILY PRN PRN Reason: CONSTIPATION Last Admin: 01/18/19 20:48 Dose: 17 gm Prednisone (Deltasone Tab*) 10 mg PO DAILY [facility] Last Admin: 01/21/19 09:38 Dose: 10 mg Prednisone (Deltasone Tab*) 5 mg PO DAILY [facility] Last Admin: 01/21/19 09:38 Dose: 5 mg Psyllium Hydrophilic Mucilloid (Metamucil Devonte*) 1 pkt PO DAILY [facility] Last Admin: 01/21/19 09:38 Dose: 1 pkt Valacyclovir HCl (Valtrex 500 Mg (*)) 500 mg PO BID [facility]; Protocol Stop: 01/28/19 21:01 Last Admin: 01/21/19 09:39 Dose: 500 mg Vital Signs - 8 hr 01/21/19 07:50 Temperature 36.6 C Pulse Rate 70 Respiratory 20 Rate Blood Pressure 127/47 (mmHg) O2 Sat by Pulse 96 Oximetry Oxygen Devices in Use Now: None Appearance: Sitting in chair, alert Neck: NL Appearance and Movements; NL JVP Respiratory: Symmetrical Chest Expansion and Respiratory Effort, Clear to Auscultation Cardiovascular: NL Sounds; No Murmurs; No JVD, RRR Abdominal: NL Sounds; No Tenderness; No Distention, No Hepatosplenomegaly Skin: - - LT buttock dermotomal rash Neurological: - - oriented to self, thinks it is summer, September, but knew . Lines/Tubes/Other Access: Clean, Dry and Intact Peripheral IV Nutrition: Taking PO's Result Diagrams: 01/21/19 06:01 01/21/19 06:01 Microbiology and Other Data: Microbiology 01/18/19 17:50 Nasal Nasal Screen MRSA (PCR) - Final Mrsa Not Detected 01/18/19 13:50 Urine Urine Culture - Final Corynebacterium Striatum Diagnostic Imaging: CT abdomen/pelvis; no acute findings Assess/Plan/Problems-Billing Assessment: 88 yo F h/o CVA, HTN/HLD, PMR on steroids pw unwitnessed fall and confusion - Patient Problems (1) Confusion Current Visit: Yes Status: Acute Priority: Medium Code(s): R41.0 - DISORIENTATION, UNSPECIFIED SNOMED Code(s): 649391986 Comment: -Suspect some baseline dementia, plus delirium due to UTI -Prednisone may also cause confusion (2) Urinary retention Current Visit: No Status: Acute Priority: Medium Code(s): R33.9 - RETENTION OF URINE, UNSPECIFIED SNOMED Code(s): 984669339 Comment: -Lagunas placed in ER, replaced last night, failed voiding trial -Under treatment for UTI/corynebacterium. -Will consult with urology. -Retention likely to resolve when UTI fully treated. (3) Zoster Current Visit: Yes Status: Acute Priority: Medium Code(s): B02.9 - ZOSTER WITHOUT COMPLICATIONS SNOMED Code(s): 6545126 Comment: left lower buttocks tx valtrex and monitor (4) Abdominal pain Current Visit: Yes Status: Acute Priority: Medium Code(s): R10.9 - UNSPECIFIED ABDOMINAL PAIN SNOMED Code(s): 89695225 Comment: -reassured, CT reviewed Status and Disposition: inpatient
[2019-01-21] MEDS: Mirtazapine TAB* 15 MG PO SCH (17:33)
[2019-01-21] MEDS: Polyethylene Glycol 3350* 17 GM PACKET PO PRN (17:33)
[2019-01-21] MEDS: Famotidine TAB* 20 MG PO SCH (21:13)
[2019-01-22] MEDS: Heparin VIAL(*) 5000 UNITS/ML VIAL (FIVE THOUSAND) SUBCUT SCH ×3 (05:59→20:38)
[2019-01-22] MEDS: Psyllium PAK PO SCH (09:45)
[2019-01-22] MEDS: ValACYclovir (*) 500 MG TAB PO SCH ×2 (09:46→20:38)
[2019-01-22] MEDS: Cholecalciferol TAB* 1000 UNITS PO SCH (09:46)
[2019-01-22] MEDS: Azithromycin TAB* 250 MG PO SCH (09:46)
[2019-01-22] MEDS: Losartan TAB* 25 MG PO SCH (09:46)
[2019-01-22] MEDS: amLODIPine TAB* 5 MG PO SCH (09:46)
[2019-01-22 10:47] LABS: Urine Appearance Clear; Urine Bilirubin Negative (Negative); Urine Blood Negative (Negative); Urine Color Yellow; Urine Glucose Negative (Negative); Urine Ketones Negative (Negative); Urine Nitrite Negative (Negative); Urine Protein Negative (Negative); Urine Specific Gravity 1.008 (1.010-1.030); Urine Urobilinogen Negative (Negative)
--- NOTE | 2019-01-22 13:39 | PN ---
Subjective Date of Service: 01/22/19 Interval History: No c/o. Family History: Unchanged from Admission Social History: Findings - Lives at [place] Past Medical History: Unchanged from Admission Objective Active Medications: Acetaminophen (Tylenol Tab*) 650 mg PO Q6H PRN PRN Reason: MILD PAIN or TEMP > 100.4 Amlodipine Besylate (Norvasc Tab*) 5 mg PO DAILY [facility] Last Admin: 01/22/19 09:46 Dose: 5 mg Azithromycin (Zithromax Tab*) 250 mg PO DAILY [facility] Last Admin: 01/22/19 09:46 Dose: 250 mg Benzonatate (Tessalon Cap*) 200 mg PO BEDTIME PRN PRN Reason: COUGH Calcium Carbonate (Tums*) 1,000 mg PO TID PRN PRN Reason: HEARTBURN Cholecalciferol (Vitamin D Tab*) 1,000 units PO DAILY [facility] Last Admin: 01/22/19 09:46 Dose: 1,000 units Famotidine (Pepcid Tab*) 20 mg PO BEDTIME [facility] Last Admin: 01/21/19 21:13 Dose: 20 mg Heparin Sodium (Porcine) (Heparin Vial(*)) 5,000 units SUBCUT Q8HR [facility] Last Admin: 01/22/19 05:59 Dose: 5,000 units Lactase (Lactaid Fast Act (Nf)) 3,000 unit PO TID PRN PRN Reason: FUNCTIONAL DYSPEPSIA Last Admin: 01/18/19 21:00 Dose: 3,000 unit Losartan Potassium (Cozaar Tab*) 50 mg PO DAILY [facility] Last Admin: 01/22/19 09:46 Dose: 50 mg Mirtazapine (Remeron Tab*) 7.5 mg PO QPM [facility] Last Admin: 01/21/19 17:33 Dose: 7.5 mg Naproxen (Naprosyn Tab*) 250 mg PO Q12H PRN PRN Reason: PAIN Polyethylene Glycol/Electrolytes (Miralax*) 17 gm PO DAILY PRN PRN Reason: CONSTIPATION Last Admin: 01/21/19 17:33 Dose: 17 gm Prednisone (Deltasone Tab*) 10 mg PO DAILY [facility] Last Admin: 01/22/19 09:46 Dose: 10 mg Prednisone (Deltasone Tab*) 5 mg PO DAILY [facility] Last Admin: 01/22/19 09:46 Dose: 5 mg Psyllium Hydrophilic Mucilloid (Metamucil Devonte*) 1 pkt PO DAILY [facility] Last Admin: 01/22/19 09:45 Dose: 1 pkt Tamsulosin HCl (Flomax Cap*) 0.4 mg PO BEDTIME [facility] Valacyclovir HCl (Valtrex 500 Mg (*)) 500 mg PO BID [facility]; Protocol Stop: 01/28/19 21:01 Last Admin: 01/22/19 09:46 Dose: 500 mg Vital Signs - 8 hr 01/22/19 01/22/19 01/22/19 07:15 08:00 08:02 Temperature 98.3 F Pulse Rate 89 Respiratory 16 16 Rate Blood Pressure 140/86 (mmHg) O2 Sat by Pulse 98 Oximetry 01/22/19 11:11 Temperature 98.4 F Pulse Rate 72 Respiratory 16 Rate Blood Pressure 144/70 (mmHg) O2 Sat by Pulse 100 Oximetry Oxygen Devices in Use Now: None Appearance: Alert, in a chair. In good spirits, sociable. Looks comfortable. Eyes: No Scleral Icterus Ears/Nose/Mouth/Throat: Clear Oropharnyx, Mucous Membranes Moist Extremities: No Edema, No Clubbing, Cyanosis, - Skin: No Nodules or Sclerosis - multiple ulcers wioth surrounding erythema covers L buttock, stops sharply at midline Neurological: NL Sensation, - - Gave her age as 80. Sociable and cooperative. Result Diagrams: 01/21/19 06:01 01/21/19 06:01 Microbiology and Other Data: Microbiology 01/18/19 17:50 Nasal Nasal Screen MRSA (PCR) - Final Mrsa Not Detected 01/18/19 13:50 Urine Urine Culture - Final Corynebacterium Striatum Diagnostic Imaging: CT abdomen/pelvis; no acute findings Assess/Plan/Problems-Billing Assessment: 88 yo F h/o CVA, HTN/HLD, PMR on steroids pw unwitnessed fall and confusion - Patient Problems (1) Acute urinary retention Current Visit: Yes Status: Acute Code(s): R33.8 - OTHER RETENTION OF URINE SNOMED Code(s): 410367466 Comment: suspect in setting of UTI null placed for second time, RV > [address] Ornelas, recommends intermittent catheterization or Null, no alpha agonists. Continue azithromycin. (2) Polymyalgia rheumatica Current Visit: Yes Status: Acute Code(s): M35.3 - POLYMYALGIA RHEUMATICA SNOMED Code(s): 77071289 Comment: Continue prednisone 15mg daily as per PCP. (3) Zoster Current Visit: Yes Status: Acute Priority: Medium Code(s): B02.9 - ZOSTER WITHOUT COMPLICATIONS SNOMED Code(s): 3760009 Comment: left buttock continue valtrex (4) Confusion Current Visit: Yes Status: Acute Priority: Medium Code(s): R41.0 - DISORIENTATION, UNSPECIFIED SNOMED Code(s): 655748100 Comment: -Suspect some baseline dementia, plus delirium due to UTI -Prednisone may also cause confusion (5) Hypertension Current Visit: Yes Status: Acute Code(s): I10 - ESSENTIAL (PRIMARY) HYPERTENSION SNOMED Code(s): 95599560 Comment: norvasc and losartan Status and Disposition: inpatient
[2019-01-22] MEDS: Mirtazapine TAB* 15 MG PO SCH (17:35)
[2019-01-22] MEDS: Famotidine TAB* 20 MG PO SCH (20:38)
[2019-01-22] MEDS ORDERED: Tamsulosin CAP* 0.4 MG PO SCH (21:00)
[2019-01-23] MEDS: Heparin VIAL(*) 5000 UNITS/ML VIAL (FIVE THOUSAND) SUBCUT SCH ×3 (05:41→20:01)
[2019-01-23] MEDS: ValACYclovir (*) 500 MG TAB PO SCH ×2 (08:00→20:01)
[2019-01-23] MEDS: Cholecalciferol TAB* 1000 UNITS PO SCH (08:00)
[2019-01-23] MEDS: Losartan TAB* 25 MG PO SCH (08:00)
[2019-01-23] MEDS: amLODIPine TAB* 5 MG PO SCH (08:00)
[2019-01-23] MEDS: Psyllium PAK PO SCH (08:01)
[2019-01-23] MEDS: Azithromycin TAB* 250 MG PO SCH (08:01)
--- NOTE | 2019-01-23 09:12 | PN ---
Subjective Date of Service: 01/23/19 Interval History: No c/o. No pain at zoster site. Good appetite per patient. Family History: Unchanged from Admission Social History: Findings - Lives at [place] Past Medical History: Unchanged from Admission Objective Active Medications: Acetaminophen (Tylenol Tab*) 650 mg PO Q6H PRN PRN Reason: MILD PAIN or TEMP > 100.4 Amlodipine Besylate (Norvasc Tab*) 5 mg PO DAILY [facility] Last Admin: 01/23/19 08:00 Dose: 5 mg Azithromycin (Zithromax Tab*) 250 mg PO DAILY [facility] Stop: 01/24/19 23:00 Last Admin: 01/23/19 08:01 Dose: 250 mg Benzonatate (Tessalon Cap*) 200 mg PO BEDTIME PRN PRN Reason: COUGH Calcium Carbonate (Tums*) 1,000 mg PO TID PRN PRN Reason: HEARTBURN Cholecalciferol (Vitamin D Tab*) 1,000 units PO DAILY [facility] Last Admin: 01/23/19 08:00 Dose: 1,000 units Famotidine (Pepcid Tab*) 20 mg PO BEDTIME [facility] Last Admin: 01/22/19 20:38 Dose: 20 mg Heparin Sodium (Porcine) (Heparin Vial(*)) 5,000 units SUBCUT Q8HR [facility] Last Admin: 01/23/19 05:41 Dose: 5,000 units Lactase (Lactaid Fast Act (Nf)) 3,000 unit PO TID PRN PRN Reason: FUNCTIONAL DYSPEPSIA Last Admin: 01/18/19 21:00 Dose: 3,000 unit Losartan Potassium (Cozaar Tab*) 50 mg PO DAILY [facility] Last Admin: 01/23/19 08:00 Dose: 50 mg Mirtazapine (Remeron Tab*) 7.5 mg PO QPM [facility] Last Admin: 01/22/19 17:35 Dose: 7.5 mg Naproxen (Naprosyn Tab*) 250 mg PO Q12H PRN PRN Reason: PAIN Polyethylene Glycol/Electrolytes (Miralax*) 17 gm PO DAILY PRN PRN Reason: CONSTIPATION Last Admin: 01/21/19 17:33 Dose: 17 gm Prednisone (Deltasone Tab*) 10 mg PO DAILY [facility] Last Admin: 01/23/19 08:00 Dose: 10 mg Prednisone (Deltasone Tab*) 5 mg PO DAILY [facility] Last Admin: 01/23/19 08:00 Dose: 5 mg Psyllium Hydrophilic Mucilloid (Metamucil Devonte*) 1 pkt PO DAILY [facility] Last Admin: 01/23/19 08:01 Dose: 1 pkt Valacyclovir HCl (Valtrex 500 Mg (*)) 500 mg PO BID [facility]; Protocol Stop: 01/28/19 21:01 Last Admin: 01/23/19 08:00 Dose: 500 mg Vital Signs - 8 hr 01/23/19 01/23/19 01/23/19 03:04 07:15 08:00 Temperature 97.2 F 97.9 F Pulse Rate 85 87 Respiratory 18 14 14 Rate Blood Pressure 168/50 142/64 (mmHg) O2 Sat by Pulse 97 97 Oximetry Oxygen Devices in Use Now: None Appearance: Alert, partly up in bed. In good spirits. Looks comfortable. Eyes: No Scleral Icterus Extremities: No Edema, No Clubbing, Cyanosis, - Skin: No Nodules or Sclerosis, - - Little change in L buttock zoster Neurological: NL Sensation, - - Pleasant and cooperative. Mostly oriented. Result Diagrams: 01/21/19 06:01 01/21/19 06:01 Microbiology and Other Data: Microbiology 01/18/19 17:50 Nasal Nasal Screen MRSA (PCR) - Final Mrsa Not Detected 01/18/19 13:50 Urine Urine Culture - Final Corynebacterium Striatum Diagnostic Imaging: CT abdomen/pelvis; no acute findings Assess/Plan/Problems-Billing Assessment: 88 yo F h/o CVA, HTN/HLD, PMR on steroids pw unwitnessed fall and confusion - Patient Problems (1) Acute urinary retention Current Visit: Yes Status: Acute Code(s): R33.8 - OTHER RETENTION OF URINE SNOMED Code(s): 114485579 Comment: suspect in setting of UTI null placed for second time, RV > [address] Ornelas, recommends intermittent catheterization or Null, no alpha agonists. Continue azithromycin, last dose 01/24. (2) Polymyalgia rheumatica Current Visit: Yes Status: Acute Code(s): M35.3 - POLYMYALGIA RHEUMATICA SNOMED Code(s): 84653919 Comment: Continue prednisone 15mg daily as per PCP. (3) Zoster Current Visit: Yes Status: Acute Priority: Medium Code(s): B02.9 - ZOSTER WITHOUT COMPLICATIONS SNOMED Code(s): 5197870 Comment: left buttock continue valtrex (4) Confusion Current Visit: Yes Status: Acute Priority: Medium Code(s): R41.0 - DISORIENTATION, UNSPECIFIED SNOMED Code(s): 334219039 Comment: -Suspect some baseline dementia, plus delirium due to UTI -Prednisone may also cause confusion (5) Hypertension Current Visit: Yes Status: Acute Code(s): I10 - ESSENTIAL (PRIMARY) HYPERTENSION SNOMED Code(s): 19883097 Comment: norvasc and losartan Status and Disposition: inpatient
[2019-01-23] MEDS: Mirtazapine TAB* 15 MG PO SCH (17:10)
[2019-01-23] MEDS: Famotidine TAB* 20 MG PO SCH (20:01)
[2019-01-23] MEDS: Acetaminophen TAB* 325 MG PO PRN (20:01)
[2019-01-24] MEDS: Heparin VIAL(*) 5000 UNITS/ML VIAL (FIVE THOUSAND) SUBCUT SCH ×2 (05:38→13:42)
[2019-01-24] MEDS: Losartan TAB* 25 MG PO SCH (09:08)
[2019-01-24] MEDS: Azithromycin TAB* 250 MG PO SCH (09:08)
[2019-01-24] MEDS: Cholecalciferol TAB* 1000 UNITS PO SCH (09:08)
[2019-01-24] MEDS: Psyllium PAK PO SCH (09:08)
[2019-01-24] MEDS: ValACYclovir (*) 500 MG TAB PO SCH ×2 (09:08→19:26)
[2019-01-24] MEDS: amLODIPine TAB* 5 MG PO SCH (09:08)
--- NOTE | 2019-01-24 17:00 | PN ---
Subjective Date of Service: 01/24/19 Interval History: No new c/o, overall feeling better. Family History: Unchanged from Admission Social History: Findings - Lives at [place] Past Medical History: Unchanged from Admission Objective Active Medications: Acetaminophen (Tylenol Tab*) 650 mg PO Q6H PRN PRN Reason: MILD PAIN or TEMP > 100.4 Last Admin: 01/23/19 20:01 Dose: 650 mg Amlodipine Besylate (Norvasc Tab*) 5 mg PO DAILY [facility] Last Admin: 01/24/19 09:08 Dose: 5 mg Azithromycin (Zithromax Tab*) 250 mg PO DAILY [facility] Stop: 01/24/19 23:00 Last Admin: 01/24/19 09:08 Dose: 250 mg Benzonatate (Tessalon Cap*) 200 mg PO BEDTIME PRN PRN Reason: COUGH Calcium Carbonate (Tums*) 1,000 mg PO TID PRN PRN Reason: HEARTBURN Cholecalciferol (Vitamin D Tab*) 1,000 units PO DAILY [facility] Last Admin: 01/24/19 09:08 Dose: 1,000 units Famotidine (Pepcid Tab*) 20 mg PO BEDTIME [facility] Last Admin: 01/23/19 20:01 Dose: 20 mg Heparin Sodium (Porcine) (Heparin Vial(*)) 5,000 units SUBCUT Q8HR [facility] Last Admin: 01/24/19 13:42 Dose: 5,000 units Lactase (Lactaid Fast Act (Nf)) 3,000 unit PO TID PRN PRN Reason: FUNCTIONAL DYSPEPSIA Last Admin: 01/18/19 21:00 Dose: 3,000 unit Losartan Potassium (Cozaar Tab*) 50 mg PO DAILY [facility] Last Admin: 01/24/19 09:08 Dose: 50 mg Mirtazapine (Remeron Tab*) 7.5 mg PO QPM [facility] Last Admin: 01/23/19 17:10 Dose: 7.5 mg Naproxen (Naprosyn Tab*) 250 mg PO Q12H PRN PRN Reason: PAIN Polyethylene Glycol/Electrolytes (Miralax*) 17 gm PO DAILY PRN PRN Reason: CONSTIPATION Last Admin: 01/21/19 17:33 Dose: 17 gm Prednisone (Deltasone Tab*) 10 mg PO DAILY [facility] Last Admin: 01/24/19 09:08 Dose: 10 mg Prednisone (Deltasone Tab*) 5 mg PO DAILY [facility] Last Admin: 01/24/19 09:08 Dose: 5 mg Psyllium Hydrophilic Mucilloid (Metamucil Devonte*) 1 pkt PO DAILY [facility] Last Admin: 01/24/19 09:08 Dose: 1 pkt Valacyclovir HCl (Valtrex 500 Mg (*)) 500 mg PO BID [facility]; Protocol Stop: 01/28/19 21:01 Last Admin: 01/24/19 09:08 Dose: 500 mg Vital Signs - 8 hr 01/24/19 01/24/19 11:15 15:15 Temperature 98.2 F Pulse Rate 84 84 Respiratory 16 21 Rate Blood Pressure 127/56 138/47 (mmHg) O2 Sat by Pulse 97 97 Oximetry Oxygen Devices in Use Now: None Appearance: Alert, in a chair. In very good spirits. Looks comfortable. Eyes: No Scleral Icterus Extremities: No Edema, No Clubbing, Cyanosis, - Skin: No Nodules or Sclerosis Neurological: Alert and Oriented x 3, NL Sensation Result Diagrams: 01/21/19 06:01 01/21/19 06:01 Microbiology and Other Data: Microbiology 01/18/19 17:50 Nasal Nasal Screen MRSA (PCR) - Final Mrsa Not Detected 01/18/19 13:50 Urine Urine Culture - Final Corynebacterium Striatum Diagnostic Imaging: CT abdomen/pelvis; no acute findings Assess/Plan/Problems-Billing Assessment: 88 yo F h/o CVA, HTN/HLD, PMR on steroids pw unwitnessed fall and confusion - Patient Problems (1) Acute urinary retention Current Visit: Yes Status: Acute Code(s): R33.8 - OTHER RETENTION OF URINE SNOMED Code(s): 560271183 Comment: suspect in setting of UTI null placed for second time, RV > [address] Ornelas, recommends intermittent catheterization or Null, no alpha agonists. Continue azithromycin, last dose 01/24. (2) Polymyalgia rheumatica Current Visit: Yes Status: Acute Code(s): M35.3 - POLYMYALGIA RHEUMATICA SNOMED Code(s): 16195227 Comment: Continue prednisone 15mg daily as per PCP. (3) Zoster Current Visit: Yes Status: Acute Priority: Medium Code(s): B02.9 - ZOSTER WITHOUT COMPLICATIONS SNOMED Code(s): 4853409 Comment: left buttock continue valtrex (4) Confusion Current Visit: Yes Status: Acute Priority: Medium Code(s): R41.0 - DISORIENTATION, UNSPECIFIED SNOMED Code(s): 282028690 Comment: -Suspect some baseline dementia, plus delirium due to UTI -Prednisone may also cause confusion (5) Hypertension Current Visit: Yes Status: Acute Code(s): I10 - ESSENTIAL (PRIMARY) HYPERTENSION SNOMED Code(s): 39913390 Comment: norvasc and losartan Status and Disposition: inpatient
[2019-01-24] MEDS: Famotidine TAB* 20 MG PO SCH (19:25)
[2019-01-24] MEDS: Mirtazapine TAB* 15 MG PO SCH (19:25)
[2019-01-24] MEDS: Acetaminophen TAB* 325 MG PO PRN (19:26)
[2019-01-25] MEDS: Losartan TAB* 25 MG PO SCH (08:51)
[2019-01-25] MEDS: Psyllium PAK PO SCH (08:51)
[2019-01-25] MEDS: ValACYclovir (*) 500 MG TAB PO SCH ×2 (08:51→20:50)
[2019-01-25] MEDS: Cholecalciferol TAB* 1000 UNITS PO SCH (08:51)
[2019-01-25] MEDS: amLODIPine TAB* 5 MG PO SCH (08:52)
--- NOTE | 2019-01-25 14:58 | PN ---
Subjective Date of Service: 01/25/19 Interval History: No new c/o. Family History: Unchanged from Admission Social History: Findings - Lives at [place] Past Medical History: Unchanged from Admission Objective Active Medications: Acetaminophen (Tylenol Tab*) 650 mg PO Q6H PRN PRN Reason: MILD PAIN or TEMP > 100.4 Last Admin: 01/24/19 19:26 Dose: 650 mg Amlodipine Besylate (Norvasc Tab*) 5 mg PO DAILY [facility] Last Admin: 01/25/19 08:52 Dose: 5 mg Benzonatate (Tessalon Cap*) 200 mg PO BEDTIME PRN PRN Reason: COUGH Calcium Carbonate (Tums*) 1,000 mg PO TID PRN PRN Reason: HEARTBURN Cholecalciferol (Vitamin D Tab*) 1,000 units PO DAILY [facility] Last Admin: 01/25/19 08:51 Dose: 1,000 units Famotidine (Pepcid Tab*) 20 mg PO BEDTIME [facility] Last Admin: 01/24/19 19:25 Dose: 20 mg Lactase (Lactaid Fast Act (Nf)) 3,000 unit PO TID PRN PRN Reason: FUNCTIONAL DYSPEPSIA Last Admin: 01/18/19 21:00 Dose: 3,000 unit Losartan Potassium (Cozaar Tab*) 50 mg PO DAILY [facility] Last Admin: 01/25/19 08:51 Dose: 50 mg Mirtazapine (Remeron Tab*) 7.5 mg PO 2100 [facility] Last Admin: 01/24/19 19:25 Dose: 7.5 mg Naproxen (Naprosyn Tab*) 250 mg PO Q12H PRN PRN Reason: PAIN Polyethylene Glycol/Electrolytes (Miralax*) 17 gm PO DAILY PRN PRN Reason: CONSTIPATION Last Admin: 01/21/19 17:33 Dose: 17 gm Prednisone (Deltasone Tab*) 10 mg PO DAILY [facility] Last Admin: 01/25/19 08:51 Dose: 10 mg Prednisone (Deltasone Tab*) 5 mg PO DAILY [facility] Last Admin: 01/25/19 08:51 Dose: 5 mg Psyllium Hydrophilic Mucilloid (Metamucil Devonte*) 1 pkt PO DAILY [facility] Last Admin: 01/25/19 08:51 Dose: 1 pkt Valacyclovir HCl (Valtrex 500 Mg (*)) 500 mg PO BID [facility]; Protocol Stop: 01/28/19 21:01 Last Admin: 01/25/19 08:51 Dose: 500 mg Vital Signs - 8 hr 01/25/19 01/25/19 01/25/19 07:15 07:30 11:00 Temperature 97.8 F 97.4 F Pulse Rate 64 70 Respiratory 22 18 Rate Blood Pressure 169/49 170/78 138/66 (mmHg) O2 Sat by Pulse 97 95 Oximetry Oxygen Devices in Use Now: None Appearance: Alert, walks in [place] with walker and gait belt with PT. Eyes: No Scleral Icterus Extremities: No Edema, No Clubbing, Cyanosis, - Skin: No Rash or Ulcers, No Nodules or Sclerosis, - Neurological: Alert and Oriented x 3, NL Sensation Result Diagrams: 01/21/19 06:01 01/21/19 06:01 Microbiology and Other Data: Microbiology 01/18/19 17:50 Nasal Nasal Screen MRSA (PCR) - Final Mrsa Not Detected 01/18/19 13:50 Urine Urine Culture - Final Corynebacterium Striatum Diagnostic Imaging: CT abdomen/pelvis; no acute findings Assess/Plan/Problems-Billing Assessment: 88 yo F h/o CVA, HTN/HLD, PMR on steroids pw unwitnessed fall and confusion - Patient Problems (1) Acute urinary retention Current Visit: Yes Status: Acute Code(s): R33.8 - OTHER RETENTION OF URINE SNOMED Code(s): 051272124 Comment: suspect in setting of UTI null placed for second time, RV > [address] Ornelas, recommends intermittent catheterization or Null, no alpha agonists. Completed azithromycin, last dose 01/24. (2) Polymyalgia rheumatica Current Visit: Yes Status: Acute Code(s): M35.3 - POLYMYALGIA RHEUMATICA SNOMED Code(s): 47633503 Comment: Continue prednisone 15mg daily as per PCP. (3) Zoster Current Visit: Yes Status: Acute Priority: Medium Code(s): B02.9 - ZOSTER WITHOUT COMPLICATIONS SNOMED Code(s): 0615535 Comment: left buttock continue valtrex (4) Confusion Current Visit: Yes Status: Acute Priority: Medium Code(s): R41.0 - DISORIENTATION, UNSPECIFIED SNOMED Code(s): 418205651 Comment: -Suspect some baseline dementia, plus delirium due to UTI -Prednisone may also cause confusion (5) Hypertension Current Visit: Yes Status: Acute Code(s): I10 - ESSENTIAL (PRIMARY) HYPERTENSION SNOMED Code(s): 02506621 Comment: norvasc and losartan Status and Disposition: inpatient
[2019-01-25] MEDS: Famotidine TAB* 20 MG PO SCH (20:50)
[2019-01-25] MEDS: Mirtazapine TAB* 15 MG PO SCH (20:51)
[2019-01-26] MEDS: Losartan TAB* 25 MG PO SCH (08:46)
[2019-01-26] MEDS: amLODIPine TAB* 5 MG PO SCH (08:46)
[2019-01-26] MEDS: Cholecalciferol TAB* 1000 UNITS PO SCH (08:46)
[2019-01-26] MEDS: ValACYclovir (*) 500 MG TAB PO SCH (08:46)
[2019-01-26] MEDS: Psyllium PAK PO SCH (08:47)
[2019-01-26 11:37] VITALS: BP 121/58
--- NOTE | 2019-01-27 10:00 | DS ---
CC: Dr. Sweeney; Dr. David * DISCHARGE SUMMARY: DATE OF ADMISSION: 01/18/19 DATE OF DISCHARGE: 01/26/19 PRIMARY CARE PROVIDER: Dr. Sweeney. DISCHARGE DIAGNOSES: 1. Corynebacterium. 2. Urinary tract infection, not Lagunas catheter related, present on admission. 3. Urinary retention, probably associated with urinary tract infection. 4. Herpes zoster of the left buttock. 5. Mild delirium. SECONDARY DIAGNOSES: 1. History of cerebrovascular accident. 2. Hypertension. 3. Hyperlipidemia. 4. Gastroesophageal reflux disease. 5. Polymyalgia rheumatica. PAST SURGICAL HISTORY: 1. Status post appendectomy. 2. Status post hysterectomy. 3. Status post bilateral oophorectomy. 4. Status post lumbar laminectomy. 5. Status post rotator cuff repair. MEDICATION LIST: 1. Acetaminophen 1000 mg p.o. b.i.d. 2. Amlodipine 5 mg p.o. daily. 3. Benzonatate 200 mg p.o. at bedtime as needed for cough. 4. Calcium carbonate 1000 mg p.o. t.i.d. as needed for heartburn. 5. Cholecalciferol 1000 units p.o. daily. 6. Desloratadine 5 mg p.o. at bedtime. 7. Famotidine 40 mg p.o. at bedtime. 8. Lactase 3000 units p.o. t.i.d. as needed for functional dyspepsia. 9. Losartan 50 mg p.o. daily. 10. Magnesium titrate 10 mL p.o. at bedtime as needed for constipation. 11. Mirtazapine 7.5 mg p.o. at bedtime. 12. Naproxen 220 mg p.o. q.12 hours p.r.n. pain. 13. MiraLAX 17 grams p.o. daily as needed for constipation. 14. Prednisone 15 mg p.o. daily. As per Dr. David's note, the patient will start tapering her prednisone dose to 10 mg alternating with 50 mg in February 2019. 15. Metamucil 3 capsules p.o. daily. 16. PreserVision AREDS 1 capsule p.o. b.i.d. 17. Valacyclovir 500 mg p.o. b.i.d. for 5 more doses. HOSPITAL COURSE: Ms. Serna is an 88-year-old female with a past medical history stated above that presented to the emergency room after sustaining a fall at [place]. The patient was mildly confused, cannot provide much of a history, but as per ED provider report, the patient had spent Thanksgiving with family members and had complaints of dysuria as that time. They had also noticed that she was more tired and she was missing meals at [place] for the reason. For more details about her presentation, I refer you to her history and physical from 01/18/19. On admission, the patient had complaints of hypogastric pain, but it was difficult to obtain a urine sample initially. The impression was that she likely had a urinary tract infection considering her symptoms. She was seen in consultation by Infectious Disease (Dr. Wilson) and the recommendation was to continue aztreonam for treatment of a urinary tract infection as the patient is allergic to multiple antibiotics and also to continue Valtrex for herpes zoster. The impression was that her encephalopathy was likely secondary to her urinary tract infection and the patient already has a history of stroke. A CT of the abdomen and pelvis showed diverticulosis, atherosclerosis, and a stable pancreatic cyst, but no other acute CT pathology of the visualized abdomen or pelvis. The patient did develop urinary retention and required a Lagunas catheter. The patient's urine culture grew corynebacterium greater than 100,000 colonies and there was some question if this represented colonization instead of a pathogen, but since the patient had urinary symptoms as well as urinary retention, she was treated with antibiotics in the hospital. Her case was discussed by Dr. Morrison with Urology and the recommendation was for Lagunas placement or intermittent catheterization. The patient initially had a Lagunas catheter that was removed, but she developed urinary retention again with a residual volume greater than 999 mL, so for that reason, the Lagunas catheter was placed and the recommendation for her to be discharged with the Lagunas catheter and followup with Urology as outpatient. Dr. Ornelas is willing to see the patient in his office, but as per nursing report, the patient's daughter would prefer to take her for Urology evaluation at a different facility. The patient had improvement of her mental status and she appears to be close to her baseline. After discussion with Antionette, decision was made that she would return to [place] at the [facility] [place] and the arrangements were made for [facility] to evaluate the patient after discharge also. Today, she was deemed to be medically stable to be discharged back to [place] to continue her treatment. The patient is medically stable for discharge and she will need followup with Dr. Sweeney in the next 4 to 7 days. PHYSICAL EXAMINATION: Vital Signs: Temperature 98.0, heart rate is 89, respiratory rate 19, oxygen saturation is 95% on room air, blood pressure is 121 /58. General: The patient is a pleasant, elderly lady, sitting up in the recliner, in no acute distress. CVS: S1, S2. Regular rate and rhythm. Chest : Breath sounds present bilaterally with no added sounds. Abdomen is soft, nontender. Bowel sounds are present. Neuro: She is alert and oriented x2 self and place. Able to move all 4 extremities. DIET: Regular diet. ACTIVITY: As tolerated. DISPOSITION: To [facility]. STATUS WHILE IN THE HOSPITAL: Inpatient. Please keep in mind that this the summary of the patient's prolonged hospital stay. If you need more information, please do not hesitate to call me at or please obtain medical records. TIME SPENT: Approximately 45 minutes were spent to complete this discharge. [id number]/CPS #: [id number] ERVIN
== END 2019-01-26 16:15 | disposition home health service (06) | DRG 689 ==
LOC: ED 10:15 → MED 15:19 → OBSVTOIN 01-19 11:00
PROVIDERS: ADMIT Internal Medicine Hematology & Oncology; ATTEND Internal Medicine
DX: N39.0 Urinary tract infection, site not specified (principal); G93.41 Metabolic encephalopathy; K86.2 Cyst of pancreas; E87.1 Hypo-osmolality and hyponatremia; N17.9 Acute kidney failure, unspecified; I10 Essential (primary) hypertension; E78.5 Hyperlipidemia, unspecified; K21.9 Gastro-esophageal reflux disease without esophagitis; M35.3 Polymyalgia rheumatica; E86.0 Dehydration; B02.9 Zoster without complications; W19.XXXA Unspecified fall, initial encounter; R33.8 Other retention of urine; R41.0 Disorientation, unspecified; K57.90 Diverticulosis of intestine, part unspecified, without perforation or abscess without bleeding; B96.89 Other specified bacterial agents as the cause of diseases classified elsewhere; Y92.099 Unspecified place in other non-institutional residence as the place of occurrence of the external cause; Z86.73 Personal history of transient ischemic attack (TIA), and cerebral infarction without residual deficits; Z79.1 Long term (current) use of non-steroidal anti-inflammatories (NSAID); Z79.52 Long term (current) use of systemic steroids; Z79.899 Other long term (current) drug therapy; Z88.5 Allergy status to narcotic agent; Z88.0 Allergy status to penicillin; Z88.2 Allergy status to sulfonamides; Z88.8 Allergy status to other drugs, medicaments and biological substances; Z80.0 Family history of malignant neoplasm of digestive organs; Z80.41 Family history of malignant neoplasm of ovary; Z80.3 Family history of malignant neoplasm of breast; Z80.7 Family history of other malignant neoplasms of lymphoid, hematopoietic and related tissues
CPT/HCPCS: 36415; 70450; 71045; 74019; 74177; 80048; 80053; 80329; 81003; 81015; 82140; 82550; 83605; 83735; 84443; 84484; 85025; 87077; 87086; 87641; 93005; 99284; A9270-GY; G0378; G0480; G8978-GP-CJ; G8978-GP-CK; G8978-GP-CL; G8979-GP-CI; G8979-GP-CJ; G8987-GO-CL; G8988-GO-CI; J1644; J3480; J7512; Q9967

== ENCOUNTER 2019-01-27 23:42 | Emergency (ER) | payer MEDICARE, OTHER ==
[2019-01-28 01:25] LABS: Urine Appearance Clear; Urine Bilirubin Negative (Negative); Urine Blood 3+ (Negative); Urine Color Yellow; Urine Glucose Negative (Negative); Urine Ketones Negative (Negative); Urine Nitrite Negative (Negative); Urine Protein Negative (Negative); Urine Specific Gravity 1.005 (1.010-1.030); Urine Urobilinogen Negative (Negative)
--- NOTE | 2019-01-28 01:26 | ED ---
GI/ HPI - HPI Summary HPI Summary: 80-year-old female presents from half-way with catheter issue. half-way states the catheter was not draining. while in the room the nurse was able to get urine from the catheter. zero urine on bladder scan. Patient is feeling better. No fevers. Patient not complaining the pain. No chest pain or shortness breath. No fevers. No nausea and vomiting. Patient has dementia. Level 5 caveat due to dementia. she has a catheter due to urinary retention. - History of Current Complaint Chief Complaint: EDAbdPain Time Seen by Provider: 01/28/19 00:09 Stated Complaint: CATH ISSUE PER EMS Pain Intensity: 0 - Additional Pertinent History Primary Care Physician: [id number] - Allergy/Home Medications Allergies/Adverse Reactions: Allergies Allergy/AdvReac Type Severity Reaction Status Date / Time Penicillins Allergy Severe Anaphylatic Verified 01/27/19 23:58 Shock Sulfa (Sulfonamide Allergy Severe Anaphylatic Verified 01/27/19 23:58 Antibiotics) Shock codeine Allergy Mild See Comment Verified 01/27/19 23:58 pravastatin Allergy Muscle Ache Verified 01/27/19 23:58 aspirin AdvReac Unknown Verified 01/27/19 23:58 Reaction Details iodine AdvReac Unknown Verified 01/27/19 23:58 Reaction Details warfarin [From Coumadin] AdvReac Swelling Verified 01/27/19 23:58 Blood Thinners Allergy Unknown Uncoded 01/27/19 23:58 Reaction Details PMH/Surg Hx/FS Hx/Imm Hx Endocrine/Hematology History: Denies: Hx Diabetes Cardiovascular History: Reports: Hx Hypercholesterolemia, Hx Hypertension Denies: Hx Pacemaker/ICD Respiratory History: Reports: Other Respiratory Problems/Disorders - SEASONAL ALLERGIES GI History: Reports: Hx Gastroesophageal Reflux Disease History: Reports: Hx Kidney Infection Denies: Hx Renal Disease Musculoskeletal History: Reports: Hx Arthritis - Rheumatoid, Hx Rheumatoid Arthritis - POLYMALGIA Sensory History: Reports: Hx Contacts or Glasses Denies: Hx Hearing Aid Opthamlomology History: Reports: Hx Contacts or Glasses Neurological History: Reports: Hx CVA, Hx Headaches, Hx Migraine, Other Neuro Impairments/Disorders - AMS, Delirium Psychiatric History: Reports: Hx Depression Denies: Hx Panic Disorder - Cancer History Hx Chemotherapy: No Hx Radiation Therapy: No - Surgical History Surgery Procedure, Year, and Place: ADNOIDS AND TONSILECTOMY;. RIGHT KNEE SURGERY 1985;. APPENDECTOMY,. RIGHT SHOULDER,. TUBAL LIGATION FOLLOWED BY TOTAL HYSTERECTOMY/OOPERECTOMY,. LUMBAR SURGERY, cataract Hx Anesthesia Reactions: No - Pt denies - Immunization History Date of Influenza Vaccine: 11/2017 Immunizations Up to Date: Yes Infectious Disease History: No Infectious Disease History: Denies: Traveled Outside the [place] in Last 30 Days - Family History Known Family History: Positive: Other - Breast CA Family History: Breast CA - Social History Alcohol Use: None Hx Substance Use: No Substance Use Type: Reports: None Hx Tobacco Use: No Smoking Status (MU): Never Smoked Tobacco Review of Systems Negative: Fever Negative: Chest Pain Negative: Shortness Of Breath Negative: Abdominal Pain All Other Systems Reviewed And Are Negative: Yes Physical Exam Triage Information Reviewed: Yes Vital Signs On Initial Exam: Initial Vitals Temp Pulse Resp BP Pulse Ox 97.7 F 74 16 159/84 98 01/27/19 23:56 01/27/19 23:56 01/27/19 23:56 01/27/19 23:56 01/27/19 23:56 Vital Signs Reviewed: Yes Appearance: Positive: Well-Appearing Skin: Positive: Warm, Dry Head/Face: Positive: Normal Head/Face Inspection Eyes: Positive: Normal, Conjunctiva Clear ENT: Positive: Pharynx normal Respiratory/Lung Sounds: Positive: Clear to Auscultation, Breath Sounds Present Cardiovascular: Positive: Normal, RRR Abdomen Description: Positive: Nontender, Soft Bowel Sounds: Positive: Present Musculoskeletal: Positive: Normal Neurological: Negative: Alert, Oriented to Person Place, Time Psychiatric: Positive: Normal Procedures - Sedation Patient Received Moderate/Deep Sedation with Procedure: No Diagnostics - Vital Signs Vital Signs Temp Pulse Resp BP Pulse Ox 01/27/19 23:56 97.7 F 74 16 159/84 98 - Laboratory Lab Statement: Any lab studies that have been ordered have been reviewed, and results considered in the medical decision making process. GIGU Course/Dx - Course Course Of Treatment: 80-year-old female presents from half-way with catheter issue. half-way states the catheter was not draining. while in the room the nurse was able to get urine from the catheter. zero urine on bladder scan. Patient is feeling better. No fevers. Patient not complaining the pain. No chest pain or shortness breath. No fevers. No nausea and vomiting. Patient has dementia. Level 5 caveat due to dementia. On exam nontender abdomen. Urine likely contaminant as it was from a catheter. Will wait for final culture. Patient will be sent back to half-way. - Diagnoses Differential Diagnoses - Female: Urinary Tract Infection, Other - catheter problem, urinary retention. Provider Diagnoses: Lagunas catheter problem Discharge ED - Sign-Out/Discharge Documenting (check all that apply): Patient Departure - Discharge Plan Condition: Good Disposition: HOME Patient Education Materials: Lagunas Catheter Placement and Care (ED) Referrals: Ruy Sweeney MD [Primary Care Provider] - Additional Instructions: follow up with primary within 5 days Return to ED if develop any new or worsening symptoms - Billing Disposition and Condition Condition: GOOD Disposition: Home
[2019-01-28 01:40] LABS: Urine Bacteria 1+ (Absent); Urine Red Blood Cell 3+(>10/hpf) (Absent); Urine Squamous Epithelial Cell Present (Absent); Urine White Blood Cell 1+(6-10/hpf) (Absent)
[2019-01-28 02:49] VITALS: BP 139/78
== END 2019-01-28 01:45 | disposition home or self-care (01) ==
LOC: ED 23:42
DX: T83.9XXA Unspecified complication of genitourinary prosthetic device, implant and graft, initial encounter (principal); K21.9 Gastro-esophageal reflux disease without esophagitis; E78.00 Pure hypercholesterolemia, unspecified; I10 Essential (primary) hypertension; Z86.73 Personal history of transient ischemic attack (TIA), and cerebral infarction without residual deficits; R51 Headache; Z79.899 Other long term (current) drug therapy; R33.9 Retention of urine, unspecified
CPT/HCPCS: 81003; 81015; 87086; 99283

== ENCOUNTER 2019-01-28 19:41 | Emergency (ER) | payer MEDICARE, OTHER ==
--- NOTE | 2019-01-28 23:30 | ED ---
GI/ HPI - HPI Summary HPI Summary: 88-year-old presents after she removed her Null today. Null was placed for urinary retention while she was admitted here. Null was checked here last night. She denies any symptoms at this time. She denies any dizziness. No chest or shortness breath. She denies any nausea vomiting. No urinary symptoms. No abdominal pain. States she feels just tired. Patient is alert and oriented to person and place. Has a history of dementia. - History of Current Complaint Chief Complaint: EDGeneral Time Seen by Provider: 01/28/19 20:09 Stated Complaint: CATHETER ISSUES PER EMS Pain Intensity: 0 - Additional Pertinent History Primary Care Physician: [id number] - Allergy/Home Medications Allergies/Adverse Reactions: Allergies Allergy/AdvReac Type Severity Reaction Status Date / Time Penicillins Allergy Severe Anaphylatic Verified 01/27/19 23:58 Shock Sulfa (Sulfonamide Allergy Severe Anaphylatic Verified 01/27/19 23:58 Antibiotics) Shock codeine Allergy Mild See Comment Verified 01/27/19 23:58 pravastatin Allergy Muscle Ache Verified 01/27/19 23:58 aspirin AdvReac Unknown Verified 01/27/19 23:58 Reaction Details iodine AdvReac Unknown Verified 01/27/19 23:58 Reaction Details warfarin [From Coumadin] AdvReac Swelling Verified 01/27/19 23:58 Blood Thinners Allergy Unknown Uncoded 01/27/19 23:58 Reaction Details PMH/Surg Hx/FS Hx/Imm Hx Endocrine/Hematology History: Denies: Hx Diabetes Cardiovascular History: Reports: Hx Hypercholesterolemia, Hx Hypertension Denies: Hx Pacemaker/ICD Respiratory History: Reports: Other Respiratory Problems/Disorders - SEASONAL ALLERGIES GI History: Reports: Hx Gastroesophageal Reflux Disease History: Reports: Hx Kidney Infection Denies: Hx Renal Disease Musculoskeletal History: Reports: Hx Arthritis - Rheumatoid, Hx Rheumatoid Arthritis - POLYMALGIA Sensory History: Reports: Hx Contacts or Glasses Denies: Hx Hearing Aid Opthamlomology History: Reports: Hx Contacts or Glasses Neurological History: Reports: Hx CVA, Hx Headaches, Hx Migraine, Other Neuro Impairments/Disorders - AMS, Delirium Psychiatric History: Reports: Hx Depression Denies: Hx Panic Disorder - Cancer History Hx Chemotherapy: No Hx Radiation Therapy: No - Surgical History Surgery Procedure, Year, and Place: ADNOIDS AND TONSILECTOMY;. RIGHT KNEE SURGERY 1985;. APPENDECTOMY,. RIGHT SHOULDER,. TUBAL LIGATION FOLLOWED BY TOTAL HYSTERECTOMY/OOPERECTOMY,. LUMBAR SURGERY, cataract Hx Anesthesia Reactions: No - Pt denies - Immunization History Date of Influenza Vaccine: 11/2017 Infectious Disease History: No Infectious Disease History: Denies: Traveled Outside the [place] in Last 30 Days - Family History Known Family History: Positive: Other - Breast CA Family History: Breast CA - Social History Alcohol Use: Rare Hx Substance Use: No Substance Use Type: Reports: None Hx Tobacco Use: No Smoking Status (MU): Never Smoked Tobacco Review of Systems Negative: Fever Negative: Chest Pain Negative: Shortness Of Breath Negative: Abdominal Pain All Other Systems Reviewed And Are Negative: Yes Physical Exam Triage Information Reviewed: Yes Vital Signs On Initial Exam: Initial Vitals Temp Pulse Resp BP Pulse Ox 97.4 F 95 16 159/86 96 01/28/19 20:00 01/28/19 20:00 01/28/19 20:00 01/28/19 20:00 01/28/19 20:00 Vital Signs Reviewed: Yes Appearance: Positive: Well-Appearing Skin: Positive: Warm, Dry Head/Face: Positive: Normal Head/Face Inspection Eyes: Positive: Normal, Conjunctiva Clear ENT: Positive: Pharynx normal Respiratory/Lung Sounds: Positive: Clear to Auscultation, Breath Sounds Present Cardiovascular: Positive: Normal, RRR Abdomen Description: Positive: Soft Bowel Sounds: Positive: Present Musculoskeletal: Positive: Normal Neurological: Positive: Normal Psychiatric: Positive: Normal Procedures - Sedation Patient Received Moderate/Deep Sedation with Procedure: No Diagnostics - Vital Signs Vital Signs Temp Pulse Resp BP Pulse Ox 01/28/19 20:36 89 15 123/75 94 01/28/19 20:35 90 17 93 01/28/19 20:06 89 16 159/86 93 01/28/19 20:00 97.4 F 95 16 159/86 96 - Laboratory Lab Statement: Any lab studies that have been ordered have been reviewed, and results considered in the medical decision making process. Re-Evaluation - Re-Evaluation First Eval Re-Evaluation Time: 23:19 Comment: patient was unable to urinate and has over 200cc in bladder so will place catether Second Eval Re-Evaluation Time: 00:17 Comment: no compliants still. GIGU Course/Dx - Course Course Of Treatment: 88-year-old presents after she removed her Null today. Null was placed for urinary retention while she was admitted here. Null was checked here last night. She denies any symptoms at this time. She denies any dizziness. No chest or shortness breath. She denies any nausea vomiting. No urinary symptoms. No abdominal pain. States she feels just tired. Patient is alert and oriented to person and place. Has a history of dementia. On exam nontender abdomen. Attempted patient to try to urinate on her own in the ED but was unable to do so. Will Place Null again. null placed without complication. will have follow up with urology. patient understand and agrees with plan. - Diagnoses Differential Diagnoses - Female: Urinary Tract Infection, Other - urinary retention Provider Diagnoses: Urinary retention Discharge ED - Sign-Out/Discharge Documenting (check all that apply): Patient Departure - Discharge Plan Condition: Good Disposition: HOME Patient Education Materials: Null Catheter Placement and Care (ED) Referrals: Ruy Sweeney MD [Primary Care Provider] - Matthew Ornelas MD [Medical Doctor] - Additional Instructions: follow up with urology Return to ED if develop any new or worsening symptoms - Billing Disposition and Condition Condition: GOOD Disposition: Home
[2019-01-29 02:02] VITALS: BP 126/67
== END 2019-01-29 01:25 | disposition home or self-care (01) ==
LOC: ED 19:41
DX: R33.9 Retention of urine, unspecified (principal); E78.00 Pure hypercholesterolemia, unspecified; I10 Essential (primary) hypertension; K21.9 Gastro-esophageal reflux disease without esophagitis; F32.9 Major depressive disorder, single episode, unspecified; Z88.5 Allergy status to narcotic agent; Z88.0 Allergy status to penicillin; Z88.2 Allergy status to sulfonamides; Z88.8 Allergy status to other drugs, medicaments and biological substances; Z86.73 Personal history of transient ischemic attack (TIA), and cerebral infarction without residual deficits; Z88.6 Allergy status to analgesic agent; Z91.041 Radiographic dye allergy status; Z90.89 Acquired absence of other organs; Z90.710 Acquired absence of both cervix and uterus; Z90.721 Acquired absence of ovaries, unilateral
CPT/HCPCS: 99284

== ENCOUNTER 2019-04-26 13:04 | Observation (INO) | payer MEDICARE, OTHER ==
--- NOTE | 2019-04-26 13:09 | ED ---
Altered Mental Status - HPI Summary HPI Summary: 88 year old F presenting to [facility] via EMS with a chief complaint of left sided weakness and confusion since 12:00 today which has since improved. The patient rates the pain 0/10 in severity. Symptoms aggravated by nothing. Symptoms alleviated by nothing. Per EMS the patient was noted to be leaning to the left and holding herself up with her arm so that she would not fall, and was unable to answer basic questions for approximately 15 minutes. The patient states that she does not remember what happened. The patient is alert and oriented x2, NIHSS 0, GCS 15. Medication list reviewed. Allergy list reviewed. Home Medications Medication Instructions Recorded Confirmed Type Losartan TAB* [Cozaar TAB*] 50 mg PO DAILY tab 04/15/16 01/28/19 Rx amLODIPine TAB* [Norvasc 5 mg TAB*] 5 mg PO DAILY tab 07/12/16 01/28/19 Rx Calcium Carbonate [Tums Ultra] 1,000 mg PO TID PRN 08/03/17 01/28/19 History Cholecalciferol (Vitamin D3) 1,000 unit PO DAILY 08/03/17 01/28/19 History [Vitamin D3] Desloratidine (NF) [Clarinex (NF)] 5 mg PO QPM 08/03/17 01/28/19 History Lactase [Dairy Aid] 3,000 unit PO TID PRN 08/03/17 01/28/19 History Mirtazapine 7.5 mg PO QPM 08/03/17 01/28/19 History Naproxen Sodium [Naproxen 220 mg] 220 mg PO Q12H PRN 08/03/17 01/28/19 History Psyllium Husk [Metamucil] 3 cap PO DAILY 08/03/17 01/28/19 History Acetaminophen [Acetaminophen Extra 1,000 mg PO BID 01/18/19 01/28/19 History Strength] Benzonatate CAP* [Tessalon 100 MG 200 mg PO BEDTIME PRN 01/18/19 01/28/19 History CAP*] Famotidine TAB* [Pepcid 20 MG TAB*] 40 mg PO BEDTIME 01/18/19 01/28/19 History Magnesium CITRATE* [Citrate of 10 ml PO QPM PRN 01/18/19 01/28/19 History Magnesia*] Polyethylene Glycol 3350* [Miralax 17 gm PO DAILY PRN 01/18/19 01/28/19 History (17 GM DOSE RASHEED)] Vit A/Vit C/Vit E/Zinc/Copper 1 each PO BID 01/18/19 01/28/19 History [Preservision Areds Softgel] predniSONE 10 mg TAB [Deltasone 10 10 mg PO DAILY 01/18/19 01/28/19 History MG TAB*] predniSONE [Prednisone 5 MG TAB] 5 mg PO DAILY 01/18/19 01/28/19 History ValACYclovir (*) [Valtrex 500 mg 500 mg PO BID #5 tab 01/26/19 01/28/19 Rx (*)] - History Of Current Complaint Stated Complaint: POSS TIA PER EMS Hx Obtained From: Patient Onset/Duration: Resolved, Suddenly Timing: Lasting Minutes Severity Currently: None Character: Confusion Aggravating Factor(s): Nothing Alleviating Factor(s): Nothing Associated Signs And Symptoms: Positive: Weakness - Left sided - Allergies/Home Medications Allergies/Adverse Reactions: Allergies Allergy/AdvReac Type Severity Reaction Status Date / Time Penicillins Allergy Severe Anaphylatic Verified 04/26/19 13:12 Shock Sulfa (Sulfonamide Allergy Severe Anaphylatic Verified 04/26/19 13:12 Antibiotics) Shock codeine Allergy Mild See Comment Verified 04/26/19 13:12 pravastatin Allergy Muscle Ache Verified 04/26/19 13:12 aspirin AdvReac Unknown Verified 04/26/19 13:12 Reaction Details iodine AdvReac Unknown Verified 04/26/19 13:12 Reaction Details warfarin [From Coumadin] AdvReac Swelling Verified 04/26/19 13:12 Blood Thinners Allergy Unknown Uncoded 01/27/19 23:58 Reaction Details Home Medications: Home Medications Losartan TAB* [Cozaar TAB*] 50 mg PO DAILY tab 04/15/16 [Rx Confirmed 04/26/19] amLODIPine TAB* [Norvasc 5 mg TAB*] 5 mg PO DAILY tab 07/12/16 [Rx Confirmed ] Calcium Carbonate [Tums Ultra] 1,000 mg PO TID PRN 08/03/17 [History Confirmed 04/26/19] Cholecalciferol (Vitamin D3) [Vitamin D3] 1,000 unit PO DAILY 08/03/17 [History Confirmed 04/26/19] Desloratidine (NF) [Clarinex (NF)] 5 mg PO DAILY 08/03/17 [History Confirmed 11/06] Lactase [Dairy Aid] 3,000 unit PO TID PRN 08/03/17 [History Confirmed 04/26/19] Naproxen Sodium [Naproxen 220 mg] 220 mg PO Q12H PRN 08/03/17 [History Confirmed 04/26/19] Psyllium Husk [Metamucil] 3 cap PO DAILY 08/03/17 [History Confirmed 04/26/19] Acetaminophen [Acetaminophen Extra Strength] 1,000 mg PO BID 01/18/19 [History Confirmed 04/26/19] Famotidine TAB* [Pepcid 20 MG TAB*] 40 mg PO BEDTIME 01/18/19 [History Confirmed 04/26/19] Magnesium CITRATE* [Citrate of Magnesia*] 10 ml PO DAILY 01/18/19 [History Confirmed 04/26/19] Polyethylene Glycol 3350* [Miralax (17 GM DOSE RASHEED)] 17 gm PO DAILY PRN [History Confirmed 04/26/19] Vit A/Vit C/Vit E/Zinc/Copper [Preservision Areds Softgel] 1 each PO BID [History Confirmed 04/26/19] Cyanocobalamin TAB* [Vitamin B12 TAB*] 1,000 mcg PO DAILY 04/26/19 [History Confirmed 04/26/19] predniSONE 1 mg TAB [Deltasone 1 MG TAB*] 7.5 mg PO QAM 04/26/19 [History Confirmed 04/26/19] PMH/Surg Hx/FS Hx/Imm Hx Endocrine/Hematology History: Denies: Hx Diabetes Cardiovascular History: Reports: Hx Hypercholesterolemia, Hx Hypertension Denies: Hx Pacemaker/ICD Respiratory History: Reports: Other Respiratory Problems/Disorders - SEASONAL ALLERGIES GI History: Reports: Hx Gastroesophageal Reflux Disease History: Reports: Hx Kidney Infection Denies: Hx Renal Disease Musculoskeletal History: Reports: Hx Arthritis - Rheumatoid, Hx Rheumatoid Arthritis - POLYMALGIA Sensory History: Reports: Hx Contacts or Glasses Denies: Hx Hearing Aid Opthamlomology History: Reports: Hx Contacts or Glasses Neurological History: Reports: Hx CVA, Hx Headaches, Hx Migraine, Other Neuro Impairments/Disorders - AMS, Delirium Psychiatric History: Reports: Hx Depression Denies: Hx Panic Disorder - Cancer History Hx Chemotherapy: No Hx Radiation Therapy: No - Surgical History Surgery Procedure, Year, and Place: ADNOIDS AND TONSILECTOMY;. RIGHT KNEE SURGERY 1985;. APPENDECTOMY,. RIGHT SHOULDER,. TUBAL LIGATION FOLLOWED BY TOTAL HYSTERECTOMY/OOPERECTOMY,. LUMBAR SURGERY, cataract Hx Anesthesia Reactions: No - Pt denies - Immunization History Date of Influenza Vaccine: 11/2017 - Family History Known Family History: Positive: Other - Breast CA Family History: Breast CA - Social History Alcohol Use: Rare Hx Substance Use: No Substance Use Type: Reports: None Hx Tobacco Use: No Smoking Status (MU): Never Smoked Tobacco Review of Systems Neurological/Mental Status: Other - Confusion Positive: Weakness - Left sided All Other Systems Reviewed And Are Negative: Yes Physical Exam - Summary Physical Exam Summary: VITAL SIGNS: Reviewed. GENERAL: Patient is a well-developed and nourished female who is lying comfortable in the stretcher. Patient is not in any acute respiratory distress. HEAD AND FACE: No signs of trauma. No ecchymosis, hematomas or skull depressions. No sinus tenderness. EYES: PERRLA, EOMI x 2, No injected conjunctiva, no nystagmus. EARS: Hearing grossly intact. Ear canals and tympanic membranes are within normal limits. MOUTH: Oropharynx within normal limits. NECK: Supple, trachea is midline, no adenopathy, no JVD, no carotid bruit, no c- spine tenderness, neck with full ROM. CHEST: Symmetric, no tenderness at palpation. LUNGS: Clear to auscultation bilaterally. No wheezing or crackles. CVS: Regular rate and rhythm, S1 and S2 present, no murmurs or gallops appreciated. ABDOMEN: Soft, non-tender. No signs of distention. No rebound, no guarding, and no masses palpated. Bowel sounds are normal. EXTREMITIES: FROM in all major joints, no edema, no cyanosis or clubbing. NEURO: Alert and oriented x 2. Speech is normal and follows commands. NIHSS 0, GCS 15. SKIN: Dry and warm. Triage Information Reviewed: Yes Vital Signs Reviewed: Yes - Cheriton Coma Scale Best Eye Response: 4 - Spontaneous Best Motor Response: 6 - Obeys Commands Best Verbal Response: 5 - Oriented Coma Scale Total: 15 Procedures - Sedation Patient Received Moderate/Deep Sedation with Procedure: No Diagnostics - Laboratory Result Diagrams: 04/27/19 05:59 04/27/19 05:59 Lab Statement: Any lab studies that have been ordered have been reviewed, and results considered in the medical decision making process. - Radiology Chest x-ray Radiology Interpretation Completed By: Radiologist Summary of Radiographic Findings: NO ACTIVE CARDIOPULMONARY DISEASE. ED physician has reviewed this report. - CT Brain CT CT Interpretation Completed By: Radiologist Summary of CT Findings: NO ACUTE INTRACRANIAL PATHOLOGY. CHRONIC SMALL VESSEL ISCHEMIC CHANGE. ED physician has reviewed this report. - EKG 13:24 Cardiac Rate: NL - 81 BPM EKG Rhythm: Sinus Rhythm Summary of EKG Findings: Without any ST elevations; similar to EKG done on . ED physician has reviewed and interpreted this EKG. National Institutes Of Health - NIH Scale Level of Consciousness: Alert/Keenly Responsive Ask Patient the Month and His/Her Age: Both Correct Ask Pt to Open/Close Eyes and Value Stream Coach/Release Non-Paretic Hand: Both Correctly Best Gaze (Only Horizontal Eye Movement): Normal Visual Field Testing: No Visual Loss Facial Paresis-Pt to Smile & Close Eyes or Grimace Symmetry: Normal/Symmetrical Motor Function - Right Arm: No Drift-Holds 10 Seconds Motor Function - Left Arm: No Drift-Holds 10 Seconds Motor Function - Right Leg: No Drift-Holds 10 Seconds Motor Function - Left Leg: No Drift-Holds 10 Seconds Limb Ataxia-Must be out of Proportion to Weakness Present: Absent Sensory (Use Pinprick to Test Arms/Legs/Trunk/Face): Normal Best Language (Describe Picture, Name Items): No Aphasia Dysarthria (Read Several Words): Normal Extinction and Inattention: No Abnormality Total Score: 0 Altered Mental Statu Course/Dx - Course Assessment/Plan: 88 year old F presenting to [facility] via EMS with a chief complaint of left sided weakness and confusion since 12:00 today which has since improved. The patient rates the pain 0/10 in severity. Symptoms aggravated by nothing. Symptoms alleviated by nothing. Per EMS the patient was noted to be leaning to the left and holding herself up with her arm so that she would not fall, and was unable to answer basic questions for approximately 15 minutes. The patient states that she does not remember what happened. The patient is alert and oriented x2, NIHSS 0, GCS 15. Medication list reviewed. Allergy list reviewed. In the ED course the patient was placed on a director of cardiac cath lab, IV access was obtained, IV fluids started. Past medical records reviewed. Blood test w/o a significant abnormality except for absolute neutrophils of 8.5, sodium 134, chloride 96, glucose 162, lactic acid is 2.5. Head CT IMPRESSION: NO ACUTE INTRACRANIAL PATHOLOGY. CHRONIC SMALL VESSEL ISCHEMIC CHANGE. CXR IMPRESSION: NO ACTIVE CARDIOPULMONARY DISEASE. Urinalysis is negative for UTI. Symptoms all the systems are negative the patient is to be admitted to rule out TIA versus CVA. I discussed my physical exam and test results with Dr. Hale from the hospitalist services and she agrees to admit the patient to her services. The patient is hemodynamically stable alert and oriented x 3. - Diagnoses Differential Diagnosis/HQI/PQRI: CVA, Hypoglycemia, Hypoxia, Metabolic Disorder , Seizure, TIA Provider Diagnoses: TIA (transient ischemic attack) - Provider Notifications Discussed Care Of Patient With: Stephanie Hale Time Discussed With Above Provider: 16:44 - Discussed the patient with Dr. Hale for admission. Discharge ED - Sign-Out/Discharge Documenting (check all that apply): Patient Departure - Discharge Plan Condition: Stable Disposition: ADMITTED TO [facility] - Billing Disposition and Condition Condition: STABLE Disposition: Admitted to [facility] - Attestation Statements Document Initiated by Scribe: Yes Documenting Scribe: Tiffany Bazzi Provider For Whom Kermitibhelen is Documenting (Include Credential): Cheo Barrientos MD Scribe Attestation: I, Tiffany Bazzi, scribed for Cheo Barrientos MD on 04/27/19 at 1137. Scribe Documentation Reviewed: Yes Provider Attestation: The documentation as recorded by the Tiffany boyle accurately reflects the service I personally performed and the decisions made by me, Cheo Barrientos MD Status of Scribe Document: Viewed
[2019-04-26 13:35] LABS: ABS Basophils 0.1 10^3/ul (0-0.2); ABS Lymphocytes 1.1 10^3/ul (1.0-4.8); ABS Monocytes 0.3 10^3/ul (0-0.8); ABS Neutrophils 8.5 10^3/ul (1.5-7.7); Eosinophil % 0.4 %; Hematocrit 38 % (35-47); Lymphocyte % 10.9 %; Mean Corpuscular HGB Conc 34 g/dL (31-36); Mean Corpuscular Hemoglobin 33 pg (27-31); Mean Corpuscular Volume 98 fL (80-97); Mean Platelet Volume 6.8 fL (7.4-10.4); Platelet Count 340 10^3/uL (150-450); Red Blood Count 3.91 10^6 /uL (3.70-4.87); Red Cell Distribution Width 14 % (10-15)
[2019-04-26 13:50] LABS: Activated Partial Thrombo Time 30.5 seconds (26.0-38.0)
[2019-04-26 13:57] LABS: Albumin 4.1 g/dL (3.2-5.2); Albumin/Globulin Ratio 1.5 (1-3); BUN/Creatinine Ratio 15.5 (8-20); Calcium 9.6 mg/dL (8.6-10.3); EGFR African American 77.4 (>60); Globulin 2.7 g/dL (2-4); HDL Cholesterol 39.3 mg/dL; Potassium 3.6 mmol/L (3.5-5.0); Total Bilirubin 0.4 mg/dL (0.2-1.0); Total Protein 6.8 g/dL (6.4-8.9); Troponin I 0.01 ng/mL (<0.03)
--- OUTSIDE RECORDS SUMMARY | 2019-04-26 13:57 | XMS REPORT ---
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 02-17 Josh Essential Essential Diagnosis Active Ivette (primary) (primary) 02-17 Josh hypertensio hypertensio n n Gastro-esop Gastro-esop Diagnosis Active Ivette hageal hageal 02-17 Josh reflux reflux disease disease without without esophagitis esophagitis Insomnia, Insomnia, Diagnosis Active Ivette unspecified unspecified 02-17 Josh Migraine, Migraine, Diagnosis Active Ivette unspecified unspecified 02-17 [place] , not , not intractable intractable , without , without status status migrainosus migrainosus Hyperlipide Hyperlipide Diagnosis Active Ivette nette, nette, 02-17 Josh unspecified unspecified 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 [place] Personal Personal Diagnosis Active Ivette history of history of [place] transient transient ischemic ischemic attack attack (TIA), and (TIA), and cerebral cerebral infarction infarction without without residual residual deficits deficits Personal Personal Diagnosis Active Ivette history of history of [place] urinary urinary (tract) (tract) infections infections Pain frequent Pain Mgmt Resolve 2019-03-18 Tania pain d 03-15 10:50:00 (Garret) 10:25: Carl [id number] Respiratory dyspnea Respirator Resolve 2019-03-18 Tania present y d 03-15 10:50:00 (Garret) 10:25: Carl 00 [id number] Respiratory lung sounds Respirator Resolve 2019-03-18 Tania deficit y d 03-15 10:50:00 (Garret) 10:25: [id number] Sensory impaired Sensory Resolve 2019-03-18 Tania hearing d 03-15 10:50:00 (Garret) 10:25: [id number] Integument skin Integument Resolve 2019-04-07 Tania integrity d 03-15 09:50:00 (Garret) risk 10:25: [id number] Elimination urinary Eliminatio Resolve 2019-03-18 Tania incontinenc n d 03-15 10:50:00 (Garret) e 10:25: [id number] Neuro confusion Neuro/Emot Resolve 2019-03-18 Tania present ion d 03-15 10:50:00 (Garret) 10:25: [id number] Neuro anxiety Neuro/Emot Resolve 2019-03-18 Tania present ion d 03-15 10:50:00 (Garret) 10:25: [id number] Neuro impaired Neuro/Emot Resolve 2019-03-18 Tania decision-ma ion d 03-15 10:50:00 (Garret) shahana 10:25: [id number] Neuro memory Neuro/Emot Resolve 2019-03-18 Tania deficit ion d 03-15 10:50:00 (Garret) needing 10:25: Carl 00 [id number] Activity ADL Activity Resolve 2019-03-18 Tania assistance d 03-15 10:50:00 (Garret) required 10:25: [id number] Activity self-care Activity Resolve 2019-03-18 Tania deficit d 03-15 10:50:00 (Garret) 10:25: [id number] Safety fall risk Safety Resolve 2019-03-18 Tania factor d 03-15 10:50:00 (Garret) present 10:25: [id number] Safety cannot be Safety Resolve 2019-03-18 Tania left alone d 03-15 10:50:00 (Garret) 10:25: [id number] Safety risk for Safety Resolve 2019-03-18 Tania hospitaliza d 03-15 10:50:00 (Garret) tion 10:25: Carl [id number] Medication oral med Meds Resolve 2019-03-18 Tania assistance d 03-15 10:50:00 (Garret) required 10:25: Carl [id number] Musculoskel requires Musculoske Resolve 2019-03-18 Tania etal human letal d 03-15 10:50:00 (Garret) assist to 10:25: Carl leave home [id number] Safety knowledge/s Safety Resolve 2019-03-18 Shantel kill d 03-15 10:50:00 Ibarra deficit: pt 15:39: [id number] Bed mobility/tr PT/OT: Bed Resolve 2019-03-31 Shantel Mobility/Tr ansfer Mobility/T d 03-15 13:55:00 Ibarra ansfer device ransfer 15:39: [id number] present 00 Bed transfer PT/OT: Bed Resolve 2019-03-31 Shantel Mobility/Tr deficit: Mobility/T d 03-15 13:55:00 Ibarra ansfer shower/tub ransfer 15:39: [id number] Bed knowledge/s PT/OT: Bed Resolve 2019-03-31 Shantel Mobility/Tr kill Mobility/T d 03-15 13:55:00 Ibarra ansfer deficit: pt ransfer 15:39: [id number] Balance/End balance/records coordinator PT/OT: Resolve 2019-03-31 Shantel russance rdination Balance/En d 03-15 13:55:00 Ibarra deficit durance 15:39: [id number] Balance/End endurance PT/OT: Resolve 2019-03-31 Shantel urance deficit Balance/En d 03-15 13:55:00 Ibarra durance 15:39: [id number] Balance/End knowledge/s PT/OT: Resolve 2019-03-31 Shantel urance kill Balance/En d 03-15 13:55:00 Ibarra deficit: pt durance 15:39: [id number] Gait/Locomo gait PT/OT: Resolve 2019-03-31 Shantel tion assistive Gait/Locom d 03-15 13:55:00 Ibarra problems device otion 15:39: [id number] present 00 Gait/Locomo gait PT/OT: Resolve 2019-03-31 Shantel baca deficit Gait/Locom d 03-15 13:55:00 Ibarra problems otion 15:39: [id number] Gait/Locomo knowledge/s PT/OT: Resolve 2019-03-31 Shantel baca kill Gait/Locom d 03-15 13:55:00 Ibarra problems deficit: pt otion 15:39: [id number] Safety can be left Safety Resolve 2019-03-18 Ivette alone for d 03-18 10:50:00 [place] only short 10:50: periods 00 Safety knowledge/s Safety Unknown Shantel lara 03-18 Ibarra deficit: pt 13:33: [id number] Safety risk for Safety Unknown Shantel patela 03-18 Ibarra tion 13:33: [id number] Safety can be left Safety Resolve 2019-04-07 Ivette alone for d 2- 09:50:00 [place] only short 09:30: periods 00 Safety knowledge/s Safety Resolve 2019-03-29 Ivette kill d 2- 11:00:00 [place] deficit: pt 09:30: 00 Safety risk for Safety Resolve 2019-03-29 Ivette hospitaliza d 2-03 11:00:00 [place] tion 09:30: 00 Musculoskel requires Musculoske Resolve 2019-03-29 Ivette etal human letal d 2-06 11:00:00 [place] assist to 10:10: leave home 00 Safety risk for Safety Resolve 2019-04-01 Shantel hospitaliza d 2-11 10:08:00 Ibarra tion 13:42: [id number] 00 Musculoskel requires Musculoske Resolve 2019-04-01 Ivette etal human letal d 2-13 10:08:00 [place] assist to 10:08: leave home 00 Activity self-care Activity Active Ivette deficit 2-19 [place] 09:50: 00 Allergies, Adverse Reactions, Alerts Allergy Name Allergy Status Severity Reaction(s) Onset Inactive Treating Comments Type Date Date Clinician Penicillins Unknown Active Unknown Reaction 2018-02 Interface Unknown 2- Sulfa Unknown Active Unknown Reaction 2018-02 Interface (Sulfonamide Unknown 2 Antibiotics) codeine Base Active Unknown Reaction 2018-02 Interface Ingredient Unknown 2- pravastatin Base Active Unknown Reaction 2018-02 Unknown Ingredient Unknown 2-06 aspirin Base Active Unknown Reaction 2018-02 Interface Ingredient Unknown 2-06 iodine Unknown Active Unknown Reaction 2018-02 Interface Unknown 2-06 warfarin Base Active Unknown Reaction 2018-02 Interface Ingredient Unknown 2-06 Blood Unknown Active Unknown Reaction 2018-02 Interface Thinners Unknown 03-25 Medications Ordered Filled Start Stop Current Ordering Indication Dosage Frequency Signature Comments Components Medication Medication Date Date Medication? Clinician (SIG) Name Name losartan 25 losartan 25 2020- Yes Frankie Unknown Unknown mg tablet mg tablet 03-15 Tee BRADLEY amLODIPine amLODIPine 2020- Yes Frankie Unknown Unknown 5 mg tablet 5 mg tablet 03-15 Tee BRADLEY naproxen naproxen 2019- Yes Frankie Unknown Unknown sodium 220 sodium 220 03-15 Tee BRADLEY mg tablet mg tablet Cholecalcif Cholecalcif 2019- Yes Frankie Unknown Unknown karely karely 03-15 Tee BRADLEY (Vitamin (Vitamin D3) D3) Lactase Lactase 2019- Yes Frankie Unknown Unknown 03-15 Tee BRADLEY acetaminoph acetaminoph 2019- Yes Frankie Unknown Unknown en 500 mg en 500 mg 03-15 Tee BRADLEY tablet tablet famotidine famotidine 2019- Yes Frankie Unknown Unknown 20 mg 20 mg 03-15 Tee BRADLEY tablet tablet predniSONE predniSONE 2019- Yes Frankie Unknown Unknown 5 mg tablet 5 mg tablet 03-15 Tee BRADLEY desloratadi desloratadi 2019- Yes Frankie Unknown Unknown ne 5 mg ne 5 mg 03-15 Tee BRADLEY tablet tablet Senna Plus Senna Plus 2019- Yes Frankie Unknown Unknown 8.6 mg-50 8.6 mg-50 03-15 MD,Tee mg capsule mg capsule Vitamin Vitamin 2019- Yes Frankie Unknown Unknown B-12 500 B-12 500 03-15 ,Tee mcg tablet mcg tablet PreserVisio PreserVisio 2019- Yes Frankie Unknown Unknown n AREDS-2 n AREDS-2 03-15 Tee BRADLEY 250 mg-200 250 mg-200 unit-40 unit-40 mg-1 mg mg-1 mg capsule capsule Vital Signs Vital Name Observation Time Observation Value Comments SYSTOLIC mm[Hg] 2019-04-07 18:10:28 118 mm[Hg] mm[Hg] Method: Sit SYSTOLIC mm[Hg] 2019-03-16 18:10:06 150 mm[Hg] mm[Hg] Method: Stand DIASTOLIC mm[Hg] 2019-04-07 18:10:28 64 mm[Hg] mm[Hg] Method: Sit DIASTOLIC mm[Hg] 2019-03-16 18:10:06 80 mm[Hg] mm[Hg] Method: Stand PULSE 2019-04-07 18:10:28 88 /min /min RESP RATE 2019-04-07 18:10:28 18 /min /min TEMP 2019-04-07 18:10:28 97.6 [degF] Procedures This patient has no known procedures. Results This patient has no known results.
--- OUTSIDE RECORDS SUMMARY | 2019-04-26 13:57 | XMS REPORT ---
:1930 Author Organization [facility] Care Team Providers Name Role Phone Unavailable [...] pain d 03-15 10:50:00 (Garret) 10:25: Carl [id number] Respiratory dyspnea Respirator Resolve 2019-03-18 Tania present y d 03-15 10:50:00 (Garret) 10:25: Carl 00 [id number] Respiratory lung sounds Respirator Resolve 2019-03-18 Tania deficit y d 03-15 10:50:00 (Garret) 10:25: [id number] Sensory impaired Sensory Resolve 2019-03-18 Tania hearing d - 10:50:00 (Garret) 10:25: [id number] Integument skin Integument Active Tania integrity 03-15 (Garret) risk 10:25: [id number] Elimination urinary Eliminatio Resolve 2019-03-18 Tania incontinenc n d 03-15 10:50:00 (Garret) e 10:25: [id number] Neuro confusion Neuro/Emot Resolve 2019-03-18 Tania present ion d 03-15 10:50:00 (Garret) 10:25: [id number] Neuro anxiety Neuro/Emot Resolve 2019-03-18 Tania present ion d 03-15 10:50:00 (Garret) 10:25: [id number] Neuro impaired Neuro/Emot Resolve 2019-03-18 Tania decision-ma ion d 03-15 10:50:00 (Garret) shahana 10:25: [id number] Neuro memory Neuro/Emot Resolve 2019-03-18 Tania deficit ion d 03-15 10:50:00 (Garret) needing 10:25: Carl 00 [id number] Activity ADL Activity Resolve 2019-03-18 Tania assistance d 03-15 10:50:00 (Garret) required 10:25: [id number] Activity self-care Activity Resolve 2019-03-18 Tania deficit d 03-15 10:50:00 (Garret) 10:25: [id number] Safety fall risk Safety Resolve 2019-03-18 Tania factor d 03-15 10:50:00 (Garret) present 10:25: [id number] Safety cannot be Safety Resolve 2019-03-18 Tania left alone d 03-15 10:50:00 (Garret) 10:25: [id number] Safety risk for Safety Resolve 2019-03-18 Tania hospitaliza d - 10:50:00 (Garret) tion 10:25: [id number] Medication oral med Meds Resolve 2019-03-18 Tania assistance d 03-15 10:50:00 (Garret) required 10:25: Carl [id number] Musculoskel requires Musculoske Resolve 2019-03-18 Tania etal human letal d 03-15 10:50:00 (Garret) assist to 10:25: Carl leave home [id number] Safety knowledge/s Safety Resolve 2019-03-18 Shantel kill d 03-15 10:50:00 Ibarra deficit: pt 15:39: [id number] Bed mobility/tr PT/OT: Bed Active Shantel Mobility/Tr ansfer Mobility/T 03-15 Ibarra ansfer device ransfer 15:39: [id number] present 00 Bed transfer PT/OT: Bed Active Shantel Mobility/Tr deficit: Mobility/T 03-15 Ibarra ansfer shower/tub ransfer 15:39: [id number] 00 Bed knowledge/s PT/OT: Bed Active Shantel Mobility/Tr kill Mobility/T 03-15 Ibarra ansfer deficit: pt ransfer 15:39: [id number] 00 Balance/End balance/home health care coordinator PT/OT: Active Shantel urance rdination Balance/En 03-15 Ibarra deficit durance 15:39: [id number] 00 Balance/End endurance PT/OT: Active Shantel urance deficit Balance/En 03-15 Ibarra durance 15:39: [id number] 00 Balance/End knowledge/s PT/OT: Active Shantel urance kill Balance/En 03-15 Ibarra deficit: pt durance 15:39: [id number] 00 Gait/Locomo gait PT/OT: Active Shantel tion assistive Gait/Locom 03-15 Ibarra problems device otion 15:39: [id number] present 00 Gait/Locomo gait PT/OT: Active Shantel tion deficit Gait/Locom 03-15 Ibarra problems otion 15:39: [id number] 00 Gait/Locomo knowledge/s PT/OT: Active Shantel tion kill Gait/Locom 1-27 Ibarra problems deficit: pt otion 15:39: [id number] 00 Safety can be left Safety Resolve 2019-2019-03-18 Ivette alone for d 1-30 10:50:00 Moreno only short 10:50: periods 00 Safety knowledge/s Safety Unknown 2019- Shantel lara - Ibarra deficit: pt 13:33: [id number] 00 Safety risk for Safety Unknown Shantel [facility] 03-18 Ibarra tion 13:33: [id number] 00 Safety can be left Safety Active Ivette alone for 2- Moreno only short 09:30: periods 00 Safety knowledge/s Safety Resolve 2019-2019-03-29 Ivette kill d 2- 11:00:00 Moreno deficit: pt 09:30: 00 Safety risk for Safety Resolve 2019-2019-03-29 Ivette hospitaliza d 2- 11:00:00 Moreno tion 09:30: 00 Musculoskel requires Musculoske Resolve 2019-03-29 Ivette etal human letal d 2-06 11:00:00 Moreno assist to 10:10: leave home 00 Safety risk for Safety Resolve 2019-2019-04-01 Shantel hospitaliza d 2- 10:08:00 Ibarra tion 13:42: [id number] 00 Musculoskel requires Musculoske Resolve 2019-04-01 Ivette etal human letal d 2-13 10:08:00 Moreno assist to 10:08: leave home 00 Allergies, Adverse Reactions, Alerts Allergy Name Allergy Status Severity Reaction(s) Onset Inactive Treating Comments Type Date Date Clinician Penicillins Unknown Active Unknown Reaction 2018-02 Interface Unknown 2-06 Sulfa Unknown Active Unknown Reaction 2018-02 Interface (Sulfonamide Unknown 2-06 Antibiotics) codeine Base Active Unknown Reaction 2018-02 Interface Ingredient Unknown 2-06 pravastatin Base Active Unknown Reaction 2018-02 Unknown Ingredient Unknown 2-06 aspirin Base Active Unknown Reaction 2018-02 Interface Ingredient Unknown 2-06 iodine Unknown Active Unknown Reaction 2018-02 Interface Unknown 2-06 warfarin Base Active Unknown Reaction 2018-02 Interface Ingredient Unknown 2-06 Blood Unknown Active Unknown Reaction 2018-02 Interface Thinners Unknown 2-06 Medications Ordered Filled Start Stop Current Ordering Indication Dosage Frequency Signature Comments Components Medication Medication Date Date Medication? Clinician (SIG) Name Name losartan 25 losartan 25 2019- Yes Frankie Unknown Unknown mg tablet mg tablet 03-15 Tee BRADLEY amLODIPine amLODIPine 2019- Yes Frankie Unknown Unknown 5 mg tablet 5 mg tablet 03-15 Tee BRADLEY naproxen naproxen 2019-0 Yes Frankie Unknown Unknown sodium 220 sodium 220 03-15 Tee BRADLEY mg tablet mg tablet Cholecalcif Cholecalcif 2019- Yes Frankie Unknown Unknown karely karely 03-15 Tee BRADLEY (Vitamin (Vitamin D3) D3) Lactase Lactase 2019- Yes Frankie Unknown Unknown 03-15 Tee BRADLEY acetaminoph acetaminoph Yes Frankie Unknown Unknown en 500 mg en 500 mg 03-15 Tee BRADLEY tablet tablet famotidine famotidine Yes Frankie Unknown Unknown 20 mg 20 mg 03-15 Tee BRADLEY tablet tablet predniSONE predniSONE Yes Frankie Unknown Unknown 5 mg tablet 5 mg tablet 03-15 Tee BRADLEY desloratadi desloratadi Yes Frankie Unknown Unknown ne 5 mg ne 5 mg 03-15 Tee BRADLEY tablet tablet Senna Plus Senna Plus Yes Frankie Unknown Unknown 8.6 mg-50 8.6 mg-50 03-15 Tee BRADLEY mg capsule mg capsule Vitamin Vitamin 2019- Yes Frankie Unknown Unknown B-12 500 B-12 500 03-15 Tee BRADLEY mcg tablet mcg tablet PreserVisio PreserVisio Yes Frankie Unknown Unknown n AREDS-2 n AREDS-2 03-15 Tee BRADLEY 250 mg-200 250 mg-200 unit-40 unit-40 mg-1 mg mg-1 mg capsule capsule Vital Signs Vital Name Observation Time Observation Value Comments SYSTOLIC mm[Hg] 2019-04-01 18:10:22 130 mm[Hg] mm[Hg] Method: Sit SYSTOLIC mm[Hg] 2019-03-16 18:10:06 150 mm[Hg] mm[Hg] Method: Stand DIASTOLIC mm[Hg] 2019-04-01 18:10:22 70 mm[Hg] mm[Hg] Method: Sit DIASTOLIC mm[Hg] 2019-03-16 18:10:06 80 mm[Hg] mm[Hg] Method: Stand PULSE 2019-04-01 18:10:22 73 /min /min RESP RATE 2019-04-01 18:10:22 18 /min /min TEMP 2019-04-01 18:10:22 98 [degF] Procedures This patient has no known procedures. Results This patient has no known results.
--- OUTSIDE RECORDS SUMMARY | 2019-04-26 13:57 | XMS REPORT ---
:1930 Author Organization [facility] Care Team Providers Name Role Phone Unavailable [...] pain d 03-15 10:50:00 (Garret) 10:25: Carl [id number] Respiratory dyspnea Respirator Resolve 2019-03-18 Tania present y d 03-15 10:50:00 (Garret) 10:25: Carl 00 [id number] Respiratory lung sounds Respirator Resolve 2019-03-18 Tania deficit y d 03-15 10:50:00 (Garret) 10:25: [id number] Sensory impaired Sensory Resolve 2019-03-18 Tania hearing d 03-15 10:50:00 (Garret) 10:25: [id number] Integument skin Integument Resolve 2019-04-07 Tania integrity d 03-15 09:50:00 (Garret) risk 10:25: [id number] Elimination urinary Eliminatio Resolve 2019-03-18 Tania incontinenc n d 03-15 10:50:00 (Garret) e 10:25: [id number] Neuro confusion Neuro/Emot Resolve 2019-03-18 Tania present ion d 03-15 10:50:00 (Garret) 10:25: [id number] Neuro anxiety Neuro/Emot Resolve 2019-03-18 Tania present ion d 03-15 10:50:00 (Garret) 10:25: [id number] Neuro impaired Neuro/Emot Resolve 2019-03-18 Tania decision-ma ion d 03-15 10:50:00 (Garret) shahana 10:25: [id number] Neuro memory Neuro/Emot Resolve 2019-03-18 Tania deficit ion d 03-15 10:50:00 (Garret) needing 10:25: Carl 00 [id number] Activity ADL Activity Resolve 2019-03-18 Tania assistance d 03-15 10:50:00 (Garret) required 10:25: [id number] Activity self-care Activity Resolve 2019-03-18 Tania deficit d 03-15 10:50:00 (Garret) 10:25: [id number] Safety fall risk Safety Resolve 2019-03-18 Tania factor d 03-15 10:50:00 (Garret) present 10:25: [id number] Safety cannot be Safety Resolve 2019-03-18 Tania left alone d 03-15 10:50:00 (Garret) 10:25: [id number] Safety risk for Safety Resolve 2019-03-18 Tania hospitaliza d 03-15 10:50:00 (Garret) tion 10:25: Carl [id number] Medication oral med Meds Resolve 2019-03-18 Tania assistance d 03-15 10:50:00 (Garret) required 10:25: Carl [id number] Musculoskel requires Musculoske Resolve 2019-03-18 Tania etal human letal d 03-15 10:50:00 (Garret) assist to 10:25: Carl leave home [id number] Safety knowledge/s Safety Resolve 2019-03-18 Shantel kill d 03-15 10:50:00 Ibarra deficit: pt 15:39: [id number] Bed mobility/tr PT/OT: Bed Resolve 2019-03-31 Shantel Mobility/Tr ansfer Mobility/T d 03-15 13:55:00 Ibarra ansfer device ransfer 15:39: [id number] present 00 Bed transfer PT/OT: Bed Resolve 2019-03-31 Shantel Mobility/Tr deficit: Mobility/T d 03-15 13:55:00 Ibarra ansfer shower/tub ransfer 15:39: [id number] 00 Bed knowledge/s PT/OT: Bed Resolve 2019-03-31 Shantel Mobility/Tr kill Mobility/T d 03-15 13:55:00 Ibarra ansfer deficit: pt ransfer 15:39: [id number] Balance/End balance/resident services coordinator PT/OT: Resolve 2019-03-31 Shantel russance rdination Balance/En d 03-15 13:55:00 Ibarra deficit durance 15:39: [id number] 00 Balance/End endurance PT/OT: Resolve 2019-03-31 Shantel urance deficit Balance/En d 03-15 13:55:00 Ibarra durance 15:39: [id number] 00 Balance/End knowledge/s PT/OT: Resolve 2019-03-31 Shantel urance kill Balance/En d 03-15 13:55:00 Ibarra deficit: pt durance 15:39: [id number] 00 Gait/Locomo gait PT/OT: Resolve 2019-03-31 Shantel tion assistive Gait/Locom d 03-15 13:55:00 Ibarra problems device otion 15:39: [id number] present 00 Gait/Locomo gait PT/OT: Resolve 2019-03-31 Shantel baca deficit Gait/Locom d 03-15 13:55:00 Ibarra problems otion 15:39: [id number] 00 Gait/Locomo knowledge/s PT/OT: Resolve 2019-03-31 Shantel baca kill Gait/Locom d 03-15 13:55:00 Ibarra problems deficit: pt otion 15:39: [id number] 00 Safety can be left Safety Resolve 2019-03-18 Ivette alone for d 03-18 10:50:00 Moreno only short 10:50: periods 00 Safety knowledge/s Safety Unknown Shantel lara 03-18 Ibarra deficit: pt 13:33: [id number] 00 Safety risk for Safety Unknown Shantel patela 03-18 Ibarra tion 13:33: [id number] 00 Safety can be left Safety Resolve [...] hospitaliza d 2-11 10:08:00 Ibarra tion 13:42: [id number] 00 Musculoskel requires Musculoske Resolve 2019-04-01 Ivette [...]
--- OUTSIDE RECORDS SUMMARY | 2019-04-26 13:57 | XMS REPORT ---
:1930 Author Organization [facility] Care Team Providers Name Role Phone Unavailable [...] pain d 03-15 10:50:00 (Garret) 10:25: Carl [id number] Respiratory dyspnea Respirator Resolve 2019-03-18 Tania present y d 03-15 10:50:00 (Garret) 10:25: Carl 00 [id number] Respiratory lung sounds Respirator Resolve 2019-03-18 Tania deficit y d 03-15 10:50:00 (Garret) 10:25: [id number] Sensory impaired Sensory Resolve 2019-03-18 Tania hearing d 03-15 10:50:00 (Garret) 10:25: [id number] Integument skin Integument Resolve 2019-04-07 Tania integrity d 03-15 09:50:00 (Garret) risk 10:25: [id number] Elimination urinary Eliminatio Resolve 2019-03-18 Tania incontinenc n d 03-15 10:50:00 (Garret) e 10:25: [id number] Neuro confusion Neuro/Emot Resolve 2019-03-18 Tania present ion d 03-15 10:50:00 (Garret) 10:25: [id number] Neuro anxiety Neuro/Emot Resolve 2019-03-18 Tania present ion d 03-15 10:50:00 (Garret) 10:25: [id number] Neuro impaired Neuro/Emot Resolve 2019-03-18 Tania decision-ma ion d 03-15 10:50:00 (Garret) shahana 10:25: [id number] Neuro memory Neuro/Emot Resolve 2019-03-18 Tania deficit ion d 03-15 10:50:00 (Garret) needing 10:25: Carl 00 [id number] Activity ADL Activity Resolve 2019-03-18 Tania assistance d 03-15 10:50:00 (Garret) required 10:25: [id number] Activity self-care Activity Resolve 2019-03-18 Tania deficit d 03-15 10:50:00 (Garret) 10:25: [id number] Safety fall risk Safety Resolve 2019-03-18 Tania factor d 03-15 10:50:00 (Garret) present 10:25: [id number] Safety cannot be Safety Resolve 2019-03-18 Tania left alone d 03-15 10:50:00 (Garret) 10:25: [id number] Safety risk for Safety Resolve 2019-03-18 Tania hospitaliza d 03-15 10:50:00 (Garret) tion 10:25: Carl [id number] Medication oral med Meds Resolve 2019-03-18 Tania assistance d 03-15 10:50:00 (Garret) required 10:25: Carl [id number] Musculoskel requires Musculoske Resolve 2019-03-18 Tania etal human letal d 03-15 10:50:00 (Garret) assist to 10:25: Carl leave home [id number] Safety knowledge/s Safety Resolve 2019-03-18 Shantel kill d 03-15 10:50:00 Ibarra deficit: pt 15:39: [id number] Bed mobility/tr PT/OT: Bed Resolve 2019-03-31 Shantel Mobility/Tr ansfer Mobility/T d 03-15 13:55:00 Ibarra ansfer device ransfer 15:39: [id number] present 00 Bed transfer PT/OT: Bed Resolve 2019-03-31 Shantel Mobility/Tr deficit: Mobility/T d 03-15 13:55:00 Ibarra ansfer shower/tub ransfer 15:39: [id number] Bed knowledge/s PT/OT: Bed Resolve 2019-03-31 Shantel Mobility/Tr kill Mobility/T d 03-15 13:55:00 Ibarra ansfer deficit: pt ransfer 15:39: [id number] 00 Balance/End balance/in school suspension coordinator PT/OT: Resolve 2019-03-31 Shantel russance rdination Balance/En d 03-15 13:55:00 Ibarra deficit durance 15:39: [id number] 00 Balance/End endurance PT/OT: Resolve 2019-03-31 Shantel urance deficit Balance/En d 03-15 13:55:00 Ibarra durance 15:39: [id number] 00 Balance/End knowledge/s PT/OT: Resolve 2019-03-31 Shantel urance kill Balance/En d 03-15 13:55:00 Ibarra deficit: pt durance 15:39: [id number] 00 Gait/Locomo gait PT/OT: Resolve 2019-03-31 Shantel tion assistive Gait/Locom d 03-15 13:55:00 Ibarra problems device otion 15:39: [id number] present 00 Gait/Locomo gait PT/OT: Resolve 2019-03-31 Shantel baca deficit Gait/Locom d 03-15 13:55:00 Ibarra problems otion 15:39: [id number] 00 Gait/Locomo knowledge/s PT/OT: Resolve 2019-03-31 Shantel baca kill Gait/Locom d 03-15 13:55:00 Ibarra problems deficit: pt otion 15:39: [id number] 00 Safety can be left Safety Resolve 2019-03-18 Ivette alone for d 03-18 10:50:00 Moreno only short 10:50: periods 00 Safety knowledge/s Safety Unknown Shantel lara 03-18 Ibarra deficit: pt 13:33: [id number] Safety risk for Safety Unknown Shantel patela 03-18 Ibarra tion 13:33: [id number] 00 Safety can be left Safety Resolve [...] hospitaliza d 2-11 10:08:00 Ibarra tion 13:42: [id number] 00 Musculoskel requires Musculoske Resolve 2019-04-01 Ivette [...]
--- OUTSIDE RECORDS SUMMARY | 2019-04-26 13:57 | XMS REPORT | Continuity of Care Document ---
:1930 External Reference #:[id number] Author Name Tee David MD Address [address] [place] [address] Care Team Providers Name Role Phone LioBritney - Urology Care Team Information Mortar Mixer Operator [phone] Tee David MD - Family Care Team Information Mortar Mixer Operator Medicine Matthew Ornelas - Urology Care Team Information Mortar Mixer Operator [phone] Problems Active Problems Provider Date Closed intertrochanteric fracture Ruy Sweeney M.D. 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 Onset: 04/10/2016 Other insomnia Ruy [...] 05/10/2015 Iodine hives 04/18/2016 Statins intolerance 09/18/2017 Blood Thinners severe bruising 03/01/2019 Shellfish-Derived Products Nausea Severe anaphylactic 04/05/2019 Medications Active Medications SIG Qnty Indications Ordering Date Provider Prednisone 3 daily in Am for 165tabs Tee Fawad 04/05/2019 2.5mg April, then MD Frankie Tablets alternate 2 and 3 every other Am for May. Famotidine take two tablets 60tabs Tee Celestin 03/15/2019 20mg Tablets by mouth in MD Frankie evening Gel-Foam Cushion for wheelchair Tee PortilloKayleigh 03/11/2019 [facility] [place] r41.81 MD Frankie last seen 03/19/19 Vitamin D3 1 by mouth every 30tabs Ruy A. 07/15/2018 1000Unit day Paige Sweeney Tablets ALL Day Pain Relief Take 1 Tablet By 60tabs Albin F. 06/20/2018 Mouth Every 12 Paige Verduzco 220mg Tablets Hours With Food Or Milk as Needed Magnesium Citrate 10 milliliters by 296ml Ruy A. 05/14/2017 mouth at night as Paige Sweeney 1.745GM/30ML Solution needed for constipation. Fiber Complete 3 by mouth every 90tabs Ruy A. 01/10/2017 Tablets day Paige Sweeney Amlodipine Besylate take 1 tablet by 30tabs Ruy A. 09/17/2016 5mg mouth every day Paige Sweeney Tablets Miralax 17 gm powder in 1Bottle Ruy A. 09/13/2016 [id number] Powder fluid daily as Paige Sweeney needed Desloratadine Take 1 Tablet By 30tabs Albin FKayleigh 09/09/2016 5mg Mouth Every Day Paige Verduzco Tablets Vitamin B12 take two tablet by Unknown 500mcg mouth every day Tablets (supplement) Losartan Potassium take 1 tablet by 30tabs Ruy A. 50mg mouth every day Paige Sweeney Tablets Preservision Areds 2 by mouth every 60caps Ruy A. day Paige Sweeney Capsules Tums Ultra 1000 three times a day 90units Ruy A. 1000mg as needed Paige Sweeney Chewtabs Lactaid prn Unknown 3000Unit Tablets Acetaminophen Extra 2 by mouth twice a 120tabs Tee T. Strength day MD Frankie 500mg Tablets History Medications Pressure Relieving use for prevention 1units Tee Celestin 03/30/2019 - Seat Cushion of ulcers MD Frankie 04/05/2019 Fiber-Lax Take 3 Tablets By 90tabs Ruy Sweeney, 03/18/2019 - 625mg Mouth Every Day M.D. 04/05/2019 Tablets Prednisone take 1.5 tablet in 51tabs Tee TKayleigh 03/15/2019 - 5mg am, alternating MD Frankie 04/05/2019 Tablets every other daywith 2 tablets in am for the month of march 2019. further taper planned. Prednisone 1 tab by mouth 30tabs Tee Celestin 03/05/2019 - 10mg every day MD Frankie 03/15/2019 Tablets Clotrimazole Apply To The 15un Ruy Sweeney, 01/12/2019 - 1% Affected Lesions M.D. 03/01/2019 Cream Two Times Daily Pepcid Take 1 tablet 30tabs Ruy Sweeney, 12/23/2018 - 40mg Tablets every evening, in M.D. 03/15/2019 place of Zantac. Needs to be delivered to patient. Note Continue Zantac Ruy Sweeney, 12/23/2018 - 150 mg per day M.D. 12/23/2018 until Pepcid received, once Pepcid received, stop zantac, start pepcid 40 mg in the evening once daily.. Ranitidine HCL Take 1 Tablet By 90tabs Ruy Sweeney, 12/21/2018 - Mouth Every Day M.D. 12/28/2018 150mg Tablets Prednisone take 1 tablet in 18tabs Tee Celestin 12/02/2018 - 10mg the morning daily MD Frankie 03/05/2019 Tablets Prednisone take 1 tablet 30tabs M35.3 Tee T. 12/02/2018 - 5mg daily in addition MD Frankie 03/01/2019 Tablets to 10 mg tablet. daughter will poultry picking machine tender. do not deliver. Immunizations CPT Code Status Date Vaccine Lot # [id number] Given 11/12/2016 Influenza Vac, Quadriv[place], [place] [address] Given 10/18/2015 High-Dose, Influenza Virus Vacccine-fluzone 65 and older [id number] Given 05/10/2015 Pneumococcal Conjugate Vacc-13 [id number] Vital Signs Date Vital Result Comment 04/05/2019 12:57pm BP Systolic 116 mmHg BP Diastolic 66 mmHg Heart Rate 84 /min Body Temperature 97.3 F Height 59.5 inches 4'11.50" Weight 128.00 lb BMI (Body Mass Index) 25.4 kg/m2 03/01/2019 2:21pm BP Systolic 150 mmHg BP Diastolic 56 mmHg Heart Rate 64 /min Body Temperature 97.9 F Height 59.5 inches 4'11.50" Weight 125.00 lb BMI (Body Mass Index) 24.8 kg/m2 Results Test Acquired Date Facility Test Result H/L Range Note Laboratory test 03/01/2019 [facility] Glucose Serum 147 High 70-105 finding (607)- - Laboratory test 02/01/2019 [facility] Viral Culture <pending> finding Non Respiratory Herpes Simplex 02/01/2019 [facility] Herpes Source [place] 1 PCR HSV 1 PCR Negative Negative HSV 2 PCR Negative Negative 2 Varicella Zoster Culture 02/01/2019 [facility] Varicella Zoster Source [place] Varicella Zoster Result Negative Negative 3 Urinalysis Profile 01/28/2019 [facility] Urine Color Yellow Urine Appearance Clear Urine Specific [place] 1.005 Low 1.010-1.030 Urine pH 6.0 Normal 5-9 Urine Urobilinogen Negative Negative Urine Ketones Negative Negative Urine Protein Negative Negative Urine Leukocytes 1+ Abnormal Negative Urine Blood 3+ Abnormal Negative * * Abnormal Negative 4 Urine Nitrite Negative Negative Urine Bilirubin Negative Negative Urine Glucose Negative Negative Urine White Blood Cell 1+(6-10/hpf) Abnormal Absent Urine Red Blood Cell 3+(>10/hpf) Abnormal Absent Urine Bacteria 1+ Abnormal Absent Urine Squamous Epithelial Cell Present Abnormal Absent Urine Culture And 01/28/2019 [facility] Urine Culture SEE RESULT BELOW 5 Sensitivities Laboratory test finding 01/18/2019 [facility] Lactic Acid 1.4 mmol/L Normal 0.5- 2.0 6 Ammonia 38 mcmol/L Normal 16-53 CBC Auto Diff 01/18/2019 [facility] White Blood Count 13.8 10^3/uL High 3.5- 10.8 Red Blood Count 4.27 10^6/uL Normal 3.70-4.87 Hemoglobin 13.8 g/dL Normal 12.0-16.0 Hematocrit 40 % Normal 35-47 Mean Corpuscular Volume 93 fL Normal 80-97 Mean Corpuscular Hemoglobin 32 pg High 27-31 Mean Corpuscular HGB Conc 35 g/dL Normal 31-36 Red Cell Distribution Width 13 % Normal 10-15 Platelet Count 371 10^3/uL Normal 150-450 Mean Platelet Volume 6.0 fL Low 7.4-10.4 Abs Neutrophils 10.7 10^3/uL High 1.5-7.7 Abs Lymphocytes 2.1 10^3/uL Normal 1.0-4.8 Abs Monocytes 0.9 10^3/uL High 0-0.8 Abs Eosinophils 0.0 10^3/uL Normal 0-0.6 Abs Basophils 0.1 10^3/uL Normal 0-0.2 Abs Nucleated RBC 0.0 10^3/uL Granulocyte % 77.7 % Lymphocyte % 15.0 % Monocyte % 6.2 % Eosinophil % 0.3 % Basophil % 0.8 % Nucleated Red Blood Cells % 0.0 Comp Metabolic Panel 01/18/2019 [facility] Sodium 129 mmol/L Low 135-145 Potassium 3.4 mmol/L Low 3.5-5.0 Chloride 89 mmol/L Low 101-111 Co2 Carbon Dioxide 30 mmol/L Normal 22-32 Anion Gap 10 mmol/L Normal 2-11 Glucose 124 mg/dL High 70-100 Blood Urea Nitrogen 22 mg/dL Normal 6-24 Creatinine 1.00 mg/dL High 0.51-0.95 BUN/Creatinine Ratio 22.0 High 8-20 Calcium 9.7 mg/dL Normal 8.6-10.3 Total Protein 7.4 g/dL Normal 6.4-8.9 Albumin 4.3 g/dL Normal 3.2-5.2 Globulin 3.1 g/dL Normal 2-4 Albumin/Globulin Ratio 1.4 Normal 1-3 Total Bilirubin 0.70 mg/dL Normal 0.2-1.0 Alkaline Phosphatase 39 U/L Normal 34-104 Alt 15 U/L Normal 7-52 Ast 13 U/L Normal 13-39 Egfr Non- 52.3 >60 Egfr 63.3 >60 7 Laboratory test finding 01/18/2019 [facility] Magnesium 2.0 mg/dL Normal 1.9- 2.7 Creatine Kinase(CK) 60 U/L Normal 10-223 Troponin-I (TnI) 0.01 ng/mL <0.03 8 Acetaminophen < 15 g/mL 9 Salicylate < 2.50 mg/dL <30 TSH (Thyroid Stim Horm) 1.25 mcIU/mL Normal 0.34-5.60 Laboratory test 12/01/2018 [facility] Erythrocyte Sed 63 mm/Hr High 0-29 10, 11 finding Rate Laboratory test 10/15/2018 [facility] Sedimentation Rate 29mm finding (607)- - 1 [id number] 2 ADDITIONAL INFORMATION This test has been modified from the commissary clerk's instructions. Its performance characteristics were determined by [facility] in a manner consistent with CLIA requirements. This test has not been cleared or approved by the U.S. Food and Drug Administration. Test Performed by: [facility] [place] [address] Pocket Grinder Operator: Samuel Foreman M.D. Ph.D.; CLIA# [id number] 3 ADDITIONAL INFORMATION This test was developed and its performance characteristics determined by [facility] in a manner consistent with CLIA requirements. This test has not been cleared or approved by the U.S. Food and Drug Administration. Test Performed by: [facility] [place] [address] Pocket Grinder Operator: Samuel Foreman M.D. Ph.D.; CLIA# [id number] 4 *Ascorbic acid is present which may interfere with detection of blood. 5 SEE RESULT BELOW Name: ADDIS TOLEDO : [address]: Gretchen Hall MD Acct: [id number] Unit: [id number] AGE: 88 Location: ED Re01/27/19 SEX: F Status: DEP ER SPEC: [id number] REGLA: 01/28/19 [facility] DR: Ivette STANFORD REQ: [id number] RECD: 01/28/19 STATUS: DIMA KAT DR: Gretchen Sweeney MD _ SOURCE: URINE SPDESC: ORDERED: Urine Culture Procedure Result Reported Site Urine Culture Final 01/29/19- 1347 ML No growth of clinically significant organisms * ML - Main Lab . END OF REPORT DEPARTMENT OF PATHOLOGY, [address] [place] [address] Kojo Grimm M.D. Director [facility] # [id number] [facility] Severe Sepsis and Septic Shock Management Bundle Measure requires all lactic acids initially measuring >2.0 mmol/L be repeated. 7 Because ethnic data is not always readily [...] 15-29 5 Kidney failure <15 (or dialysis) 8 Troponin-I testing on Plasma Separator Tubes (PST) has a known false positive rate of 0.20-0.40%. All positive troponins reflex immediately to secondary confirmatory testing. Using the [employer] DxI 800 Access Immunoassay systems, the 99th percentile upper reference limit was demonstrated to be < 0.03 ng/mL. 9 Therapeutic concentration: <50 ug/mL Toxic concentration: >120 ug/mL 10 [id number] Procedures Date Code Description Status 02/17/2014 [id number] Mammogram Completed 02/17/2005 [id number] Colonoscopy Completed Medical Devices Description No Information Available Encounters Type Date Location Provider Dx Diagnosis Office Visit 03/[facility] Tee Celestin F03.90 Unspecified 2:00p MD Frankie dementia without behavioral disturbance R73.09 Other abnormal glucose Office Visit 02/01/2019 10:00a Mely Celestin R33.9 Retention of Office MD Frankie urine, unspecified B02.9 Zoster without complications Office Visit 12/28/2018 1:20p Mely Celestin M35.3 Polymyalgia Office MD Frankie rheumatica Office Visit 10/14/2018 11:40a [facility] Ruy Sweeney M35.3 Polymyalgia Office Paige rheumatica Assessments Date Code Description Provider 04/05/2019 M35.3 Polymyalgia rheumatica Tee David MD 04/05/2019 F03.90 Unspecified dementia without behavioral Tee David MD disturbance 03/01/2019 F03.90 Unspecified dementia without behavioral Tee David MD disturbance 03/01/2019 R73.09 Other abnormal glucose Tee David MD 02/07/2019 T83.098A Other mechanical complication of other Albin Verduzco M.D. urinary catheter, initial encounter 02/01/2019 R33.9 Retention of urine, unspecified Tee David MD 02/01/2019 B02.9 Zoster without complications Tee David MD 12/28/2018 M35.3 Polymyalgia rheumatica Tee David MD 10/15/2018 M35.3 Polymyalgia rheumatica Tee David MD 10/14/2018 M35.3 Polymyalgia rheumatica Ruy Sweeney M.D. Plan of Treatment Future Appointment(s):06/14/2019 1:40 pm - Tee David MD at [facility]04/05/2019 - Tee David, MDM35.3 Polymyalgia rheumaticaFollow up:end may.F03.90 Unspecified dementia without behavioral disturbanceAllNew Medication:Prednisone 2.5 mg - 3 daily in Am for April, then alternate 2 and 3 every other Am for May.Comments:Medication Management Patient Understands medications she's taking? Yes No Are there Barriers to Adherence? Yes No Has the patient been asked about herbal supplements and therapies, and OTC meds? Yes No Functional Status Description No Information Available Mental Status Description No Information Available Referrals Refer to Reason for Referral Status Appt Date Britney Vaca evaluate and treat Scheduled 02/16/[address] [facility] 4th Floor ABDOULAYE [place]. [address] [phone] Matthew Ornelas evaluate and tx Sent [facility] [address] [place] [address] [phone]
--- OUTSIDE RECORDS SUMMARY | 2019-04-26 13:57 | XMS REPORT ---
:1930 Author Organization [facility] Care Team Providers Name Role Phone Unavailable [...] pain d 03-15 10:50:00 (Garret) 10:25: Carl [id number] Respiratory dyspnea Respirator Resolve 2019-03-18 Tania present y d 03-15 10:50:00 (Garret) 10:25: Carl 00 [id number] Respiratory lung sounds Respirator Resolve 2019-03-18 Tania deficit y d 03-15 10:50:00 (Garret) 10:25: [id number] Sensory impaired Sensory Resolve 2019-03-18 Tania hearing d - 10:50:00 (Garret) 10:25: [id number] Integument skin Integument Active Tania integrity 03-15 (Garret) risk 10:25: [id number] Elimination urinary Eliminatio Resolve 2019-03-18 Tania incontinenc n d 03-15 10:50:00 (Garret) e 10:25: [id number] Neuro confusion Neuro/Emot Resolve 2019-03-18 Tania present ion d 03-15 10:50:00 (Garret) 10:25: [id number] Neuro anxiety Neuro/Emot Resolve 2019-03-18 Tania present ion d 03-15 10:50:00 (Garret) 10:25: [id number] Neuro impaired Neuro/Emot Resolve 2019-03-18 Tania decision-ma ion d 03-15 10:50:00 (Garret) shahana 10:25: [id number] Neuro memory Neuro/Emot Resolve 2019-03-18 Tania deficit ion d 03-15 10:50:00 (Garret) needing 10:25: Carl 00 [id number] Activity ADL Activity Resolve 2019-03-18 Tania assistance d 03-15 10:50:00 (Garret) required 10:25: [id number] Activity self-care Activity Resolve 2019-03-18 Tania deficit d 03-15 10:50:00 (Garret) 10:25: [id number] Safety fall risk Safety Resolve 2019-03-18 Tania factor d 03-15 10:50:00 (Garret) present 10:25: [id number] Safety cannot be Safety Resolve 2019-03-18 Tania left alone d 03-15 10:50:00 (Garret) 10:25: [id number] Safety risk for Safety Resolve 2019-03-18 Tania hospitaliza d - 10:50:00 (Garret) tion 10:25: [id number] Medication oral med Meds Resolve 2019-03-18 Tania assistance d 03-15 10:50:00 (Garret) required 10:25: Carl [id number] Musculoskel requires Musculoske Resolve 2019-03-18 Tania etal human letal d 03-15 10:50:00 (Garret) assist to 10:25: Carl leave home [id number] Safety knowledge/s Safety Resolve 2019-03-18 Shantel kill d 03-15 10:50:00 Ibarra deficit: pt 15:39: [id number] Bed mobility/tr PT/OT: Bed Active Shantel Mobility/Tr ansfer Mobility/T 03-15 Ibarra ansfer device ransfer 15:39: [id number] present 00 Bed transfer PT/OT: Bed Active Shantel Mobility/Tr deficit: Mobility/T 03-15 Ibarra ansfer shower/tub ransfer 15:39: [id number] Bed knowledge/s PT/OT: Bed Active Shantel Mobility/Tr kill Mobility/T 03-15 Ibarra ansfer deficit: pt ransfer 15:39: [id number] 00 Balance/End balance/cook mess PT/OT: Active Shantel urance rdination Balance/En 03-15 Ibarra deficit durance 15:39: [id number] Balance/End endurance PT/OT: Active Shantel urance deficit Balance/En 03-15 Ibarra durance 15:39: [id number] 00 Balance/End knowledge/s PT/OT: Active Shantel urance kill Balance/En 03-15 Ibarra deficit: pt durance 15:39: [id number] 00 Gait/Locomo gait PT/OT: Active Shantel tion assistive Gait/Locom 03-15 Ibarra problems device otion 15:39: [id number] present 00 Gait/Locomo gait PT/OT: Active Shantel tion deficit Gait/Locom 03-15 Ibarra problems otion 15:39: [id number] Gait/Locomo knowledge/s PT/OT: Active Shantel tion kill Gait/Locom 1-27 Ibarra problems deficit: pt otion 15:39: [id number] 00 Safety can be left Safety Resolve 2020-0 2019-03-18 Ivette alone for d 03-18 10:50:00 Moreno only short 10:50: periods 00 Safety knowledge/s Safety Unknown 2019- Shantel kill 03-18 Ibarra deficit: pt 13:33: [id number] Safety risk for Safety Unknown Shantel hospitaliza 03-18 Ibarra tion 13:33: [id number] Safety can be left Safety Active 2020-0 Ivette alone for - Moreno only short 09:30: periods 00 Safety knowledge/s Safety Active 2019- Ivette kill 03-22 Moreno deficit: pt 09:30: 00 Safety risk for Safety Active 2019-0 Ivette hospitaliza 03-22 Moreno tion 09:30: 00 Musculoskel requires Musculoske Active Ivette etal human letal 06 Moreno assist to 10:10: leave home 00 Allergies, Adverse Reactions, Alerts Allergy Name Allergy Status Severity Reaction(s) Onset Inactive Treating Comments Type Date Date Clinician Penicillins Unknown Active Unknown Reaction 2018-02 Interface Unknown 2-06 Sulfa Unknown Active Unknown Reaction 2018-02 Interface (Sulfonamide Unknown 03-25 Antibiotics) codeine Base Active Unknown Reaction 2018-02 Interface Ingredient Unknown 2-06 pravastatin Base Active Unknown Reaction 2018-02 Unknown Ingredient Unknown 2-06 aspirin Base Active Unknown Reaction 2018-02 Interface Ingredient Unknown 2-06 iodine Unknown Active Unknown Reaction 2018-02 Interface Unknown 2-06 warfarin Base Active Unknown Reaction 2018-02 Interface Ingredient Unknown 2-06 Blood Unknown Active Unknown Reaction 2018-02 Interface Thinners Unknown 206 Medications Ordered Filled Start Stop Current Ordering Indication Dosage Frequency Signature Comments Components Medication Medication Date Date Medication? Clinician (SIG) Name Name losartan 25 losartan 25 Yes Frankie Unknown Unknown mg tablet mg tablet 03-15 Tee BRADLEY amLODIPine amLODIPine Yes Frankie Unknown Unknown 5 mg tablet 5 mg tablet 03-15 Tee BRADLEY naproxen naproxen Yes Frankie Unknown Unknown sodium 220 sodium 220 03-15 Tee BRADLEY mg tablet mg tablet Cholecalcif Cholecalcif Yes Frankie Unknown Unknown karely karely 03-15 Tee BRADLEY (Vitamin (Vitamin D3) D3) Lactase Lactase 2019-0 Yes Frankie Unknown Unknown 03-15 Tee BRADLEY acetaminoph acetaminoph 2019- Yes Frankie Unknown Unknown en 500 mg en 500 mg 03-15 Tee BRADLEY tablet tablet famotidine famotidine 2019-0 Yes Frankie Unknown Unknown 20 mg 20 mg 03-15 Tee BRADLEY tablet tablet predniSONE predniSONE 2019-0 Yes Frankie Unknown Unknown 5 mg tablet 5 mg tablet 03-15 Tee BRADLEY desloratadi desloratadi 2019-0 Yes Frankie Unknown Unknown ne 5 mg ne 5 mg 03-15 Tee BRADLEY tablet tablet Senna Plus Senna Plus 2019- Yes Frankie Unknown Unknown 8.6 mg-50 8.6 mg-50 03-15 Tee BRADLEY mg capsule mg capsule Vitamin Vitamin 2019- Yes [place] Unknown Unknown B-12 500 B-12 500 03-15 Tee BRADLEY mcg tablet mcg tablet PreserVisio PreserVisio Yes [place] Unknown Unknown n AREDS-2 n AREDS-2 03-15 Tee BRADLEY 250 mg-200 250 mg-200 unit-40 unit-40 mg-1 mg mg-1 mg capsule capsule Vital Signs Vital Name Observation Time Observation Value Comments SYSTOLIC mm[Hg] 2019-03-26 18:10:16 160 mm[Hg] mm[Hg] Method: Sit SYSTOLIC mm[Hg] 2019-03-16 18:10:06 150 mm[Hg] mm[Hg] Method: Stand DIASTOLIC mm[Hg] 2019-03-26 18:10:16 70 mm[Hg] mm[Hg] Method: Sit DIASTOLIC mm[Hg] 2019-03-16 18:10:06 80 mm[Hg] mm[Hg] Method: Stand PULSE 2019-03-26 18:10:16 64 /min /min RESP RATE 2019-03-25 18:10:15 18 /min /min TEMP 2019-03-26 18:10:16 97.9 [degF] Procedures This patient has no known procedures. Results This patient has no known results.
--- OUTSIDE RECORDS SUMMARY | 2019-04-26 13:57 | XMS REPORT ---
:1930 Author Organization [facility] Care Team Providers Name Role Phone Unavailable [...] pain d 03-15 10:50:00 (Garret) 10:25: Carl [id number] Respiratory dyspnea Respirator Resolve 2019-03-18 Tania present y d 03-15 10:50:00 (Garret) 10:25: Carl 00 [id number] Respiratory lung sounds Respirator Resolve 2019-03-18 Tania deficit y d 03-15 10:50:00 (Garret) 10:25: [id number] Sensory impaired Sensory Resolve 2019-03-18 Tania hearing d - 10:50:00 (Garret) 10:25: [id number] Integument skin Integument Active Tania integrity 03-15 (Garret) risk 10:25: [id number] Elimination urinary Eliminatio Resolve 2019-03-18 Tania incontinenc n d 03-15 10:50:00 (Garret) e 10:25: [id number] Neuro confusion Neuro/Emot Resolve 2019-03-18 Tania present ion d 03-15 10:50:00 (Garret) 10:25: [id number] Neuro anxiety Neuro/Emot Resolve 2019-03-18 Tania present ion d 03-15 10:50:00 (Garret) 10:25: [id number] Neuro impaired Neuro/Emot Resolve 2019-03-18 Tania decision-ma ion d 03-15 10:50:00 (Garret) shahana 10:25: [id number] Neuro memory Neuro/Emot Resolve 2019-03-18 Tania deficit ion d 03-15 10:50:00 (Garret) needing 10:25: Carl 00 [id number] Activity ADL Activity Resolve 2019-03-18 Tania assistance d 03-15 10:50:00 (Garret) required 10:25: [id number] Activity self-care Activity Resolve 2019-03-18 Tania deficit d 03-15 10:50:00 (Garret) 10:25: [id number] Safety fall risk Safety Resolve 2019-03-18 Tania factor d 03-15 10:50:00 (Garret) present 10:25: [id number] Safety cannot be Safety Resolve 2019-03-18 Tania left alone d 03-15 10:50:00 (Garret) 10:25: [id number] Safety risk for Safety Resolve 2019-03-18 Tania hospitaliza d - 10:50:00 (Garret) tion 10:25: [id number] Medication oral med Meds Resolve 2019-03-18 Tania assistance d 03-15 10:50:00 (Garret) required 10:25: Carl [id number] Musculoskel requires Musculoske Resolve 2019-03-18 Tania etal human letal d 03-15 10:50:00 (Garret) assist to 10:25: Carl leave home [id number] Safety knowledge/s Safety Resolve 2019-03-18 Shantel kill d 03-15 10:50:00 [place] deficit: pt 15:39: [id number] Bed mobility/tr PT/OT: Bed Active Shantel Mobility/Tr ansfer Mobility/T 03-15 [place] ansfer device ransfer 15:39: [id number] present 00 Bed transfer PT/OT: Bed Active Shantel Mobility/Tr deficit: Mobility/T 03-15 I[place] ansfer shower/tub ransfer 15:39: [id number] Bed knowledge/s PT/OT: Bed Active Shantel Mobility/Tr kill Mobility/T 03-15 Ibarra ansfer deficit: pt ransfer 15:39: [id number] 00 Balance/End balance/laboratory operations coordinator PT/OT: Active Shantel urance rdination Balance/En 03-15 [place]bar[place] deficit durance 15:39: [id number] Balance/End endurance PT/OT: Active Shantel urance deficit Balance/En 03-15 Ibarra durance 15:39: [id number] 00 Balance/End knowledge/s PT/OT: Active Shantel urance kill Balance/En 03-15 [place]barra deficit: pt durance 15:39: [id number] 00 Gait/Locomo gait PT/OT: Active Shantel tion assistive Gait/Locom 03-15 Ibarra problems device otion 15:39: [id number] present 00 Gait/Locomo gait PT/OT: Active Shantel tion deficit Gait/Locom 03-15 Ibarra problems otion 15:39: [id number] 00 Gait/Locomo knowledge/s PT/OT: Active Shantel tion kill Gait/Locom 1-27 Ibarra problems deficit: pt otion 15:39: [id number] 00 Safety can be left Safety Resolve 2019-2019-03-18 Ivette alone for d 03-18 10:50:00 [place] only short 10:50: periods 00 Safety knowledge/s Safety Unknown 2019- Shantel kill 03-18 Ibarra deficit: pt 13:33: [id number] 00 Safety risk for Safety Unknown Shantel hospitaliza 03-18 Ibarra tion 13:33: [id number] 00 Safety can be left Safety Active Ivette alone for 03-22 [place] only short 09:30: periods 00 Safety knowledge/s Safety Resolve 2019-2019-03-29 Ivette kill d 2- 11:00:00 [place] deficit: pt 09:30: 00 Safety risk for Safety Resolve 2019-03-29 Ivette hospitaliza d 2- 11:00:00 [place] tion 09:30: 00 Musculoskel requires Musculoske Resolve 2019-03-29 Ivette etal human letal d 03-25 11:00:00 [place] assist to 10:10: leave home 00 Safety risk for Safety Active Shantel hospitaliza - Ibarra tion 13:42: [id number] 00 Allergies, Adverse Reactions, Alerts Allergy Name [...] mg tablet 03-15 Tee BRADLEY amLODIPine amLODIPine 2020-0 Yes Frankie Unknown Unknown 5 mg tablet 5 mg tablet 03-15 Tee BRADLEY naproxen naproxen 2020-0 Yes Frankie Unknown Unknown sodium 220 sodium 220 03-15 Tee BRADLEY mg tablet mg tablet Cholecalcif Cholecalcif 2019-0 Yes Frankie Unknown Unknown karely karely 03-15 Tee BRADLEY (Vitamin (Vitamin D3) D3) Lactase Lactase 2020-0 Yes Frankie Unknown Unknown 03-15 Tee BRADLEY acetaminoph acetaminoph 2019-0 Yes Frankie Unknown Unknown en 500 mg [...] BRADLEY tablet tablet Senna Plus Senna Plus 2019-0 Yes Frankie Unknown Unknown 8.6 mg-50 8.6 mg-50 03-15 Tee BRADLEY mg capsule mg capsule Vitamin Vitamin 2019-0 Yes Frankie Unknown Unknown B-12 500 B-12 500 03-15 Tee BRADLEY mcg tablet mcg tablet PreserVisio PreserVisio Yes [place] Unknown Unknown n AREDS-2 n AREDS-2 03-15 Tee BRADLEY 250 mg-200 250 mg-200 unit-40 unit-40 mg-1 mg mg-1 mg capsule capsule Vital Signs Vital Name Observation Time Observation Value Comments SYSTOLIC mm[Hg] 2019-03-31 18:10:21 120 mm[Hg] mm[Hg] Method: Sit SYSTOLIC mm[Hg] 2019-03-16 18:10:06 150 mm[Hg] mm[Hg] Method: Stand DIASTOLIC mm[Hg] 2019-03-31 18:10:21 60 mm[Hg] mm[Hg] Method: Sit DIASTOLIC mm[Hg] 2019-03-16 18:10:06 80 mm[Hg] mm[Hg] Method: Stand PULSE 2019-03-31 18:10:21 64 /min /min RESP RATE 2019-03-29 18:10:19 18 /min /min TEMP 2019-03-31 18:10:21 98.6 [degF] Procedures This patient has no known procedures. Results This patient has no known results.
--- OUTSIDE RECORDS SUMMARY | 2019-04-26 13:57 | XMS REPORT ---
:1930 Author Organization [facility] Care Team Providers Name Role Phone Unavailable [...] pain d 03-15 10:50:00 (Garret) 10:25: Carl [id number] Respiratory dyspnea Respirator Resolve 2019-03-18 Tania present y d 03-15 10:50:00 (Garret) 10:25: Carl 00 [id number] Respiratory lung sounds Respirator Resolve 2019-03-18 Tania deficit y d 03-15 10:50:00 (Garret) 10:25: [id number] Sensory impaired Sensory Resolve 2019-03-18 Tania hearing d - 10:50:00 (Garret) 10:25: [id number] Integument skin Integument Active Tania integrity 03-15 (Garret) risk 10:25: [id number] Elimination urinary Eliminatio Resolve 2019-03-18 Tania incontinenc n d 03-15 10:50:00 (Garret) e 10:25: [id number] Neuro confusion Neuro/Emot Resolve 2019-03-18 Tania present ion d 03-15 10:50:00 (Garret) 10:25: [id number] Neuro anxiety Neuro/Emot Resolve 2019-03-18 Tania present ion d 03-15 10:50:00 (Garret) 10:25: [id number] Neuro impaired Neuro/Emot Resolve 2019-03-18 Tania decision-ma ion d 03-15 10:50:00 (Garret) shahana 10:25: [id number] Neuro memory Neuro/Emot Resolve 2019-03-18 Tania deficit ion d 03-15 10:50:00 (Garret) needing 10:25: Carl 00 [id number] Activity ADL Activity Resolve 2019-03-18 Tania assistance d 03-15 10:50:00 (Garret) required 10:25: [id number] Activity self-care Activity Resolve 2019-03-18 Tania deficit d 03-15 10:50:00 (Garret) 10:25: [id number] Safety fall risk Safety Resolve 2019-03-18 Tania factor d 03-15 10:50:00 (Garret) present 10:25: [id number] Safety cannot be Safety Resolve 2019-03-18 Tania left alone d 03-15 10:50:00 (Garret) 10:25: [id number] Safety risk for Safety Resolve 2019-03-18 Tania hospitaliza d - 10:50:00 (Garret) tion 10:25: [id number] Medication oral med Meds Resolve 2019-03-18 Tania assistance d 03-15 10:50:00 (Garret) required 10:25: Carl [id number] Musculoskel requires Musculoske Resolve 2019-03-18 Tania etal human letal d 03-15 10:50:00 (Garret) assist to 10:25: Carl leave home [id number] Safety knowledge/s Safety Resolve 2019-03-18 Shatnel kill d 03-15 10:50:00 Ibarra deficit: pt 15:39: [id number] 00 Bed mobility/tr PT/OT: Bed Resolve 2019-03-31 Shantel Mobility/Tr ansfer Mobility/T d 03-15 13:55:00 [place]barra ansfer device ransfer 15:39: [id number] present 00 Bed transfer PT/OT: Bed Resolve 2019-03-31 Shantel Mobility/Tr deficit: Mobility/T d 03-15 13:55:00 [place] ansfer shower/tub ransfer 15:39: [id number] 00 Bed knowledge/s PT/OT: Bed Resolve 2019-03-31 Shantel Mobility/Tr kill Mobility/T d 03-15 13:55:00 Ibarra ansfer deficit: pt ransfer 15:39: [id number] 00 Balance/End balance/home health outreach coordinator PT/OT: Resolve 2019-03-31 Shantel russance rdination Balance/En d 03-15 13:55:00 Ibarra deficit durance 15:39: [id number] 00 Balance/End endurance PT/OT: Resolve 2019-03-31 Shantel urance deficit Balance/En d 03-15 13:55:00 Ibarra durance 15:39: [id number] 00 Balance/End knowledge/s PT/OT: Resolve 2019-03-31 Shantel urance kill Balance/En d 03-15 13:55:00 [place]barra deficit: pt durance 15:39: [id number] 00 Gait/Locomo gait PT/OT: Resolve 2019-03-31 Shantel tion assistive Gait/Locom d 03-15 13:55:00 Ibarra problems device otion 15:39: [id number] present 00 Gait/Locomo gait PT/OT: Resolve 2019-03-31 Shantel tion deficit Gait/Locom d 03-15 13:55:00 Ibarra problems otion 15:39: [id number] 00 Gait/Locomo knowledge/s PT/OT: Resolve 2019-03-31 Shantel tion kill Gait/Locom d 03-15 13:55:00 Ibarra problems deficit: pt otion 15:39: [id number] 00 Safety can be left Safety Resolve 2019-03-18 Ivette alone for d 03-18 10:50:00 [place] only short 10:50: periods 00 Safety knowledge/s Safety Unknown Shantel kill 03-18 Ibarra deficit: pt 13:33: [id number] 00 Safety risk for Safety Unknown Shantel hospitaliza 03-18 Ibarra tion 13:33: [id number] 00 Safety can be left Safety Active Ivette alone for 03-22 [place] only short 09:30: periods 00 Safety knowledge/s Safety Resolve 2019-03-29 Ivette kill d 2- 11:00:00 [place] deficit: pt 09:30: 00 Safety risk for Safety Resolve 2019-03-29 Ivette hospitaliza d 2- 11:00:00 [place] tion 09:30: 00 Musculoskel requires Musculoske Resolve 2019-03-29 Ivette etal human letal d 2- 11:00:00 [place] assist to 10:10: leave home 00 Safety risk for Safety Resolve 2019-04-01 Shantel hospitaliza d 2- 10:08:00 [place]ra tion 13:42: [id number] 00 Musculoskel requires Musculoske Resolve 2019-04-01 Ivette etal human letal d 2 10:08:00 [place] assist to 10:08: leave home 00 Allergies, Adverse Reactions, Alerts Allergy Name Allergy Status Severity Reaction(s) Onset Inactive Treating Comments Type Date Date Clinician Penicillins Unknown Active Unknown Reaction 2018-02 Interface Unknown 03-25 Sulfa Unknown Active Unknown Reaction 2018-02 Interface (Sulfonamide Unknown 03-25 Antibiotics) codeine Base Active Unknown Reaction 2018-02 Interface Ingredient Unknown 03-25 pravastatin Base Active Unknown Reaction 2018-02 Unknown Ingredient Unknown 03-25 aspirin Base Active Unknown Reaction 2018-02 Interface Ingredient Unknown 03-25 iodine Unknown Active Unknown Reaction 2018-02 Interface Unknown 03-25 warfarin Base Active Unknown Reaction 2018-02 Interface Ingredient Unknown 03-25 Blood Unknown Active Unknown Reaction 2018-02 Interface Thinners Unknown 03-25 Medications Ordered Filled Start Stop Current Ordering Indication Dosage Frequency Signature Comments Components Medication Medication Date Date Medication? Clinician (SIG) Name Name losartan 25 losartan 25 2020-0 Yes Frankie Unknown Unknown mg tablet mg tablet 03-15 Tee BRADLEY amLODIPine amLODIPine Yes Frankie Unknown Unknown 5 mg tablet 5 mg tablet 03-15 Tee BRADLEY naproxen naproxen 2019-0 Yes Frankie Unknown Unknown sodium 220 sodium 220 03-15 Tee BRADLEY mg tablet mg tablet Cholecalcif Cholecalcif 0 Yes Frankie Unknown Unknown karely karely 03-15 Tee BRADLEY (Vitamin (Vitamin D3) D3) Lactase Lactase 2019-0 Yes Frankie Unknown Unknown 03-15 Tee BRADLEY acetaminoph acetaminoph 2019-0 Yes Frankie Unknown Unknown en 500 mg en 500 mg 03-15 Tee BRADLEY tablet tablet famotidine famotidine 0 Yes Frankie Unknown Unknown 20 mg 20 mg 03-15 Tee BRADLEY tablet tablet predniSONE predniSONE 2019-0 Yes Frankie Unknown Unknown 5 mg tablet 5 mg tablet 03-15 Tee BRADLEY desloratadi desloratadi 2019-0 Yes Frankie Unknown Unknown ne 5 mg ne 5 mg 03-15 Tee BRADLEY tablet tablet Senna Plus Senna Plus 0 Yes Frankie Unknown Unknown 8.6 mg-50 8.6 mg-50 03-15 Tee BRADLEY mg capsule mg capsule Vitamin Vitamin 2020-0 Yes Frankie Unknown Unknown B-12 500 B-12 500 03-15 Tee BRADLEY mcg tablet mcg tablet PreserVisio PreserVisio 2019-0 Yes Frankie Unknown Unknown n AREDS-2 n [...]
--- OUTSIDE RECORDS SUMMARY | 2019-04-26 13:57 | XMS REPORT ---
:1930 Author Organization [facility] Care Team Providers Name Role Phone Unavailable [...] pain d 03-15 10:50:00 (Garret) 10:25: Carl [id number] Respiratory dyspnea Respirator Resolve 2019-03-18 Tania present y d 03-15 10:50:00 (Garret) 10:25: Carl 00 [id number] Respiratory lung sounds Respirator Resolve 2019-03-18 Tania deficit y d 03-15 10:50:00 (Garret) 10:25: [id number] Sensory impaired Sensory Resolve 2019-03-18 Tania hearing d - 10:50:00 (Garret) 10:25: [id number] Integument skin Integument Active Tania integrity 03-15 (Garret) risk 10:25: [id number] Elimination urinary Eliminatio Resolve 2019-03-18 Tania incontinenc n d 03-15 10:50:00 (Garret) e 10:25: [id number] Neuro confusion Neuro/Emot Resolve 2019-03-18 Tania present ion d 03-15 10:50:00 (Garret) 10:25: [id number] Neuro anxiety Neuro/Emot Resolve 2019-03-18 Tania present ion d 03-15 10:50:00 (Garret) 10:25: [id number] Neuro impaired Neuro/Emot Resolve 2019-03-18 Tania decision-ma ion d 03-15 10:50:00 (Garret) shahana 10:25: [id number] Neuro memory Neuro/Emot Resolve 2019-03-18 Tania deficit ion d 03-15 10:50:00 (Garret) needing 10:25: Carl 00 [id number] Activity ADL Activity Resolve 2019-03-18 Tania assistance d 03-15 10:50:00 (Garret) required 10:25: [id number] Activity self-care Activity Resolve 2019-03-18 Tania deficit d 03-15 10:50:00 (Garret) 10:25: [id number] Safety fall risk Safety Resolve 2019-03-18 Tania factor d 03-15 10:50:00 (Garret) present 10:25: [id number] Safety cannot be Safety Resolve 2019-03-18 Tania left alone d 03-15 10:50:00 (Garret) 10:25: [id number] Safety risk for Safety Resolve 2019-03-18 Tania hospitaliza d - 10:50:00 (Garret) tion 10:25: [id number] Medication oral med Meds Resolve 2019-03-18 Tania assistance d 03-15 10:50:00 (Garret) required 10:25: Carl [id number] Musculoskel requires Musculoske Resolve 2019-03-18 Tania etal human letal d 03-15 10:50:00 (Garret) assist to 10:25: Carl leave home [id number] Safety knowledge/s Safety Resolve 2019-03-18 Shantel kill d 03-15 10:50:00 Ibarra deficit: pt 15:39: [id number] Bed mobility/tr PT/OT: Bed Active Shantel Mobility/Tr ansfer Mobility/T 03-15 Ibarra ansfer device ransfer 15:39: [id number] present 00 Bed transfer PT/OT: Bed Active Shantel Mobility/Tr deficit: Mobility/T 03-15 Ibarra ansfer shower/tub ransfer 15:39: [id number] 00 Bed knowledge/s PT/OT: Bed Active Shantel Mobility/Tr kill Mobility/T 03-15 Ibarra ansfer deficit: pt ransfer 15:39: [id number] 00 Balance/End balance/cook fishing vessel PT/OT: Active Shantel urance rdination Balance/En 03-15 Ibarra deficit durance 15:39: [id number] 00 Balance/End endurance PT/OT: Active Shantel urance deficit Balance/En 03-15 Ibarra durance 15:39: [id number] 00 Balance/End knowledge/s PT/OT: Active Shantel urance kill Balance/En 03-15 Ibarra deficit: pt durance 15:39: [id number] 00 Gait/Locomo gait PT/OT: Active Shantel tion assistive Gait/Locom 03-15 Ibarra problems device otion 15:39: [id number] present 00 Gait/Locomo gait PT/OT: Active Shantel tion deficit Gait/Locom 03-15 Ibarra problems otion 15:39: [id number] 00 Gait/Locomo knowledge/s PT/OT: Active Shantel tion kill Gait/Locom 1-27 Ibarra problems deficit: pt otion 15:39: [id number] 00 Safety can be left Safety Resolve 2019-2019-03-18 Ivette alone for d 03-18 10:50:00 [place] only short 10:50: periods 00 Safety knowledge/s Safety Unknown Shantel kill 03-18 Ibarra deficit: pt 13:33: [id number] Safety risk for Safety Unknown Shantel hospitaliza 03-18 Ibarra tion 13:33: [id number] 00 Safety can be left Safety Active 2019- Ivette alone for - [place] only short 09:30: periods 00 Safety knowledge/s Safety Active 2019- Ivette kill 03-22 [place] deficit: pt 09:30: 00 Safety risk for Safety Active 2019- Ivette hospitaliza 03-22 [place] tion 09:30: 00 Allergies, Adverse Reactions, Alerts Allergy Name Allergy Status Severity Reaction(s) Onset Inactive Treating Comments Type Date Date Clinician Penicillins Unknown Active Unknown Reaction 2018-02 Interface Unknown 2-06 Sulfa Unknown Active Unknown Reaction 2018-02 Interface (Sulfonamide Unknown 06 Antibiotics) codeine Base Active Unknown Reaction 2018-02 Interface Ingredient Unknown 2-06 pravastatin Base Active Unknown Reaction 2018-02 Unknown Ingredient Unknown 2-06 aspirin Base Active Unknown Reaction 2018-02 Interface Ingredient Unknown 2-06 iodine Unknown Active Unknown Reaction 2018-02 Interface Unknown 2-06 warfarin Base Active Unknown Reaction 2018-02 Interface Ingredient Unknown 2-06 Blood Unknown Active Unknown Reaction 2018-02 Interface Thinners Unknown 06 Medications Ordered Filled Start Stop Current Ordering [...] Frankie Unknown Unknown karely karely 03-15 Tee BRDALEY (Vitamin (Vitamin D3) D3) Lactase Lactase Yes Frankie Unknown Unknown 03-15 Tee BRADLEY [...] BRADLEY mg capsule mg capsule Vitamin Vitamin Yes Frankie Unknown Unknown B-12 500 B-12 500 03-15 Tee BRADLEY mcg tablet mcg tablet PreserVisio PreserVisio Yes Frankie Unknown Unknown n AREDS-2 n AREDS-2 03-15 Tee BRADLEY 250 mg-200 250 mg-200 unit-40 unit-40 mg-1 mg mg-1 mg capsule capsule Vital Signs Vital Name Observation Time Observation Value Comments SYSTOLIC mm[Hg] 2019-03-24 18:10:14 150 mm[Hg] mm[Hg] Method: Sit SYSTOLIC mm[Hg] 2019-03-16 18:10:06 150 mm[Hg] mm[Hg] Method: Stand DIASTOLIC mm[Hg] 2019-03-24 18:10:14 80 mm[Hg] mm[Hg] Method: Sit DIASTOLIC mm[Hg] 2019-03-16 18:10:06 80 mm[Hg] mm[Hg] Method: Stand PULSE 2019-03-24 18:10:14 52 /min /min RESP RATE 2019-03-22 18:10:12 18 /min /min TEMP 2019-03-24 18:10:14 96.8 [degF] Procedures This patient has no known procedures. Results This patient has no known results.
--- OUTSIDE RECORDS SUMMARY | 2019-04-26 13:57 | XMS REPORT ---
:1930 Author Organization [facility] Care Team Providers Name Role Phone Unavailable [...] pain d 03-15 10:50:00 (Garret) 10:25: Carl [id number] Respiratory dyspnea Respirator Resolve 2019-03-18 Tania present y d 03-15 10:50:00 (Garret) 10:25: Carl 00 [id number] Respiratory lung sounds Respirator Resolve 2019-03-18 Tania deficit y d 03-15 10:50:00 (Garret) 10:25: [id number] Sensory impaired Sensory Resolve 2019-03-18 Tania hearing d - 10:50:00 (Garret) 10:25: [id number] Integument skin Integument Active Tania integrity 03-15 (Garret) risk 10:25: [id number] Elimination urinary Eliminatio Resolve 2019-03-18 Tania incontinenc n d 03-15 10:50:00 (Garret) e 10:25: [id number] Neuro confusion Neuro/Emot Resolve 2019-03-18 Tania present ion d 03-15 10:50:00 (Garret) 10:25: [id number] Neuro anxiety Neuro/Emot Resolve 2019-03-18 Tania present ion d 03-15 10:50:00 (Garret) 10:25: [id number] Neuro impaired Neuro/Emot Resolve 2019-03-18 Tania decision-ma ion d 03-15 10:50:00 (Garret) shahana 10:25: [id number] Neuro memory Neuro/Emot Resolve 2019-03-18 Tania deficit ion d 03-15 10:50:00 (Garret) needing 10:25: Carl 00 [id number] Activity ADL Activity Resolve 2019-03-18 Tania assistance d 03-15 10:50:00 (Garret) required 10:25: [id number] Activity self-care Activity Resolve 2019-03-18 Tania deficit d 03-15 10:50:00 (Garret) 10:25: [id number] Safety fall risk Safety Resolve 2019-03-18 Tania factor d 03-15 10:50:00 (Garret) present 10:25: [id number] Safety cannot be Safety Resolve 2019-03-18 Tania left alone d 03-15 10:50:00 (Garret) 10:25: [id number] Safety risk for Safety Resolve 2019-03-18 Tania hospitaliza d - 10:50:00 (Garret) tion 10:25: [id number] Medication oral med Meds Resolve 2019-03-18 Tania assistance d 03-15 10:50:00 (Garret) required 10:25: Carl [id number] Musculoskel requires Musculoske Resolve 2019-03-18 Tania etal human letal d 03-15 10:50:00 (Garret) assist to 10:25: Carl leave home [id number] Safety knowledge/s Safety Resolve 2019-03-18 Shantel kill d 03-15 10:50:00 Ibarra deficit: pt 15:39: [id number] Bed mobility/tr PT/OT: Bed Active Shantel Mobility/Tr ansfer Mobility/T 03-15 [place]barra ansfer device ransfer 15:39: [id number] present 00 Bed transfer PT/OT: Bed Active Shantel Mobility/Tr deficit: Mobility/T 03-15 Ibarra ansfer shower/tub ransfer 15:39: [id number] 00 Bed knowledge/s PT/OT: Bed Active Shantel Mobility/Tr kill Mobility/T 03-15 Ibarra ansfer deficit: pt ransfer 15:39: [id number] 00 Balance/End balance/taxicab coordinator PT/OT: Active Shantel urance rdination Balance/En 03-15 Ibarra deficit durance 15:39: [id number] 00 Balance/End endurance PT/OT: Active Shantel urance deficit Balance/En 03-15 Ibarra durance 15:39: [id number] 00 Balance/End knowledge/s PT/OT: Active Shantel urance kill Balance/En 03-15 Ibarra deficit: pt durance 15:39: [id number] 00 Gait/Locomo gait PT/OT: Active Shantel tion assistive Gait/Locom 03-15 Ibarra problems device otion 15:39: [id number] present 00 Gait/Locomo gait PT/OT: Active Shantel tion deficit Gait/Locom 03-15 Ibarra problems otion 15:39: [id number] 00 Gait/Locomo knowledge/s PT/OT: Active Shantel tion kill Gait/Locom 1- Ibarra problems deficit: pt otion 15:39: [id number] 00 Safety can be left Safety Resolve 2019-03-18 Ivette alone for d 03-18 10:50:00 [place] only short 10:50: periods 00 Safety knowledge/s Safety Unknown Shantel kill 03-18 Ibarra deficit: pt 13:33: [id number] 00 Safety risk for Safety Unknown Shantel hospitaliza 03-18 Ibarra tion 13:33: [id number] 00 Safety can be left Safety Active Ivette alone for 03-22 [place] only short 09:30: periods 00 Safety knowledge/s Safety Resolve 2019-03-29 Ivette kill d 03-22 11:00:00 [place] deficit: pt 09:30: 00 Safety risk for Safety Resolve 2019-03-29 Ivette hospitaliza d - 11:00:00 [place] tion 09:30: 00 Musculoskel requires Musculoske Resolve 2019-03-29 Ivette etal human letal d 03-25 11:00:00 [place] assist to 10:10: leave home 00 Allergies, Adverse Reactions, Alerts Allergy Name Allergy Status Severity Reaction(s) Onset Inactive Treating Comments Type Date Date Clinician Penicillins Unknown Active Unknown Reaction 2018-02 Interface Unknown 2-06 Sulfa Unknown Active Unknown Reaction 2018-02 Interface (Sulfonamide Unknown -06 Antibiotics) codeine Base Active Unknown Reaction 2018-02 [...] mcg tablet mcg tablet PreserVisio PreserVisio Yes [place] Unknown Unknown n AREDS-2 n AREDS-2 03-15 Tee BRADLEY 250 mg-200 250 mg-200 unit-40 unit-40 mg-1 mg mg-1 mg capsule capsule Vital Signs Vital Name Observation Time Observation Value Comments SYSTOLIC mm[Hg] 2019-03-29 18:10:19 122 mm[Hg] mm[Hg] Method: Sit SYSTOLIC mm[Hg] 2019-03-16 18:10:06 150 mm[Hg] mm[Hg] Method: Stand DIASTOLIC mm[Hg] 2019-03-29 18:10:19 70 mm[Hg] mm[Hg] Method: Sit DIASTOLIC mm[Hg] 2019-03-16 18:10:06 80 mm[Hg] mm[Hg] Method: Stand PULSE 2019-03-29 18:10:19 78 /min /min RESP RATE 2019-03-29 18:10:19 18 /min /min TEMP 2019-03-29 18:10:19 97.5 [degF] Procedures This patient has no known procedures. Results This patient has no known results.
--- OUTSIDE RECORDS SUMMARY | 2019-04-26 13:57 | XMS REPORT ---
:1930 Author Organization [facility] Care Team Providers Name Role Phone Unavailable [...] pain d 03-15 10:50:00 (Garret) 10:25: Carl [id number] Respiratory dyspnea Respirator Resolve 2019-03-18 Tania present y d 03-15 10:50:00 (Garret) 10:25: Carl 00 [id number] Respiratory lung sounds Respirator Resolve 2019-03-18 Tania deficit y d 03-15 10:50:00 (Garret) 10:25: [id number] Sensory impaired Sensory Resolve 2019-03-18 Tania hearing d - 10:50:00 (Garret) 10:25: [id number] Integument skin Integument Active Tania integrity 03-15 (Garret) risk 10:25: [id number] Elimination urinary Eliminatio Resolve 2019-03-18 Tania incontinenc n d 03-15 10:50:00 (Garret) e 10:25: [id number] Neuro confusion Neuro/Emot Resolve 2019-03-18 Tania present ion d 03-15 10:50:00 (Garret) 10:25: [id number] Neuro anxiety Neuro/Emot Resolve 2019-03-18 Tania present ion d 03-15 10:50:00 (Garret) 10:25: [id number] Neuro impaired Neuro/Emot Resolve 2019-03-18 Tania decision-ma ion d 03-15 10:50:00 (Garret) shahana 10:25: [id number] Neuro memory Neuro/Emot Resolve 2019-03-18 Tania deficit ion d 03-15 10:50:00 (Garret) needing 10:25: Carl 00 [id number] Activity ADL Activity Resolve 2019-03-18 Tania assistance d 03-15 10:50:00 (Garret) required 10:25: [id number] Activity self-care Activity Resolve 2019-03-18 Tania deficit d 03-15 10:50:00 (Garret) 10:25: [id number] Safety fall risk Safety Resolve 2019-03-18 Tania factor d 03-15 10:50:00 (Garret) present 10:25: [id number] Safety cannot be Safety Resolve 2019-03-18 Tania left alone d 03-15 10:50:00 (Garret) 10:25: [id number] Safety risk for Safety Resolve 2019-03-18 Tania hospitaliza d - 10:50:00 (Garret) tion 10:25: [id number] Medication oral med Meds Resolve 2019-03-18 Tania assistance d 03-15 10:50:00 (Garret) required 10:25: Carl [id number] Musculoskel requires Musculoske Resolve 2019-03-18 Tania etal human letal d 03-15 10:50:00 (Garret) assist to 10:25: Carl leave home [id number] Safety knowledge/s Safety Resolve 2019-03-18 Shantel kill d 03-15 10:50:00 Ibarra deficit: pt 15:39: [id number] Bed mobility/tr PT/OT: Bed Active Shantel Mobility/Tr ansfer Mobility/T 03-15 Ibarra ansfer device ransfer 15:39: [id number] present 00 Bed transfer PT/OT: Bed Active Shantel Mobility/Tr deficit: Mobility/T 03-15 Ibarra ansfer shower/tub ransfer 15:39: [id number] 00 Bed knowledge/s PT/OT: Bed Active Shantel Mobility/Tr kill Mobility/T 03-15 Ibarra ansfer deficit: pt ransfer 15:39: [id number] 00 Balance/End balance/project coordinator rn PT/OT: Active Shantel urance rdination Balance/En 03-15 Ibarra deficit durance 15:39: [id number] 00 Balance/End endurance PT/OT: Active Shantel urance deficit Balance/En 03-15 Ibarra durance 15:39: [id number] 00 Balance/End knowledge/s PT/OT: Active Shantel urance kill Balance/En 03-15 Ibarra deficit: pt durance 15:39: [id number] 00 Gait/Locomo gait PT/OT: Active Shantel tion assistive Gait/Locom 03-15 Ibarra problems device otion 15:39: [id number] present 00 Gait/Locomo gait PT/OT: Active Shantel tion deficit Gait/Locom 03-15 Ibarra problems otion 15:39: [id number] 00 Gait/Locomo knowledge/s PT/OT: Active Shantel tion kill Gait/Locom 1-27 Ibarra problems deficit: pt otion 15:39: [id number] 00 Safety can be left Safety Resolve 2020-0 2019-03-18 Ivette alone for d 03-18 10:50:00 [place] only short 10:50: periods 00 Safety knowledge/s Safety Unknown 2019- Shantel kill 03-18 Ibarra deficit: pt 13:33: [id number] Safety risk for Safety Unknown Shantel hospitaliza 03-18 Ibarra tion 13:33: [id number] 00 Safety can be left Safety Active [...] capsule mg capsule Vitamin Vitamin 2019- Yes [place] Unknown Unknown B-12 500 B-12 500 03-15 Tee BRADLEY mcg tablet mcg tablet PreserVisio PreserVisio Yes [place] Unknown Unknown n AREDS-2 n AREDS-2 03-15 [...]
--- OUTSIDE RECORDS SUMMARY | 2019-04-26 13:57 | XMS REPORT ---
:1930 Author Organization [facility] Care Team Providers Name Role Phone Unavailable [...] pain d 03-15 10:50:00 (Garret) 10:25: Carl [id number] Respiratory dyspnea Respirator Resolve 2019-03-18 Tania present y d 03-15 10:50:00 (Garret) 10:25: Carl 00 [id number] Respiratory lung sounds Respirator Resolve 2019-03-18 Tania deficit y d 03-15 10:50:00 (Garret) 10:25: [id number] Sensory impaired Sensory Resolve 2019-03-18 Tania hearing d - 10:50:00 (Garret) 10:25: [id number] Integument skin Integument Active Tania integrity 03-15 (Garret) risk 10:25: [id number] Elimination urinary Eliminatio Resolve 2019-03-18 Tania incontinenc n d 03-15 10:50:00 (Garret) e 10:25: [id number] Neuro confusion Neuro/Emot Resolve 2019-03-18 Tania present ion d 03-15 10:50:00 (Garret) 10:25: [id number] Neuro anxiety Neuro/Emot Resolve 2019-03-18 Tania present ion d 03-15 10:50:00 (Garret) 10:25: [id number] Neuro impaired Neuro/Emot Resolve 2019-03-18 Tania decision-ma ion d 03-15 10:50:00 (Garret) shahana 10:25: [id number] Neuro memory Neuro/Emot Resolve 2019-03-18 Tania deficit ion d 03-15 10:50:00 (Garret) needing 10:25: Carl 00 [id number] Activity ADL Activity Resolve 2019-03-18 Tania assistance d 03-15 10:50:00 (Garret) required 10:25: [id number] Activity self-care Activity Resolve 2019-03-18 Tania deficit d 03-15 10:50:00 (Garret) 10:25: [id number] Safety fall risk Safety Resolve 2019-03-18 Tania factor d 03-15 10:50:00 (Garret) present 10:25: [id number] Safety cannot be Safety Resolve 2019-03-18 Tania left alone d 03-15 10:50:00 (Garret) 10:25: [id number] Safety risk for Safety Resolve 2019-03-18 Tania hospitaliza d - 10:50:00 (Garret) tion 10:25: [id number] Medication oral med Meds Resolve 2019-03-18 Tania assistance d 03-15 10:50:00 (Garret) required 10:25: Carl [id number] Musculoskel requires Musculoske Resolve 2019-03-18 Tania etal human letal d 03-15 10:50:00 (Garret) assist to 10:25: Carl leave home [id number] Safety knowledge/s Safety Resolve 2019-03-18 Shantel kill d 03-15 10:50:00 Ibarra deficit: pt 15:39: [id number] Bed mobility/tr PT/OT: Bed Resolve 2019-03-31 Shantel Mobility/Tr ansfer Mobility/T d 03-15 13:55:00 Ibarra ansfer device ransfer 15:39: [id number] present 00 Bed transfer PT/OT: Bed Resolve 2019-03-31 Shantel Mobility/Tr deficit: Mobility/T d 03-15 13:55:00 Ibarra ansfer shower/tub ransfer 15:39: [id number] 00 Bed knowledge/s PT/OT: Bed Resolve 2019-03-31 Shantel Mobility/Tr kill Mobility/T d 03-15 13:55:00 Ibarra ansfer deficit: pt ransfer 15:39: [id number] 00 Balance/End balance/customer account coordinator PT/OT: Resolve 2019-03-31 Shantel russance rdination Balance/En d 03-15 13:55:00 Ibarra deficit durance 15:39: [id number] 00 Balance/End endurance PT/OT: Resolve 2019-03-31 Shantel urance deficit Balance/En d 03-15 13:55:00 Ibarra durance 15:39: [id number] 00 Balance/End knowledge/s PT/OT: Resolve 2019-03-31 Shantel urance kill Balance/En d 03-15 13:55:00 Ibarra deficit: pt durance 15:39: [id number] 00 Gait/Locomo gait PT/OT: Resolve 2019-03-31 Shantel tion assistive Gait/Locom d 03-15 13:55:00 Ibarra problems device otion 15:39: [id number] present 00 Gait/Locomo gait PT/OT: Resolve 2019-03-31 Shantel tion deficit Gait/Locom d 03-15 13:55:00 Ibarra problems otion 15:39: [id number] 00 Gait/Locomo knowledge/s PT/OT: Resolve 2019-03-31 Shantel tion kill Gait/Locom d 03-15 13:55:00 Ibarra problems deficit: pt otion 15:39: [id number] 00 Safety can be left Safety Resolve 2019-03-18 Ivette alone for d 03-18 10:50:00 [place] only short 10:50: periods 00 Safety knowledge/s Safety Unknown Shantel kill 03-18 Ibarra deficit: pt 13:33: [id number] 00 Safety risk for Safety Unknown Shantel hospitaliza 03-18 Ibarra tion 13:33: [id number] 00 Safety can be left Safety Active [...] hospitaliza d 2- 10:08:00 Ibarra tion 13:42: [id number] 00 Musculoskel requires Musculoske Resolve 2019-04-01 Ivette [...] 03-15 Tee BRADLEY acetaminoph acetaminoph 2019-0 Yes Franike Unknown Unknown en 500 mg en 500 [...]
--- OUTSIDE RECORDS SUMMARY | 2019-04-26 13:57 | XMS REPORT ---
:1930 Author Organization [facility] Care Team Providers Name Role Phone [...] pain d 03-15 10:50:00 (Garret) 10:25: Carl [id number] Respiratory dyspnea Respirator Resolve 2019-03-18 Tania present y d 03-15 10:50:00 (Garret) 10:25: Carl 00 [id number] Respiratory lung sounds Respirator Resolve 2019-03-18 Tania deficit y d 03-15 10:50:00 (Garret) 10:25: [id number] Sensory impaired Sensory Resolve 2019-03-18 Tania hearing d 03-15 10:50:00 (Garret) 10:25: [id number] Integument skin Integument Resolve 2019-04-07 Tania integrity d 03-15 09:50:00 (Garret) risk 10:25: [id number] Elimination urinary Eliminatio Resolve 2019-03-18 Tania incontinenc n d 03-15 10:50:00 (Garret) e 10:25: [id number] Neuro confusion Neuro/Emot Resolve 2019-03-18 Tania present ion d 03-15 10:50:00 (Garret) 10:25: [id number] Neuro anxiety Neuro/Emot Resolve 2019-03-18 Tania present ion d 03-15 10:50:00 (Garret) 10:25: [id number] Neuro impaired Neuro/Emot Resolve 2019-03-18 Tania decision-ma ion d 03-15 10:50:00 (Garret) shahana 10:25: [id number] Neuro memory Neuro/Emot Resolve 2019-03-18 Tania deficit ion d 03-15 10:50:00 (Garret) needing 10:25: Carl 00 [id number] Activity ADL Activity Resolve 2019-03-18 Tania assistance d 03-15 10:50:00 (Garret) required 10:25: [id number] Activity self-care Activity Resolve 2019-03-18 Tania deficit d 03-15 10:50:00 (Garret) 10:25: [id number] Safety fall risk Safety Resolve 2019-03-18 Tania factor d 03-15 10:50:00 (Garret) present 10:25: [id number] Safety cannot be Safety Resolve 2019-03-18 Tania left alone d 03-15 10:50:00 (Garret) 10:25: [id number] Safety risk for Safety Resolve 2019-03-18 Tania hospitaliza d 03-15 10:50:00 (Garret) tion 10:25: Carl [id number] Medication oral med Meds Resolve 2019-03-18 Tania assistance d 03-15 10:50:00 (Garret) required 10:25: Carl [id number] Musculoskel requires Musculoske Resolve 2019-03-18 Tania etal human letal d 03-15 10:50:00 (Garret) assist to 10:25: Carl leave home [id number] Safety knowledge/s Safety Resolve 2019-03-18 Shantel kill d 03-15 10:50:00 Ibarra deficit: pt 15:39: [id number] 00 Bed mobility/tr PT/OT: Bed Resolve 2019-03-31 Shantel Mobility/Tr ansfer Mobility/T d 03-15 13:55:00 Ibarra ansfer device ransfer 15:39: [id number] present 00 Bed transfer PT/OT: Bed Resolve 2019-03-31 Shantel Mobility/Tr deficit: Mobility/T d 03-15 13:55:00 Ibarra ansfer shower/tub ransfer 15:39: [id number] 00 Bed knowledge/s PT/OT: Bed Resolve 2019-03-31 Shantel Mobility/Tr kill Mobility/T d 03-15 13:55:00 Ibarra ansfer deficit: pt ransfer 15:39: [id number] 00 Balance/End balance/campus wellness coordinator PT/OT: Resolve 2019-03-31 Shantel russance rdination Balance/En d 03-15 13:55:00 Ibarra deficit durance 15:39: [id number] 00 Balance/End endurance PT/OT: Resolve 2019-03-31 Shantel urance deficit Balance/En d 03-15 13:55:00 Ibarra durance 15:39: [id number] 00 Balance/End knowledge/s PT/OT: Resolve 2019-03-31 Shantel urance kill Balance/En d 03-15 13:55:00 Ibarra deficit: pt durance 15:39: [id number] 00 Gait/Locomo gait PT/OT: Resolve 2019-03-31 Shantel tion assistive Gait/Locom d 03-15 13:55:00 Ibarra problems device otion 15:39: [id number] present 00 Gait/Locomo gait PT/OT: Resolve 2019-03-31 Shantel baca deficit Gait/Locom d 03-15 13:55:00 Ibarra problems otion 15:39: [id number] 00 Gait/Locomo knowledge/s PT/OT: Resolve 2019-03-31 Shantel baca kill Gait/Locom d 03-15 13:55:00 Ibarra problems deficit: pt otion 15:39: [id number] 00 Safety can be left Safety Resolve 2019-03-18 Ivette alone for d 03-18 10:50:00 [place] only short 10:50: periods 00 Safety knowledge/s Safety Unknown Shantel lara 03-18 Ibarra deficit: pt 13:33: [id number] 00 Safety risk for Safety Unknown Shantel patela 03-18 Ibarra tion 13:33: [id number] 00 Safety can be left Safety Resolve [...] hospitaliza d 2-11 10:08:00 Ibarra tion 13:42: [id number] 00 Musculoskel requires Musculoske Resolve 2019-04-01 Ivette [...]
--- OUTSIDE RECORDS SUMMARY | 2019-04-26 13:57 | XMS REPORT ---
:1930 Author Organization [facility] Care Team Providers Name Role Phone Unavailable [...] pain d 03-15 10:50:00 (Garret) 10:25: Carl [id number] Respiratory dyspnea Respirator Resolve 2019-03-18 Tania present y d 03-15 10:50:00 (Garret) 10:25: Carl 00 [id number] Respiratory lung sounds Respirator Resolve 2019-03-18 Tania deficit y d 03-15 10:50:00 (Garret) 10:25: [id number] Sensory impaired Sensory Resolve 2019-03-18 Tania hearing d - 10:50:00 (Garret) 10:25: [id number] Integument skin Integument Active Tania integrity 03-15 (Garret) risk 10:25: [id number] Elimination urinary Eliminatio Resolve 2019-03-18 Tania incontinenc n d 03-15 10:50:00 (Garret) e 10:25: [id number] Neuro confusion Neuro/Emot Resolve 2019-03-18 Tania present ion d 03-15 10:50:00 (Garret) 10:25: [id number] Neuro anxiety Neuro/Emot Resolve 2019-03-18 Tania present ion d 03-15 10:50:00 (Garret) 10:25: [id number] Neuro impaired Neuro/Emot Resolve 2019-03-18 Tania decision-ma ion d 03-15 10:50:00 (Garret) shahana 10:25: [id number] Neuro memory Neuro/Emot Resolve 2019-03-18 Tania deficit ion d 03-15 10:50:00 (Garret) needing 10:25: Carl 00 [id number] Activity ADL Activity Resolve 2019-03-18 Tania assistance d 03-15 10:50:00 (Garret) required 10:25: [id number] Activity self-care Activity Resolve 2019-03-18 Tania deficit d 03-15 10:50:00 (Garret) 10:25: [id number] Safety fall risk Safety Resolve 2019-03-18 Tania factor d 03-15 10:50:00 (Garret) present 10:25: [id number] Safety cannot be Safety Resolve 2019-03-18 Tania left alone d 03-15 10:50:00 (Garret) 10:25: [id number] Safety risk for Safety Resolve 2019-03-18 Tania hospitaliza d - 10:50:00 (Garret) tion 10:25: [id number] Medication oral med Meds Resolve 2019-03-18 Tania assistance d 03-15 10:50:00 (Garret) required 10:25: Carl [id number] Musculoskel requires Musculoske Resolve 2019-03-18 Tania etal human letal d 03-15 10:50:00 (Garret) assist to 10:25: Carl leave home [id number] Safety knowledge/s Safety Resolve 2019-03-18 Shantel kill d 03-15 10:50:00 Ibarra deficit: pt 15:39: [id number] 00 Bed mobility/tr PT/OT: Bed Active Shantel Mobility/Tr ansfer Mobility/T 03-15 Ibarra ansfer device ransfer 15:39: [id number] present 00 Bed transfer PT/OT: Bed Active Shantel Mobility/Tr deficit: Mobility/T 03-15 Ibarra ansfer shower/tub ransfer 15:39: [id number] 00 Bed knowledge/s PT/OT: Bed Active Shantel Mobility/Tr kill Mobility/T 03-15 Ibarra ansfer deficit: pt ransfer 15:39: [id number] 00 Balance/End balance/bereavement program coordinator PT/OT: Active Shantel urance rdination Balance/En 03-15 Ibarra deficit durance 15:39: [id number] 00 Balance/End endurance PT/OT: Active Shantel urance deficit Balance/En 03-15 Ibarra durance 15:39: [id number] 00 Balance/End knowledge/s PT/OT: Active Shantel urance kill Balance/En 03-15 Ibarra deficit: pt durance 15:39: [id number] 00 Gait/Locomo gait PT/OT: Active Shantel tion assistive Gait/Locom 03-15 Ibarra problems device otion 15:39: [id number] present 00 Gait/Locomo gait PT/OT: Active Shantel tion deficit Gait/Locom 03-15 Ibarra problems otion 15:39: [id number] 00 Gait/Locomo knowledge/s PT/OT: Active Shantel tion kill Gait/Locom 1-27 Ibarra problems deficit: pt otion 15:39: [id number] 00 Safety can be left Safety Resolve 2020-0 2019-03-18 Ivette alone for d 03-18 10:50:00 [place] only short 10:50: periods 00 Safety knowledge/s Safety Unknown 2019- Shantel kill 03-18 Ibarra deficit: pt 13:33: [id number] 00 Safety risk for Safety Unknown Shantel hospitaliza 03-18 Ibarra tion 13:33: [id number] 00 Safety can be left Safety Active [...] capsule mg capsule Vitamin Vitamin 2019- Yes [place] Unknown Unknown B-12 500 B-12 500 03-15 Tee RBADLEY mcg tablet mcg tablet PreserVisio PreserVisio Yes [place] Unknown Unknown n AREDS-2 n AREDS-2 03-15 Tee BRADLEY 250 mg-200 250 mg-200 unit-40 unit-40 mg-1 mg mg-1 mg capsule capsule Vital Signs Vital Name Observation Time Observation Value Comments SYSTOLIC mm[Hg] 2019-03-25 18:10:15 124 mm[Hg] mm[Hg] Method: Sit SYSTOLIC mm[Hg] 2019-03-16 18:10:06 150 mm[Hg] mm[Hg] Method: Stand DIASTOLIC mm[Hg] 2019-03-25 18:10:15 68 mm[Hg] mm[Hg] Method: Sit DIASTOLIC mm[Hg] 2019-03-16 18:10:06 80 mm[Hg] mm[Hg] Method: Stand PULSE 2019-03-25 18:10:15 76 /min /min RESP RATE 2019-03-25 18:10:15 18 /min /min TEMP 2019-03-25 18:10:15 97.3 [degF] Procedures This patient has no known procedures. Results This patient has no known results.
--- OUTSIDE RECORDS SUMMARY | 2019-04-26 13:57 | XMS REPORT ---
:1930 Author Organization [facility] Care Team Providers Name Role Phone Unavailable [...] pain d 03-15 10:50:00 (Garret) 10:25: Carl [id number] Respiratory dyspnea Respirator Resolve 2019-03-18 Tania present y d 03-15 10:50:00 (Garret) 10:25: Carl 00 [id number] Respiratory lung sounds Respirator Resolve 2019-03-18 Tania deficit y d 03-15 10:50:00 (Garret) 10:25: [id number] Sensory impaired Sensory Resolve 2019-03-18 Tania hearing d 03-15 10:50:00 (Garret) 10:25: [id number] Integument skin Integument Resolve 2019-04-07 Tania integrity d 03-15 09:50:00 (Garret) risk 10:25: [id number] Elimination urinary Eliminatio Resolve 2019-03-18 Tania incontinenc n d 03-15 10:50:00 (Garret) e 10:25: [id number] Neuro confusion Neuro/Emot Resolve 2019-03-18 Tania present ion d 03-15 10:50:00 (Garret) 10:25: [id number] Neuro anxiety Neuro/Emot Resolve 2019-03-18 Tania present ion d 03-15 10:50:00 (Garret) 10:25: [id number] Neuro impaired Neuro/Emot Resolve 2019-03-18 Tania decision-ma ion d 03-15 10:50:00 (Garret) shahana 10:25: [id number] Neuro memory Neuro/Emot Resolve 2019-03-18 Tania deficit ion d 03-15 10:50:00 (Garret) needing 10:25: Carl 00 [id number] Activity ADL Activity Resolve 2019-03-18 Tania assistance d 03-15 10:50:00 (Garret) required 10:25: [id number] Activity self-care Activity Resolve 2019-03-18 Tania deficit d 03-15 10:50:00 (Garret) 10:25: [id number] Safety fall risk Safety Resolve 2019-03-18 Tania factor d 03-15 10:50:00 (Garret) present 10:25: [id number] Safety cannot be Safety Resolve 2019-03-18 Tania left alone d 03-15 10:50:00 (Garret) 10:25: [id number] Safety risk for Safety Resolve 2019-03-18 Tania hospitaliza d 03-15 10:50:00 (Garret) tion 10:25: Carl [id number] Medication oral med Meds Resolve 2019-03-18 Tania assistance d 03-15 10:50:00 (Garret) required 10:25: Carl [id number] Musculoskel requires Musculoske Resolve 2019-03-18 Tania etal human letal d 03-15 10:50:00 (Garret) assist to 10:25: Carl leave home [id number] Safety knowledge/s Safety Resolve 2019-03-18 Shantel kill d 03-15 10:50:00 Ibarra deficit: pt 15:39: [id number] 00 Bed mobility/tr PT/OT: Bed Resolve 2019-03-31 Shantel Mobility/Tr ansfer Mobility/T d 03-15 13:55:00 Ibarra ansfer device ransfer 15:39: [id number] present 00 Bed transfer PT/OT: Bed Resolve 2019-03-31 Shantel Mobility/Tr deficit: Mobility/T d 03-15 13:55:00 Ibarra ansfer shower/tub ransfer 15:39: [id number] 00 Bed knowledge/s PT/OT: Bed Resolve 2019-03-31 Shantel Mobility/Tr kill Mobility/T d 03-15 13:55:00 Ibarra ansfer deficit: pt ransfer 15:39: [id number] 00 Balance/End balance/educational resource coordinator PT/OT: Resolve 2019-03-31 Shantel russance rdination Balance/En d 03-15 13:55:00 Ibarra deficit durance 15:39: [id number] 00 Balance/End endurance PT/OT: Resolve 2019-03-31 Shantel urance deficit Balance/En d 03-15 13:55:00 Ibarra durance 15:39: [id number] 00 Balance/End knowledge/s PT/OT: Resolve 2019-03-31 Shantel urance kill Balance/En d 03-15 13:55:00 Ibarra deficit: pt durance 15:39: [id number] 00 Gait/Locomo gait PT/OT: Resolve 2019-03-31 Shantel tion assistive Gait/Locom d 03-15 13:55:00 Ibarra problems device otion 15:39: [id number] present 00 Gait/Locomo gait PT/OT: Resolve 2019-03-31 Shantel baca deficit Gait/Locom d 03-15 13:55:00 Ibarra problems otion 15:39: [id number] 00 Gait/Locomo knowledge/s PT/OT: Resolve 2019-03-31 Shantel baca kill Gait/Locom d 03-15 13:55:00 Ibarra problems deficit: pt otion 15:39: [id number] 00 Safety can be left Safety Resolve 2019-03-18 Ivette alone for d 03-18 10:50:00 [place] only short 10:50: periods 00 Safety knowledge/s Safety Unknown Shantel lara 03-18 Ibarra deficit: pt 13:33: [id number] 00 Safety risk for Safety Unknown Shantel patela 03-18 Ibarra tion 13:33: [id number] 00 Safety can be left Safety Resolve [...] hospitaliza d 2-11 10:08:00 Ibarra tion 13:42: [id number] 00 Musculoskel requires Musculoske Resolve 2019-04-01 Ivette [...]
--- OUTSIDE RECORDS SUMMARY | 2019-04-26 13:57 | XMS REPORT ---
:1930 Author Organization [facility] Care Team Providers Name Role Phone Unavailable [...] pain d 03-15 10:50:00 (Garret) 10:25: Carl [id number] Respiratory dyspnea Respirator Resolve 2019-03-18 Tania present y d 03-15 10:50:00 (Garret) 10:25: Carl 00 [id number] Respiratory lung sounds Respirator Resolve 2019-03-18 Tania deficit y d 03-15 10:50:00 (Garret) 10:25: [id number] Sensory impaired Sensory Resolve 2019-03-18 Tania hearing d - 10:50:00 (Garret) 10:25: [id number] Integument skin Integument Active Tania integrity 03-15 (Garret) risk 10:25: [id number] Elimination urinary Eliminatio Resolve 2019-03-18 Tania incontinenc n d 03-15 10:50:00 (Garret) e 10:25: [id number] Neuro confusion Neuro/Emot Resolve 2019-03-18 Tania present ion d 03-15 10:50:00 (Garret) 10:25: [id number] Neuro anxiety Neuro/Emot Resolve 2019-03-18 Tania present ion d 03-15 10:50:00 (Garret) 10:25: [id number] Neuro impaired Neuro/Emot Resolve 2019-03-18 Tania decision-ma ion d 03-15 10:50:00 (Garret) shahana 10:25: [id number] Neuro memory Neuro/Emot Resolve 2019-03-18 Tania deficit ion d 03-15 10:50:00 (Garret) needing 10:25: Carl 00 [id number] Activity ADL Activity Resolve 2019-03-18 Tania assistance d 03-15 10:50:00 (Garret) required 10:25: [id number] Activity self-care Activity Resolve 2019-03-18 Tania deficit d 03-15 10:50:00 (Garret) 10:25: [id number] Safety fall risk Safety Resolve 2019-03-18 Tania factor d 03-15 10:50:00 (Garret) present 10:25: [id number] Safety cannot be Safety Resolve 2019-03-18 Tania left alone d 03-15 10:50:00 (Garret) 10:25: [id number] Safety risk for Safety Resolve 2019-03-18 Tania hospitaliza d - 10:50:00 (Garret) tion 10:25: [id number] Medication oral med Meds Resolve 2019-03-18 Tania assistance d 03-15 10:50:00 (Garret) required 10:25: Carl [id number] Musculoskel requires Musculoske Resolve 2019-03-18 Tania etal human letal d 03-15 10:50:00 (Garret) assist to 10:25: Carl leave home [id number] Safety knowledge/s Safety Resolve 2019-03-18 Shantel kill d 03-15 10:50:00 [place] deficit: pt 15:39: [id number] Bed mobility/tr PT/OT: Bed Active Shantel Mobility/Tr ansfer Mobility/T 03-15 [place] ansfer device ransfer 15:39: [id number] present 00 Bed transfer PT/OT: Bed Active Shantel Mobility/Tr deficit: Mobility/T 03-15 [place] ansfer shower/tub ransfer 15:39: [id number] Bed knowledge/s PT/OT: Bed Active Shantel Mobility/Tr kill Mobility/T 03-15 [place] ansfer deficit: pt ransfer 15:39: [id number] 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 PT/OT: Active Sahntel urance rdination Balance/En 03-15 [place] deficit durance 15:39: [id number] Balance/End endurance PT/OT: Active Shantel urance deficit Balance/En 03-15 [place] durance 15:39: [id number] Balance/End knowledge/s PT/OT: Active Shantel urance kill Balance/En 03-15 [place] deficit: pt durance 15:39: [id number] 00 Gait/Locomo gait PT/OT: Active Shantel tion assistive Gait/Locom 03-15 [place] problems device otion 15:39: [id number] present 00 Gait/Locomo gait PT/OT: Active Shantel tion deficit Gait/Locom 03-15 [place] problems otion 15:39: [id number] 00 Gait/Locomo knowledge/s PT/OT: Active Shantel tion kill Gait/Locom 1-27 [place]barra problems deficit: pt otion 15:39: [id number] 00 Safety can be left Safety Resolve 2019-2019-03-18 Ivette alone for d 03-18 10:50:00 [place] only short 10:50: periods 00 Safety knowledge/s Safety Unknown 2019- Shantel kill 03-18 [place] deficit: pt 13:33: [id number] Safety risk for Safety Unknown Shantel hospitaliza 03-18 [place] tion 13:33: [id number] 00 Safety can be left Safety Active [...] Active Shantel hospitaliza - [place]bar[place] tion 13:42: [id number] 00 Allergies, Adverse Reactions, Alerts Allergy Name [...] mcg tablet mcg tablet PreserVisio PreserVisio Yes [place] Unknown Unknown n AREDS-2 n AREDS-2 03-15 Tee BRADLEY 250 mg-200 250 mg-200 unit-40 unit-40 mg-1 mg mg-1 mg capsule capsule Vital Signs Vital Name Observation Time Observation Value Comments SYSTOLIC mm[Hg] 2019-03-30 18:10:20 140 mm[Hg] mm[Hg] Method: Sit SYSTOLIC mm[Hg] 2019-03-16 18:10:06 150 mm[Hg] mm[Hg] Method: Stand DIASTOLIC mm[Hg] 2019-03-30 18:10:20 55 mm[Hg] mm[Hg] Method: Sit DIASTOLIC mm[Hg] 2019-03-16 18:10:06 80 mm[Hg] mm[Hg] Method: Stand PULSE 2019-03-30 18:10:20 72 /min /min RESP RATE 2019-03-29 18:10:19 18 /min /min TEMP 2019-03-30 18:10:20 97.9 [degF] Procedures This patient has no known procedures. Results This patient has no known results.
--- OUTSIDE RECORDS SUMMARY | 2019-04-26 13:57 | XMS REPORT ---
:1930 Author Organization [facility] Care Team Providers Name Role Phone Unavailable [...] pain d 03-15 10:50:00 (Garret) 10:25: Carl [id number] Respiratory dyspnea Respirator Resolve 2019-03-18 Tania present y d 03-15 10:50:00 (Garret) 10:25: Carl 00 [id number] Respiratory lung sounds Respirator Resolve 2019-03-18 Tania deficit y d 03-15 10:50:00 (Garret) 10:25: [id number] Sensory impaired Sensory Resolve 2019-03-18 Tania hearing d 03-15 10:50:00 (Garret) 10:25: [id number] Integument skin Integument Resolve 2019-04-07 Tania integrity d 03-15 09:50:00 (Garret) risk 10:25: [id number] Elimination urinary Eliminatio Resolve 2019-03-18 Tania incontinenc n d 03-15 10:50:00 (Garret) e 10:25: [id number] Neuro confusion Neuro/Emot Resolve 2019-03-18 Tania present ion d 03-15 10:50:00 (Garret) 10:25: [id number] Neuro anxiety Neuro/Emot Resolve 2019-03-18 Tania present ion d 03-15 10:50:00 (Garret) 10:25: [id number] Neuro impaired Neuro/Emot Resolve 2019-03-18 Tania decision-ma ion d 03-15 10:50:00 (Garret) shahana 10:25: [id number] Neuro memory Neuro/Emot Resolve 2019-03-18 Tania deficit ion d 03-15 10:50:00 (Garret) needing 10:25: Carl 00 [id number] Activity ADL Activity Resolve 2019-03-18 Tania assistance d 03-15 10:50:00 (Garret) required 10:25: [id number] Activity self-care Activity Resolve 2019-03-18 Tania deficit d 03-15 10:50:00 (Garret) 10:25: [id number] Safety fall risk Safety Resolve 2019-03-18 Tania factor d 03-15 10:50:00 (Garret) present 10:25: [id number] Safety cannot be Safety Resolve 2019-03-18 Tania left alone d 03-15 10:50:00 (Garret) 10:25: [id number] Safety risk for Safety Resolve 2019-03-18 Tania hospitaliza d 03-15 10:50:00 (Garret) tion 10:25: Carl [id number] Medication oral med Meds Resolve 2019-03-18 Tania assistance d 03-15 10:50:00 (Garret) required 10:25: Carl [id number] Musculoskel requires Musculoske Resolve 2019-03-18 Tania etal human letal d 03-15 10:50:00 (Garret) assist to 10:25: Carl leave home [id number] Safety knowledge/s Safety Resolve 2019-03-18 Shantel kill d 03-15 10:50:00 [place] deficit: pt 15:39: [id number] Bed mobility/tr PT/OT: Bed Resolve 2019-03-31 Shantel Mobility/Tr ansfer Mobility/T d 03-15 13:55:00 [place] ansfer device ransfer 15:39: [id number] present 00 Bed transfer PT/OT: Bed Resolve 2019-03-31 Shantel Mobility/Tr deficit: Mobility/T d 03-15 13:55:00 [place] ansfer shower/tub ransfer 15:39: [id number] Bed knowledge/s PT/OT: Bed Resolve 2019-03-31 Shantel Mobility/Tr kill Mobility/T d 03-15 13:55:00 [place] ansfer deficit: pt ransfer 15:39: [id number] 00 Balance/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/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 coordinator PT/OT: Resolve 2019-03-31 Shantel russance rdination Balance/En d 03-15 13:55:00 [place] deficit durance 15:39: [id number] Balance/End endurance PT/OT: Resolve 2019-03-31 Shantel urance deficit Balance/En d 03-15 13:55:00 Ibarra durance 15:39: [id number] Balance/End knowledge/s PT/OT: Resolve 2019-03-31 Shantel urance kill Balance/En d 03-15 13:55:00 [place] deficit: pt durance 15:39: [id number] Gait/Locomo gait PT/OT: Resolve 2019-03-31 Shantel tion assistive Gait/Locom d 03-15 13:55:00 [place] problems device otion 15:39: [id number] present 00 Gait/Locomo gait PT/OT: Resolve 2019-03-31 Shantel baca deficit Gait/Locom d 03-15 13:55:00 [place]bar[place] problems otion 15:39: [id number] 00 Gait/Locomo knowledge/s PT/OT: Resolve 2019-03-31 Shantel baca kill Gait/Locom d 03-15 13:55:00 [place]bar[place] problems deficit: pt otion 15:39: [id number] 00 Safety can be left Safety Resolve 2019-03-18 Ivette alone for d 03-18 10:50:00 [place] only short 10:50: periods 00 Safety knowledge/s Safety Unknown Shantel lara 03-18 [place]barra deficit: pt 13:33: [id number] Safety risk for Safety Unknown Shantel patlea 03-18 Ibarra tion 13:33: [id number] 00 Safety can be left Safety Resolve [...] hospitaliza d 2-11 10:08:00 [place] tion 13:42: [id number] 00 Musculoskel requires Musculoske Resolve 2019-04-01 Ivette [...]
--- OUTSIDE RECORDS SUMMARY | 2019-04-26 13:57 | XMS REPORT ---
:1930 Author Organization [facility] Care Team Providers Name Role Phone Unavailable [...] pain d 03-15 10:50:00 (Garret) 10:25: Carl [id number] Respiratory dyspnea Respirator Resolve 2019-03-18 Tania present y d 03-15 10:50:00 (Garret) 10:25: Carl 00 [id number] Respiratory lung sounds Respirator Resolve 2019-03-18 Tania deficit y d 03-15 10:50:00 (Garret) 10:25: [id number] Sensory impaired Sensory Resolve 2019-03-18 Tania hearing d - 10:50:00 (Garret) 10:25: [id number] Integument skin Integument Active Tania integrity 03-15 (Garret) risk 10:25: [id number] Elimination urinary Eliminatio Resolve 2019-03-18 Tania incontinenc n d 03-15 10:50:00 (Garret) e 10:25: [id number] Neuro confusion Neuro/Emot Resolve 2019-03-18 Tania present ion d 03-15 10:50:00 (Garret) 10:25: [id number] Neuro anxiety Neuro/Emot Resolve 2019-03-18 Tania present ion d 03-15 10:50:00 (Garret) 10:25: [id number] Neuro impaired Neuro/Emot Resolve 2019-03-18 Tania decision-ma ion d 03-15 10:50:00 (Garret) shahana 10:25: [id number] Neuro memory Neuro/Emot Resolve 2019-03-18 Tania deficit ion d 03-15 10:50:00 (Garret) needing 10:25: Carl 00 [id number] Activity ADL Activity Resolve 2019-03-18 Tania assistance d 03-15 10:50:00 (Garret) required 10:25: [id number] Activity self-care Activity Resolve 2019-03-18 Tania deficit d 03-15 10:50:00 (Garret) 10:25: [id number] Safety fall risk Safety Resolve 2019-03-18 Tania factor d 03-15 10:50:00 (Garret) present 10:25: [id number] Safety cannot be Safety Resolve 2019-03-18 Tania left alone d 03-15 10:50:00 (Garret) 10:25: [id number] Safety risk for Safety Resolve 2019-03-18 Tania hospitaliza d - 10:50:00 (Garret) tion 10:25: [id number] Medication oral med Meds Resolve 2019-03-18 Tania assistance d 03-15 10:50:00 (Garret) required 10:25: Carl [id number] Musculoskel requires Musculoske Resolve 2019-03-18 Tania etal human letal d 03-15 10:50:00 (Garret) assist to 10:25: Carl leave home [id number] Safety knowledge/s Safety Resolve 2019-03-18 Shantel kill d 03-15 10:50:00 [place] deficit: pt 15:39: [id number] Bed mobility/tr PT/OT: Bed Active Shantel Mobility/Tr ansfer Mobility/T 03-15 [place] ansfer device ransfer 15:39: [id number] present 00 Bed transfer PT/OT: Bed Active Shantel Mobility/Tr deficit: Mobility/T 03-15 [place] ansfer shower/tub ransfer 15:39: [id number] 00 Bed knowledge/s PT/OT: Bed Active Shantel Mobility/Tr kill Mobility/T 03-15 [place] ansfer deficit: pt ransfer 15:39: [id number] 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 PT/OT: Active Shantel urance rdination Balance/En 03-15 [place] deficit durance 15:39: [id number] 00 Balance/End endurance PT/OT: Active Shantel urance deficit Balance/En 03-15 [place] durance 15:39: [id number] Balance/End knowledge/s PT/OT: Active Shantel urance kill Balance/En 03-15 [place] deficit: pt durance 15:39: [id number] 00 Gait/Locomo gait PT/OT: Active Shantel tion assistive Gait/Locom 03-15 [place] problems device otion 15:39: [id number] present 00 Gait/Locomo gait PT/OT: Active Shantel tion deficit Gait/Locom 03-15 [place] problems otion 15:39: [id number] 00 Gait/Locomo knowledge/s PT/OT: Active Shantel tion kill Gait/Locom 1-27 [place]bar[place] problems deficit: pt otion 15:39: [id number] 00 Safety can be left Safety Resolve 2020-0 2019-03-18 Ivette alone for d 03-18 10:50:00 [place] only short 10:50: periods 00 Safety knowledge/s Safety Unknown 2019- Shantel kill 03-18 [place] deficit: pt 13:33: [id number] Safety risk for Safety Unknown Shantel hospitaliza 03-18 [place]barra tion 13:33: [id number] 00 Safety can be left Safety Active [...] capsule mg capsule Vitamin Vitamin 2019- Yes [place] Unknown Unknown B-12 500 B-12 500 03-15 Tee BRADLEY mcg tablet mcg tablet PreserVisio PreserVisio Yes [place] Unknown Unknown n AREDS-2 n AREDS-2 03-15 [...]
--- OUTSIDE RECORDS SUMMARY | 2019-04-26 13:58 | XMS REPORT ---
:1930 Author Organization [facility] Care Team Providers Name Role Phone Unavailable [...] Migraine, Diagnosis Active Ivette unspecified unspecified 02-17 Josh , not , not intractable intractable , [...] (tract) infections infections Pain frequent Pain Mgmt Active Tania pain 03-15 (Garret) 10:25: Carl [id number] Respiratory dyspnea Respirator Active Tania present y 03-15 (Garret) 10:25: Carl [id number] Respiratory lung sounds Respirator Active Tania deficit y 03-15 (Garret) 10:25: Carl [id number] Sensory impaired Sensory Active Tania hearing 03-15 (Garret) 10:25: [id number] Integument skin Integument Active 2020-0 Tania integrity 03-15 (Garret) risk 10:: [id number] Elimination urinary Eliminatio Active 2020-0 Tania incontinenc n 03-15 (Garert) e 10:25: [id number] Neuro confusion Neuro/Emot Active 2020-0 Tania present ion 03-15 (Garret) 10:: [id number] Neuro anxiety Neuro/Emot Active 2020-0 Tania present ion 03-15 (Garret) 10:: [id number] Neuro impaired Neuro/Emot Active 2020-0 Tania decision-ma ion 03-15 (Garret) shahana 10:: [id number] Neuro memory Neuro/Emot Active 2020-0 Tania deficit ion 03-15 (Garret) needing 10:25: Carl supervision [id number] Activity ADL Activity Active 2019-0 Tania assistance 03-15 (Garret) required 10:: [id number] Activity self-care Activity Active 2020-0 Tania deficit 03-15 (Garret) 10:: [id number] Safety fall risk Safety Active 2020-0 Tania factor 03-15 (Garret) present 10:: [id number] Safety cannot be Safety Active 2020-0 Tania left alone 03-15 (Garret) 10:25: [id number] Safety risk for Safety Active 2020-0 Tania hospitaliza 03-15 (Garret) tion 10:: [id number] Medication oral med Meds Active 2020-0 Tania assistance 03-15 (Garret) required 10:: [id number] Musculoskel requires Musculoske Active 2020-0 Tania etal human letal 03-15 (Garret) assist to 10:: Carl leave home 00 [id number] Bed mobility/tr PT/OT: Bed Active 2020-0 Shantel Mobility/Tr ansfer Mobility/T 03-15 [place] ansfer device ransfer 15:39: [id number] present 00 Bed transfer PT/OT: Bed Active 2020-0 Shantel Mobility/Tr deficit: Mobility/T 03-15 [place] ansfer shower/tub ransfer 15:39: [id number] 00 Bed knowledge/s PT/OT: Bed Active Shantel Mobility/Tr kill Mobility/T 03-15 [place] ansfer deficit: pt ransfer 15:39: [id number] 00 Balance/End balance/copy coordinator PT/OT: Active Shantel urance rdination Balance/En 03-15 [place] deficit durance 15:39: [id number] 00 Balance/End endurance PT/OT: Active Shantel urance deficit Balance/En 03-15 [place] durance 15:39: [id number] 00 Balance/End knowledge/s PT/OT: Active Shantel urance kill Balance/En 03-15 [place] deficit: pt durance 15:39: [id number] 00 Gait/Locomo gait PT/OT: Active Shantel tion assistive Gait/Locom - [place] problems device otion 15:39: [id number] present 00 Gait/Locomo gait PT/OT: Active Shantel tion deficit Gait/Locom 03-15 [place] problems otion 15:39: [id number] 00 Allergies, Adverse Reactions, Alerts Allergy Name [...] tablet mg tablet Cholecalcif Cholecalcif 2019- Yes [place] Unknown Unknown karely karely 03-15 Tee BRADLEY (Vitamin (Vitamin D3) D3) Lactase Lactase 2019- Yes [place] Unknown Unknown 03-15 Tee BRADLEY acetaminoph acetaminoph 2019- Yes [place] Unknown Unknown en 500 mg en 500 mg 03-15 Tee BRADLEY tablet tablet famotidine famotidine Yes [place] Unknown Unknown 20 mg 20 mg 03-15 Tee BRADLEY tablet tablet predniSONE predniSONE 2019- Yes [place] Unknown Unknown 5 mg tablet 5 mg tablet 03-15 Tee BRADLEY desloratadi desloratadi Yes [place] Unknown Unknown ne 5 mg ne 5 mg 03-15 Tee BRADLEY tablet tablet Senna Plus Senna Plus Yes [place] Unknown Unknown 8.6 mg-50 8.6 mg-50 03-15 Tee RBADLEY mg capsule mg capsule Vitamin Vitamin 2019- Yes [place] Unknown Unknown B-12 500 B-12 500 03-15 Tee BRADLEY mcg tablet mcg tablet PreserVisio PreserVisio Yes [place] Unknown Unknown n AREDS-2 n AREDS-2 03-15 Tee BRADLEY 250 mg-200 250 mg-200 unit-40 unit-40 mg-1 mg mg-1 mg capsule capsule Vital Signs Vital Name Observation Time Observation Value Comments SYSTOLIC mm[Hg] 2019-03-15 18:10:05 160 mm[Hg] mm[Hg] Method: Sit SYSTOLIC mm[Hg] 2019-03-16 18:10:06 150 mm[Hg] mm[Hg] Method: Stand DIASTOLIC mm[Hg] 2019-03-15 18:10:05 60 mm[Hg] mm[Hg] Method: Sit DIASTOLIC mm[Hg] 2019-03-16 18:10:06 80 mm[Hg] mm[Hg] Method: Stand PULSE 2019-03-15 18:10:05 60 /min /min RESP RATE 2019-03-16 18:10:06 17 /min /min TEMP 2019-03-15 18:10:05 98.1 [degF] Procedures This patient has no known procedures. Results This patient has no known results.
--- OUTSIDE RECORDS SUMMARY | 2019-04-26 13:58 | XMS REPORT ---
:1930 Author Organization [facility] Care Team Providers Name Role Phone Unavailable [...] pain d 03-15 10:50:00 (Garret) 10:25: Carl [id number] Respiratory dyspnea Respirator Resolve 2019-03-18 Tania present y d 03-15 10:50:00 (Garret) 10:25: Carl 00 [id number] Respiratory lung sounds Respirator Resolve 2019-03-18 Tania deficit y d 03-15 10:50:00 (Garret) 10:25: [id number] Sensory impaired Sensory Resolve 2019-03-18 Tania hearing d - 10:50:00 (Garret) 10:25: [id number] Integument skin Integument Active Tania integrity 03-15 (Garret) risk 10:25: [id number] Elimination urinary Eliminatio Resolve 2019-03-18 Tania incontinenc n d 03-15 10:50:00 (Garret) e 10:25: [id number] Neuro confusion Neuro/Emot Resolve 2019-03-18 Tania present ion d 03-15 10:50:00 (Garret) 10:25: [id number] Neuro anxiety Neuro/Emot Resolve 2019-03-18 Tania present ion d 03-15 10:50:00 (Garret) 10:25: [id number] Neuro impaired Neuro/Emot Resolve 2019-03-18 Tania decision-ma ion d 03-15 10:50:00 (Garret) shahana 10:25: [id number] Neuro memory Neuro/Emot Resolve 2019-03-18 Tania deficit ion d 03-15 10:50:00 (Garret) needing 10:25: Carl 00 [id number] Activity ADL Activity Resolve 2019-03-18 Tania assistance d 03-15 10:50:00 (Garret) required 10:25: [id number] Activity self-care Activity Resolve 2019-03-18 Tania deficit d 03-15 10:50:00 (Garret) 10:25: [id number] Safety fall risk Safety Resolve 2019-03-18 Tania factor d 03-15 10:50:00 (Garret) present 10:25: [id number] Safety cannot be Safety Resolve 2019-03-18 Tania left alone d 03-15 10:50:00 (Garret) 10:25: [id number] Safety risk for Safety Resolve 2019-03-18 Tania hospitaliza d - 10:50:00 (Garret) tion 10:25: [id number] Medication oral med Meds Resolve 2019-03-18 Tania assistance d 03-15 10:50:00 (Garret) required 10:25: Carl [id number] Musculoskel requires Musculoske Resolve 2019-03-18 Tania etal human letal d 03-15 10:50:00 (Garret) assist to 10:25: Carl leave home [id number] Safety knowledge/s Safety Resolve 2019-03-18 Shantel kill d 03-15 10:50:00 [place] deficit: pt 15:39: [id number] Bed mobility/tr PT/OT: Bed Active Shantel Mobility/Tr ansfer Mobility/T 03-15 [place] ansfer device ransfer 15:39: [id number] present 00 Bed transfer PT/OT: Bed Active Shantel Mobility/Tr deficit: Mobility/T 03-15 [place] ansfer shower/tub ransfer 15:39: [id number] 00 Bed knowledge/s PT/OT: Bed Active Shantel Mobility/Tr kill Mobility/T 03-15 [place] ansfer deficit: pt ransfer 15:39: [id number] 00 Balance/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 coordinator PT/OT: Active Shantel urance rdination Balance/En 03-15 [place] deficit durance 15:39: [id number] 00 Balance/End endurance PT/OT: Active Shantel urance deficit Balance/En 03-15 [place] durance 15:39: [id number] 00 Balance/End knowledge/s PT/OT: Active Shantel urance kill Balance/En 03-15 [place] deficit: pt durance 15:39: [id number] 00 Gait/Locomo gait PT/OT: Active Shantel tion assistive Gait/Locom 03-15 [place] problems device otion 15:39: [id number] present 00 Gait/Locomo gait PT/OT: Active Shantel tion deficit Gait/Locom 03-15 [place] problems otion 15:39: [id number] 00 Gait/Locomo knowledge/s PT/OT: Active Shantel tion kill Gait/Locom 1-27 [place]bar[place] problems deficit: pt otion 15:39: [id number] 00 Safety can be left Safety Resolve 2019-03-18 Ivette mckeon for d 03-18 10:50:00 [place] only short 10:50: periods 00 Safety knowledge/s Safety Unknown Shantel lara 03-18 [place] deficit: pt 13:33: [id number] 00 Safety risk for Safety Unknown Shantel hospitaliza 03-18 [place]bar[place] tion 13:33: [id number] 00 Allergies, Adverse Reactions, Alerts Allergy Name Allergy Status Severity Reaction(s) Onset Inactive Treating Comments Type Date Date Clinician Penicillins Unknown Active Unknown Reaction 2018-02 Interface Unknown 03-25 Sulfa Unknown Active Unknown Reaction 2018-02 Interface (Sulfonamide Unknown 03-25 Antibiotics) codeine Base Active Unknown Reaction 2018-02 Interface Ingredient Unknown 03-25 pravastatin Base Active Unknown Reaction 2018-02 Unknown Ingredient Unknown 06 aspirin Base Active Unknown Reaction 2018-02 Interface Ingredient Unknown 03-25 iodine Unknown Active Unknown Reaction 2018-02 Interface Unknown 2-06 warfarin Base Active Unknown Reaction 2018-02 Interface Ingredient Unknown -06 Blood Unknown Active Unknown Reaction 2018-02 Interface [...] BRADLEY (Vitamin (Vitamin D3) D3) Lactase Lactase Yes [...] Observation Time Observation Value Comments SYSTOLIC mm[Hg] 2019-03-18 18:10:08 140 mm[Hg] mm[Hg] Method: Sit SYSTOLIC mm[Hg] 2019-03-16 18:10:06 150 mm[Hg] mm[Hg] Method: Stand DIASTOLIC mm[Hg] 2019-03-18 18:10:08 60 mm[Hg] mm[Hg] Method: Sit DIASTOLIC mm[Hg] 2019-03-16 18:10:06 80 mm[Hg] mm[Hg] Method: Stand PULSE 2019-03-18 18:10:08 60 /min /min RESP RATE 2019-03-18 18:10:08 18 /min /min TEMP 2019-03-18 18:10:08 97.8 [degF] Procedures This patient has no known procedures. Results This patient has no known results.
--- OUTSIDE RECORDS SUMMARY | 2019-04-26 13:58 | XMS REPORT ---
:1930 Author Organization [facility] Care Team Providers Name Role Phone Unavailable [...] pain d 03-15 10:50:00 (Garret) 10:25: Carl [id number] Respiratory dyspnea Respirator Resolve 2019-03-18 Tania present y d 03-15 10:50:00 (Garret) 10:25: Carl 00 [id number] Respiratory lung sounds Respirator Resolve 2019-03-18 Tania deficit y d 03-15 10:50:00 (Garret) 10:25: [id number] Sensory impaired Sensory Resolve 2019-03-18 Tania hearing d - 10:50:00 (Garret) 10:25: [id number] Integument skin Integument Active Tania integrity 03-15 (Garret) risk 10:25: [id number] Elimination urinary Eliminatio Resolve 2019-03-18 Tania incontinenc n d 03-15 10:50:00 (Garret) e 10:25: [id number] Neuro confusion Neuro/Emot Resolve 2019-03-18 Tania present ion d 03-15 10:50:00 (Garret) 10:25: [id number] Neuro anxiety Neuro/Emot Resolve 2019-03-18 Tania present ion d 03-15 10:50:00 (Garret) 10:25: [id number] Neuro impaired Neuro/Emot Resolve 2019-03-18 Tania decision-ma ion d 03-15 10:50:00 (Garret) shahana 10:25: [id number] Neuro memory Neuro/Emot Resolve 2019-03-18 Tania deficit ion d 03-15 10:50:00 (Garret) needing 10:25: Carl 00 [id number] Activity ADL Activity Resolve 2019-03-18 Tania assistance d 03-15 10:50:00 (Garret) required 10:25: [id number] Activity self-care Activity Resolve 2019-03-18 Tania deficit d 03-15 10:50:00 (Garret) 10:25: [id number] Safety fall risk Safety Resolve 2019-03-18 Tania factor d 03-15 10:50:00 (Garret) present 10:25: [id number] Safety cannot be Safety Resolve 2019-03-18 Tania left alone d 03-15 10:50:00 (Garret) 10:25: [id number] Safety risk for Safety Resolve 2019-03-18 Tania hospitaliza d - 10:50:00 (Garret) tion 10:25: [id number] Medication oral med Meds Resolve 2019-03-18 Tania assistance d 03-15 10:50:00 (Garret) required 10:25: Carl [id number] Musculoskel requires Musculoske Resolve 2019-03-18 Tania etal human letal d 03-15 10:50:00 (Garret) assist to 10:25: Carl leave home [id number] Safety knowledge/s Safety Resolve 2019-03-18 Shantel kill d 03-15 10:50:00 Ibarra deficit: pt 15:39: [id number] Bed mobility/tr PT/OT: Bed Active Shantel Mobility/Tr ansfer Mobility/T 03-15 Ibarra ansfer device ransfer 15:39: [id number] present 00 Bed transfer PT/OT: Bed Active Shantel Mobility/Tr deficit: Mobility/T 03-15 Ibarra ansfer shower/tub ransfer 15:39: [id number] Bed knowledge/s PT/OT: Bed Active Shantel Mobility/Tr kill Mobility/T 03-15 Ibarra ansfer deficit: pt ransfer 15:39: [id number] 00 Balance/End balance/reconciliation coordinator PT/OT: Active Shantel urance rdination Balance/En 03-15 Ibarra deficit durance 15:39: [id number] Balance/End endurance PT/OT: Active Shantel urance deficit Balance/En 03-15 Ibarra durance 15:39: [id number] 00 Balance/End knowledge/s PT/OT: Active Shantel urance kill Balance/En 03-15 Ibarra deficit: pt durance 15:39: [id number] 00 Gait/Locomo gait PT/OT: Active Shantel tion assistive Gait/Locom 03-15 Ibarra problems device otion 15:39: [id number] present 00 Gait/Locomo gait PT/OT: Active Shantel tion deficit Gait/Locom 03-15 Ibarra problems otion 15:39: [id number] Gait/Locomo knowledge/s PT/OT: Active Shantel tion kill Gait/Locom 1-27 Ibarra problems deficit: pt otion 15:39: [id number] 00 Safety can be left Safety Resolve 2019-2019-03-18 Ivette alone for d 03-18 10:50:00 [place] only short 10:50: periods 00 Safety knowledge/s Safety Unknown Shantel kill 03-18 Ibarra deficit: pt 13:33: [id number] Safety risk for Safety Unknown Shantel hospitaliza 03-18 Ibarra tion 13:33: [id number] 00 Safety can be left Safety Active [...] Observation Time Observation Value Comments SYSTOLIC mm[Hg] 2019-03-22 18:10:12 114 mm[Hg] mm[Hg] Method: Sit SYSTOLIC mm[Hg] 2019-03-16 18:10:06 150 mm[Hg] mm[Hg] Method: Stand DIASTOLIC mm[Hg] 2019-03-22 18:10:12 68 mm[Hg] mm[Hg] Method: Sit DIASTOLIC mm[Hg] 2019-03-16 18:10:06 80 mm[Hg] mm[Hg] Method: Stand PULSE 2019-03-22 18:10:12 60 /min /min RESP RATE 2019-03-22 18:10:12 18 /min /min TEMP 2019-03-22 18:10:12 98 [degF] Procedures This patient has no known procedures. Results This patient has no known results.
--- OUTSIDE RECORDS SUMMARY | 2019-04-26 13:58 | XMS REPORT ---
:1930 Author Organization [facility] Care Team Providers Name Role Phone Unavailable [...] pain d 03-15 10:50:00 (Garret) 10:25: Carl [id number] Respiratory dyspnea Respirator Resolve 2019-03-18 Tania present y d 03-15 10:50:00 (Garret) 10:25: Carl 00 [id number] Respiratory lung sounds Respirator Resolve 2019-03-18 Tania deficit y d 03-15 10:50:00 (Garret) 10:25: [id number] Sensory impaired Sensory Resolve 2019-03-18 Tania hearing d - 10:50:00 (Garret) 10:25: [id number] Integument skin Integument Active Tania integrity 03-15 (Garret) risk 10:25: [id number] Elimination urinary Eliminatio Resolve 2019-03-18 Tania incontinenc n d 03-15 10:50:00 (Garret) e 10:25: [id number] Neuro confusion Neuro/Emot Resolve 2019-03-18 Tania present ion d 03-15 10:50:00 (Garret) 10:25: [id number] Neuro anxiety Neuro/Emot Resolve 2019-03-18 Tania present ion d 03-15 10:50:00 (Garret) 10:25: [id number] Neuro impaired Neuro/Emot Resolve 2019-03-18 Tania decision-ma ion d 03-15 10:50:00 (Garret) shahana 10:25: [id number] Neuro memory Neuro/Emot Resolve 2019-03-18 Tania deficit ion d 03-15 10:50:00 (Garret) needing 10:25: Carl 00 [id number] Activity ADL Activity Resolve 2019-03-18 Tania assistance d 03-15 10:50:00 (Garret) required 10:25: [id number] Activity self-care Activity Resolve 2019-03-18 Tania deficit d 03-15 10:50:00 (Garret) 10:25: [id number] Safety fall risk Safety Resolve 2019-03-18 Tania factor d 03-15 10:50:00 (Garret) present 10:25: [id number] Safety cannot be Safety Resolve 2019-03-18 Tania left alone d 03-15 10:50:00 (Garret) 10:25: [id number] Safety risk for Safety Resolve 2019-03-18 Tania hospitaliza d - 10:50:00 (Garret) tion 10:25: [id number] Medication oral med Meds Resolve 2019-03-18 Tania assistance d 03-15 10:50:00 (Garret) required 10:25: Carl [id number] Musculoskel requires Musculoske Resolve 2019-03-18 Tania etal human letal d 03-15 10:50:00 (Garret) assist to 10:25: Carl leave home [id number] Safety knowledge/s Safety Resolve 2019-03-18 Shantel kill d 03-15 10:50:00 Ibarra deficit: pt 15:39: [id number] Bed mobility/tr PT/OT: Bed Active Shantel Mobility/Tr ansfer Mobility/T 03-15 Ibarra ansfer device ransfer 15:39: [id number] present 00 Bed transfer PT/OT: Bed Active Shantel Mobility/Tr deficit: Mobility/T 03-15 Ibarra ansfer shower/tub ransfer 15:39: [id number] 00 Bed knowledge/s PT/OT: Bed Active Shantel Mobility/Tr kill Mobility/T 03-15 Ibarra ansfer deficit: pt ransfer 15:39: [id number] 00 Balance/End balance/recreation activities coordinator PT/OT: Active Shantel urance rdination Balance/En 03-15 Ibarra deficit durance 15:39: [id number] 00 Balance/End endurance PT/OT: Active Shantel urance deficit Balance/En 03-15 Ibarra durance 15:39: [id number] 00 Balance/End knowledge/s PT/OT: Active Shantel urance kill Balance/En 03-15 Ibarra deficit: pt durance 15:39: [id number] 00 Gait/Locomo gait PT/OT: Active Shantel tion assistive Gait/Locom 03-15 Ibarra problems device otion 15:39: [id number] present 00 Gait/Locomo gait PT/OT: Active Shantel tion deficit Gait/Locom 03-15 Ibarra problems otion 15:39: [id number] 00 Gait/Locomo knowledge/s PT/OT: Active Shantel tion kill Gait/Locom 1-27 Ibarra problems deficit: pt otion 15:39: [id number] 00 Safety can be left Safety Resolve 2019-03-18 Ivette mckeon for d 03-18 10:50:00 [place] only short 10:50: periods 00 Safety knowledge/s Safety Unknown Shantel lara 03-18 Ibarra deficit: pt 13:33: [id number] Safety risk for Safety Unknown Shantel hospitaliza 03-18 Ibarra tion 13:33: [id number] 00 Allergies, Adverse Reactions, Alerts Allergy Name [...] mg tablet mg tablet Cholecalcif Cholecalcif Yes [place] Unknown Unknown karely karely 03-15 Tee BRADLEY [...]
--- OUTSIDE RECORDS SUMMARY | 2019-04-26 13:58 | XMS REPORT ---
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 02-17 Josh Essential Essential Diagnosis Active Ivette (primary) (primary) 02-17 Josh hypertensio hypertensio n n Gastro-esop Gastro-esop Diagnosis Active Ivette hageal hageal 02-17 oJsh reflux reflux disease disease without without esophagitis [...] pain d 03-15 10:50:00 (Garret) 10:25: Carl [id number] Respiratory dyspnea Respirator Resolve 2019-03-18 Tania present y d 03-15 10:50:00 (Garret) 10:25: Carl 00 [id number] Respiratory lung sounds Respirator Resolve 2019-03-18 Tania deficit y d 03-15 10:50:00 (Garret) 10:25: [id number] Sensory impaired Sensory Resolve 2019-03-18 Tania hearing d - 10:50:00 (Garret) 10:25: [id number] Integument skin Integument Active Tania integrity 03-15 (Garret) risk 10:25: [id number] Elimination urinary Eliminatio Resolve 2019-03-18 Tania incontinenc n d 03-15 10:50:00 (Garret) e 10:25: [id number] Neuro confusion Neuro/Emot Resolve 2019-03-18 Tania present ion d 03-15 10:50:00 (Garret) 10:25: [id number] Neuro anxiety Neuro/Emot Resolve 2019-03-18 Tania present ion d 03-15 10:50:00 (Garret) 10:25: [id number] Neuro impaired Neuro/Emot Resolve 2019-03-18 Tania decision-ma ion d 03-15 10:50:00 (Garret) shahana 10:25: [id number] Neuro memory Neuro/Emot Resolve 2019-03-18 Tania deficit ion d 03-15 10:50:00 (Garret) needing 10:25: Carl 00 [id number] Activity ADL Activity Resolve 2019-03-18 Tania assistance d 03-15 10:50:00 (Garret) required 10:25: [id number] Activity self-care Activity Resolve 2019-03-18 Tania deficit d 03-15 10:50:00 (Garret) 10:25: [id number] Safety fall risk Safety Resolve 2019-03-18 Tania factor d 03-15 10:50:00 (Garret) present 10:25: [id number] Safety cannot be Safety Resolve 2019-03-18 Tania left alone d 03-15 10:50:00 (Garret) 10:25: [id number] Safety risk for Safety Resolve 2019-03-18 Tania hospitaliza d - 10:50:00 (Garret) tion 10:25: [id number] Medication oral med Meds Resolve 2019-03-18 Tania assistance d 03-15 10:50:00 (Garret) required 10:25: Carl [id number] Musculoskel requires Musculoske Resolve 2019-03-18 Tania etal human letal d 03-15 10:50:00 (Garret) assist to 10:25: Carl leave home [id number] Safety knowledge/s Safety Resolve 2019-03-18 Shantel kill d 03-15 10:50:00 Ibarra deficit: pt 15:39: [id number] Bed mobility/tr PT/OT: Bed Active Shantel Mobility/Tr ansfer Mobility/T 03-15 Ibarra ansfer device ransfer 15:39: [id number] present 00 Bed transfer PT/OT: Bed Active Shantel Mobility/Tr deficit: Mobility/T 03-15 Ibarra ansfer shower/tub ransfer 15:39: [id number] 00 Bed knowledge/s PT/OT: Bed Active Shantel Mobility/Tr kill Mobility/T 03-15 Ibarra ansfer deficit: pt ransfer 15:39: [id number] 00 Balance/End balance/advertising coordinator PT/OT: Active Shantel urance rdination Balance/En 03-15 Ibarra deficit durance 15:39: [id number] 00 Balance/End endurance PT/OT: Active Shantel urance deficit Balance/En 03-15 Ibarra durance 15:39: [id number] 00 Balance/End knowledge/s PT/OT: Active Shantel urance kill Balance/En 03-15 Ibarra deficit: pt durance 15:39: [id number] 00 Gait/Locomo gait PT/OT: Active Shantel tion assistive Gait/Locom 03-15 Ibarra problems device otion 15:39: [id number] present 00 Gait/Locomo gait PT/OT: Active Shantel tion deficit Gait/Locom 03-15 Ibarra problems otion 15:39: [id number] 00 Gait/Locomo knowledge/s PT/OT: Active Shantel tion kill Gait/Locom 1-27 Ibarra problems deficit: pt otion 15:39: [id number] 00 Safety can be left Safety Resolve 2019-2019-03-18 Ivette alone for d 03-18 10:50:00 [place] only short 10:50: periods 00 Safety knowledge/s Safety Unknown Shantel kill 03-18 Ibarra deficit: pt 13:33: [id number] 00 Safety risk for Safety Unknown Shantel hospitaliza 03-18 Ibarra tion 13:33: [id number] 00 Safety can be left Safety Active [...]
--- OUTSIDE RECORDS SUMMARY | 2019-04-26 13:58 | XMS REPORT ---
:1930 Author Organization [facility] Care Team Providers Name Role Phone Unavailable [...] Active Tania pain 03-15 (Garret) 10:25: Carl [id number] Respiratory dyspnea Respirator Active Tania present y 03-15 (Garret) 10:25: Carl [id number] Respiratory lung sounds Respirator Active Tania deficit y 03-15 (Garret) 10:25: Carl [id number] Sensory impaired Sensory Active Tania hearing 03-15 (Garret) 10:25: [id number] Integument skin Integument Active 2020-0 Tania integrity 03-15 (Garret) risk 10:: [id number] Elimination urinary Eliminatio Active 2020-0 Tania incontinenc n 03-15 (Garret) e 10:25: [id number] Neuro confusion Neuro/Emot Active 2020-0 Tania present ion 03-15 (Garret) 10:: [id number] Neuro anxiety Neuro/Emot Active 2020-0 Tania present ion 03-15 (Garret) 10:: [id number] Neuro impaired Neuro/Emot Active 2020-0 Tania decision-ma ion 03-15 (Garret) shahana 10:: [id number] Neuro memory Neuro/Emot Active 2020-0 Tania deficit ion 03-15 (Garret) needing 10:25: Carl supervision [id number] Activity ADL Activity Active 2019-0 Tania assistance 03-15 (Garret) required 10:: [id number] Activity self-care Activity Active 2020-0 Tania deficit 03-15 (Garret) 10:: [id number] Safety fall risk Safety Active 2020-0 Tania factor 03-15 (Garret) present 10:: [id number] Safety cannot be Safety Active 2020-0 Tania left alone 03-15 (Garret) 10:25: [id number] Safety risk for Safety Active 2020-0 Tania hospitaliza 03-15 (Garret) tion 10:: [id number] Medication oral med Meds Active 2020-0 Tania assistance 03-15 (Garret) required 10:: [id number] Musculoskel requires Musculoske Active 2020-0 Tania etal human letal 03-15 (Garret) assist to 10:: Carl leave home 00 [id number] Bed mobility/tr PT/OT: Bed Active 2020-0 Shantel Mobility/Tr ansfer Mobility/T 03-15 Ibarra ansfer device ransfer 15:39: [id number] present 00 Bed transfer PT/OT: Bed Active 2020-0 Shantel Mobility/Tr deficit: Mobility/T 03-15 Ibarra ansfer shower/tub ransfer 15:39: [id number] 00 Bed knowledge/s PT/OT: Bed Active Shantel Mobility/Tr kill Mobility/T 03-15 Ibarra ansfer deficit: pt ransfer 15:39: [id number] 00 Balance/End balance/cook roast PT/OT: Active Shantel urance rdination Balance/En 03-15 Ibarra deficit durance 15:39: [id number] 00 Balance/End endurance PT/OT: Active Shantel urance deficit Balance/En 03-15 Ibarra durance 15:39: [id number] 00 Balance/End knowledge/s PT/OT: Active Shantel urance kill Balance/En 03-15 Ibarra deficit: pt durance 15:39: [id number] 00 Gait/Locomo gait PT/OT: Active Shantel tion assistive Gait/Locom - Ibarra problems device otion 15:39: [id number] present 00 Gait/Locomo gait PT/OT: Active Shantel tion deficit Gait/Locom 03-15 Ibarra problems otion 15:39: [id number] 00 Allergies, Adverse Reactions, Alerts Allergy Name [...] tablet mg tablet Cholecalcif Cholecalcif 2019- Yes [place] Unknown Unknown karely karely 03-15 Tee BRADLEY (Vitamin (Vitamin D3) D3) Lactase Lactase 2019- Yes [place] Unknown Unknown 03-15 Tee BRADLEY acetaminoph acetaminoph 2019- Yes [employer] [place] Unknown Unknown en 500 mg en 500 mg 03-15 Tee BRADLEY tablet tablet famotidine famotidine Yes [employer] [place] Unknown Unknown 20 mg 20 mg 03-15 Tee BRADLEY tablet tablet predniSONE predniSONE 2019- Yes [place] Unknown Unknown 5 mg tablet 5 mg tablet 03-15 Tee BRADLEY desloratadi desloratadi Yes [place] Unknown Unknown ne 5 mg ne 5 mg 03-15 Tee BRADLEY tablet tablet Senna Plus Senna Plus Yes [employer] [place] Unknown Unknown 8.6 mg-50 8.6 mg-50 03-15 Tee BRADLEY mg capsule mg capsule Vitamin Vitamin 2019- Yes [place] Unknown Unknown B-12 500 B-12 500 03-15 Tee BRADLEY mcg tablet mcg tablet PreserVisio PreserVisio Yes [employer] [place] Unknown Unknown n AREDS-2 n AREDS-2 03-15 [...]
--- OUTSIDE RECORDS SUMMARY | 2019-04-26 13:58 | XMS REPORT ---
:1930 Author Organization [facility] Care Team Providers Name Role Phone Unavailable [...] pain d 03-15 10:50:00 (Garret) 10:25: Carl [id number] Respiratory dyspnea Respirator Resolve 2019-03-18 Tania present y d 03-15 10:50:00 (Garret) 10:25: Carl 00 [id number] Respiratory lung sounds Respirator Resolve 2019-03-18 Tania deficit y d 03-15 10:50:00 (Garret) 10:25: [id number] Sensory impaired Sensory Resolve 2019-03-18 Tania hearing d - 10:50:00 (Garret) 10:25: [id number] Integument skin Integument Active Tania integrity 03-15 (Garret) risk 10:25: [id number] Elimination urinary Eliminatio Resolve 2019-03-18 Tania incontinenc n d 03-15 10:50:00 (Garret) e 10:25: [id number] Neuro confusion Neuro/Emot Resolve 2019-03-18 Tania present ion d 03-15 10:50:00 (Garret) 10:25: [id number] Neuro anxiety Neuro/Emot Resolve 2019-03-18 Tania present ion d 03-15 10:50:00 (Garret) 10:25: [id number] Neuro impaired Neuro/Emot Resolve 2019-03-18 Tania decision-ma ion d 03-15 10:50:00 (Garret) shahana 10:25: [id number] Neuro memory Neuro/Emot Resolve 2019-03-18 Tania deficit ion d 03-15 10:50:00 (Garret) needing 10:25: Carl 00 [id number] Activity ADL Activity Resolve 2019-03-18 Tania assistance d 03-15 10:50:00 (Garret) required 10:25: [id number] Activity self-care Activity Resolve 2019-03-18 Tania deficit d 03-15 10:50:00 (Garret) 10:25: [id number] Safety fall risk Safety Resolve 2019-03-18 Tania factor d 03-15 10:50:00 (Garret) present 10:25: [id number] Safety cannot be Safety Resolve 2019-03-18 Tania left alone d 03-15 10:50:00 (Garret) 10:25: [id number] Safety risk for Safety Resolve 2019-03-18 Tania hospitaliza d - 10:50:00 (Garret) tion 10:25: [id number] Medication oral med Meds Resolve 2019-03-18 Tania assistance d 03-15 10:50:00 (Garret) required 10:25: Carl [id number] Musculoskel requires Musculoske Resolve 2019-03-18 Tania etal human letal d 03-15 10:50:00 (Garret) assist to 10:25: Carl leave home [id number] Safety knowledge/s Safety Resolve 2019-03-18 Shantel kill d 03-15 10:50:00 Ibarra deficit: pt 15:39: [id number] Bed mobility/tr PT/OT: Bed Active Shantel Mobility/Tr ansfer Mobility/T 03-15 Ibarra ansfer device ransfer 15:39: [id number] present 00 Bed transfer PT/OT: Bed Active Shantel Mobility/Tr deficit: Mobility/T 03-15 Ibarra ansfer shower/tub ransfer 15:39: [id number] 00 Bed knowledge/s PT/OT: Bed Active Shantel Mobility/Tr kill Mobility/T 03-15 Ibarra ansfer deficit: pt ransfer 15:39: [id number] 00 Balance/End balance/service coordinator PT/OT: Active Shantel urance rdination Balance/En 03-15 Ibarra deficit durance 15:39: [id number] 00 Balance/End endurance PT/OT: Active Shantel urance deficit Balance/En 03-15 Ibarra durance 15:39: [id number] 00 Balance/End knowledge/s PT/OT: Active Shantel urance kill Balance/En 03-15 Ibarra deficit: pt durance 15:39: [id number] 00 Gait/Locomo gait PT/OT: Active Shantel tion assistive Gait/Locom 03-15 Ibarra problems device otion 15:39: [id number] present 00 Gait/Locomo gait PT/OT: Active Shantel tion deficit Gait/Locom 03-15 Ibarra problems otion 15:39: [id number] 00 Gait/Locomo knowledge/s PT/OT: Active Shantel tion kill Gait/Locom 1-27 Ibarra problems deficit: pt otion 15:39: [id number] 00 Safety can be left Safety Resolve 2019-03-18 Ivette mckeon for d 03-18 10:50:00 [place] only short 10:50: periods 00 Safety knowledge/s Safety Unknown Shantel lara 03-18 Ibarra deficit: pt 13:33: [id number] 00 Safety risk for Safety Unknown Shantel hospitaliza 03-18 Ibarra tion 13:33: [id number] 00 Allergies, Adverse Reactions, Alerts Allergy Name [...]
[2019-04-26 16:18] LABS: Urine Appearance Clear; Urine Bilirubin Negative (Negative); Urine Blood Negative (Negative); Urine Color Yellow; Urine Glucose Negative (Negative); Urine Ketones Negative (Negative); Urine Nitrite Negative (Negative); Urine Protein Negative (Negative); Urine Specific Gravity 1.009 (1.010-1.030); Urine Urobilinogen Negative (Negative)
[2019-04-26 16:21] LABS: Urine Bacteria Absent (Absent); Urine Red Blood Cell Trace(0-2/hpf) (Absent); Urine Squamous Epithelial Cell Present (Absent); Urine White Blood Cell Trace(0-5/hpf) (Absent)
[2019-04-26] MEDS ORDERED: Polyethylene Glycol 3350* 17 GM PACKET PO PRN (19:22)
[2019-04-26] MEDS ORDERED: Famotidine TAB* 20 MG PO SCH (21:00)
[2019-04-26] MEDS ORDERED: amLODIPine TAB* 5 MG PO ONE (21:48)
[2019-04-26] MEDS: Multivitamins/Minera Areds(NF) 1 CAP CAP PO SCH ×2 (22:09→22:10)
--- NOTE | 2019-04-26 22:22 | HP ---
ADMISSION HISTORY AND PHYSICAL: DATE OF ADMISSION: 04/26/19 PRIMARY CARE PHYSICIAN: Dr. Sweeney. ADMITTING PHYSICIAN: Dr. Hale * (dictated by Benitez Riddle, HARRIS). CHIEF COMPLAINT: Left-sided weakness. HISTORY OF PRESENT ILLNESS: Ms. Serna is an 88-year-old female with past medical history significant for CVA in 2017, hypertension, hyperlipidemia, GERD , and polymyalgia rheumatica. She is a resident of [place]. It is reported that she was exhibiting significant left-sided weakness, increased confusion and what sounds like aphasia today around noon. She was brought to the emergency department via EMS and by that time her symptoms had improved. Per the ED provider report, states that per EMS, the patient was noted to be leaning to the left and holding herself up with her arm so that she would not fall and was unable to answer basic questions for approximately 15 minutes. The patient does not remember what happened. On arrival, she was alert and oriented x2, NIHSS 0, GCS 15. Since the patient's symptoms had resolved, a porsha jurado was not called while she was in the emergency department. She did have a chest x-ray, which showed no active cardiopulmonary disease. She also had a CT of the brain, which showed no acute intracranial pathology, but chronic small vessel ischemic change. Upon further interview, the patient is alert and oriented to self and partial situation; however, she is pleasantly confused. She does complain of some mild pain to her left hip and lower back. She denies any headache, visual disturbance, chest pain, shortness of breath, fever, chills, nausea, vomiting, diarrhea, difficulty urinating, unusual numbness, tingling, or weakness. She does not remember why she was brought to the emergency department. She states she does remember being with EMS and at times can tell me that she is at the hospital. The patient's daughter was called who states that she does have some baseline confusion; however, it seems to be more so in the last couple months. She has been in and out of different facilities. Daughter does note a recent admission to [facility] in February for what sounds like possible UTI as well as shingles outbreak. Daughter states that the patient had not been feeling well and had an appointment with her urologist for what sounds like urinary retention during a prior hospital [place] [facility] and since the patient was not doing well, the urologist sent them over to the emergency department at [facility]. Daughter states that the patient was there for over 10 days. We will attempt to obtain records from [facility]. Information reviewed with the patient's daughter. Also reviewed MOLST form. Allergies reviewed and it is noted that the patient has an allergy to WARFARIN, ASPIRIN, and BLOOD THINNERS in general. The daughter notes that the patient did try a different blood thinner, she is unsure what it was, whether she has ever tried Plavix in the past or not and the daughter notes what sounds to be an anaphylactic reaction to that. She states that her mother's wishes were to not be on any blood thinners. [facility] was asked to evaluate the patient for admission. PAST MEDICAL HISTORY: 1. CVA in April 2016. 2. Hypertension. 3. Hyperlipidemia. 4. GERD. 5. Polymyalgia rheumatica. 6. Shingles. PAST SURGICAL HISTORY: 1. Appendectomy. 2. Hysterectomy. 3. Bilateral oophorectomy and salpingectomy. 4. Lumbar laminectomy. 5. Rotator cuff repair. 6. Right knee surgery. 7. Left hip closed reduction and percutaneous fixation. HOME MEDICATIONS: 1. Naproxen sodium 220 mg p.o. q.12 hours p.r.n. 2. Magnesium citrate 10 mL p.o. daily. 3. Lactase 3000 units p.o. t.i.d. p.r.n. 4. MiraLAX 17 g p.o. daily p.r.n. 5. Calcium carbonate 1000 mg p.o. t.i.d. p.r.n. 6. Metamucil 3 capsules p.o. daily. 7. Losartan 50 mg p.o. daily. 8. Acetaminophen 1000 mg p.o. b.i.d. 9. Prednisone 7.5 mg p.o. q.a.m. 10. Cholecalciferol 1000 units p.o. daily. 11. Cyanocobalamin 1000 mcg p.o. daily. 12. PreserVision AREDS soft gels 1 gel cap p.o. b.i.d. 13. Famotidine 40 mg p.o. at bedtime. 14. Clarinex 5 mg p.o. daily. 15. Amlodipine 5 mg p.o. daily. ALLERGIES: 1. PENICILLIN. 2. SULFA. 3. CODEINE. 4. PRAVASTATIN. 5. ASPIRIN. 6. IODINE. 7. WARFARIN. 8. BLOOD THINNERS. Again, the other blood thinner that the patient had a reaction to is unknown. FAMILY HISTORY: Brother with colon cancer. Sister with breast cancer and possible ovarian cancer. Brother with lymphoma. Sister with diabetes. Brother with heart disease. The patient is one of 9 children per her daughter' s report. SOCIAL HISTORY: A surrogate decision maker would be her daughter, Desirae Serna, who is her healthcare proxy and power of attorney lawyer. Per daughter, denies any history of tobacco use. Denies any alcohol or illicit drug use. The patient is a resident of [place]. REVIEW OF SYSTEMS: A 10-point review of systems was completed with this patient. Please see HPI for all pertinent positives and negatives. PHYSICAL EXAMINATION CONSTITUTIONAL: The patient is sitting up in bed, in no acute distress. VITAL SIGNS: Temp 97.6, heart rate 84, respiratory rate 17, O2 saturation 94% on room air, blood pressure 157/104. HEENT: PERRLA. No scleral icterus noted. EOMI. LYMPHATICS: No cervical lymphadenopathy. RESPIRATORY: Lung sounds clear throughout bilaterally. Normal respiratory effort. CARDIOVASCULAR: Heart rate regular. S1, S2 present. No murmurs, rubs, or gallops noted. No JVD. No edema. GI: Bowel sounds throughout. Abdomen is soft, nontender. No organomegaly noted. MUSCULOSKELETAL: Range of motion within normal limits to all extremities. Strength 4/5 to all extremities. NEURO: Alert and oriented to self and partial situation. Cranial nerves II through XII grossly intact. No gaze palsy noted. Visual french intact. No facial palsy. No upper extremity or lower extremity drift noted. No limb ataxia. Able to sense light touch to bilateral feet and lower extremities with what she reports is equal sensation. No noticeable aphasia. PSYCH: Responds appropriately with some storytelling, slightly emotional at times, very appreciative of care. SKIN: Appears dry and intact. DIAGNOSTIC STUDIES/LAB DATA: Chest x-ray, impression: States no active cardiopulmonary disease. CT of brain, impression: States no acute intracranial pathology. Chronic small vessel ischemic change. EKG: Sinus rhythm with a rate of 81, T-wave inversions in leads III and V1. No ST elevations or depressions noted. Narrow QRS complexes. LABS: WBC 10.0, RBC 3.91, hemoglobin 13, hematocrit 38, MCV 98, MCH 33, MCHC 34 , RDW 14, platelet count 340, MPV 6.8, absolute neutrophils 8.5. INR 1.00, APTT 30.5. Sodium 134, potassium 3.6, chloride 96, carbon dioxide 30, anion gap 8, BUN 13, creatinine 0.84, estimated GFR 64.0, BUN/creatinine ratio 15.5, glucose 162, lactic acid 2.5, calcium 9.6. Troponin 0.01. Triglycerides 422, cholesterol 249, LDL direct 158, HDL 39.3. Repeat lactic acid at 1717 approximately 4 hours later was 1.9. ASSESSMENT AND PLAN: Ms. Serna is an 88-year-old female with past medical history significant for cerebrovascular accident in April 2016, hypertension, hyperlipidemia, gastroesophageal reflux disease, polymyalgia rheumatica, who presented to the emergency department today with EMS after an episode of left- sided weakness, increased confusion, and aphasia. Her symptoms had resolved by arrival, and her NIHSS was 0. 1. Left-sided weakness with increased confusion and aphasia. These symptoms had resolved by the patient's arrival to the emergency department. She did have a CT of the brain without contrast, which did not show any acute intracranial pathology or abnormality. She does have a history of cerebrovascular accident in 2017. This episode was likely a transient ischemic attack vs exacerbation of baseline dementia. She did have a transthoracic echocardiogram with bubble study in 2017 that stated no patent foramen ovale visualized. Spoke to Dr. Morillo this evening who suggested bilateral carotid Doppler, fasting lipid profile, and transthoracic echocardiogram without bubble. Spoke about the practicality of other testing and whether the patient would be an acceptable candidate for more invasive intervention or whether she or her family would want those interventions. We also spoke about the patient being a candidate for antiplatelet therapy with Plavix as she has an allergy to ASPIRIN. Again, this was talked about with her daughter and the daughter is unsure of the other "blood thinner" agent that the patient had a significant negative reaction to. This was again discussed with the daughter after speaking to neurologist and it sounds as if she would be willing to continue with testing and any other medical interventions deemed necessary and would like to know what her mother's options are for further treatment and can then decide whether they would like to proceed or not. At this time, we will continue with transthoracic echocardiogram without bubble study, obtain fasting lipid profile in the morning, and await results of bilateral carotid Dopplers. Also continue with heart-healthy diet. PT and OT ordered. 2. Hypertension. Last BP 157/104. Her systolic has remained in the mid to high 100s. She is on losartan as well as amlodipine. Considering her clinical situation and age, it is reasonable to allow for mild to moderate elevations in BP however an additional dose of amlodipine 2.5mg has been ordered to hopefully allow for a mild reduction in BP. We will also continue with usual amlodipine and losartan doses. 3. Hyperlipidemia. The patient has allergy to PRAVASTATIN. Daughter states she has also tried another statin in the past that she did not tolerate well. We will get fasting lipid profile in the morning; however, her triglycerides after my arrival were noted to be rather high at 422, total cholesterol 249. Continue heart- healthy diet. It may be reasonable to start her on a triglyceride lowering medication such as a fibrate; however, if this is done, the daughter would like to know before her mother tries any new medications. 4. Gastroesophageal reflux disease. Continue famotidine. 5. Polymyalgia rheumatica. Continue prednisone 7.5 mg p.o. q.a.m. 6. Systemic inflammatory response syndrome. The patient does meet systemic inflammatory response syndrome criteria at times with elevated heart rate on and off and elevated respiratory rate on and off. There is no clinical concern for infection at this time, she does not have an elevated white count for which she has been noted to have elevated white counts in the past. Lactic acid originally was 2.5; however, this may very well have been in relation to tourniquet being left on too long as most recent lactic acid was 1.9. She has no point tenderness noted during exam. Afebrile. UA was unremarkable for infection. Continue to monitor. 7. Hyperglycemia. This may be in relation to her chronic use of oral prednisone. However, it is reasonable to check an A1c. 8. FEN: Continue heart-healthy diet. Will be clear liquids only prior to lipid profile in the morning and then can resume heart-healthy diet again. 9. Code status: DNR/DNI. This was discussed in great detail with the pt's daughter who is her HCP as pt does not appear to have the mental capacity to make important decisions as recent memory not intact. At this time daughter wishes to keep her mother as DNR/DNI but would like to pursue necessary testing but sounds as if she may not be agreeable to new treatments and stated that she may change her mind depending on the results of testing. This has been taken into consideration for further testing and was relayed to neurologist. As of now we will continue with scheduled testing and will alert daughter of recommendations. 10. DVT prophylaxis: TEDs q. shift. The patient's daughter requests no blood thinners as the patient has had significant reactions in the past, both to known anticoagulation and DVT prophylaxis doses in the hospital setting. Consults: Dr. Morillo with Neurology. TIME SPENT: Approximately 90 minutes was spent on this admission with approximately 30 minutes of that being face to face with the patient and another 30+ minutes of that was spent on the phone with the patient's daughter reviewing past medical history as well as reviewing MOLST form and answering questions and concerns from the patient's daughter. This case has been reviewed by my attending physician, Dr. Hale, and she agrees with this plan. BENITEZ RIDDLE NP [id number]/CPS #: [id number] ERVIN
[2019-04-27 06:21] LABS: ABS Basophils 0.1 10^3/ul (0-0.2); ABS Eosinophils 0.1 10^3/ul (0-0.6); ABS Monocytes 0.6 10^3/ul (0-0.8); ABS Neutrophils 5.3 10^3/ul (1.5-7.7); Eosinophil % 1.2 %; Hematocrit 37 % (35-47); Hemoglobin 12.6 g/dL (12.0-16.0); Lymphocyte % 33.4 %; Mean Corpuscular HGB Conc 34 g/dL (31-36); Mean Corpuscular Hemoglobin 33 pg (27-31); Mean Corpuscular Volume 97 fL (80-97); Mean Platelet Volume 6.4 fL (7.4-10.4); Nucleated Red Blood Cells % 0.1; Platelet Count 344 10^3/uL (150-450); Red Blood Count 3.79 10^6 /uL (3.70-4.87); Red Cell Distribution Width 13 % (10-15)
[2019-04-27 06:42] LABS: Calcium 8.8 mg/dL (8.6-10.3); EGFR African American 107.9 (>60); EGFR Non-African American 89.2 (>60); Potassium 3.2 mmol/L (3.5-5.0)
[2019-04-27] MEDS ORDERED: Cholecalciferol TAB* 1000 UNITS PO SCH (09:00)
[2019-04-27] MEDS ORDERED: Cyanocobalamin TAB* 500 MCG PO SCH (09:00)
[2019-04-27] MEDS ORDERED: amLODIPine TAB* 5 MG PO SCH (09:00)
[2019-04-27] MEDS ORDERED: Losartan TAB* 25 MG PO SCH (09:00)
--- NOTE | 2019-04-27 09:34 | ECHO ---
*[facility]* [place] [address] Fax #: [phone] Transthoracic Echocardiogram Patient: Sebastian Serna : 1930 Study Date: 04/27/2019 Age: 88 Gender: F HR: 79 bpm Height: 62 in /157.5 cm BSA: 1.57 m^2 Weight: 123.7 lb /56.2 kg BMI: 22.7 kg/m^2 *Inspector Filter Tip: * Saira Parikh RDCS RN *Referring Physician: * Cat Mahan *Reading Physician: * Austyn Rosenbaum MD Indications: TIA. History: Cerebrovascular accident. Rheumatoid arthritis. Polymyalgia. Risk factors: Hypertension. Dyslipidemia. Conclusions Summary: - Left ventricle: The cavity size is moderately reduced. Wall thickness is moderately increased. The estimated ejection fraction is 60-65%. Wall motion is normal; there are no regional wall motion abnormalities. - Right ventricle: Systolic function is normal. - Atrial septum: No defect or patent foramen ovale is identified by color flow Doppler. A bubble study on a previous exam was negative. - Mitral valve: There is trace to mild regurgitation. - Aortic valve: There is no evidence of stenosis. - Tricuspid valve: There is mild regurgitation. - Pericardium, extracardiac: A prominent pericardial fat pad is present. - Pulmonary arteries: Systolic pressure is mildly increased, estimated to be 42 mm Hg. - Compared to study of 04/11/16, there is no change. Study data: Transthoracic echocardiogram. Procedure: Transthoracic echocardiography was performed. Image quality was fair. Complete 2D, spectral Doppler, and color flow Doppler. Location: Bedside. Patient status: Observation. Patient room number: 436. Rhythm: Normal sinus rhythm with PACs and occasional PVCs. Findings Left ventricle: The cavity size is moderately reduced. Wall thickness is moderately increased. The estimated ejection fraction is 60-65%. Wall motion is normal; there are no regional wall motion abnormalities. There is no consistent Doppler evidence of clinically significant diastolic dysfunction. Right ventricle: The cavity size is normal. Systolic function is normal. Left atrium: The atrium is normal in size. Right atrium: The atrium is normal in size. Atrial septum: No defect or patent foramen ovale is identified by color flow Doppler. A bubble study on a previous exam was negative. Mitral valve: The mitral valve annulus appears mildly calcified. The leaflets are mildly thickened. There is no evidence of stenosis. There is trace to mild regurgitation. Aortic valve: The annulus is mildly calcified. The valve is trileaflet. The leaflets are mildly thickened. There is no evidence of stenosis. There is no significant regurgitation. Tricuspid valve: The leaflets are normal thickness. There is no evidence of stenosis. There is mild regurgitation. Pulmonic valve: The leaflets are normal thickness. There is no evidence of stenosis. There is mild to moderate regurgitation. Aorta: Aortic root: The aortic root is not dilated. Ascending aorta: The ascending aorta is not dilated. Aortic arch: The aortic arch is not dilated. Pericardium: A prominent pericardial fat pad is present. There is no pericardial effusion. Pulmonary arteries: The main pulmonary artery is normal-sized. Systolic pressure is mildly increased, estimated to be 42 mm Hg. Systemic veins: Inferior vena cava: Not well visualized. Measurements Left ventricle Value Ref Aortic valve Value Ref CAMMIE, LAX (L) 2.7 cm 3.8 - Peak v, S 1.4 m/sec ----- 5.2 VTI, S 28.6 cm ----- ESD, LAX (L) 1.7 cm 2.2 - Mean grad, S 4.0 mm Hg ----- 3.5 Peak grad, S 8.0 mm Hg ----- FS, LAX 35 % 27 - 45 LVOT/AV, VTI ratio 0.92 ----- PW, ED (H) 1.3 cm 0.6 - 0.9 Mitral valve Value Ref IVS/PW, ED 1.04 -------- Peak E 0.51 m/sec ----- E', lat ian, TDI (L) 6.0 cm/sec >=10.0 Peak A 1.1 m/sec --- -- E/e', lat ian, TDI 8 -------- Decel time 388 ms ----- E', med ian, TDI (L) 4.0 cm/sec >=7.0 Peak E/A ratio 0.46 --- -- E/e', med ian, TDI 13 -------- E', avg, TDI 5.0 cm/sec -------- Pulmonic valve Value Ref E/e', avg, TDI 10 <=14 Peak v, S 0.61 m/sec --- -- Peak grad, S 1.5 mm Hg ----- LVOT Value Ref Peak briana, S 1 m/sec -------- Tricuspid valve Value Ref VTI, S 26.2 cm -------- TR peak v (H) 2.9 m/sec <=2.8 Peak grad, S 4 mm Hg -------- Peak RV-RA grad, S 34 mm Hg ----- Mean grad, S 3 mm Hg -------- Aortic root Value Ref Ventricular septum Value Ref Root diam 2.7 cm <3.8 IVS, ED (H) 1.4 cm 0.6 - 0.9 Ascending aorta Value Ref AAo AP diam, S 2.7 cm ----- Right ventricle Value Ref CAMMIE, LAX 2.4 cm -------- Aortic arch Value Ref CAMMIE minor ax, A4C 2.7 cm 1.9 - Arch diam 2.2 cm ----- mid 3.5 Pressure, S 42 mm Hg -------- Decending aorta Value Ref Dahiana peak briana 0.49 m/sec ----- Left atrium Value Ref SI dim ES, LAX 3.2 cm -------- Pulmonary artery Value Ref ML dim, A4C 3.7 cm -------- Pressure, S 42.0 mm Hg ----- SI dim, A4C 5.4 cm -------- Vol, ES, 2-p 45 ml -------- Vol/bsa, ES, 2-p 28 ml/m^2 16 - 34 Right atrium Value Ref ML dim, ES, A4C 3.5 cm 2.6 - 4.4 SI dim, ES, A4C 5.2 cm 3.4 - 5.3 Estimated RAP 8 mm Hg -------- Legend: (L) and (H) brittany values outside specified reference range. Prepared and electronically signed by Austyn Rosenbaum MD 04/27/2019 09:34
[2019-04-27] MEDS: Multivitamins/Minera Areds(NF) 1 CAP CAP PO SCH (10:01)
[2019-04-27 13:30] VITALS: BP 144/57
[2019-04-27] MEDS ORDERED: Potassium Chlor TAB* 20 MEQ TAB.ER PO ONE ×2 (16:50→17:04)
--- NOTE | 2019-04-27 22:45 | CONS ---
CONTINUATION ADDENDUM NOW INCLUDED ON THIS REPORT CONSULTATION REPORT: DATE OF CONSULT: 04/27/19 PATIENT OF: Dr. Sweeney and Cat Mahan NP. HISTORY: This is an 88-year-old woman who I am asked to consult on for a possible TIA. Yesterday at [place], she had significant left-sided weakness and increased confusion and possibly difficulty word finding. There was no fall , and according to EMS, she was found leaning to the left and holding herself up on the arm and was unable to answer basic questions and this lasted about 15 minutes. When she arrived here, she had an NIH stroke scale of 0 and had no further symptoms. She denied any headache or visual disturbance, numbness or weakness, and of note, she has baseline dementia and continued to have confusion. PAST MEDICAL HISTORY: She has had a stroke in April 2016, hypertension, hyperlipidemia, GERD, polymyalgia rheumatica, shingles. PAST SURGICAL HISTORY: She is status post appendectomy, hysterectomy, bilateral oophorectomy and salpingectomy, lumbar laminectomy, rotator cuff repair, right knee surgery, left hip closed reduction. MEDICATIONS: Medicines at home include: 1. Amlodipine 5 mg daily. 2. Clarinex 5 mg daily. 3. Famotidine 40 mg at bedtime. 4. PreserVision soft gel cap 1 b.i.d. 5. Cyanocobalamin 1000 mcg daily. 6. Calciferol 1000 units daily. 7. Prednisone 7.5 q.a.m. 8. Acetaminophen 1000 mg b.i.d. 9. Losartan 50 mg daily. 10. Metamucil daily. 11. Calcium carbonate 1000 mg t.i.d. 12. MiraLAX 17 g p.r.n. 13. Lactase t.i.d. 14. Magnesium citrate 10 mL daily. 15. Naproxen 220 mg q.12 hours daily. ALLERGIES: She is allergic to PENICILLIN, SULFA, CODEINE, PRAVASTATIN, ASPIRIN , IODINE, WARFARIN, and BLOOD THINNERS, although the other blood thinners are not known. FAMILY HISTORY: There is a brother with colon cancer, sister with breast cancer , brother with lymphoma, sister with diabetes, and brother with heart disease. Her daughter, Desirae, CONTINUATION ADDENDUM: ALLERGIES: I have just spoken to daughter who notes that she is allergic to multiple blood thinners, she could not recall whether Plavix is one of them or not but thought it might be and strongly did not want her to be on Plavix. She is also allergic to ASPIRIN, STATINS and did not want to try anything for her cholesterol. MEDICATIONS: Her current medicines include: 1. Prednisone 7.5 q.a.m. 2. Polyethylene glycol 17 g daily. 3. Cozaar 50 mg daily. 4. Pepcid 40 mg at bedtime. 5. B12 1000 units a day. PHYSICAL EXAM: On exam, temperature 97.1, pulse 79, respirations 19, blood pressure 144/57. She was alert. She thought she was at [place] and not at the hospital. She knew her age at one point but then not at another time. She thought she had met me before and had some degree of confabulation. Cranial nerves II through XII were intact, this were not grossly and she was not cooperative. Motor exam revealed normal tone and strength for her age. She had difficulty standing with a walker. She appeared stable and she has short steps. She was stable with 1 person assist. Reflexes trace and equal. Toes were downgoing. Sensation intact to light touch. Chest: Clear. Cardiovascular: Regular rate and rhythm. Abdomen: Soft with positive bowel sounds. She had no temporal artery tenderness. DIAGNOSTIC STUDIES/LAB DATA: Blood work included normal BMP. Hemoglobin A1c 6.0. Lactic acid 2.5 initially. LDL is 135. CBC was normal. Normal INR and PTT. Normal urine. Her carotid Doppler showed no hemodynamically significant stenosis either carotids. Her echo showed no source of clot including with bubble study. Her CT scan showed some small vessel ischemic disease but no acute stroke. IMPRESSION AND PLAN: I discussed with the daughter at length that it is her symptoms are consistent with a chronic dementia as well as a likely superimposed transient ischemic attack. I discussed that typically we would have either on ASPIRIN or Plavix and that my recommendation would be to be sure that she did not have an allergy to Plavix without citing the specific details in terms of history of what she was allergic to other than ASPIRIN and possibly an anticoagulant. She said that she did not want to have her mom on Plavix and the mom did not either and that she did apparently have severe allergic reactions to some of these meds in the past, so we are not putting her on Plavix or any other medication at this point, although my recommendation would be if the Primary has more knowledge and thinks that Plavix is not contraindicated, then the patient should go on Plavix from a neurological point of review but this would need to be negotiated with the patient and her family. The daughter also said that the mother did not tolerate STATINS in the past and did not want treatment for the elevated cholesterol and other treatment options should be discussed with the Primary and the family. Finally, I told the daughter that we would be checking the sed rate, which if it was high with a history of PMR, she could have temporal arteritis and her treatment might change. The daughter knew about temporal arteritis and said that she absolutely did not want the sed rate to be checked because she did not want her prednisone to be changed because this could lead to side effects some of which she has had in the past. I offered to call Dr. David, but the daughter did not want me to call Dr. David and I said I did not need to speak to him directly. I am recommending that the discharge summary be faxed to Dr. David's office and then his office be called to make sure that he receives that. The daughter said she was going to call Dr. David in the next day or two. I discussed with the daughter that the concern is if it was temporal arteritis associated with the transient ischemic attack, that there might be a bigger stroke and she was aware of this and strongly did not want to pursue given past problems the mom had with steroids and wanted Dr. David to direct therapy because the daughter was concerned that in the past other people other than Dr. David had been involved and had made things worse. [id number]/CPS #: [id number]/CPS #: [id number] ERVIN
--- NOTE | 2019-04-27 22:53 | CONS ---
CONSULTATION REPORT: ADDENDUM: I have just spoken to daughter who notes that she is allergic to multiple blood thinners, she could not recall whether Plavix is one of them or not but thought it might be and strongly did not want her to be on Plavix. She is also allergic to ASPIRIN, STATINS and did not want to try anything for her cholesterol. MEDICATIONS: Her current medicines include: 1. Prednisone 7.5 q.a.m. 2. Polyethylene glycol 17 g daily. 3. Cozaar 50 mg daily. 4. Pepcid 40 mg at bedtime. 5. B12 1000 units a day. PHYSICAL EXAM: On exam, temperature 97.1, pulse 79, respirations 19, blood pressure 144/57. She was alert. She thought she was at [place] and not at the hospital. She knew her age at one point but then not at another time. She thought she had met me before and had some degree of confabulation. Cranial nerves II through XII were intact, this were not grossly and she was not cooperative. Motor exam revealed normal tone and strength for her age. She had difficulty standing with a walker. She appeared stable and she has short steps. She was stable with 1 person assist. Reflexes trace and equal. Toes were downgoing. Sensation intact to light touch. Chest: Clear. Cardiovascular: Regular rate and rhythm. Abdomen: Soft with positive bowel sounds. She had no temporal artery tenderness. DIAGNOSTIC STUDIES/LAB DATA: Blood work included normal BMP. Hemoglobin A1c 6.0. Lactic acid 2.5 initially. LDL is 135. CBC was normal. Normal INR and PTT. Normal urine. Her carotid Doppler showed no hemodynamically significant stenosis either carotids. Her echo showed no source of clot including with bubble study. Her CT scan showed some small vessel ischemic disease but no acute stroke. IMPRESSION AND PLAN: I discussed with the daughter at length that it is her symptoms are consistent with a chronic dementia as well as a likely superimposed transient ischemic attack. I discussed that typically we would have either on ASPIRIN or Plavix and that my recommendation would be to be sure that she did not have an allergy to Plavix without citing the specific details in terms of history of what she was allergic to other than ASPIRIN and possibly an anticoagulant. She said that she did not want to have her mom on Plavix and the mom did not either and that she did apparently have severe allergic reactions to some of these meds in the past, so we are not putting her on Plavix or any other medication at this point, although my recommendation would be if the Primary has more knowledge and thinks that Plavix is not contraindicated, then the patient should go on Plavix from a neurological point of review but this would need to be negotiated with the patient and her family. The daughter also said that the mother did not tolerate STATINS in the past and did not want treatment for the elevated cholesterol and other treatment options should be discussed with the Primary and the family. Finally, I told the daughter that we would be checking the sed rate, which if it was high with a history of PMR, she could have temporal arteritis and her treatment might change. The daughter knew about temporal arteritis and said that she absolutely did not want the sed rate to be checked because she did not want her prednisone to be changed because this could lead to side effects some of which she has had in the past. I offered to call Dr. David, but the daughter did not want me to call Dr. David and I said I did not need to speak to him directly. I am recommending that the discharge summary be faxed to Dr. David's office and then his office be called to make sure that he receives that. The daughter said she was going to call Dr. David in the next day or two. I discussed with the daughter that the concern is if it was temporal arteritis associated with the transient ischemic attack, that there might be a bigger stroke and she was aware of this and strongly did not want to pursue given past problems the mom had with steroids and wanted Dr. David to direct therapy because the daughter was concerned that in the past other people other than Dr. David had been involved and had made things worse. [id number]/[facility] #: [id number] ERVIN
--- NOTE | 2019-04-28 15:42 | DS ---
CC: Dr. David* DATE OF ADMISSION: 04/26/2019. DATE OF DISCHARGE: 04/27/2019. ATTENDING PHYSICIAN: Dr. Hale* (dictated by Benitez Riddle NP). PRIMARY CARE PHYSICIAN: Please CC: Dr. David. CONSULTING PHYSICIAN: Dr. Morillo with Neurology. PRIMARY DIAGNOSIS: Left-sided weakness with increased confusion and aphasia. SECONDARY DIAGNOSES: 1. Hypertension. 2. History of CVA 3. Hyperlipidemia. 4. Polymyalgia rheumatica. HISTORY OF PRESENT ILLNESS/HOSPITAL COURSE: Ms. Serna is an 88-year-old female with a past medical history significant for CVA, hypertension, hyperlipidemia, and polymyalgia rheumatica. She lives at [place]. It was reported that she all of a sudden started having significant left-sided weakness with a period of increased confusion and aphasia. She was sent to [facility] ED via EMS. By the time she arrived to the emergency department, it was noted per ED provider report that the patient no longer had any neurologic symptoms, other than what appears to be a baseline dementia. Since they symptoms had resolved by the time she arrived in the emergency department, a code rhiannon was not called. Her NIHSS was 0, GCS was 15. The patient did not remember the incident. Today, she was found sitting up in her chair in no acute distress, alert and oriented to self and partial situations. Remote memory appears intact. Denies any headaches, acute visual disturbances, chest pain, shortness of breath, nausea, vomiting, diarrhea, fever or chills, difficulty urinating, unusual numbness or tingling, weakness. She states that she does have some arthritic pain to her wrists, elbows, shoulders, and hips. Her daughter, Desirae , was contacted last night as well as today. She is her healthcare proxy and power of ip technology transactions attorney. Per her requests, she was okay with having further studies done, such as a carotid Doppler and TTE; however, it sounds that she does not want any further imaging or that she would not want any invasive procedures to be done to her mother. She also did not want any new medications started without her approval. She does note that her mother had serious adverse reactions in the past to statins and blood thinners. Her answers were very vague as to what prior blood thinners her mother had been on; however, she notes that she does not want her on any new medications at this time but did approve a potassium supplement X1 prior to discharge. She states that her mother gets very confused and does not do well when new medications are added into her regimen. Dr. Morillo did speak to the daughter as well, see his note. I reviewed with Dr. Hale the patient's current clinical situation, as well as reviewing this with Dr. Mroillo and it was deemed that the patient was safe for discharge back to [place] this evening. STUDIES: 1. EKG showed sinus rhythm, no significant ST elevations or depressions, does have inverted T's in leads 3 and V1. Rate of 81 beats per minute. 2. Chest x-ray: Impression states no active cardiopulmonary disease. 3. TTE: Conclusion summary states: Left ventricle: The cavity size is moderately reduced. Wall thickness is moderately increased. The estimated ejection fraction is 60 to 65 percent. Wall motion is normal. There are no regional wall motion abnormalities. Right ventricle: Systolic function is normal. Atrial septum: No defect or patent foramen ovale is identified by color flow Doppler. A bubble study on a previous exam was negative. Mitral valve: There is trace to mild regurgitation. Aortic valve: There is no evidence of stenosis. Tricuspid valve: There is mild regurgitation. Pericardium, extracardiac: A prominent pericardial fat pad is present. Pulmonary arteries: Systolic pressure is mildly increased, estimated to be 42 mmHg. Compared to a study from 04/11/2016, there is no change. 4. Carotid Doppler study: Impression: Atheromatous disease. No hemodynamically significant stenosis of the right internal carotid artery by flow velocity measurements. This corresponds to a luminal diameter of less than 50 percent stenosis by NASCET criteria. No hemodynamically significant stenosis of the left internal carotid artery by flow velocity measurements. This corresponds to a luminal diameter of less than 50 percent stenosis by NASCET criteria. PERTINENT LABORATORY DATA: This morning, potassium is 3.2, hemoglobin A1c is 6.0, triglycerides 296, cholesterol 232, LDL 135, HDL 38.0. UA was unremarkable for infection. REVIEW OF SYSTEMS: A ten point review of systems was completed with this patient. Please see HPI for all pertinent positives and negatives. PHYSICAL EXAMINATION: Constitutional: The patient is sitting up in a chair, in no acute distress. Last Vital Signs: Temp 97.1, heart rate 79, respiratory rate 19, O2 saturation 97 percent on room air, blood pressure 144/57. HEENT: PERRL. No scleral icterus noted. Cardiovascular: Heart irregular. S1, S2 present. No murmurs, rubs, or gallops noted. Extremities: No edema. Pedal pulses present, 2+ bilaterally. Respiratory: Lung sounds clear throughout bilaterally. Normal respiratory effort. GI: Normoactive bowel sounds throughout. Abdomen: Soft and nontender to palpation. Musculoskeletal: Strength 4 out of 5 to all extremities. Range of motion within normal limits. Skin: Appears dry and intact. Neuro: Alert and oriented to self and partial situation. Remote memory appears intact. Recent memory does not. She is unsure where she is and has no idea why she came to the hospital. Cranial nerves II through XII grossly intact. Able to answer questions, but then will start with storytelling. Does appear to get mildly agitated at times with continued question asking. DISCHARGE PLAN: 1. Diet is heart healthy diet, low in sugars and unhealthy fats. 2. No equipment necessary for discharge to [place]. 3. Continue with usual activity level as tolerated. 4. Left-sided weakness with increased confusion and aphasia. Very likely due to TIA; however, further imaging such as MRI not necessary at this time per Neurology. Her recommendations from Neurology: It would be reasonable to start the patient on a statin and Plavix; however, the patient declined this, although she is fairly confused about the situation and the patient's daughter, who is her healthcare proxy and power of ip technology transactions attorney, does not want her to be on any sort of blood thinner, whether an anticoagulant or antiplatelet agent and does not want her to be on a statin as she had a prior adverse reaction to Pravastatin. Daughter declined wanting any other information about other agents that may help to decrease cholesterol levels beside statin therapy. At this time, there is no need to follow- up with Neurology. She can follow-up with her PCP in the next one to two weeks. 5. History of CVA. Again, there is not a concern for acute CVA with this hospital admission. Again, she can follow-up with her primary care in the next week or two. Will not be adding statin therapy or Plavix as mentioned above. 6. Hypertension. The patient's blood pressures have been elevated at times. Will continue on her usual blood pressure medication, Amlodipine and Losartan. Again, can follow-up with PCP in one to two weeks. 7. Hyperlipidemia. Again please see above. Will not be starting statin therapy or any other new medications at this time per request of daughter. 8. Polymyalgia rheumatica. The patient sees Dr. David in relation to this diagnosis. She has been on Prednisone 7.5 mg per her records from [place] , she is supposed to take for the remainder of this month. It was recommended by Dr. Morillo that she have an ESR drawn while here in the hospital; however, the patient's daughter declined having this drawn while here, worried that it would disrupt her usual care and was worried that medications may be rearranged at discharge. The daughter stated that she will have her mother follow-up with Dr. David. There was a concern noted by Dr. Morillo that her PMR could potentially be associated with giant cell arteritis and in relation to her probable TIA, this could be a concern. Again, the patient's daughter declined having an ESR drawn, stated she understood why Dr. Morillo wanted this drawn. This concern was also reviewed by myself with Dr. Hale and it was concluded that there is not a significant concern for giant cell arteritis with this patient at this time. Again, the patient can follow-up with Dr. David within a week or so after discharge. 9. Return precautions: Call 911 with any new stroke-like symptoms, any new chest pain or unusual shortness of breath. All other non-immediate concerns can be deferred to her PCP. MEDICATIONS AT DISCHARGE: Will be continuing her usual medications at discharge. Will not be started on anything new. 1. Acetaminophen 1,000 mg p.o. b.i.d. 2. Amlodipine 5 mg p.o. daily. 3. Calcium Carbonate 1,000 mg p.o. t.i.d. prn. 4. Cholecalciferol 1,000 units p.o. daily. 5. Cyanocobalamin 1,000 mcg p.o. daily. 6. Clarinex 5 mg p.o. daily. 7. Famotidine 40 mg p.o. at bedtime. 8. Lactase 3,000 units p.o. t.i.d. prn. 9. Losartan 50 mg p.o. daily. 10. Magnesium Citrate 10 ml p.o. daily. 11. Naproxen Sodium 220 mg p.o. q.12 hours prn. 12. MiraLax 17 gm p.o. daily prn. 13. Prednisone 7.5 mg p.o. q.a.m. 14. Metamucil three caps p.o. daily. 15. PreserVision AREDS soft gel one capsule p.o. b.i.d. CONDITION ON DISCHARGE: Stable. DISPOSITION: [place]. TIME SEEN: Approximately 75 minutes were spent on this discharge with about 20 minutes of that being [id number] with the patient for interview, exam, reviewing plan of care and discharge plan, and about another 20 minutes or so of that being on the phone with the patient's daughter again reviewing her wishes, as well as plan of care and discharge plan and follow-up care. This case has been reviewed by my attending physician, Dr. Hale, and she agrees with this plan. BENITEZ RIDDLE NP [id number]/[facility] #: [id number] ERVIN
== END 2019-04-27 18:19 ==
LOC: ED 13:04 → MEDTELE 18:59
PROVIDERS: ADMIT Nurse Practitioner Family; ATTEND Internal Medicine
DX: R53.1 Weakness (principal); R41.0 Disorientation, unspecified; R47.01 Aphasia; I10 Essential (primary) hypertension; E78.5 Hyperlipidemia, unspecified; M35.3 Polymyalgia rheumatica; B02.9 Zoster without complications; K21.9 Gastro-esophageal reflux disease without esophagitis; R94.31 Abnormal electrocardiogram [ECG] [EKG]; Z86.73 Personal history of transient ischemic attack (TIA), and cerebral infarction without residual deficits; Z79.899 Other long term (current) drug therapy; Z88.0 Allergy status to penicillin; Z88.2 Allergy status to sulfonamides; Z88.4 Allergy status to anesthetic agent; Z66 Do not resuscitate
CPT/HCPCS: 36415; 70450; 71046; 80048; 80053; 80061; 81003; 81015; 83036; 83605; 83721; 84484; 85025; 85610; 85730; 86850; 86900; 86901; 87086; 87641; 93005; 93306; 93880; 99285; A9270-GY; G0378; J7512

== ENCOUNTER 2019-04-28 12:00 | Emergency (ER) | payer MEDICARE, OTHER ==
--- NOTE | 2019-04-28 13:57 | UC ---
General HPI - HPI Summary HPI Summary: Here with Daughter - patient lives at [facility]. Patient admitted on 04/25 and discharged last night. Diagnosed with presumed TIA with dementia. Normally ambulates with walker. Emely called daughter this morning saying she had urinary incontinence (which is new), was very tired, difficult to wake and having trouble getting up and ambulating. They called [facility] and daughter rushed over there - vitals and glucose were fine. Daughter thought to take her here instead. Worried emely won't take her back. She seems in and out of but when shes with it she is fine. No falls. She does have constipation. Unknown when her last BM was. Had another incontinent episode in urgent care Patient denies pain, no SOB or chest pain Meds; reviewed - History of Current Complaint Stated Complaint: WEAK, DEHYDRATED Time Seen by Provider: 04/28/19 13:18 - Allergy/Home Medications Allergies/Adverse Reactions: Allergies Allergy/AdvReac Type Severity Reaction Status Date / Time Penicillins Allergy Severe Anaphylatic Verified 04/28/19 13:35 Shock Sulfa (Sulfonamide Allergy Severe Anaphylatic Verified 04/28/19 13:35 Antibiotics) Shock codeine Allergy Mild See Comment Verified 04/28/19 13:35 pravastatin Allergy Muscle Ache Verified 04/28/19 13:35 aspirin AdvReac Unknown Verified 04/28/19 13:35 Reaction Details iodine AdvReac Unknown Verified 04/28/19 13:35 Reaction Details warfarin [From Coumadin] AdvReac Swelling Verified 04/28/19 13:35 Blood Thinners Allergy Unknown Uncoded 04/28/19 13:35 Reaction Details Home Medications: Home Medications Losartan TAB* [Cozaar TAB*] 50 mg PO DAILY tab 04/15/16 [Rx Confirmed 04/26/19] amLODIPine TAB* [Norvasc 5 mg TAB*] 5 mg PO DAILY tab 07/12/16 [Rx Confirmed ] Calcium Carbonate [Tums Ultra] 1,000 mg PO TID PRN 08/03/17 [History Confirmed 04/26/19] Cholecalciferol (Vitamin D3) [Vitamin D3] 1,000 unit PO DAILY 08/03/17 [History Confirmed 04/26/19] Desloratidine (NF) [Clarinex (NF)] 5 mg PO DAILY 08/03/17 [History Confirmed 11/06] Lactase [Dairy Aid] 3,000 unit PO TID PRN 08/03/17 [History Confirmed 04/26/19] Naproxen Sodium [Naproxen 220 mg] 220 mg PO Q12H PRN 08/03/17 [History Confirmed 04/26/19] Psyllium Husk [Metamucil] 3 cap PO DAILY 08/03/17 [History Confirmed 04/26/19] Acetaminophen [Acetaminophen Extra Strength] 1,000 mg PO BID 01/18/19 [History Confirmed 04/26/19] Famotidine TAB* [Pepcid 20 MG TAB*] 40 mg PO BEDTIME 01/18/19 [History Confirmed 04/26/19] Magnesium CITRATE* [Citrate of Magnesia*] 10 ml PO DAILY 01/18/19 [History Confirmed 04/26/19] Polyethylene Glycol 3350* [Miralax (17 GM DOSE RASHEED)] 17 gm PO DAILY PRN [History Confirmed 04/26/19] Vit A/Vit C/Vit E/Zinc/Copper [Preservision Areds Softgel] 1 each PO BID [History Confirmed 04/26/19] Cyanocobalamin TAB* [Vitamin B12 TAB*] 1,000 mcg PO DAILY 04/26/19 [History Confirmed 04/26/19] predniSONE 1 mg TAB [Deltasone 1 MG TAB*] 7.5 mg PO QAM 04/26/19 [History Confirmed 04/26/19] PMH/Surg Hx/FS Hx/Imm Hx Previously Healthy: No Neurological History: TIA, Dementia - Surgical History Surgical History: Yes Surgery Procedure, Year, and Place: ADNOIDS AND TONSILECTOMY;. RIGHT KNEE SURGERY 1985;. APPENDECTOMY,. RIGHT SHOULDER,. TUBAL LIGATION FOLLOWED BY TOTAL HYSTERECTOMY/OOPERECTOMY,. LUMBAR SURGERY, cataract - Family History Known Family History: Positive: Other - Breast CA Family History: Breast CA - Social History Alcohol Use: Rare Substance Use Type: None Smoking Status (MU): Never Smoked Tobacco - Immunization History Most Recent Influenza Vaccination: 12/05 Most Recent Tetanus Shot: OCT 2010 Most Recent Pneumonia Vaccination: 2015 Review of Systems All Other Systems Reviewed And Are Negative: Yes Physical Exam Triage Information Reviewed: Yes Appearance: Other: - elderly frail, no acute distress Vital Signs Reviewed: Yes Eyes: Positive: Conjunctiva Clear ENT: Positive: Normal ENT inspection Respiratory: Positive: Lungs clear, Decreased breath sounds Cardiovascular: Positive: Other: - soft systolic murmur with ectopic beats Abdomen Description: Positive: Nontender, Soft Neurological: Positive: Other: - negative protonator drift, alert and oriented to self and place. Moving all extremities. No focal deficit Course/Dx - Course Course Of Treatment: This is an 88 yr old who was just discharged and now has urinary incontinence and fatigued I suspect she did not sleep well in the hospital and her presentation is mostly related to this Urine culture from 04/25 - no growth. Discussed not straight cathing her again this quickly. Could be TIA vs Seizure d/o - full work up yesterday at [facility]. Nothing further to do at this point. Unable to take ASA or plavix due to concern for anaphylaxis Plan Patient is scheduled to follow up with PCP as scheduled tomorrow Continue bowel regimen Recommend discontinuing losartan and following blood pressures closely Recommend follow up with neurology - Dr. Burton or Dr. Jensen - consider an EEG - Diagnoses Provider Diagnosis: Urinary incontinence, Fatigue Discharge ED - Sign-Out/Discharge Documenting (check all that apply): Patient Departure All imaging exams completed and their final reports reviewed: No Studies - Discharge Plan Condition: Fair Disposition: HOME Referrals: Gm Burton MD [Medical Doctor] - Tee David MD [Primary Care Provider] - Additional Instructions: Patient is scheduled to follow up with PCP as scheduled tomorrow Continue bowel regimen Recommend discontinuing losartan and following blood pressure closely Recommend follow up with neurology - Dr. Burton or Dr. Jensen - consider an EEG Patient back to her baseline, ambulating with walker and taking PO without issue Discussed this could be sleep deprived related - Billing Disposition and Condition Condition: FAIR Disposition: Home
[2019-04-28 14:18] VITALS: BP 119/71
== END 2019-04-28 15:00 | disposition home or self-care (01) ==
LOC: UCEAST 12:00
DX: R53.83 Other fatigue (principal); R32 Unspecified urinary incontinence; F03.90 Unspecified dementia, unspecified severity, without behavioral disturbance, psychotic disturbance, mood disturbance, and anxiety; Z86.73 Personal history of transient ischemic attack (TIA), and cerebral infarction without residual deficits; Z88.8 Allergy status to other drugs, medicaments and biological substances; Z91.09 Other allergy status, other than to drugs and biological substances; Z88.6 Allergy status to analgesic agent; Z88.5 Allergy status to narcotic agent; Z88.2 Allergy status to sulfonamides; Z88.0 Allergy status to penicillin
CPT/HCPCS: 99211; G0463

== ENCOUNTER 2019-12-06 04:32 | Inpatient (IN) ==
[2019-12-06] MEDS ORDERED: NS 0.9% 1000 ml BAG 1,000 ML IV ONE (04:37)
[2019-12-06] MEDS ORDERED: hydrALAZINE 20 mg/ml 1 ML Vial IV IV SLOW PU ONE (05:23)
[2019-12-06 06:14] LABS: Urine Appearance Clear; Urine Bilirubin Negative (Negative); Urine Blood Negative (Negative); Urine Color Straw; Urine Glucose Negative (Negative); Urine Ketones Negative (Negative); Urine Nitrite Negative (Negative); Urine Protein Negative (Negative); Urine Specific Gravity 1.006 (1.010-1.030); Urine Urobilinogen Negative (Negative)
[2019-12-06 06:48] LABS: ABS Eosinophils 0.1 10^3/ul (0-0.6); ABS Lymphocytes 1.3 10^3/ul (1.0-4.8); ABS Monocytes 0.4 10^3/ul (0-0.8); ABS Neutrophils 9.2 10^3/ul (1.5-7.7); Eosinophil % 0.5 %; Hematocrit 40 % (35-47); Hemoglobin 13.4 g/dL (12.0-16.0); Lymphocyte % 11.7 %; Mean Corpuscular HGB Conc 33 g/dL (31-36); Mean Corpuscular Hemoglobin 31 pg (27-31); Mean Corpuscular Volume 93 fL (80-97); Mean Platelet Volume 7.9 fL (7.4-10.4); Platelet Count 277 10^3/uL (150-450); Red Blood Count 4.33 10^6 /uL (3.70-4.87); Red Cell Distribution Width 13 % (10-15); White Blood Count 10.9 10^3/uL (3.5-10.8)
[2019-12-06 07:09] LABS: Urine Bacteria 1+ (Absent); Urine Red Blood Cell Trace(0-2/hpf) (Absent); Urine Squamous Epithelial Cell Present (Absent); Urine White Blood Cell Trace(0-5/hpf) (Absent)
[2019-12-06 07:09] LABS: Activated Partial Thrombo Time 29.5 seconds (26.0-38.0); INR 1.03 (0.82-1.09)
[2019-12-06 07:15] LABS: Troponin I 0.01 ng/mL (<0.03)
[2019-12-06 07:17] LABS: Albumin 4.2 g/dL (3.2-5.2); Albumin/Globulin Ratio 1.3 (1-3); BUN/Creatinine Ratio 18.6 (8-20); Calcium 9.3 mg/dL (8.6-10.3); EGFR African American 61.7 (>60); Globulin 3.3 g/dL (2-4); HDL Cholesterol 42.2 mg/dL; Potassium 3.3 mmol/L (3.5-5.0); Total Bilirubin 0.5 mg/dL (0.2-1.0); Total Protein 7.5 g/dL (6.4-8.9)
[2019-12-06] MEDS ORDERED: Metoprolol Tartrate 5 mg VIAL 5 ml VIAL (1 mg/ml) IV ONE (08:16)
[2019-12-06] MEDS ORDERED: Labetalol IV 200 MG in NS 0.9% 250 ml 160 ML IV SCH (09:00)
[2019-12-06 09:50] LABS: C Reactive Protein 3.3 mg/L (<8.01)
[2019-12-06] MEDS ORDERED: Labetalol IV 5 MG/ML 20 ml VIAL IV PUSH ONE (12:02)
[2019-12-06] MEDS: cefTRIAXone 1 gm/50 mL NS BAG 1 GM/50 ML BAG IVPB SCH (13:07)
[2019-12-06] MEDS: Enoxaparin 40 MG/0.4 ML SYR SUBCUT SCH (13:10)
[2019-12-06] MEDS: KCL 20 MEQ/100 ML IVPREMIX 20 MEQ/100 ML BAG IV SCH ×3 (13:37→20:14)
[2019-12-06] MEDS ORDERED: Labetalol IV 5 MG/ML 20 ml VIAL IV PUSH PRN (14:12)
[2019-12-07] MEDS ORDERED: Labetalol IV 5 MG/ML 20 ml VIAL IV PUSH PRN (04:59)
[2019-12-07 07:34] LABS: ABS Eosinophils 0.2 10^3/ul (0-0.6); ABS Lymphocytes 1.4 10^3/ul (1.0-4.8); ABS Monocytes 0.4 10^3/ul (0-0.8); ABS Neutrophils 6.2 10^3/ul (1.5-7.7); Eosinophil % 2.1 %; Hematocrit 35 % (35-47); Hemoglobin 12.1 g/dL (12.0-16.0); Lymphocyte % 17.6 %; Mean Corpuscular HGB Conc 35 g/dL (31-36); Mean Corpuscular Hemoglobin 32 pg (27-31); Mean Corpuscular Volume 93 fL (80-97); Mean Platelet Volume 8.2 fL (7.4-10.4); Platelet Count 244 10^3/uL (150-450); Red Blood Count 3.78 10^6 /uL (3.70-4.87); Red Cell Distribution Width 13 % (10-15); White Blood Count 8.2 10^3/uL (3.5-10.8)
[2019-12-07 07:48] LABS: Calcium 8.5 mg/dL (8.6-10.3); EGFR African American 76.2 (>60); Potassium 3.6 mmol/L (3.5-5.0)
[2019-12-07] MEDS: Enoxaparin 40 MG/0.4 ML SYR SUBCUT SCH (13:01)
[2019-12-07] MEDS: cefTRIAXone 1 gm/50 mL NS BAG 1 GM/50 ML BAG IVPB SCH (13:02)
[2019-12-08 11:19] VITALS: BP 150/55
[2019-12-08] MEDS: Enoxaparin 40 MG/0.4 ML SYR SUBCUT SCH (12:13)
[2019-12-08] MEDS: cefTRIAXone 1 gm/50 mL NS BAG 1 GM/50 ML BAG IVPB SCH (13:25)
== END 2019-12-08 17:25 | disposition home or self-care (01) | DRG 690 ==
LOC: ED 04:32 → MEDTELE 11:50
PROVIDERS: ADMIT Internal Medicine; ATTEND Student in an Organized Health Care Education/Training Program

== ENCOUNTER 2020-01-16 13:38 | Inpatient (IN) ==
[2020-01-16] MEDS ORDERED: NS 0.9% 1000 ml BAG 1,000 ML IV ONE (13:45)
[2020-01-16 14:06] LABS: ABS Eosinophils 0.1 10^3/ul (0-0.6); ABS Lymphocytes 1.8 10^3/ul (1.0-4.8); ABS Monocytes 0.3 10^3/ul (0-0.8); ABS Neutrophils 3.4 10^3/ul (1.5-7.7); Eosinophil % 2.4 %; Hematocrit 39 % (35-47); Hemoglobin 13.2 g/dL (12.0-16.0); Mean Corpuscular HGB Conc 34 g/dL (31-36); Mean Corpuscular Hemoglobin 31 pg (27-31); Mean Corpuscular Volume 92 fL (80-97); Mean Platelet Volume 7.3 fL (7.4-10.4); Platelet Count 299 10^3/uL (150-450); Red Blood Count 4.21 10^6 /uL (3.70-4.87); Red Cell Distribution Width 13 % (10-15); White Blood Count 5.7 10^3/uL (3.5-10.8)
[2020-01-16] MEDS ORDERED: Labetalol IV 5 MG/ML 20 ml VIAL IV PUSH ONE ×2 (14:18→16:39)
[2020-01-16 14:20] LABS: INR 1.07 (0.82-1.09)
[2020-01-16 14:23] LABS: Albumin 4.2 g/dL (3.2-5.2); Albumin/Globulin Ratio 1.4 (1-3); Calcium 9.1 mg/dL (8.6-10.3); EGFR African American 59.7 (>60); EGFR Non-African American 49.3 (>60); Globulin 3.1 g/dL (2-4); Potassium 3.6 mmol/L (3.5-5.0); Total Bilirubin 0.3 mg/dL (0.2-1.0); Total Protein 7.3 g/dL (6.4-8.9)
[2020-01-16 16:10] LABS: Urine Appearance Cloudy; Urine Bilirubin Negative (Negative); Urine Blood Negative (Negative); Urine Color Yellow; Urine Glucose Negative (Negative); Urine Ketones Negative (Negative); Urine Nitrite Positive (Negative); Urine Protein Negative (Negative); Urine Specific Gravity 1.005 (1.010-1.030); Urine Urobilinogen Negative (Negative)
[2020-01-16 16:13] LABS: Urine Bacteria 1+ (Absent); Urine Red Blood Cell Trace(0-2/hpf) (Absent); Urine Squamous Epithelial Cell Present (Absent); Urine White Blood Cell Trace(0-5/hpf) (Absent)
[2020-01-16] MEDS ORDERED: cefTRIAXone 1 gm/50 mL NS BAG 1 GM/50 ML BAG IV ONE (17:27)
[2020-01-16] MEDS ORDERED: Polyethylene Glycol 3350 17 GM PACKET PO PRN (20:09)
[2020-01-16] MEDS ORDERED: NS 0.9% 1000 ml BAG 1,000 ML IV SCH (20:15)
[2020-01-17] MEDS: Labetalol IV 5 MG/ML 20 ml VIAL IV PUSH PRN ×2 (01:26→20:26)
[2020-01-17] MEDS: Calcium Polycarbophil 625mg TB PO SCH (10:25)
[2020-01-17] MEDS: cefTRIAXone 1 gm/50 mL NS BAG 1 GM/50 ML BAG IVPB SCH (18:00)
[2020-01-17] MEDS ORDERED: Labetalol IV 5 MG/ML 20 ml VIAL IV PUSH ONE (23:58)
[2020-01-18] MEDS: Calcium Polycarbophil 625mg TB PO SCH (08:33)
[2020-01-18] MEDS: cefTRIAXone 1 gm/50 mL NS BAG 1 GM/50 ML BAG IVPB SCH (13:58)
[2020-01-18 14:47] VITALS: BP 150/73
== END 2020-01-18 14:57 | DRG 78 ==
LOC: MEDTELE 13:38 → ED 13:38 → MEDTELE 22:59
PROVIDERS: ADMIT Hospitalist; ATTEND Pediatrics